=== PATIENT | male | born 1965 | race Caucasian/White ===

== ENCOUNTER 2019-07-22 10:57 | Outpatient (CLI) | payer OTHER, SELFPAY ==
--- NOTE | ~2019-07-22 | CT_ITS ---
EXAMINATION: CT abdomen pelvis wo con EXAM DATE: 07/22/2019 11:26 INDICATION: Abdominal pain. TECHNIQUE: Spiral CT of the abdomen and pelvis was performed without contrast. Axial, coronal and sag ittal images were reviewed. The dose-length product (DLP) for this examination was 721.41 mGy-cm. T he exposure was tailored according to patient size (auto mA exposure control), and iterative reconstr uction (ASIR) was used as additional dose reduction technique. There is no prior study for compariso n. FINDINGS: There is 3 mm right superior calyceal stone. No ureteral stones or other nephrolithiasis. T here is a left renal cyst measuring 3 cm. The prostate is unremarkable. The bladder is undistended at time of imaging. The liver, spleen, adrenal glands and pancreas are unremarkable. Gallbladder is unremarkable. No biliary obstruction. There is no retroperitoneal or pelvic lymphadenopathy. The re is mild scattered arteriosclerotic disease. The appendix is normal. The stomach and small bowel are unremarkable. There is expected amount of c olonic stool. There is mild scattered colonic diverticulosis. There is no adjacent inflammatory quiles ge to suggest diverticulitis. The heart is normal in size. There are no pericardial or pleural effus ions. The lung bases are unremarkable. There are no osteoblastic or osteolytic lesions identified. Chronic bilateral L5 spondylolysis without spondylolisthesis. IMPRESSION: 1. Right nephrolithiasis. 2. Mild scattered colonic diverticulosis. 3. No acute intra-abdominal findings. Reviewed, dictated and finalized at location B. OR HRIS ANALYST
--- NOTE | ~2019-07-22 | XR_ITS ---
EXAMINATION: XR abdomen/kub 1V EXAM DATE: 07/22/2019 11:34 INDICATION: Abdominal pain. Right nephrolithiasis. TECHNIQUE: Frontal projection(s) of the abdomen for interpretation. Comparison is made to prior exami nation from 03/19/2016. FINDINGS: There is expected amount of colonic stool and gas. No small bowel dilation, nonobstructiv e bowel gas pattern. Cannot identify the small right nephrolithiasis. There is no organomegaly jessica pected. The bones are unremarkable. There is no free intraperitoneal air. The lung bases are rosalba ar. IMPRESSION: Cannot identify genitourinary calcification(s) seen on CT. Reviewed, dictated and finalized at location B. OMER FACILITIES SUPERVISOR
== END 2019-07-22 10:58 | disposition home or self-care (01) ==
LOC: ANHIMG 11:07
PROVIDERS: PCP Family Medicine; Visit Provider Nurse Practitioner Family
DX: R10.9 Unspecified abdominal pain (principal); N20.0 Calculus of kidney; K57.30 Diverticulosis of large intestine without perforation or abscess without bleeding
CPT/HCPCS: 74018; 74176

== ENCOUNTER 2019-11-08 21:26 | Emergency (ER) | payer OTHER, SELFPAY ==
--- NOTE | ~2019-11-08 | CT_ITS ---
EXAMINATION: CTA chest DATE: 11/09/2019 00:37 INDICATION: Chest pain. TECHNIQUE: Computed tomographic angiography (CTA) of the chest was performed with 100 mL Omnipaque-35 0 intravenous contrast. Automated exposure control and iterative reconstruction technique were employ ed. The dose-length product was 985.92 mGy-cm. Maximum intensity projection 3D-reconstructions of the aorta and other arteries were constructed by the technologist on a separate workstation. COMPARISON: Chest CT 10/02/2007 FINDINGS: There is a chronic 5 mm nodule in right lung middle lobe, likely benign. There is minimal a telectasis in lingula. No pleural effusion. The heart size is normal. No pericardial effusion. There is a small sliding hiatal hernia. There is a 3.2 cm cyst in left kidney. Thoracic aorta is normal in caliber. No aneurysm or dissection. There is mild thoracic spondylosis. There is mild chronic anterio r wedging of T10-T12 vertebral bodies. IMPRESSION: 1. Normal thoracic aorta. 2. Small sliding hiatal hernia. Reviewed, dictated and finalized at location A.
--- NOTE | ~2019-11-08 | XR_ITS ---
EXAMINATION: XR chest 2V EXAM DATE: 11/08/2019 22:07 INDICATION: Mid to left-sided chest pressure for several days. History hypertension. TECHNIQUE: Frontal and lateral projections of the chest obtained and reviewed. Comparison is made to prior examination from 09/02/2017. FINDINGS: The lungs are clear. There are no pleural effusions. The cardiomediastinal silhouette is within normal limits. There is no pneumothorax suspected. The bones and soft tissues are unremarkab le. There is no significant interval change. IMPRESSION: No acute cardiopulmonary findings. Reviewed, dictated and finalized at location A.
[2019-11-08 21:29] VITALS: BP 129/111; PULSE 65; RESP 14; TEMP 36.9; O2SAT 99
[2019-11-08] MEDS: ASPIRIN 81 MG CHEWABLE TABLET 324 MG PO (21:35)
--- NOTE | 2019-11-08 21:35 | ECG_ITS ---
Measurements Intervals [place] Rate: 60 P: 54 AK: 163 QRS: -21 QRSD: 105 T: 41 QT: 357 QTc: 359 Interpretive Statements SINUS RHYTHM DELAYED PRECORDIAL R/S TRANSITION BASELINE WANDER- I, II, AVR, AVL, AVF, V1-V3 BORDERLINE ECG Electronically Signed On 11-09-2019 6:42:47 CDT by Bernardo Stokes D.O.
[2019-11-08 21:48] LABS: Basophils Absolute Auto 0.1 K/mm3 (0.0-0.1); Basophils Percent Auto 0.9 % (0.2-1.2); Eosinophils Absolute Auto 0.3 K/mm3 (0-0.3); Eosinophils Percent Auto 4.8 % (0-4.4); Hematocrit 47.6 % (42.0-52.0); Hemoglobin 15.9 g/dL (14.0-18.0); Immature Granulocyte Absolute 0.02 K/mm3 (0.00-0.031); Immature Granulocyte Percent A 0.3 % (0-0.5); Lymphocytes Percent Auto 39.1 % (18.3-44.2); Mean Corpuscular HGB Conc 33.4 g/dl (32-36); Mean Corpuscular Hemoglobin 30.1 pg (26-34); Mean Platelet Volume 10.8 fl (7.4-10.4); Monocytes Absolute Auto 0.6 K/mm3 (0.1-0.6); Monocytes Percent Auto 8.8 % (2.6-8.5); Neutrophils Absolute Auto 3.2 K/mm3 (1.3-6.7); Neutrophils Percent Auto 46.1 % (45.5-73.1); Platelet Count Result 216 k/mm3 (150-375); Red Blood Count 5.29 M/mm3 (4.6-6.20); Red Cell Distribution Width 13.2 % (11.5-14.5); White Blood Count 6.9 K/mm3 (4.5-10.0)
[2019-11-08 21:56] LABS: INR 0.9; Prothrombin Time 11.6 Seconds (11.1-14.7)
[2019-11-08 21:57] LABS: Partial Thromboplastin Time 30.9 SECONDS (22.3-36.8)
[2019-11-08 21:58] LABS: Blood Urea Nitrogen 20 mg/dL (9-20); Calcium 10.1 mg/dL (8.4-10.2); Carbon Dioxide 29 mmol/L (22-30); Chloride 102 mmol/L (98-107); Estimated Glomerular Filt Rate > 60; Glucose 84 mg/dL (75-110); Potassium 3.5 mmol/L (3.4-5.0); Sodium 138 mmol/L (137-145)
[2019-11-08 22:10] LABS: Troponin I < 0.012 ng/mL (0.000-0.034)
[2019-11-08 23:00] VITALS: BP 139/81; PULSE 61; RESP 15; O2SAT 97
--- NOTE | 2019-11-08 23:41 | ED.CHESTPAIN ---
HPI - Chest Pain General Chief Complaint: Chest Pain Stated Complaint: chest discomfort Time Seen by Provider: 11/08/19 23:08 Source: patient Mode of arrival: ambulatory Limitations: no limitations History of Present Illness HPI narrative: This patient is a 53 year old male with history of hypertension and Multiple sclerosis who presents for evaluation of chest pain. He states he developed midsternal chest heaviness 1 week ago. He states his pain has been interrmittent until today. He described midsternal chest heaviness that has been constant since this morning. His pain radiates to his left arm and in between his shoulder blades. He has been taking aspirin 81 mg daily since his pain has started. He also describes indigestion but he denies nasuea, vomiting or diaphoresis. He thinks his symptoms are worse with eating and they are not worse with exertion. He states he had normal cardiac catheterization MD complaint: chest heaviness Onset (ago): week(s) Timing of current episode: episodic Pain location: substernal Pain radiation: left arm and back Quality: heaviness Related Data Home Medications Medication Instructions Recorded Confirmed glatiramer 20 mg/mL subcutaneous 20 mg SUB-Q DAILY 07/22/19 syringe tamsulosin 0.4 mg capsule 0.4 mg PO DAILY 07/22/19 Allergies Allergy/AdvReac Type Severity Reaction Status Date / Time Quinolones Allergy Mild MUSCLE AND Verified 11/08/19 21:37 TENDON ACHES, DEPRESSION, MOOD CHANGES Review of Systems Review of Systems: All systems reviewed & are unremarkable except as noted in HPI and below Constitutional: Constitutional: Denies chills and Denies fever(s) Cardiovascular: Cardiovascular: Reports chest pain and Reports radiating jaw, neck or arm pain Respiratory: Respiratory: Denies cough and Denies dyspnea Gastrointestinal: Gastrointestinal: Denies abdominal pain, Denies nausea and Denies vomiting Musculoskeletal: Musculoskeletal: Reports back pain PMFSH Past Medical History Medical History (Updated 11/09/19 @ 03:01 by Marta Rojas MD) Hypertension Multiple sclerosis Social History Social History Smoking status: Smoker, status unknown Alcohol intake: never Exam Narrative: Exam Narrative: GENERAL: Well-appearing, well-nourished, and in no acute distress. HEAD: Normocephalic, atraumatic EYES: PERRLA and EOMI, conjunctiva clear without discharge THROAT:Mucous membranes moist, Oropharynx normal without erythema, exudate, peritonsillar swelling or fluctuance NECK: Supple, without lymphadenopathy or mass RESPIRATORY: No respiratory distress, Airway patent, Respirations non-labored, Clear to auscultation without rales, rhonchi or wheeze HEART: Regular rate and rhythm. No murmur heard. Normal peripheral pulses. ABDOMEN: Soft, nontender, nondistended, normal active bowel sounds. No masses. No rebound or guarding, No organomegaly. EXTREMITIES: No edema, normal strength with full range of motion. SKIN: Warm, dry, normal color without rash NEURO: Alert and oriented x3. CN 2-12 grossly intact. No focal deficits. PSYCH: Normal mood and affect. Course Reevaluation(s) Reevaluation #1: I have discussed with patient labs and CT results. Patient has been found to have esophagitis as likely cause. He states his pain has resolved . Date: 11/09/19 Time: 02:56 Vital Signs Vital signs: Vital Signs Temperature 98.4 F 11/08/19 21:29 Pulse Rate 65 11/08/19 21:29 Respiratory Rate 14 11/08/19 21:29 Blood Pressure 129/111 H 11/08/19 21:29 Pulse Oximetry 99 11/08/19 21:29 Temperature 98.4 F 11/08/19 21:29 Pulse Rate 80 11/09/19 03:00 Respiratory Rate 17 11/09/19 03:00 Blood Pressure 128/67 11/09/19 03:00 Pulse Oximetry 97 11/09/19 03:00 MDM - Chest Pain Differential Diagnosis Differential diagnosis: Likely stable angina, unstable angina p
[2019-11-08] MEDS: NITROGLYCERIN SL 0.4 MG TABLET SUBLINGUAL (23:47)
--- NOTE | 2019-11-08 23:47 | PC.NURSE ---
2347 1 0.4 mg sl nitro administered hr 59 bp 139/81 cp 2 2352 hr 66 bp 136/86 1 0.4 mg nitrp sl administered cp 1 2357 hr 59 bp 128/79 pt does not want any more meds. cp 0
[2019-11-09] VITALS: BP 128/76; PULSE 71; RESP 15; O2SAT 95
--- NOTE | 2019-11-09 01:10 | PC.NURSE ---
RN attempted to place splint on pt's arm. pt yelled no no you can't touch my arm it hurts to bad. No one is allowed to touch my arm.
[2019-11-09 01:20] LABS: Troponin I < 0.012 ng/mL (0.000-0.034)
[2019-11-09] MEDS: BELLADONNA ALK/PHENOB ELIX 10 ML, MAG HYDROX/ALUMINUM HYD/SIMETH 30 ML, LIDOCAINE HCL 2... PO (01:59)
[2019-11-09 02:00] VITALS: BP 133/88; PULSE 77; RESP 19; O2SAT 99
[2019-11-09 03:00] VITALS: BP 128/67; PULSE 80; RESP 17; O2SAT 97
== END 2019-11-09 03:00 | disposition home or self-care (01) ==
PROVIDERS: Emergency Provider General Practice; PCP Family Medicine
DX: R07.9 Chest pain, unspecified (principal); K20.9 Esophagitis, unspecified; I10 Essential (primary) hypertension; G35 Multiple sclerosis; Z79.82 Long term (current) use of aspirin; K44.9 Diaphragmatic hernia without obstruction or gangrene
CPT/HCPCS: 36415; 71046; 71275; 80048; 84484; 85025; 85610; 85730; 93005; 99284; A4565; A9270; Q9967

== ENCOUNTER 2021-12-04 11:20 | Outpatient (CLI) | payer OTHER, SELFPAY ==
--- NOTE | ~2021-12-04 | XR_ITS ---
EXAMINATION: XR abdomen/kub 1V INDICATION: Right flank pain TECHNIQUE: Supine views of the abdomen were obtained on 2 radiographs. COMPARISON: 07/22/2019 FINDINGS: A 2.3 cm stone projects in the expected location right proximal ureter between the right L3 and L4 transverse processes. No definite additional urolithiasis is identified. The bowel gas patter n is normal. IMPRESSION: 1. 2.3 cm proximal right ureteral stone. Reviewed, dictated and finalized at location A.
--- NOTE | ~2021-12-04 | CT_ITS ---
EXAMINATION: CT abdomen pelvis wo con DATE: 12/04/2021 11:50 INDICATION: Right flank pain TECHNIQUE: Computed tomography (CT) of the abdomen and pelvis was performed without intravenous contr ast. The dose-length product (DLP) was 1492.42 mGy-cm. Automated exposure control and iterative recon struction technique were employed. COMPARISON: 07/22/2019 FINDINGS: Minimal dependent atelectasis is present in the lung bases. The heart size is normal. A sta ble 4 mm nodule of the right middle lobe likely reflects old granulomatous disease. The liver, spleen , pancreas, gallbladder, and adrenal glands are normal. There is a 1.7 cm stone of the proximal right ureter which causes moderate hydroureteronephrosis. There is a 2 mm nonobstructing stone of the righ t kidney. There is a 3.4 cm cyst left kidney upper pole. No pathologically enlarged abdominal or pelv ic lymph nodes are identified. There is mild chronic circumferential wall thickening of the urinary b ladder. Colonic diverticulosis is present without evidence of diverticulitis. There is mild lumbar sp ondylosis. There is a small fat-containing umbilical hernia. IMPRESSION: 1. 1.7 cm stone of the proximal right ureter causing moderate hydroureteronephrosis. 2. Nonobstructing right nephrolithiasis. 3. Chronic circumferential wall thickening of the urinary bladder which could reflect cystitis or chr onic outlet obstruction. Reviewed, dictated and finalized at location A. IMPRESSION: 1. 1.7 cm stone of the proximal right ureter causing moderate hydroureteronephr osis. 2. Nonobstructing right nephrolithiasis. 3. Chronic circumferential wall thickening of the urinary bladder which could r eflect cystitis or chronic outlet obstruction.
== END 2021-12-04 11:21 | disposition home or self-care (01) ==
PROVIDERS: PCP Family Medicine; Visit Provider Nurse Practitioner Family
DX: R10.9 Unspecified abdominal pain (principal); N20.1 Calculus of ureter; N20.0 Calculus of kidney; R93.41 Abnormal radiologic findings on diagnostic imaging of renal pelvis, ureter, or bladder
CPT/HCPCS: 74018; 74176

== ENCOUNTER 2021-12-07 02:54 | Day surgery (SDC) | payer OTHER, SELFPAY ==
[2021-12-05 15:59] VITALS: BMI 40.5
--- NOTE | 2021-12-05 16:17 | SUR.PREOP ---
Report to the Outpatient Waiting Room, entrance under the green pavilion located off [facility], at time 1000 on date 12/07/21. OR Time: 1200. - You and your visitor will be asked a series of questions to screen for COVID 19 for your protection. - Only one visitor is allowed at this time. - The patient visitor is requested to leave or wait in car when not with patient. - A mask is required within the hospital. Patients may have clear liquids (water, carbonated beverages, clear teas, apple juice) until 3 hours prior to surgery 0900 with a maximum of 20 ounces. - No food from midnight until time of surgery - Infants may have breast milk until 4 hours before surgery, infant formula 6 hours prior to surgery. - Children will be allowed to drink immediately following surgery. If applicable, please bring a bottle or sippy cup to assist with drinking. Juice, water, soda, and popsicles are readily available. For infants on formula, please bring formula the day of surgery. Pacifiers are allowed. Take the following medications with a SIP of water the morning of surgery: metoprolol succinate Medications to discontinue per physician Aleve, Vitamins/Supplements Date to take last dose Per physician- Aleve 3 days- Vitamins/Supplements Please no make-up, nail nigerien, hairspray, perfume, deodorant, or body powder the day of surgery. No jewelry (including any body piercings) or valuables the day of surgery, leave them at home. Please take a shower or bath the night before, or the morning of, surgery with an antibacterial soap. Wear comfortable, loose fitting clothing. Children are encouraged to wear pajamas. - Jewelry must be removed prior to entering the operating room. Rings and piercings that are not removed may be cut off. - The hospital will not accept responsibility for valuables. - Please leave all valuables, including medications, at home the day of surgery. If you are going home after surgery, a licensed courtesy van driver must drive you home. - NO public transportation without another adult. - We recommend that an adult stay with you for 24 hours following discharge. - We also recommend that you do not drive, make important decision, drink alcoholic beverages, or take any drugs that were not prescribed by your health care provider for at least 24 hours after your discharge time. For Pediatric surgeries, we recommend two adults accompany the child home (only one inside the building at this time). Follow any additional instructions given to you from your surgeon. If you or anyone in your household have experienced Covid symptoms in the past week, please notify your surgeon or the nurse liaison at the phone number below for possible testing. Telephone instructions given to ___patient and asked if any additional questions and then verbalized understanding. Patient advised to call surgeon office or pre surgery nurse liaison [phone] if any additional questions.
--- NOTE | ~2021-12-07 | XR_ITS ---
XR abdomen/kub 1V 12/07/2021 10:18 Indication: Right ureteral stone. Preop ESWL. Procedure: KUB Comparison: CT dated 12/04/2021 Findings: There is a large proximal right ureteral stone at the C4 level measuring 2.2 x 1.4 cm. Adela l pattern nonobstructive. No other abnormal calcifications. No acute osseous abnormality. Impression: 1: Large proximal right ureteral stone measuring up to 2.2 cm at the L4 level. Reviewed, dictated and finalized at location A. Impression: 1: Large proximal right ureteral stone measuring up to 2.2 cm at the L4 level.
--- NOTE | 2021-12-07 10:04 | WPDHPUPDATE1 ---
History and Physical Update Update Date/Time: 12/07/21 10:04 History and Physical has been reviewed, including an updated exam of the patient. There are NO changes in the patient's condition. Risks, benefits, and alternatives have been discussed and questions answered. Patient agrees to proceed with procedure. Proceed with cysto, right retrograde pyelogram, right stent placement, lithotripsy of right ureteral calculus
--- NOTE | 2021-12-07 10:30 | ECG_ITS ---
Measurements Intervals [place] Rate: 58 P: 12 DC: 178 QRS: -21 QRSD: 90 T: 12 QT: 380 QTc: 376 Interpretive Statements SINUS BRADYCARDIA BASELINE ARTIFACT- II, III, AVF BORDERLINE ECG Electronically Signed On 12-07-2021 11:59:53 CDT by Bernardo Stokes D.O.
[2021-12-07 10:31] VITALS: BP 152/93; PULSE 64; RESP 20; TEMP 36.5; O2SAT 97
[2021-12-07 10:37] LABS: Appearance Urine Clear (Clear); Bilirubin Urine Negative (Negative); Blood Urine Trace-lysed (Negative); Color Urine Yellow (Yellow); Glucose Urine UA Negative (Negative); Ketones Urine Negative (Negative); Leukocyte Esterase Ur Negative LEU/UL (Negative); Nitrate Urine Negative (Negative); Protein Urine Negative (Negative); Urobilinogen Urine 0.2 mg/dL (<2.0)
[2021-12-07 10:43] LABS: RBC Urine 0-2 /hpf (0-2); WBC Urine 0-3 /hpf
[2021-12-07 10:46] LABS: Add Urine Microscopic? YES
--- NOTE | 2021-12-07 10:46 | WPDANESEPPF ---
Anes - Initial Pre Proc Eval Procedure: Operation Date: 12/07/21 12:00 Proposed Procedures p Right Ureteral Extracorporeal Shock Wave Lithotripsy, - Lenny Jasso MD s Cystoscopy, Right Retrograde Pyelogram, Possible Right Stone Extraction, Possible Right Stent Placement - Lenny Jasso MD Date/Time: 12/07/21 10:46 Surgeon: Lenny Jasso MD Pre Op Diagnosis: right ureteral stone Patient Data Age: 55 Gender: M Height: 1.78 m Weight: 128.1 kg Allergies Allergy/AdvReac Type Severity Reaction Status Date / Time Quinolones Allergy Mild MUSCLE AND Verified 12/05/21 15:57 TENDON ACHES, DEPRESSION, MOOD CHANGES Home Medications Medication Instructions Recorded Confirmed Type metoprolol succinate 50 mg 50 mg PO DAILY 09/06/21 12/05/21 History tablet,extended release 24 hr naproxen sodium 220 mg capsule 220 mg PO BID 09/06/21 12/05/21 History (Aleve) Laboratory Tests 12/07/21 10:23 Urine Color Yellow (Yellow) Urine Appearance Clear (Clear) Urine pH 7.0 (5.0-9.0) Ur Specific [place] 1.020 (1.001-1.035) Urine Protein Negative mg/dL mg/dL (Negative) Urine Glucose (UA) Negative mg/dL mg/dL (Negative) Urine Ketones Negative mg/dL mg/dL (Negative) Ur Blood (Man) Trace-lysed (Negative) Urine Nitrate Negative (Negative) Urine Bilirubin Negative (Negative) Urine Urobilinogen 0.2 mg/dL mg/dL (<2.0) Leukocyte Esterase Rfl Negative ALL/UL ALL/UL (Negative) Patient hx anesthesia problems: none Family hx anesthesia problems: none Results Review: All pre-operative results and documents have been reviewed as part of the pre-operative evaluation. [facility] Past Medical History Medical History BMI greater than 40 History of torn meniscus of left knee Hypertension Multiple sclerosis Screen for colon cancer Screening for lipid disorders Family History Family History Mother Hypertension Family history of diabetes mellitus in first degree relative Grandparent Family history of heart disease in male family member before age 55 Other Family history of malignant neoplasm of uterus Social History Social History Smoking packs per day: 1 Smoking cigarettes per day: 20.0 Years smoked: 20 Smoking pack-years: 20.00 Smoking status: Former smoker Tobacco type: cigarettes Smokeless tobacco user: chewing tobacco Alcohol intake: current Alcohol use details: 2 per month Last use: 2011 Living arrangements: with family Spiritual care concerns: No Anes - Eval Final PreProcedure Day of Procedure 12/07/21 10:46 Patient weight: morbidly obese Heart: regular rate and rhythm Lungs: clear to auscultation Airway: Mallampati scale class II Neurological: alert and oriented Last oral intake: >/= 8 hours ASA classification: III Emergent: no Anesthetic plan: proceed Anesthesia type and monitoring: general LMA and standard monitoring Results Review: All pre-operative results and documents have been reviewed as part of the pre-operative evaluation. Informed Consent: The patient's anesthetic plan and its attendant risks and benefits were discussed with the patient/family/POA. Questions were solicited and answers provided to the satisfaction of the patient/family/POA.
[2021-12-07] MEDS: LACTATED RINGERS 1,000 ML 30 ML IV CONT (10:50)
[2021-12-07 11:16] LABS: INR 0.9; Prothrombin Time 12.2 Seconds (11.1-14.7)
[2021-12-07 11:17] LABS: Partial Thromboplastin Time 33.1 SECONDS (22.3-36.8)
--- NOTE | 2021-12-07 11:26 | SUR.PREOP ---
1100-CARDIOLOGY NOTIFIED PT READY FOR EKG. 1125-CARDIOLOGY RENOTIFIED TO OBTAIN EKG. 1127-CARDIOLOGY HERE TO OBTAIN EKG.
[2021-12-07] MEDS: ceFAZolin 3 GM/D5W 100 ML 100 ML IVPB (11:40)
--- NOTE | 2021-12-07 12:21 | W.PM.PROC2 ---
Procedure Note - Detailed Date of Procedure 12/07/21 Pre-op Diagnosis right ureteral stone Post-op Diagnosis Same Procedure Performed Cystoscopy, right retrograde pyelogram, right ureteral stent placement 4.8 Italian contour, lithotripsy of right ureteral calculus 2 cm Surgeon Lenny Jasso MD Anesthesia General Description of Procedure Patient is taken to the operative suite correctly identified. Once anesthesia was obtained he was prepped and draped the usual sterile fashion. Sixteen Italian flexible scope was inserted into the urethra. No urethral strictures. Prostate has some minimal lateral lobe hypertrophy. Bladder itself has no evidence of tumors. The right ureteral orifice was cannulated with a guidewire. It was slightly difficult to get the wire past the stone. We thus placed a [place] in and were able to manipulate an angled Glidewire past the stone. The [place] catheter was then advanced up into the renal pelvis. Pyelogram was performed. Bentson wire was then placed. 4.8 Italian contour stent was then placed with the proximal end in the renal pelvis and the distal in the bladder. 2% viscous lidocaine was inserted in the patient's urethra. Patient was then repositioned. The stone was localized in both planes. Three thousand shocks were given to the stone. Patient tolerated procedure well without any complications and was taken recovery stable condition. A follow-up in 7-10 days with a KUB. Drains Yes Packing No Pathology None sent Complications No immediate complications Condition Stable Disposition PACU
[2021-12-07 12:38] VITALS: BP 169/104; PULSE 98; RESP 22; TEMP 36.1; O2SAT 96
[2021-12-07 12:50] VITALS: BP 155/97; PULSE 73; RESP 14; O2SAT 99
[2021-12-07 12:59] VITALS: BP 155/94; PULSE 63; RESP 14; O2SAT 92
[2021-12-07 13:05] VITALS: BP 154/97; PULSE 61; RESP 16
[2021-12-07 13:35] VITALS: BP 143/90; PULSE 60; RESP 16
== END 2021-12-07 14:05 | disposition home or self-care (01) ==
PROVIDERS: PCP Family Medicine; Visit Provider Urology
PROC: (CPT 50590; principal; 2021-12-07 12:00)
PROC: (CPT 52352; 2021-12-07 12:00)
DX: N20.1 Calculus of ureter (principal); I10 Essential (primary) hypertension; G35 Multiple sclerosis; F17.220 Nicotine dependence, chewing tobacco, uncomplicated; E66.01 Morbid (severe) obesity due to excess calories; Z68.41 Body mass index [BMI] 40.0-44.9, adult
CPT/HCPCS: 52332; 50590; 36415; 74018; 81001; 85610; 85730; 93005; A9270; C1758; C1769; C2617; J0690; J1100; J2405; J2704; J7030; J7120

== ENCOUNTER 2021-12-19 08:39 | Outpatient (CLI) | payer OTHER, SELFPAY ==
--- NOTE | ~2021-12-19 | XR_ITS ---
XR abdomen/kub 1V DATE: 12/19/2021 08:57 INDICATION: Right flank pain.. TECHNIQUE: AP projection, 2 views COMPARISON: 12/07/2021 KUB FINDINGS: Right internal urinary stent is present in the proximal pigtail overlying the lower pole ri ght kidney, the distal pigtail overlying the right side of the urinary bladder. Approximately 10 x 22 mm calcified calculus is situated adjacent to the stent overlying the right ure ter at the mid to upper L3 level. No visceromegaly is evident. No other significant abnormal calcification is detected. No evidence of bowel obstruction. The lung bases appear clear. Mild degenerative changes of the thoracic and lumbar spine. IMPRESSION: Right internal urinary stent 10 x 22 mm calcified calculus of proximal right ureter Reviewed, dictated and finalized at Location A. Reviewed, dictated and finalized at location A.
== END 2021-12-19 08:40 | disposition home or self-care (01) ==
LOC: ANHIMG 08:41
PROVIDERS: PCP Family Medicine; Visit Provider Nurse Practitioner Family
DX: M47.815 Spondylosis without myelopathy or radiculopathy, thoracolumbar region (principal); R10.9 Unspecified abdominal pain; N20.1 Calculus of ureter
CPT/HCPCS: 74018

== ENCOUNTER 2021-12-25 00:11 | Day surgery (SDC) | payer OTHER, SELFPAY ==
[2021-12-19 12:31] VITALS: BMI 40.9
--- NOTE | 2021-12-19 12:42 | PC.NURSE ---
Report to the Outpatient Waiting Room, entrance under the green pavilion located off [facility], at time 0600 on date 12/25/21. OR Time: 0730. - You and your visitor will be asked a series of questions to screen for COVID 19 for your protection. - Only one visitor is allowed at this time. - The patient visitor is requested to leave or wait in car when not with patient. - A mask is required within the hospital. Patients may have clear liquids (water, carbonated beverages, clear teas, apple juice) until 3 hours prior to surgery with a maximum of 20 ounces. - No food from midnight until time of surgery Take the following medications with a SIP of water the morning of surgery: METOPROLOL Medications to discontinue per physician: KELVIN Date to take last dose: PER DR. FRANCIS Please no make-up, nail latvian, hairspray, perfume, deodorant, or body powder the day of surgery. No jewelry (including any body piercings) or valuables the day of surgery, leave them at home. Please take a shower or bath the night before, or the morning of, surgery with an antibacterial soap. Wear comfortable, loose fitting clothing. - Jewelry must be removed prior to entering the operating room. Rings and piercings that are not removed may be cut off. - The hospital will not accept responsibility for valuables. - Please leave all valuables, including medications, at home the day of surgery. If you are going home after surgery, a licensed transit mixer driver must drive you home. - NO public transportation without another adult. - We recommend that an adult stay with you for 24 hours following discharge. - We also recommend that you do not drive, make important decision, drink alcoholic beverages, or take any drugs that were not prescribed by your health care provider for at least 24 hours after your discharge time. Follow any additional instructions given to you from your surgeon. If you or anyone in your household have experienced Covid symptoms in the past week, please notify your surgeon or the nurse liaison at the phone number below for possible testing. Telephone instructions given to PT - GABBY PENDLETON and asked if any additional questions and then verbalized understanding. Patient advised to call surgeon office or pre surgery nurse liaison [phone] if any additional questions.
--- NOTE | 2021-12-24 14:36 | WPDANESEPPF ---
Anes - Initial Pre Proc Eval Procedure: Operation Date: 12/25/21 07:30 Proposed Procedures p Cystoscopy, Right Ureteroscopy, Right Retrograde Pyelogram, Right Stone Extraction, Right Stent Exchange, Holmium Laser Lithotripsy - Lenny Jasso MD Date/Time: 12/24/21 14:36 Surgeon: Lenny Jasso MD Pre Op Diagnosis: right kidney stones Patient Data Age: 56 Gender: M Height: 1.78 m Weight: 129.5 kg Allergies Allergy/AdvReac Type Severity Reaction Status Date / Time Quinolones Allergy Mild MUSCLE AND Verified 12/25/21 06:37 TENDON ACHES, DEPRESSION, MOOD CHANGES Home Medications Medication Instructions Recorded Confirmed Type metoprolol succinate 50 mg 50 mg PO DAILY 09/06/21 12/25/21 History tablet,extended release 24 hr naproxen sodium 220 mg capsule 220 mg PO BID 09/06/21 12/19/21 History (Aleve) Patient hx anesthesia problems: none Family hx anesthesia problems: none Results Review: All pre-operative results and documents have been reviewed as part of the pre-operative evaluation. [facility] Past Medical History Medical History BMI greater than 40 History of torn meniscus of left knee Hypertension Multiple sclerosis Screen for colon cancer Screening for lipid disorders Family History Family History Mother Hypertension Family history of diabetes mellitus in first degree relative Grandparent Family history of heart disease in male family member before age 55 Other Family history of malignant neoplasm of uterus Social History Social History Smoking packs per day: 1 Smoking cigarettes per day: 20.0 Years smoked: 20 Smoking pack-years: 20.00 Smoking status: Former smoker Tobacco type: cigarettes Smokeless tobacco user: chewing tobacco Smoking end date: 06/09/11 Alcohol intake: current Alcohol use details: 2/MONTH Substance use: never Substance use type: does not use Last use: 2011 Living arrangements: with family Spiritual care concerns: No Anes - Eval Final PreProcedure Day of Procedure 12/24/21 14:36 Patient weight: morbidly obese Heart: regular rate and rhythm Lungs: clear to auscultation Airway: Mallampati scale class II Neurological: alert and oriented Last oral intake: >/= 8 hours ASA classification: III Emergent: no Anesthetic plan: proceed Anesthesia type and monitoring: general LMA and standard monitoring Results Review: All pre-operative results and documents have been reviewed as part of the pre-operative evaluation. Informed Consent: The patient's anesthetic plan and its attendant risks and benefits were discussed with the patient/family/POA. Questions were solicited and answers provided to the satisfaction of the patient/family/POA.
[2021-12-25] VITALS (7 sets, daily range): BP systolic 122–157; BP diastolic 81–100; PULSE 61–96; RESP 12–14; TEMP 36.4; O2SAT 94–100
--- NOTE | ~2021-12-25 | XR_ITS ---
EXAMINATION: XR retrograde pyelo w/stent RT DATE: 12/25/2021 08:42 INDICATION: Right internal ureteral stent placement TECHNIQUE: Fluoroscopic images from a right internal ureteral stent placement are submitted for ynes manriquez 25 seconds of fluoroscopy time. 9 fluoroscopic images FINDINGS: There is a right double-J internal ureteral stent projecting in expected position, with proximal [place] loop at the level of the renal pelvis and distal loop in the pelvis within the bladder lumen. IMPRESSION: 1. Right internal ureteral stent placement. Please refer to real-time procedural findings for mukul kaminski. Reviewed, dictated and finalized at location A. IMPRESSION: 1. Right internal ureteral stent placement. Please refer to real-time procedu ral findings for details.
[2021-12-25] MEDS: LACTATED RINGERS 1,000 ML 30 ML IV CONT ×2 (06:35→08:43)
--- NOTE | 2021-12-25 07:23 | WPDHPUPDATE1 ---
History and Physical Update Update Date/Time: 12/25/21 07:23 History and Physical has been reviewed, including an updated exam of the patient. There are NO changes in the patient's condition. Risks, benefits, and alternatives have been discussed and questions answered. Patient agrees to proceed with procedure.
[2021-12-25] MEDS: ceFAZolin 3 GM/D5W 100 ML 100 ML IVPB (07:29)
[2021-12-25] MEDS: LIDOCAINE HCL 2% GEL UROJET 10 ML PKG MUCOUS MEM (08:14)
--- NOTE | 2021-12-25 08:38 | P.OP_ITS ---
Procedure Note - Detailed Date of Procedure 12/25/21 Pre-op Diagnosis Right ureteral calculus almost 2 cm Post-op Diagnosis Same Procedure Performed Cystoscopy, right retrograde pyelogram, right ureteroscopy with holmium laser, stone extraction, right ureteral stent exchange 4.8 [place] contour Surgeon Lenny Jasso MD Anesthesia General Description of Procedure Patient is taken to the operative suite and correctly identified. Once anesthesia was obtained was placed in dorsal lithotomy position and prepped and draped usual sterile fashion. Twenty-two [place] scope inserted into the bladder. This stent which was previously placed was grasped and brought out the meatus. Glidewire was passed through the stent up into the renal pelvis. Ureteral access sheath was then placed. Mini flexible ureteral scope was inserted. The stone was too large to grasp. Using a 272 micron fiber I dusted the stone. We did use an escape basket to retrieve some of the larger pieces. Most of it was too small to grasp. Reinspection revealed no significant stone burden. Pyelogram was then performed confirm placement of the stent. 4.8 [place] contour stent was then placed with the proximal end coiled in the renal pelvis and the distal in the bladder. Bladder was drained. 2% viscous lidocaine was inserted into the urethra. Patient is taken recovery stable condition. He will follow up in a week's time for stent removal with cystoscopy in the office Drains Yes Packing No Pathology Yes Complications No immediate complications Condition Stable Disposition PACU
--- NOTE | 2021-12-25 09:19 | SUR.PHASEI ---
0920 DR BRIZUELA AWARE OF BP 139/100 & HR 63- NO ORDERS TO TREAT AT THIS TIME.
[2021-12-25] MEDS: oxyCODONE HCL (*CRX) 5 MG TAB IR PO (09:49)
== END 2021-12-25 10:02 | disposition home or self-care (01) ==
PROVIDERS: PCP Family Medicine; Visit Provider Urology
PROC: (CPT 52352; principal; 2021-12-25 07:30)
DX: N20.1 Calculus of ureter (principal); I10 Essential (primary) hypertension; G35 Multiple sclerosis; F17.220 Nicotine dependence, chewing tobacco, uncomplicated; E66.01 Morbid (severe) obesity due to excess calories; Z68.41 Body mass index [BMI] 40.0-44.9, adult
CPT/HCPCS: 52356; 74420; 82365; 88300; A9270; C1769; C1894; C2617; J0690; J1100; J1885; J2250; J2405; J2704; J3010; J7120

== ENCOUNTER 2022-01-07 16:01 | Outpatient (CLI) | payer OTHER, SELFPAY ==
--- NOTE | ~2022-01-07 | XR_ITS ---
EXAM: XR knee RT 3V DATE: 01/07/2022 16:31 HISTORY: anterior rt knee pain.pt says knee filled w fluid. no injury . COMPARISON: None available. FINDINGS: Normal mineralization. No fracture or dislocation. No lytic or blastic lesion. Mild medial joint space narrowing. Mild tricompartmental osteophytosis. No erosion or periosteal change. Soft ti ssues within normal limits. IMPRESSION: Mild tricompartmental osteoarthritis of the right knee. Reviewed, dictated and finalized at location K.
[2022-01-07 16:17] LABS: Basophils Absolute Auto 0.1 K/mm3 (0.0-0.1); Basophils Percent Auto 0.6 % (0.2-1.2); Eosinophils Absolute Auto 0.3 K/mm3 (0-0.3); Eosinophils Percent Auto 3.7 % (0-4.4); Hematocrit 47.9 % (42.0-52.0); Hemoglobin 15.5 g/dL (14.0-18.0); Immature Granulocyte Absolute 0.01 K/mm3 (0.00-0.031); Immature Granulocyte Percent A 0.1 % (0-0.5); Lymphocytes Absolute Auto 2.64 K/mm3 (0.9-3.2); Lymphocytes Percent Auto 31.4 % (18.3-44.2); Mean Corpuscular HGB Conc 32.4 g/dl (32-36); Mean Corpuscular Volume 89.5 fl (80-100); Mean Platelet Volume 11.2 fl (7.4-10.4); Monocytes Absolute Auto 0.8 K/mm3 (0.1-0.6); Monocytes Percent Auto 8.9 % (2.6-8.5); Neutrophils Absolute Auto 4.7 K/mm3 (1.3-6.7); Neutrophils Percent Auto 55.3 % (45.5-73.1); Platelet Count Result 194 k/mm3 (150-375); Red Blood Count 5.35 M/mm3 (4.6-6.20); Red Cell Distribution Width 13.5 % (11.5-14.5); White Blood Count 8.4 K/mm3 (4.5-10.0)
[2022-01-07 16:29] LABS: Rheumatoid Factor < 8.6 IU/ML (<12)
[2022-01-07 16:35] LABS: Blood Urea Nitrogen 23 mg/dL (9-20); CRP 0.9 mg/dL (<1.0); Calcium 9.5 mg/dL (8.4-10.2); Carbon Dioxide 25 mmol/L (22-30); Chloride 100 mmol/L (98-107); Estimated Glomerular Filt Rate > 60; Glucose 102 mg/dL (65-110); Potassium 4.5 mmol/L (3.4-5.0); Uric Acid 6.1 mg/dL (3.5-8.5)
[2022-01-07 16:47] LABS: Anion Gap 12 mmol/L (8-16); Sodium 137 mmol/L (137-145)
[2022-01-07 17:05] LABS: Erythrocyte Sedimentation Rate 12 mm/hr (0-20)
== END 2022-01-07 16:02 | disposition home or self-care (01) ==
LOC: ANHIMG 16:03
PROVIDERS: PCP Family Medicine; Visit Provider Nurse Practitioner Family
DX: M25.469 Effusion, unspecified knee (principal); M25.569 Pain in unspecified knee; M17.11 Unilateral primary osteoarthritis, right knee
CPT/HCPCS: 36415; 73562; 80048; 84550; 85025; 85652; 86038; 86039; 86140; 86430

== ENCOUNTER 2022-04-10 00:20 | Day surgery (SDC) | payer OTHER, SELFPAY ==
[2022-03-28 10:46] VITALS: BMI 40.8
--- NOTE | 2022-04-09 17:09 | P.HP_ITS ---
History of Present Illness History of Present Illness Consent: Risks, benefits, and alternatives have been discussed and questions answered. Patient agrees to proceed with procedure. Chief complaint: neoplasm screening Narrative: Jose Antonio Kapadia is a 56 year old male who was referred for colon cancer screen Review of Systems Review of Systems: All systems reviewed & are unremarkable except as noted in HPI and below PMFSH Past Medical History Medical History BMI greater than 40 History of torn meniscus of left knee Hypertension Kidney stone Multiple sclerosis Screen for colon cancer Screening for lipid disorders Surgical History Surgical History H/O lithotripsy Family History Family History Mother Hypertension Family history of diabetes mellitus in first degree relative Diabetes mellitus Grandparent Family history of heart disease in male family member before age 55 Father Cancer of neck Sibling Diabetes mellitus Other Family history of malignant neoplasm of uterus Social History Social History Smoking packs per day: 1.5 Smoking cigarettes per day: 30.0 Years smoked: 20 Smoking pack-years: 30.00 Smoking status: Former smoker Tobacco type: cigarettes and cigars Smoking end date: 06/09/11 Alcohol intake: current Drinks per week: 3 Alcohol use details: SOCIAL Substance use: never Substance use type: does not use Last use: 2011 Living arrangements: with family 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 Gender identity (if verbalized by the patient): Male Spiritual care concerns: No Meds Home Medications and Allergies Home Medications Medication Instructions Recorded Confirmed Type baclofen 10 mg tablet 10 mg PO DAILY 01/07/22 04/10/22 History tramadol 50 mg tablet 50 mg PO BID PRN pain #14 tabs 01/07/22 04/10/22 Rx aspirin 81 mg capsule,delayed 81 mg PO DAILY 03/28/22 04/10/22 History release metoprolol succinate 50 mg 50 mg PO DAILY 04/10/22 04/10/22 History tablet,extended release 24 hr Allergies Allergy/AdvReac Type Severity Reaction Status Date / Time Quinolones Allergy Mild MUSCLE AND Verified 04/10/22 08:40 TENDON ACHES, DEPRESSION, MOOD CHANGES Exam Resp: Auscultation: clear to auscultation bilaterally Cardio: Rate: regular rate Rhythm: regular rhythm GI: GI Palp: Yes Soft to palpation and No Tenderness to palpation present (GI) Assessment and Plan Assessment and plan (1) Screen for colon cancer: Code(s): Z12.11 - Encounter for screening for malignant neoplasm of colon Status: Acute Assessment and Plan: Colonoscopy with possible biopsy or polypectomy or cautery or injection of arreola bstances.
[2022-04-10 08:42] VITALS: BP 126/52; PULSE 74; RESP 18; TEMP 36; O2SAT 97
[2022-04-10] MEDS: LACTATED RINGERS 1,000 ML 150 ML IV CONT (08:45)
--- NOTE | 2022-04-10 08:58 | WPDANESEPPF ---
Anes - Initial Pre Proc Eval Procedure: Operation Date: 04/10/22 10:00 Proposed Procedures p Screening Colonoscopy - Gerson Pyle MD Date/Time: 04/10/22 08:58 Surgeon: Gerson Pyle MD Pre Op Diagnosis: neoplasm screening Patient Data Age: 56 Gender: M Height: 1.78 m Weight: 129.8 kg Last Vital Signs Temp 96.8 F L 04/10/22 08:42 Pulse 74 04/10/22 08:42 Resp 18 04/10/22 08:42 BP 126/52 L 04/10/22 08:42 Pulse Ox 97 04/10/22 08:42 O2 Del Method Room Air 04/10/22 08:42 Allergies Allergy/AdvReac Type Severity Reaction Status Date / Time Quinolones Allergy Mild MUSCLE AND Verified 04/10/22 08:40 TENDON ACHES, DEPRESSION, MOOD CHANGES Home Medications Medication Instructions Recorded Confirmed Type baclofen 10 mg tablet 10 mg PO DAILY 01/07/22 04/10/22 History tramadol 50 mg tablet 50 mg PO BID PRN pain #14 tabs 01/07/22 04/10/22 Rx aspirin 81 mg capsule,delayed 81 mg PO DAILY 03/28/22 04/10/22 History release metoprolol succinate 50 mg 50 mg PO DAILY 04/10/22 04/10/22 History tablet,extended release 24 hr Patient hx anesthesia problems: none Family hx anesthesia problems: none Results Review: All pre-operative results and documents have been reviewed as part of the pre-operative evaluation. [facility] Past Medical History Medical History BMI greater than 40 History of torn meniscus of left knee Hypertension Kidney stone Multiple sclerosis Screen for colon cancer Screening for lipid disorders Surgical History Surgical History H/O lithotripsy Family History Family History Mother Hypertension Family history of diabetes mellitus in first degree relative Diabetes mellitus Grandparent Family history of heart disease in male family member before age 55 Father Cancer of neck Sibling Diabetes mellitus Other Family history of malignant neoplasm of uterus Social History Social History Smoking packs per day: 1.5 Smoking cigarettes per day: 30.0 Years smoked: 20 Smoking pack-years: 30.00 Smoking status: Former smoker Tobacco type: cigarettes and cigars Smoking end date: 06/09/11 Alcohol intake: current Drinks per week: 3 Alcohol use details: SOCIAL Substance use: never Substance use type: does not use Last use: 2011 Living arrangements: with family 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 Informed Consent: The patient's anesthetic plan and its attendant risks and benefits were discussed with the patient/family/POA. Questions were solicited and answers provided to the satisfaction of the patient/family/POA.
[2022-04-10 10:20] VITALS: BP 122/100; PULSE 76; RESP 18; O2SAT 98
[2022-04-10 10:30] VITALS: BP 133/80; PULSE 73; RESP 20; O2SAT 98
[2022-04-10 10:40] VITALS: BP 128/83; PULSE 73; RESP 24; O2SAT 97
== END 2022-04-10 10:48 | disposition home or self-care (01) ==
PROVIDERS: PCP Family Medicine; Visit Provider Internal Medicine Gastroenterology
PROC: 0DJD8ZZ Inspection of Lower Intestinal Tract, Via Natural or Artificial Opening Endoscopic (ICD-10-PCS; CPT 45378; principal; 2022-04-10 10:00)
DX: Z12.11 Encounter for screening for malignant neoplasm of colon (principal); K57.30 Diverticulosis of large intestine without perforation or abscess without bleeding; I10 Essential (primary) hypertension; G35 Multiple sclerosis; E66.01 Morbid (severe) obesity due to excess calories; Z68.41 Body mass index [BMI] 40.0-44.9, adult; Z79.82 Long term (current) use of aspirin; Z87.891 Personal history of nicotine dependence
CPT/HCPCS: 45378; J2704; J7120

== ENCOUNTER → 2023-03-12 15:33 | Outpatient (CLI) | payer BC, SELFPAY ==
--- NOTE | ~2023-03-12 | XR_ITS ---
XR hip LT 2V w AP pelvis DATE: 03/12/2023 15:54 INDICATION: Left hip pain TECHNIQUE: AP pelvis. AP and lateral views of left hip. COMPARISON: None FINDINGS: No pelvic fracture or bone destruction is detected. Normal alignment at the pubic symphysis and sacral iliac joints. Hip joint spaces are symmetric and relatively preserved. No fracture, dislocation, avascular necrosis or bone destruction of the left hip. IMPRESSION: No significant abnormality Reviewed, dictated and finalized at location B. IMPRESSION: No significant abnormality
== END ==
PROVIDERS: PCP Chiropractor; Visit Provider Physician Assistant Medical
DX: M25.552 Pain in left hip (principal)
CPT/HCPCS: 73502

== ENCOUNTER 2024-05-03 13:34 | Outpatient (CLI) | payer BC, SELFPAY ==
--- NOTE | ~2024-05-03 | XR_ITS ---
XR abdomen/kub 1V Ordering provider: Charlee Mary, WORM PICKER History: . HX OF KIDNEY STONES . Comparison: None. FINDINGS: BOWEL: Nonobstructive bowel gas pattern. ORGANOMEGALY: None. SIGNIFICANT PATHOLOGIC CALCIFICATIONS: Stone in the left kidney midpole. Tiny stones in the left kidn ey lower pole. OTHER: No free air is seen under the diaphragm. IMPRESSION: NO ACUTE ABDOMINAL FINDINGS. Left kidney stones. Reviewed, dictated and finalized at location A. ANENT WAVER
--- NOTE | ~2024-05-03 | CT_ITS ---
EXAMINATION: CT abdomen pelvis wo con DATE: 05/03/2024 13:59 INDICATION: Kidney stones. TECHNIQUE: Computed tomography (CT) of the abdomen and pelvis was performed without intravenous contr ast. Automated exposure control and iterative reconstruction technique were employed. The dose-length product was 1088.57 mGy-cm. COMPARISON: CT abdomen and pelvis 12/04/2021 FINDINGS: The visualized portions of the lung bases demonstrate a stable 5 mm nodule in right middle lobe, likely benign. No pleural effusion. The heart size is normal. No pericardial effusion. The live r, gallbladder, spleen, pancreas, adrenal glands, and right kidney are normal. There is a 4.0 cm cyst in left kidney. There are 4 stones in left kidney measuring up to 12 mm. The prostate is moderately enlarged. There is diverticulosis of the colon without evidence of diverticulitis. The appendix is no rmal. There are no dilated loops of bowel. There are no pathologically enlarged lymph nodes. There is no free intraperitoneal fluid. There are chronic bilateral L5 pars defects. There is mild thoracic a nd lumbar spondylosis. There is mild chronic anterior wedging of multiple vertebral bodies. IMPRESSION: 1. Nonobstructing left kidney stones. Reviewed, dictated and finalized at location A. ANIC WELDER
== END 2024-05-03 13:35 | disposition home or self-care (01) ==
PROVIDERS: PCP Family Medicine; Visit Provider Nurse Practitioner Family
DX: N20.0 Calculus of kidney (principal); Z87.442 Personal history of urinary calculi
CPT/HCPCS: 74018; 74176

== ENCOUNTER 2024-05-27 11:30 | Outpatient (CLI) | payer BC, SELFPAY ==
--- NOTE | 2024-05-27 11:30 | ECG_ITS ---
Test Date: 2024-05-27 11:59:22 Measurements Intervals [place] Rate: 73 P: -3 FL: 145 QRS: -34 QRSD: 96 T: 8 QT: 372 QTc: 411 Interpretive Statements SINUS RHYTHM MARKED LEFT AXIS DEVIATION [QRS AXIS < -30] No previous ECG available for comparison Electronically Signed On 05-28-2024 11:55:49 ENAMEL DRIER by Edith Workman M.D.
[2024-05-27 13:10] LABS: INR 0.9; Prothrombin Time 12.1 Seconds (11.1-14.7)
[2024-05-27 13:11] LABS: Partial Thromboplastin Time 31.2 Seconds (22.3-36.8)
== END 2024-05-27 11:31 | disposition home or self-care (01) ==
LOC: ANHSURGERY 11:34
PROVIDERS: PCP Family Medicine; Visit Provider Urology
DX: N20.0 Calculus of kidney (principal); I10 Essential (primary) hypertension; R94.31 Abnormal electrocardiogram [ECG] [EKG]
CPT/HCPCS: 36415; 85610; 85730; 87086; 93005

== ENCOUNTER 2024-06-01 11:34 | Outpatient (CLI) | payer BC, SELFPAY ==
--- NOTE | ~2024-06-01 | MR_ITS ---
EXAMINATION: MR knee RT wo con DATE: 06/01/2024 12:12 INDICATION: Anterior medial right knee pain. TECHNIQUE: Magnetic resonance imaging (MRI) of the right knee was performed without intravenous contr ast. Sequences included axial PD-weighted FS FSE, coronal PD-weighted FSE and PD-weighted FS FSE, sag ittal PD-weighted FSE, and sagittal T2-weighted FS FSE. COMPARISON: Right knee MRI 02/12/2017, radiographs 01/07/2022 FINDINGS: Medial compartment: There is a complex tear involving body and posterior horn of medial meniscus. There is partial-thickn ess cartilage loss of femoral condyle, deep at the posterior and central articular surface. There is shallow partial-thickness cartilage loss of tibial condyle. Osteophytes are noted. Lateral compartment: Lateral meniscus is normal. There is cartilage surface irregularity of tibial condyle. There is deep partial-thickness cartilage loss of femoral condyle involving the central articular surface. Osteoart hritis are noted. Patellofemoral compartment: There is shallow partial-thickness cartilage loss of patella and trochlea. Osteophytes are noted. Ligaments and tendons: The anterior and posterior cruciate ligaments are normal. There are changes of prior sprains of media l collateral ligament and fibular collateral ligament characterized by thickening and increased signa l intensity proximally. There is mild patellar tendinopathy. Fluid: There is a small knee joint effusion. There is mild prepatellar and superficial infrapatellar bursiti s. IMPRESSION: 1. Moderate chondrosis of medial and lateral compartments and mild chondrosis of patellofemoral isael rtment. 2. Tear of medial meniscus. Reviewed, dictated and finalized at location A. ASSORTER IMPRESSION: 1. Moderate chondrosis of medial and lateral compartments and mild chondrosis o f patellofemoral compartment. 2. Tear of medial meniscus.
== END 2024-06-01 11:35 | disposition home or self-care (01) ==
LOC: MICIMG 11:34
PROVIDERS: PCP Family Medicine
DX: S83.241A Other tear of medial meniscus, current injury, right knee, initial encounter (principal); X58.XXXA Exposure to other specified factors, initial encounter
CPT/HCPCS: 73721

== ENCOUNTER 2024-06-04 00:31 | Day surgery (SDC) | payer BC, SELFPAY ==
[2024-05-26 10:24] VITALS: BMI 40.2
--- NOTE | 2024-05-26 10:30 | PC.NURSE ---
Report to the Outpatient Waiting Room, entrance under the green pavilion located off [facility], at time _0830_ on date _[id number]_. Planned Procedure Time: _1030_.? Time changes happen often and if your time is changed the preop area will call you the afternoon before. - You and your visitor will be asked to self-screen and do not enter if you have any COVID symptoms. Please call surgeon if you need to reschedule. - A mask is optional within the hospital at this time. Patients may have clear liquids (water, carbonated beverages, clear teas, apple juice) until 3 hours prior to surgery with a maximum of 20 ounces. - No food from midnight until time of surgery and no smoking. This includes no chewing gum, candy or mints. Take only the following medications with a SIP of water on the morning of surgery: ___Metoprolol and if needed Tramadol DO NOT STOP ANY OF YOUR OTHER PRESCRIPTION MEDICATIONS PRIOR TO SURGERY EXCEPT THE FOLLOWING Medications to discontinue per physician Amando says he's stopping Meloxicam and aspirin [id number] Please no make-up, nail qatari, hairspray, perfume, deodorant, or body powder the day of surgery.? No jewelry (including any body piercings) or valuables the day of surgery, leave them at home.? Please take a shower or bath the night before, or the morning of, surgery with an antibacterial soap.? Wear comfortable, loose fitting clothing.? - Jewelry must be removed prior to entering the operating room.? Rings and piercings that are not removed may be cut off. - The hospital will not accept responsibility for valuables.? - Please leave all valuables, including medications, at home the day of surgery. If you are going home after surgery, a licensed regional refrigerated cdl truck driver must drive you home.? - NO public transportation without another adult if you receive anesthesia. - We recommend that an adult stay with you for 24 hours following discharge. - We also recommend that you do not drive, make important decision, drink alcoholic beverages, or take any drugs that were not prescribed by your health care provider for at least 24 hours after your discharge time. Follow any additional instructions given to you from your surgeon. Telephone instructions given to _Amando_and asked if any additional questions and then verbalized understanding. Patient advised to call surgeon office or pre surgery nurse liaison [phone] if any additional questions.
--- NOTE | 2024-05-27 17:01 | P.HP_ITS ---
History of Present Illness History of Present Illness Consent: Risks, benefits, and alternatives have been discussed and questions answered. Patient agrees to proceed with procedure. Chief complaint: left renal kidney stone Narrative: Jose Antonio Kapadia is a 58 year old male Who has been treated for urolithiasis by Dr. Jasso in the past. He recently had transient flank pain and hematuria. Imaging demonstrates a 12 mm calcified stone in his left kidney and some smaller punctate stones in his left kidney. After discussion of options he elects for left ESWL. Patient is aware of the risks including, but not limited to, adverse cardiopulmonary events, need for additional procedures, hematuria perinephric hematoma. Review of Systems Cardiovascular: Cardiovascular: Denies chest pain, Denies lightheadedness, Denies palpitations and Denies dyspnea Respiratory: Respiratory: Denies dyspnea Gastrointestinal: Gastrointestinal: Denies diarrhea, Denies nausea and Denies vomiting Genitourinary: Genitourinary: Denies hematuria and Denies dysuria Endocrine: Endocrine: Denies palpitations PMFSH Past Medical History Medical History BMI 36.0-36.9,adult BMI 37.0-37.9, adult BMI greater than 40 History of torn meniscus of left knee Hypertension Kidney stone Multiple sclerosis Screen for colon cancer Screening for lipid disorders Surgical History Surgical History H/O lithotripsy Family History Family History Mother Hypertension Family history of diabetes mellitus in first degree relative Diabetes mellitus Grandparent Family history of heart disease in male family member before age 55 Father Cancer of neck Sibling Diabetes mellitus Other Family history of malignant neoplasm of uterus Social History Social History Smoking packs per day: 1 Smoking cigarettes per day: 20.0 Years smoked: 15 Smoking pack-years: 15.00 Smoking status: Former smoker Tobacco type: cigarettes Smokeless tobacco user: chewing tobacco Smoking end date: 05/26/04 Additional smoking assessment comments: quit chewing a year ago. Alcohol intake: current Drinks per week: 3 Alcohol use details: SOCIAL Substance use: never Substance use type: marijuana Other substance usage details: gummy to sleep every once in awhile. 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 Gender identity (if verbalized by the patient): Male Spiritual care concerns: No Meds Home Medications and Allergies Home Medications ?Medication ?Instructions ?Recorded ?Confirmed ?Type baclofen 10 mg tablet 10 mg PO DAILY 01/07/22 05/26/24 History tramadol 50 mg tablet 50 mg PO BID PRN pain #14 tabs 01/07/22 05/26/24 Rx aspirin 81 mg capsule,delayed 81 mg PO DAILY 03/28/22 05/26/24 History release metoprolol succinate 50 mg See Rx Instructions .Route 05/28/23 05/26/24 Rx tablet,extended release 24 hr .COMPLEX #90 tabs meloxicam 7.5 mg tablet 7.5 mg PO DAILY 05/26/24 05/26/24 History Allergies Allergy/AdvReac Type Severity Reaction Status Date / Time Quinolones Allergy Mild MUSCLE AND Verified 05/26/24 10:23 TENDON ACHES, DEPRESSION, MOOD CHANGES Exam Const: General: no acute distress Resp: Effort & Inspection: normal respiratory effort GI: Inspection: non-distended GI Palp: No abdominal tenderness and No Guarding due to palpation present (GI) Auscultation: normal bowel sounds Assessment and Plan Assessment and plan (1) Left renal stone: Code(s): N20.0 - Calculus of kidney Status: Acute Assessment and Plan: * Left ESWL
[2024-06-04] VITALS (7 sets, daily range): BP systolic 150–171; BP diastolic 75–109; PULSE 58–78; RESP 12–20; TEMP 36.2–36.4; O2SAT 97–100; BMI 42.0
--- NOTE | ~2024-06-04 | XR_ITS ---
EXAMINATION: XR abdomen/kub 1V DATE: 06/04/2024 08:43 INDICATION: Left kidney stone. TECHNIQUE: A supine view of the abdomen on 2 radiographs was obtained. COMPARISON: Abdomen radiographs 05/03/2024, CT abdomen and pelvis 05/03/2024 FINDINGS: There are no dilated loops of bowel. There are approximately 5 stones in left kidney measur ing up to 15 mm. There are vascular calcifications in left pelvis. IMPRESSION: 1. Left kidney stones. Reviewed, dictated and finalized at location A. 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 Left kidney stones.
--- NOTE | 2024-06-04 06:23 | WPDHPUPDATE1 ---
History and Physical Update Update Date/Time: 06/04/24 06:23 History and Physical has been reviewed, including an updated exam of the patient. There are NO changes in the patient's condition. Risks, benefits, and alternatives have been discussed and questions answered. Patient agrees to proceed with procedure.
[2024-06-04] MEDS: LACTATED RINGERS 1,000 ML 30 ML IV CONT (09:15)
--- NOTE | 2024-06-04 09:24 | WPDANESEPPF ---
Anes - Initial Pre Proc Eval Procedure: Operation Date: 06/04/24 10:30 Proposed Procedures p Left Extracorporeal Shock Wave Lithotripsy - Jose Antonio Nuñez MD Date/Time: 06/04/24 09:24 Surgeon: Jose Antonio Nuñez MD Pre Op Diagnosis: left renal kidney stone Patient Data Age: 58 Gender: M Height: 1.78 m Weight: 132.8 kg Allergies Allergy/AdvReac Type Severity Reaction Status Date / Time Quinolones Allergy Mild MUSCLE AND Verified 05/26/24 10:23 TENDON ACHES, DEPRESSION, MOOD CHANGES Home Medications ?Medication ?Instructions ?Recorded ?Confirmed ?Type baclofen 10 mg tablet 10 mg PO DAILY 01/07/22 05/26/24 History tramadol 50 mg tablet 50 mg PO BID PRN pain #14 tabs 01/07/22 05/26/24 Rx aspirin 81 mg capsule,delayed 81 mg PO DAILY 03/28/22 05/26/24 History release metoprolol succinate 50 mg See Rx Instructions .Route 05/28/23 05/26/24 Rx tablet,extended release 24 hr .COMPLEX #90 tabs meloxicam 7.5 mg tablet 7.5 mg PO DAILY 05/26/24 05/26/24 History Patient hx anesthesia problems: none Family hx anesthesia problems: none Results Review: All pre-operative results and documents have been reviewed as part of the pre-operative evaluation. [facility] Past Medical History Medical History BMI 37.0-37.9, adult BMI 36.0-36.9,adult Kidney stone Screening for lipid disorders Screen for colon cancer History of torn meniscus of left knee BMI greater than 40 Multiple sclerosis Hypertension Surgical History Surgical History H/O lithotripsy Family History Family History Mother Hypertension Family history of diabetes mellitus in first degree relative Diabetes mellitus Grandparent Family history of heart disease in male family member before age 55 Father Cancer of neck Sibling Diabetes mellitus Other Family history of malignant neoplasm of uterus Social History Social History Smoking packs per day: 1 Smoking cigarettes per day: 20.0 Years smoked: 15 Smoking pack-years: 15.00 Smoking status: Former smoker Tobacco type: cigarettes Smokeless tobacco user: chewing tobacco Smoking end date: 05/26/04 Additional smoking assessment comments: quit chewing a year ago. Alcohol intake: current Drinks per week: 3 Alcohol use details: SOCIAL Substance use: never Substance use type: marijuana Other substance usage details: gummy to sleep every once in awhile. 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 HTN, SIVAN on CPAP (severe per pt), MS is stable and without any assistive devices. Informed Consent: The patient's anesthetic plan and its attendant risks and benefits were discussed with the patient/family/POA. Questions were solicited and answers provided to the satisfaction of the patient/family/POA.
[2024-06-04] MEDS: ceFAZolin 3 GM/D5W 100 ML 100 ML IVPB (10:22)
--- NOTE | 2024-06-04 10:43 | W.PM.PROC2 ---
Procedure Note - Detailed Date of Procedure 06/04/24 Pre-op Diagnosis Left renal stone Post-op Diagnosis Same Procedure Performed Left ESWL Surgeon Jose Antonio Nuñez MD Anesthesia General Description of Procedure The patient was brought to the operative suite where he was placed in the supine position on the Dornier lithotripsy table. The focal point of the lithotripter was placed at a 12-13mm left renal calculus. A total of 2500 shocks were delivered at a power setting of 4. There appeared to be good fragmentation of the stone. The patient tolerated the procedure well and was taken to the recovery room in good condition. Drains No Packing No Pathology None sent Condition Stable Disposition PACU
--- OUTSIDE RECORDS SUMMARY | 2024-06-11 01:35 | XMS_ITS | Encounter Summary ---
Author Organization [facility] Address [facility] [facility] [place] [address] [place] [address] Care Team Providers Care Bench Lathe Operator Name Role Phone Unavailable Primary Care Provider Unavailabl e Encounter Details Date Type Department Care Team (Late st Contact Info) Description 11/15/2016 Abstract [facility] General Surgery - [place] [address], [address] [place] [address] Dagoberto Berg MD [address] [place] [address] Social History Tobacco Use Types Packs/Day Years Used Date Smoking Tobacco: Never Assessed Sex and Gender Information Value Date Recorded Sex Assigned at Not on file Legal Sex Male 5:11 PM CDT Gender Identity Not on file Sexual Orientation Not on file documented as of this encounter Last Filed Vital Signs Vital Sign Reading Time Taken Comments Blood Pressure 130/80 11/15/2016 4:52 PM CDT Pulse 80 11/15/2016 4:52 PM CDT Temperature - - Respiratory Rate - - Oxygen Saturation - - Inhaled Oxygen Concentration - - Weight 123.8 kg (273 lb) 11/15/2016 4:52 PM CDT Height 157.5 cm (5' 2 ) 11/15/2016 4:52 PM CDT Body Mass Index 49.93 11/15/2016 4:52 PM CDT documented in this encounter Progress Notes * Dagoberto Berg MD - 11/15/2016 4:15 PM CDT Referred By / Reason Name: Reason: Follow up for perirectal abscess. 10/22/16 I & D perirectal abscess by Dr. Francisco. Reason For Visit Consultation Follow-Up History of Present Illness HPI Free Text: Mr. Kapadia is a 50-year-old male who has undergone two separate incision and debridements of a perirectal abscess; one done last month by Dr. Francisco and a second done several months earlier. He hadbeen well-healed but just early today, he noticed a small lump right at the site of the previous incision and drainage procedure. He denies any fevers, he denies any obvious tenderness. Review of Systems Constitutional: negative. Head and Face: negative. Eyes: negative. ENT: negative. Cardiovascular: negative. Respiratory: negative. Gastrointestinal: negative. Genitourinary: negative. Musculoskeletal: negative. Neurological: negative. Psychiatric: negative. Endocrine: negative. Hematologic and Lymphatic: negative. Active Problems 1. Perirectal abscess (566) (K61.1) Past Medical History 1. History of hypertension (V12.59) (Z86.79) 2. History of multiple sclerosis (V12.49) (Z86.69) Family History Mother 1. Family history of diabetes mellitus (V18.0) (Z83.3) Father 2. Family history of COPD (chronic obstructive pulmonary disease) with emphysema Paternal Grandfather 3. Family history of lung cancer (V16.1) (Z80.1) Family History 4. Family history of cardiac disorder (V17.49) (Z82.49) Social History ?? Former smoker (V15.82) (Z87.891) Current Meds 1. Copaxone 40 MG/ML Subcutaneous Solution Prefilled Syringe; Therapy: (Recorded:[id number]) to Recorded Dispense: 0 Days ; #: Sufficient SOSY; Refill: 0; CHIP = N; Record; Last Updated By: Azeb Simms; 10/22/2016 3:08:03 PM 2. Metoprolol Succinate ER 50 MG Oral Tablet Extended Release 24 Hour; TAKE 1 TABLET DAILY; Therapy: 14Aug2016 to Recorded Dispense: 0 Days ; #: Sufficient Tablet Extended Release 24 Hour; Refill: 0; CHIP = N; Record; Last Updated By: Larissa Johnson; 11/15/2016 4:55:24 PM Allergies 1. No Known Allergies Recorded By: Azeb Simms; 10/22/2016 3:08:03 PM Vitals Recorded: 15Nov2016 04:52PM Temperature 98.1 F Heart Rate 80 Systolic 130 Diastolic 80 Height 5 ft 2 in Weight 273 lb BMI Calculated 49.93 BSA Calculated 2.18 Physical Exam Constitutional - General appearance: No acute distress, well appearing and well nourished. Cardiovascular - Heart: Regular rate and rhythm. Pulmonary - Respiratory effort: Normal. Lungs are clear to auscultation bilaterally. Abdomen - Soft, nontender, nondistended with good bowel sounds. There is no rebound or guarding. Liver and spleen: No hepatomegaly or splenomegaly. Skin - Skin and subcutaneous tissue: Normal without rashes or lesions. Psychiatric - Orientation to person, place, and time: Normal. Mood and affect: Normal. Additional Findings - Rectal exam: There does appear to be a very slight area of firmness to the left and anterior to the anus that is slightly tender. There is no obvious wound. There is no cellulitis or erythema. Plan Perirectal abscess 1. Pathology - Tissue for Exam; Status:Active; Requested for:15Nov2016; Perform:[facility]; Order Comments:perirectal abscess; Due:[id number]; Last Updated By:Larissa Johnson; 11/15/2016 4:58:23 PM;Ordered; For:Perirectal abscess; Ordered By:Dagoberto Berg; Discussion/Summary I had a long discussion with the patient about what to do with this. I think our options would be to either leave this alone and see if it progresses or to open it up slightly to see what we get out of this. He tells me that he is going to be going out of town next week and would like to have something done. I think this is not completely unreasonable. I went over the risk and benefits of the procedure with him which include but are not limited to bleeding, infection, poor wound healing, and need for further procedures. He understands and wishes to proceed. Signatures Electronically signed by : Dagoberto Berg M.D.; Nov 18 2016 10:07AM TURF KEEPER (Author) * Jessica German Md, MD - 11/15/2016 11:10 AM CDT Message Date: 15 Nov 2016 11:06 AM TURF KEEPER, Recorded By: Azeb Simms pt called stating he was seen by Dr. Francisco for a perianal abscess a month ago and he feels another abscess around the same spot. pt requesting abx to be sent to nip it in the bud as he is very busy with work next week. Per Dr. Francisco returned pt's call and informed pt unable to send out abx until pt is seen. Dr. Francisco is out of town today, pt scheduled with Dr. Berg. Signatures Electronically signed by : Azeb Simms, ; Nov 15 2016 11:10AM TURF KEEPER (Author) documented in this encounter Consult Notes * Dagoberto Berg MD - 11/15/2016 4:15 PM CDT Referred By / Reason Name: Reason: Follow up for perirectal abscess. 10/22/16 I & D perirectal abscess by Dr. Francisco. Thank you for the consult on Jose Antonio Kapadia. Attached is a copy of my evaluation. If you have any questions regarding my treatment evaluation, please feel free to contact me. Reason For Visit Consultation Follow-Up History of Present Illness HPI Free Text: Mr. Kapadia is a 50-year-old male who has undergone two separate incision and debridements of a perirectal abscess; one done last month by Dr. Francisco and a second done several months earlier. He hadbeen well-healed but just early today, he noticed a small lump right at the site of the previous incision and drainage procedure. He denies any fevers, he denies any obvious tenderness. Review of Systems Constitutional: negative. Head and Face: negative. Eyes: negative. ENT: negative. Cardiovascular: negative. Respiratory: negative. Gastrointestinal: negative. Genitourinary: negative. Musculoskeletal: negative. Neurological: negative. Psychiatric: negative. Endocrine: negative. Hematologic and Lymphatic: negative. Active Problems 1. Perirectal abscess (566) (K61.1) Past Medical History 1. History of hypertension (V12.59) (Z86.79) 2. History of multiple sclerosis (V12.49) (Z86.69) Family History Mother 1. Family history of diabetes mellitus (V18.0) (Z83.3) Father 2. Family history of COPD (chronic obstructive pulmonary disease) with emphysema Paternal Grandfather 3. Family history of lung cancer (V16.1) (Z80.1) Family History 4. Family history of cardiac disorder (V17.49) (Z82.49) Social History ?? Former smoker (V15.82) (Z87.891) Current Meds 1. Copaxone 40 MG/ML Subcutaneous Solution Prefilled Syringe; Therapy: (Recorded:[id number]) to Recorded 2. Metoprolol Succinate ER 50 MG Oral Tablet Extended Release 24 Hour; TAKE 1 TABLET DAILY; Therapy: 14Aug2016 to Recorded Allergies 1. No Known Allergies Vitals Recorded: 15Nov2016 04:52PM Temperature 98.1 F Heart Rate 80 Systolic 130 Diastolic 80 Height 5 ft 2 in Weight 273 lb BMI Calculated 49.93 BSA Calculated 2.18 Physical Exam Constitutional - General appearance: No acute distress, well appearing and well nourished. Cardiovascular - Heart: Regular rate and rhythm. Pulmonary - Respiratory effort: Normal. Lungs are clear to auscultation bilaterally. Abdomen - Soft, nontender, nondistended with good bowel sounds. There is no rebound or guarding. Liver and spleen: No hepatomegaly or splenomegaly. Skin - Skin and subcutaneous tissue: Normal without rashes or lesions. Psychiatric - Orientation to person, place, and time: Normal. Mood and affect: Normal. Additional Findings - Rectal exam: There does appear to be a very slight area of firmness to the left and anterior to the anus that is slightly tender. There is no obvious wound. There is no cellulitis or erythema. Plan Perirectal abscess 1. Pathology - Tissue for Exam; Status:Active; Requested for:15Nov2016; Perform:[facility]; Order Comments:perirectal abscess; Due:[id number]; Last Updated By:Larissa Johnson; 11/15/2016 4:58:23 PM;Ordered; For:Perirectal abscess; Ordered By:Dagoberto Berg; Discussion/Summary I had a long discussion with the patient about what to do with this. I think our options would be to either leave this alone and see if it progresses or to open it up slightly to see what we get out of this. He tells me that he is going to be going out of town next week and would like to have something done. I think this is not completely unreasonable. I went over the risk and benefits of the procedure with him which include but are not limited to bleeding, infection, poor wound healing, and need for further procedures. He understands and wishes to proceed. Sincerely,. Signatures Electronically signed by : Dagoberto Berg M.D.; Nov 18 2016 10:07AM TURF KEEPER (Author) documented in this encounter Plan of Treatment Not on file documented as of this encounter Visit Diagnoses Not on filedocumented in this encounter
--- OUTSIDE RECORDS SUMMARY | 2024-06-11 01:35 | XMS_ITS | Encounter Summary ---
Author Organization [facility] Address [address] [place] [address]. [place], [place] [id number] [place] [address] Care Team Providers Care Poultry Boner Name Role Phone Unavailable Primary Care Provider Unavailabl e Encounter Details Date Type Department Care Team (Late st Contact Info) Description 05/18/2002 Abstract [facility] [address] [place] [address] , Generic Conversion, Social History Tobacco Use Types Packs/Day Years Used Date Smoking Tobacco: Never Assessed Sex and Gender Information Value Date Recorded Sex Assigned at Not on file Legal Sex Male 5:11 PM CDT Gender Identity Not on file Sexual Orientation Not on file documented as of this encounter Plan of Treatment Not on file documented as of this encounter Visit Diagnoses Not on filedocumented in this encounter
--- OUTSIDE RECORDS SUMMARY | 2024-06-11 01:35 | XMS_ITS | Clinical Summary ---
Author Organization [facility] Address [address] [place] [address]. [place], [place] [address] [place] [address] Care Team Providers Care Mushroom Laborer Name Role Phone Saad Lopez MD Primary Care Provider [phone] Allergies No known active allergies Social History Tobacco Use Types Packs/Day Years Used Date Smoking Tobacco: Never Assessed Sex and Gender Information Value Date Recorded Sex Assigned at Not on file Legal Sex Male 5:11 PM CDT Gender Identity Not on file Sexual Orientation Not on file Last Filed Vital Signs Vital Sign Reading Time Taken Comments Blood Pressure 132/89 04/06/2022 2:52 AM CDT Pulse 58 04/06/2022 2:52 AM CDT Temperature 36.4 ??C (97.5 ??F) 04/05/2022 10:59 PM C DT Respiratory Rate 16 04/06/2022 2:52 AM CDT Oxygen Saturation 97% 04/06/2022 2:52 AM CDT Inhaled Oxygen Concentration - - Weight 129.3 kg (285 lb) 04/05/2022 10:59 PM CDT Height 177.8 cm (5' 10 ) 04/05/2022 10:59 PM CDT Body Mass Index 40.89 04/05/2022 10:59 PM CDT Plan of Treatment Health Maintenance Due Date Last Done Comments Colorectal Cancer Screening Colonoscopy (10 Years) 1967 Annual Physical 12/09/1970 Hepatitis C 12/09/1985 DTaP, Tdap and Td Vaccines ( 1 - Tdap) 12/09/1986 Hepatitis B Vaccines (1 of 3 - 19+ 3-dose series) 12/09/1986 Zoster Vaccines (1 of 2) 12/09/2017 COVID-19 Vaccine (2023-2 5 season) 2024 Influenza Adult (#1) 2024 Meningococcal Vaccine Aged Out No rob kylie eligible based on patient's age to complete this topic Pneumococcal Vaccine: Pediat rics (0 to 5 Years) and At-Risk Patients (6 to 64 Years) Aged Out No longer eligible b ased on patient's age to complete this topic RSV Immunizations Under 20 Months Aged Out No longer eligible based on patient's age to complete this topic Insurance [employer] Care Teams Mushroom Laborer Relationship Specialty Start Date End Date Saad Lopez MD [address] [place] [address] PCP - General FAMILY PRACTICE 04/05/22
--- OUTSIDE RECORDS SUMMARY | 2024-06-11 01:35 | XMS_ITS | CONTINUITY OF CARE DOCUMENT ---
Author Name ashley naderabby Address Unknown Organization [facility] Address [address] [place] [address] Phone [phone] Care Team Providers Care White Washer Name Role Phone Ashli Heller MD Unavailable [phone] YAMILE DO, VEGA F Unavailable YAMILE DO, VEGA F Unavailable [phone] PROBLEMS Condition Status Date Provider Notes TOBACCO ABUSE, HX OF active ? Ashli Heller MD SHORTNESS OF BREATH-10/13 NUC NEG EF 45 active ? Ashli Heller MD PALPITATIONS active ? Ashli Heller MD CHEST PAIN-10/13 ECHO NL EF 60 active ? Ashli Heller MD ENCOUNTERS Date Type Provider Location Encounter Diagnosis - In-person encounter Office Visit Ashli Heller MD [facility] CHEST PAIN-10/13 ECHO NL EF 60SHORTNESS OF BREATH-10/13 NUC NEG EF 45TOBACCO ABUSE, HX OF - In-person encounter Office Visit Ashli Heller MD [facility] CHEST PAIN-10/13 ECHO NL EF 60PALPITATIONSSHOR TNESS OF BREATH-10/13 NUC NEG EF 45 VITAL SIGNS Date Observation Value Provider blood pressure, diastolic 88 mm[Hg] Derrick Sierra blood pressure, systolic 146 mm[Hg] Mark Sierra pulse rate 58 /min Leola Sierra oxygen saturation, oximetry 94 % Leola Sierra respiratory rate E&M 18 /min Yordan Sierra weight E&M 274 [lb_av] Leola Sierra blood pressure, diastolic, left arm 81 mm [Hg] [facility] blood pressure, systolic, left arm 121 mm [facility]Hg[facility], [facility][Hg] [facility], systolic 121 mm[Hg] Moshe eph [facility] pulse rate 71 /min [facility] oxygen saturation, oximetry 97 % [facility] respiratory rate E&M 16 /min [facility] weight E&M 265 [lb_av] [facility] ALLERGIES Allergy Name Onset Date Reaction Criticality Status LEVAQUIN High Criticality active CIPRO High Criticality active RESULTS Date Observation Value Provider Reference Range Interpretation Location thyroid stimulating hormone, serum 1.37 u[IU]/mL [facility] 0.40-4.50 Normal basophils as percent of blood leukocytes 0.6 % [facility] Normal eosinophils as percent of blood leukocytes 4.3 % [facility] Normal monocyte count, blood 7.6 % [facility] Normal lymphocyte count, blood 29.9 % [facility] Normal neutrophils as percent of blood leukocytes 57.6 % [facility] Normal basophils, absolute, manual 43 cells/mcL [facility] 0-200 Normal eosinophils, absolute, manual 310 cells/mcL [facility] 15-500 Normal monocytes, absolute, manual 547 cells/mcL [facility] 200-950 Normal lymphocytes, absolute 2153 CELLS/UL [facility] 850-3900 Normal Absolute Neutrophil count 4147 cells/mcL [facility] 1338-6766 Normal platelet count 182 THOUSAND/UL [facility] 140-400 Normal red blood cell distribution width 13.7 % [facility] 11.0-15.0 Normal mean corpuscular hemoglobin concentration, RBC 33.7 G/DL [facility] 32.0-36.0 Normal mean corpuscular hemoglobin, RBC 30.6 pg [facility] 27.0-33.0 Normal mean corpuscular volume, RBC 90.8 fL [facility] 80.0-100.0 Normal hematocrit, blood 51.8 % [facility] 38.5-50.0 High hemoglobin electrophoresis, blood 17.5 [facility] 13.2-17.1 High erythrocyte (RBC) count 5.70 MILLION/UL [facility] 4.20-5.80 Normal leukocyte (white blood cells) count, blood 7.2 THOUSAND/UL [facility] 3.8-10.8 Normal alanine aminotransferase (SGPT), serum 28 1/L [facility] 9-60 Normal aspartate aminotransferase (SGOT), serum 16 1/L [facility] 10-40 Normal alkaline phosphatase, serum 67 1/L [facility] 40-115 Normal bilirubin, serum, total 0.7 mg/dL [facility] 0.2-1.2 Normal albumin/globulin ratio, serum 1.9 (calc) [facility] 1.0-2.1 Normal globulins, serum, total 2.6 G/DL (CALC) [facility] 2.1-3.7 Normal albumin, serum 4.9 g/dL [facility] 3.6-5.1 Normal protein, total, serum 7.5 g/dL [facility] 6.2-8.3 Normal calcium, serum 9.5 mg/dL [facility] 8.6-10.2 Normal carbon dioxide, venous blood 24 mmol/L [facility] 21-33 Normal chloride, serum 103 mmol/L [facility] 98-110 Normal potassium, serum 4.3 mmol/L [facility] 3.5-5.3 Normal sodium, serum 139 mmol/L [facility] 135-146 Normal urea nitrogen/creatinine ratio, serum NOT APPLICABLE (calc) [facility] 6-22 Estimated Glomerular Filtration Rate (calc) >60 mL/min/1.73m2 [facility] > OR = 60 Normal creatinine, serum 1.11 mg/dL [facility] 0.78-1.34 Normal urea nitrogen, blood 18 mg/dL [facility] 7-25 Normal blood glucose, random 82 mg/dL [facility] 65-99 Normal cholesterol/HDL ratio, serum, percent 5.1 (calc) [facility] < OR = 5.0 High LDL cholesterol, serum 165 MG/DL (CALC) [facility] <130 High triglyceride, serum, fasting 110 mg/dL [facility] <150 Normal HDL cholesterol, serum 46 mg/dL [facility] > OR = 40 Normal cholesterol, serum 233 mg/dL [facility] 125-200 High HISTORY OF MEDICATION USE Medication Status Instructions Dates Provider Indications Com ments CRESTOR 10 MG ORAL TABLET active ONE TAB. 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 DAILY 3 Ashli Heller MD ACIPHEX 20 MG ORAL TABLET DELAYED RELEASE active 1 tablet by mouth daily Tao Tee METOPROLOL 100MG completed 1 tablet by mouth daily - 0 Ashli Heller MD SOCIAL HISTORY Date Observation Value Provider smoking/tobacco cess ation, patient education and counseling yes Toñito Gallagher RN social history E&M Marital Statu s: L franklin with family/friends E thnicity: Toñito Gallagher RN social history reviewed E&M reviewed Toñito Gallagher RN smoking/tobacco cess ation, patient education and counseling yes Ashli Heller MD drug use none Ashli Heller MD social history reviewed E&M reviewed Ashli Heller MD physical exercise, f requency, days per week no [facility] caffeine use, averag e drinks per day yes [facility] alcohol use, average drinks per day social basis only [facility] number of years as a smoker 10 years or m ore [facility] smoking status Smoker [facility] MENTAL STATUS Date Observation Value Provider assessment of judgme nt and insight E&M Alert and oriented to time, place and person. Mood and affect are normal. Toñito Gallagher RN assessment of judgme nt and insight E&M Alert and oriented to time, place and person. Mood and affect are normal. Ashli Heller MD INSURANCE PROVIDERS Payer name Policy type / Coverage type [place] red green party ID [employer] [facility] Other [id number] TREATMENT PLAN Date Name TSH, 3RD GENERATION COMPREHENSIVE METABO LIC PANEL W/EGFR CBC (INCLUDES DIFF/P LT) LIPID PANEL HISTORY OF PROCEDURES Procedure Date Procedure Name Provider Procedure Notes S tatus EKG Ashli Heller MD completed
--- OUTSIDE RECORDS SUMMARY | 2024-06-11 01:35 | XMS_ITS | Encounter Summary ---
Author Organization [facility] Address [facility]. [place], [place] [id number] [place] [id number] Care Team Providers Care Chair Pad Maker Name Role Phone Unavailable Primary Care Provider Unavailabl e Encounter Details Date Type Department Care Team (Late st Contact Info) Description 11/15/2016 Abstract [facility] [address] [place] [address] Dagoberto Berg MD [address] [place] [id number] Social History Tobacco Use Types Packs/Day Years Used Date Smoking Tobacco: Never Assessed Sex and Gender Information Value Date Recorded Sex Assigned at Not on file Legal Sex Male 5:11 PM CDT Gender Identity Not on file Sexual Orientation Not on file documented as of this encounter Plan of Treatment Not on file documented as of this encounter Visit Diagnoses Diagnosis Rectal abscess Abscess of anal and rectal regions documented in this encounter
--- OUTSIDE RECORDS SUMMARY | 2024-06-11 01:35 | XMS_ITS | Encounter Summary ---
Author Organization [facility] Address [address] [place] [address] Phone Care Team Providers Care Belt And Link Assembly Supervisor Name Role Phone Saad Lopez MD Primary Care Provider [phone] Encounter Details Date Type Department Care Team (Late st Contact Info) Description 01/14/2022 11:30 AM CDT Office Visit [facility] Nephrology and Hypertension [address] [place] [address], [address] [place] [address] Yg Crutis MD [address] [facility], [address] [place] [address] Nephrolithiasis Social History Tobacco Use Types Packs/Day Years Used Date Smoking Tobacco: Former Cigarettes 1 2011 Smokeless Tobacco: Never Alcohol Use Standard Drinks/Week Comments Yes 0 (1 standard drink = 0.6 oz pur e alcohol) twice a month Sex and Gender Information Value Date Recorded Sex Assigned at Not on file Gender Identity Not on file Sexual Orientation Not on file documented as of this encounter Last Filed Vital Signs Vital Sign Reading Time Taken Comments Blood Pressure 130/82 01/14/2022 12:00 PM CDT Pulse - - Temperature 36.7 ??C (98 ??F) 01/14/2022 12:00 PM CDT Respiratory Rate 18 01/14/2022 12:00 PM CDT Oxygen Saturation - - Inhaled Oxygen Concentration - - Weight 130 kg (286 lb) 01/14/2022 12:00 PM CDT Height 177.8 cm (5' 10 ) 01/14/2022 12:00 PM CDT Body Mass Index 41.04 01/14/2022 12:00 PM CDT documented in this encounter Progress Notes * Yg Curtis MD - 01/14/2022 11:30 AM CDT NEW PATIENT CONSULTATION Patient: Amando Kapadia Birthdate: 1965 Referring Provider: Lenny Jasso MD PCP: Saad Lopez MD Visit Date: 01/14/2022 CHIEF COMPLAINT Nephrolithiaisis HISTORY OF PRESENT ILLNESS Amando Kapadia is a 56 y.o. male with a past medical history as outlined below who presents for further evaluation of kidney stones. The patient reports that he has had kidney stones over last 15 years. His 1st occurrence of nephrolithiasis occurred in 2008. He reports at least five episodes of lithotripsy over the last 15 years as well. On his most recent episode of for the thighs is, his urologist recommended nephrology referra l/consultation for metabolic assessment with regard to his recurrent kidney stones. In spite of his history of her current kidney stones, his overall renal function is well preserved.Furthermore, he has already instituted numerous conservative interventions in the hopes of reducinghis kidney stones with regard to increased fluid intake, watching salt intake, watching protein intake...etc. He does have a family history of kidney stones as his grandfather apparently suffered from them as well but no other immediate family members. Given his recurrent history of kidney stones, he is somewhat gotten used to it but still does notchange fact that is somewhat problematic when these episodes occur. He enies any other systemic issues/symptoms with regard to fevers, chills, blurry vision, headaches, abdominal pain, nausea, vomiting, diarrhea, chest pain, shortness of breath, palpitations, dizziness, or lightheadedness. Currently, on this clinic visit, he is without complaint. PAST MEDICAL HISTORY ??? Hypertension ??? Multiple sclerosis (CMS-HCC) ??? Nephrolithiasis ??? Osteoarthritis ??? Personal history of kidney stones ALLERGIES Allergen Reactions ??? Quinolones Myopathy and depression MEDICATIONS Current Outpatient Medications: ??? baclofen (LIORESAL) 10 MG tablet, , Disp: , Rfl: ??? HYDROcodone-acetaminophen (NORCO) 5-325 MG per tablet, Take 1 tablet by mouth every 6 (six) hours if needed, Disp: , Rfl: ??? metoprolol succinate XL (TOPROL-XL) 50 MG 24 hr tablet, Take 50 mg by mouth 1 (one) time each day, Disp: , Rfl: ??? naproxen sodium (ALEVE) 220 MG tablet, Take by mouth 2 times daily, Disp: , Rfl: ??? traMADol (ULTRAM) 50 MG tablet, Take 50 mg by mouth every 6 (six) hours if needed, Disp: , Rfl: SOCIAL HISTORY Tobacco Use ??? Smoking status: Former Smoker Packs/day: 1.00 Years: 20.00 Pack years: 20.00 Types: Cigarettes Quit date: 2011 Years since quittin.6 ??? Smokeless tobacco: Never Used Substance Use Topics ??? Alcohol use: Yes - twice a month ??? Drug use: Never FAMILY HISTORY Problem Relation ??? Hypertension Mother ??? Diabetes mellitus Mother ??? Cancer Father REVIEW OF SYSTEMS Constitutional: No fever, weight loss or gain, no fatigue. No loss of appetite. Eyes: No sudden change in vision, eye pain, or light sensitivity ENMT: No ringing in ear, no nasal drainage. Cardiovascular: No chest pain. No Orthopnea, PND. Respiratory: No cough, no sputum production, no SOB or HOUSE. GI: No abdominal pain. No tenderness or masses. : No dysuria or gross hematuria. No frequency or urgency. No nocturia. Musculoskeletal: No weakness, cramps, or muscle aches. No joint pain. Skin: No rash or itching. Neurologic: No weakness, tingling, or numbness in extremities. No seizures. Psychiatric: Not depressed, no suicidal ideation, generally satisfied with life. Endocrine: No excessive thirst or hunger. Not excessively hot or cold. Hematologic: No abnormal bruising or bleeding. Immunologic: No seasonal allergy/hay fever, no abnormal rashes, no excessive itching. VITALS BP 130/82 (BP Location: Right arm, Patient Position: Sitting) Temp 98 ??F (36.7 ??C) Resp 18 Ht 5' 10 (1.778 m) Wt 286 lb (130 kg) BMI 41.04 kg/m?? BSA 2.53 m?? PHYSICAL EXAM Head: Atraumatic, normocephalic Eyes: PERRLA, anicteric sclerae, moist conjuntivae ENMT: Moist mucous membranes, no oral lesions or exudates Neck: Supple, no tenderness or masses Cardiovascular: Normal S1, S2; no rub Respiratory: Clear bilaterally Abdominal: Soft, non-tender, non-distended; positive bowel sounds Skin: No rash, bruising, or excoriations Extremities: No cyanosis, clubbing, or edema Functional: Comfortable and in no acute distress Cognitive: Cranial nerves 2-12 intact, no focal musculoskeletal or sensory deficits noted Psychological: Appropriate affect, alert and oriented to person, place and time RECENT LABS/IMAGES Lab Results Component Value Date BUN 23 01/07/2022 CREATININE 0.90 01/07/2022 EGFR >60 01/07/2022 NA 137 01/07/2022 K 4.5 01/07/2022 CL 100 01/07/2022 CO2 25 01/07/2022 CA 9.5 01/07/2022 GLUCOSE 102 01/07/2022 ASSESSMENT 1. Nephrolithiasis DISCUSSION/PLAN Amando has recurrent kidney stones as evidenced by his above history. Presumably, his kidney stones are calcium oxalate based but I am not completely sure although the patient states that they were calcium based. I reconfirmed some of the conservative strategies that he has already instituted in terms of increased fluid intake, monitoring his salt and protein intake, and informed him about the use of lemon juice given its high citric acid content which can inhibit kidney stone formation. For further evaluation of his risk factors for kidney stone formation, I will check a 24 hr urine collection for protein, sodium, calcium, citrate, and oxalate as well as check a serum uric acid level and repeat renal function panel. I will review the above results with the patient on his next clinic visit and determine our next course of action at that time. Blood Pressure for this visit is 130/82. The follow up plan to address blood pressure is follow thetrend.. Body mass index is 41.04 kg/m??. Follow up plan to address BMI is diet/exercise as tolerated. Thank you for allowing me to participate in the care of your patient. Frank Curtis MD documented in this encounter Plan of Treatment Not on file documented as of this encounter Procedures Procedure Name Priority Date/Time Associated Diagnosis Comments RENAL FUNCTION PANEL (RFP) Routine 01/07/2022 documented in this encounter Results * Renal Function Panel (RFP) (01/07/2022) Calcium, Serum/Plasma 9.5 mg/dL EXTERNAL LAB (NON-INTERFACE D) Carbon dioxide CO2), total, Serum/Plasma 25 mmol/L EXTERNAL LAB (NON-INTERFACE D) Chloride, Serum/Plasma 100 mmol/L EXTERNAL LAB (NON-INTERFACE D) Creatinine, Serum/Plasma 0.90 mg/dL EXTERNAL LAB (NON-INTERFACE D) Glucose, Serum/Plasma 102 mg/dL EXTERNAL LAB (NON-INTERFACE D) Potassium, Serum/Plasma 4.5 mmol/L EXTERNAL LAB (NON-INTERFACE D) Sodium, Serum/Plasma 137 mmol/L EXTERNAL LAB (NON-INTERFACE D) Urea nitrogen, Serum/Plasma (BUN) 23 mg/dL EXTERNAL LAB (NON-INTERFACE D) eGFR, non >60 mL/min EXTERNAL LAB (NON-INTERFACE D) Blood (Blood, Venous) Historical Provider LAB BLOOD ORDERAB LES EXTERNAL LAB (NON-INTERFACED) documented in this encounter Visit Diagnoses Diagnosis Nephrolithiasis documented in this encounter Care Teams Belt And Link Assembly Supervisor Relationship Specialty Start Date End Date Saad Lopez MD [address] [place] [address] PCP - General Family Medicine 01/03/22 documented as of this encounter
--- OUTSIDE RECORDS SUMMARY | 2024-06-11 01:35 | XMS_ITS | Encounter Summary ---
Author Organization [facility] Address [address] [place] [address]. [place] [address] [place] [address] Care Team Providers Care Boring And Filling Machine Operator Name Role Phone Unavailable Primary Care Provider Unavailabl e Encounter Details Date Type Department Care Team (Late st Contact Info) Description 07/28/2017 [facility] General [facility] - [place] [address] [facility], [address] [place] [address] Dagoberto Berg MD [address] [place] [address] Social History Tobacco Use Types Packs/Day Years Used Date Smoking Tobacco: Never Assessed Sex and Gender Information Value Date Recorded Sex Assigned at Not on file Legal Sex Male 5:11 PM CDT Gender Identity Not on file Sexual Orientation Not on file documented as of this encounter Last Filed Vital Signs Vital Sign Reading Time Taken Comments Blood Pressure 128/80 07/28/2017 1:00 PM MACHINE OPERATIONS SUPERVISOR Pulse 72 07/28/2017 1:00 PM MACHINE OPERATIONS SUPERVISOR Temperature - - Respiratory Rate - - Oxygen Saturation - - Inhaled Oxygen Concentration - - Weight 121.6 kg (268 lb) 07/28/2017 1:00 PM MACHINE OPERATIONS SUPERVISOR Height 157.5 cm (5' 2 ) 07/28/2017 1:00 PM MACHINE OPERATIONS SUPERVISOR Body Mass Index 49.02 07/28/2017 1:00 PM MACHINE OPERATIONS SUPERVISOR documented in this encounter Progress Notes * Dagoberto Berg MD - 07/28/2017 1:00 PM CST Referred By / Reason Patient was self-referred. Name: Reason: Perirectal abscess. Reason For Visit Consultation Visit History of Present Illness HPI Free Text: Mr. Kapadia is a 51-year-old male who presents today complaining of some rectal discomfort. He denies it is an actual pain, but just simply the feeling that it does feel quite right. He is having regular bowel movements. He denies any blood in the stool, fevers or drainage. He has had it sounds likeat least 2 incisions and debridements of perirectal abscesses over the years including 1 less than a year ago by Dr. Francisco. I did see him less than a month afterwards and excised a slight amount of scar tissue. He states that he did well from that standpoint up until just a few days ago. He denies any fevers, nausea, vomiting or diarrhea. Review of Systems Constitutional: negative. Head and Face: negative. Eyes: negative. ENT: negative. Cardiovascular: negative. Respiratory: negative. Gastrointestinal: Positive for rectal discomfort.. Genitourinary: negative. Musculoskeletal: negative. Neurological: negative. Psychiatric: [...] Copaxone 40 MG/ML Subcutaneous Solution Prefilled Syringe; INJECT 40 MG Daily; Therapy: (Recorded:[id number]) to Recorded Dispense: 0 Days ; #: Sufficient X 6 x 1 ML Syringe; Refill: 0; CHIP = N; Record; Last Updated By: Larissa Johnson; 07/28/2017 1:11:00 PM 2. Metoprolol Succinate ER 50 MG Oral Tablet Extended Release 24 Hour; TAKE 1 TABLET DAILY; Therapy: 14Aug2016 to Recorded Dispense: 0 Days ; #: Sufficient Tablet Extended Release 24 Hour; Refill: 0; CHIP = N; Record; Last Updated By: Larissa Johnson; 11/15/2016 4:55:24 PM Vitals Recorded: [id number] 01:00PM Temperature 98.9 F Heart Rate 72 Systolic 128 Diastolic 80 Height 5 ft 2 in Weight 268 lb BMI Calculated 49.02 BSA Calculated 2.16 Physical Exam Constitutional - General appearance: No acute distress, well appearing and well nourished.. Cardiovascular - Heart: Regular rate and rhythm... Pulmonary - Respiratory effort: Normal. Lungs are clear to auscultation bilaterally... Abdomen - Soft, nontender, nondistended with good bowel sounds. There is no rebound or guarding.. Liver and spleen: No hepatomegaly or splenomegaly.. Skin - Skin and subcutaneous tissue: Normal without rashes or lesions.. Psychiatric - Orientation to person, place, and time: Normal. Mood and affect: Normal.. Additional Findings - Rectal exam: It shows a small external hemorrhoid with minimal tenderness. There is no sign of any inflammation, abscess or fissure... Assessment 1. External hemorrhoids (455.3) (K64.4) Plan External hemorrhoids 1. Proctosol HC 2.5 % Rectal Cream; INSERT 1 APPLICATORFUL RECTALLY TWICE DAILY FOR 7 DAYS, THEN NEEDED Rx By: Dagoberto Berg; Dispense: 0 Days ; #:1 X 28.35 GM Tube; Refill: 2; For: External hemorrhoids;CHIP = N; [id number]; Last Updated By: Lana Bay;07/28/2017 1:08:26 PM Discussion/Summary I am concerned that the hemorrhoid may be a possibility of the rectal discomfort. It does not appear to be thrombosed or infected. I recommended that we start of with Proctosol cream being applied BID and I will see him back again in about 2 weeks or sooner if he has any further problems. While it is possible that he may have a perirectal fistula especially with the history of multiple perirectalabscess drainages, I do not see any evidence for this nor any inflammation. If his symptoms do not resolve with more conservative measures, we may want to consider exam under anesthesia with possibleSeton placement and/or a colonoscopy. We will see how he is doing in about 2 weeks. Signatures Electronically signed by : Dagoberto Berg M.D.; Jul 29 2017 9:35AM MACHINE OPERATIONS SUPERVISOR (Author) documented in this encounter Consult Notes * Dagoberto Berg MD - 07/28/2017 1:00 PM CST Referred By / Reason Patient was self-referred. Name: Reason: Perirectal abscess. Thank you for the consult on Jose Antonio Kapadia. Attached is a copy of my evaluation. If you have any questions regarding my treatment evaluation, please feel free to contact me. Reason For Visit Consultation Visit History of Present Illness HPI Free Text: Mr. Kapadia is a 51-year-old male who presents today complaining of some rectal discomfort. He denies it is an actual pain, but just simply the feeling that it does feel quite right. He is having regular bowel movements. He denies any blood in the stool, fevers or drainage. He has had it sounds likeat least 2 incisions and debridements of perirectal abscesses over the years including 1 less than a year ago by Dr. Francisco. I did see him less than a month afterwards and excised a slight amount of scar tissue. He states that he did well from that standpoint up until just a few days ago. He denies any fevers, nausea, vomiting or diarrhea. Review of Systems Constitutional: negative. Head and Face: negative. Eyes: negative. ENT: negative. Cardiovascular: negative. Respiratory: negative. Gastrointestinal: Positive for rectal discomfort.. Genitourinary: negative. Musculoskeletal: negative. Neurological: negative. Psychiatric: [...] Copaxone 40 MG/ML Subcutaneous Solution Prefilled Syringe; INJECT 40 MG Daily; Therapy: (Recorded:28Jul2017) to Recorded 2. Metoprolol Succinate ER 50 MG Oral Tablet Extended Release 24 Hour; TAKE 1 TABLET DAILY; Therapy: 14Aug2016 to Recorded Vitals Recorded: 28Jul2017 01:00PM Temperature 98.9 F Heart Rate 72 Systolic 128 Diastolic 80 Height 5 ft 2 in Weight 268 lb BMI Calculated 49.02 BSA Calculated 2.16 Physical Exam Constitutional - General appearance: No acute distress, well appearing and well nourished.. Cardiovascular - Heart: Regular rate and rhythm... Pulmonary - Respiratory effort: Normal. Lungs are clear to auscultation bilaterally... Abdomen - Soft, nontender, nondistended with good bowel sounds. There is no rebound or guarding.. Liver and spleen: No hepatomegaly or splenomegaly.. Skin - Skin and subcutaneous tissue: Normal without rashes or lesions.. Psychiatric - Orientation to person, place, and time: Normal. Mood and affect: Normal.. Additional Findings - Rectal exam: It shows a small external hemorrhoid with minimal tenderness. There is no sign of any inflammation, abscess or fissure... Assessment 1. External hemorrhoids (455.3) (K64.4) Plan External hemorrhoids 1. Proctosol HC 2.5 % Rectal Cream; INSERT 1 APPLICATORFUL RECTALLY TWICE DAILY FOR 7 DAYS, THEN NEEDED Rx By: Dagoberto Berg; Dispense: 0 Days ; #:1 X 28.35 GM Tube; Refill: 2; For: External hemorrhoids;CHIP = N; Verified Transmission to [facility] [id number]; Last Updated By: Lana Bay;07/28/2017 1:08:26 PM Discussion/Summary I am concerned that the hemorrhoid may be a possibility of the rectal discomfort. It does not appear to be thrombosed or infected. I recommended that we start of with Proctosol cream being applied BID and I will see him back again in about 2 weeks or sooner if he has any further problems. While it is possible that he may have a perirectal fistula especially with the history of multiple perirectalabscess drainages, I do not see any evidence for this nor any inflammation. If his symptoms do not resolve with more conservative measures, we may want to consider exam under anesthesia with possibleSeton placement and/or a colonoscopy. We will see how he is doing in about 2 weeks. Sincerely,. Signatures Electronically signed by : Dagoberto Berg M.D.; Jul 29 2017 9:35AM MACHINE OPERATIONS SUPERVISOR (Author) documented in this encounter Plan of Treatment Not on file documented as of this encounter Visit Diagnoses Not on filedocumented in this encounter
--- OUTSIDE RECORDS SUMMARY | 2024-06-11 01:35 | XMS_ITS | Encounter Summary ---
Author Organization [facility] Address [address] [place] [address]. [place], [place] [id number] [place] [address] Care Team Providers Care Program Developer Name Role Phone Saad Lopez MD Primary Care Provider [phone] Reason for Visit * Reason Comments Chest Pain Pain for the last we ek worsening tonight Encounter Details Date Type Department Care Team (Late st Contact Info) Description 04/05/2022 10:47 PM CDT - 04/06/2022 2:53 AM CDT Emergency [facility] Emergency Room [id number] [place] [address] Dagoberto Conti MD Chest Pain (Pain for the last week worsening tonight) Discharge Disposition: Home or Self Care (Routine Discharge) Social History Tobacco Use Types Packs/Day Years Used Date Smoking Tobacco: Never Assessed Sex and Gender Information Value Date Recorded Sex Assigned at Not on file Legal Sex Male 5:11 PM CDT Gender Identity Not on file Sexual Orientation Not on file COVID-19 Exposure Response Date Recorded In the last 10 days, have yo u been in contact with someone who was confirmed or suspected to have Coronavirus/COVID-19? No / Unsure 04/05/2022 10:44 PM CDT documented as of this encounter Last Filed [...] Mass Index 40.89 04/05/2022 10:59 PM CDT documented in this encounter Discharge Instructions * Attachments The following attachments cannot be sent through Care Everywhere. * Chest Pain Discharge Instructions (Finnish) documented in this encounter ED Notes * Dagoberto Conti MD - 04/06/2022 12:06 AM CDTAssociated Order(s): EKG Reading Chief Complaint Chief Complaint Patient presents with ??? Chest Pain Pain for the last week worsening tonight History of Present Illness 56-year-old male with past medical history of hypertension presenting with chest pain. Patient states he has noted midline chest discomfort over the last 1 week. She denies worsening with exertion. Denies associated shortness of breath, nausea, diaphoresis. States he has noted some epigastric discomfort after eating. 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 He denies having chest pain during this time. Tonight states he felt like painradiated to his left chest and back, prompting evaluation. He denies other, Medical History ALLERGIES: No Known Allergies MEDICATIONS: Prior to Admission medications Not on File PAST MEDICAL HISTORY: No past medical history on file. PAST SURGICAL HISTORY: No past surgical history on file. FAMILY HISTORY: No family history on file. SOCIAL HISTORY: Review of Systems Review of Systems Constitutional: Negative. HENT: Negative. Eyes: Negative. Respiratory: Negative. Cardiovascular: Noted in HPI Gastrointestinal: Negative. Endocrine: Negative. Genitourinary: Negative. Musculoskeletal: Negative. Allergic/Immunologic: Negative. Neurological: Negative. Hematological: Negative. Psychiatric/Behavioral: Negative. All other systems reviewed and are negative. Physical Exam Filed Vitals: 04/05/22 2259 04/06/22 0013 04/06/22 0252 BP: (!) 142/86 (!) 137/92 132/89 Pulse: 65 71 58 Resp: 16 16 16 Temp: 97.5 ??F (36.4 ??C) SpO2: 96% 95% 97% Weight: 129.3 kg (285 lb) Height: 5' 10 (1.778 m) Physical Exam Vitals and nursing note reviewed. Constitutional: Appearance: Normal appearance. He is normal weight. HENT: Head: Normocephalic and atraumatic. Nose: Nose normal. Mouth/Throat: Mouth: Mucous membranes are moist. Pharynx: Oropharynx is clear. Eyes: Extraocular Movements: Extraocular movements intact. Conjunctiva/sclera: Conjunctivae normal. Pupils: Pupils are equal, round, and reactive to light. Cardiovascular: Rate and Rhythm: Normal rate and regular rhythm. Pulses: Normal pulses. Heart sounds: Normal heart sounds. Pulmonary: Effort: Pulmonary effort is normal. Breath sounds: Normal breath sounds. Abdominal: General: Abdomen is flat. Bowel sounds are normal. Palpations: Abdomen is soft. Tenderness: There is no abdominal tenderness. There is no guarding or rebound. Musculoskeletal: General: Normal range of motion. Cervical back: Normal range of motion and neck supple. Skin: General: Skin is warm and dry. Capillary Refill: Capillary refill takes less than 2 seconds. Neurological: General: No focal deficit present. Mental Status: He is alert and oriented to person, place, and time. Mental status is at baseline. Cranial Nerves: No cranial nerve deficit. Sensory: No sensory deficit. Motor: No weakness. Coordination: Coordination normal. Gait: Gait normal. Psychiatric: Mood and Affect: Mood normal. Behavior: Behavior normal. Diagnostic Studies / Procedures ELECTROCARDIOGRAMS: Results for orders placed or performed during the hospital encounter of 04/05/22 ECG 12 lead Narrative [facility] Test Date: 2022-04-05 Pat Name: GABBY PENDLETON Department: 85 Room: [facility] Gender: Male Body Team Member: : 1965 Requested By: DAGOBERTO CONTI Order Number: [id number] Jackie MD: Measurements Intervals Jet Rate: 57 P: 30 OH: 165 QRS: -28 QRSD: 105 T: 29 QT: 397 QTc: 389 Interpretive Statements SINUS BRADYCARDIA SEPTAL MYOCARDIAL INFARCTION , PROBABLY OLD [40+ ms Q WAVE IN V1/V2] No previous ECG available for comparison ECG [address] [facility] Test Date: 2022-04-06 Pat Name: GABBY PENDLETON Department: 85 Room: [facility] Gender: Male Body Team Member: : 1965 Requested By: DAGOBERTO CONTI Order Number: [id number] Reading MD: Measurements Intervals Jet Rate: 59 P: 18 OH: 171 QRS: -21 QRSD: 101 T: 18 QT: 403 QTc: 401 Interpretive Statements SINUS BRADYCARDIA BORDERLINE LEFT AXIS DEVIATION [QRS AXIS < -20] Compared to ECG 04/05/2022 23:03:03 Myocardial infarct finding no longer present LABORATORY STUDIES: Results for orders placed or performed during the hospital encounter of 04/05/22 CBC W/DIFF AUTOMATED Result Value Ref Range WBC 7.2 4.4 - 11.0 x10'3/uL RBC 5.44 4.50 - 5.90 x10'6/uL HGB 16.2 14.0 - 17.5 G/DL HCT 49.0 41.5 - 50.4 % MCV 90.1 80.0 - 96.0 FL MCH 29.8 26.5 - 31.4 PG MCHC 33.1 31.9 - 34.8 G/DL RDW 13.2 12.3 - 14.3 % PLT 214 151 - 353 x10'3/uL MPV 11.1 9.7 - 11.9 FL RBC MORPHOLOGY NORMAL PLT MORPH. NORMAL WBC MORPHOLOGY NORMAL LYMPHOCYTES 40.8 15.8 - 45.0 % NEUTROPHILS 44.7 42.1 - 71.9 % MONOCYTES 9.2 5.7 - 12.5 % EOSINOPHILS 3.9 0.0 - 5.6 % BASOPHILS 0.8 0.0 - 1.3 % ABS. NEUTROPHILS 3.20 1.40 - 6.00 x10'3/uL IMMATURE GRANS 0.6 (H) 0.0 - 0.5 % ABS. LYMPHOCYTES 2.92 0.80 - 4.70 x10'3/uL COMPREHENSIVE METABOLIC PANEL Result Value Ref Range GLUCOSE 115 (H) 70 - 99 MG/DL BUN 20 (H) 7 - 18 MG/DL CREATININE S/P/B 1.53 (H) 0.7 - 1.3 MG/DL SODIUM 133 (L) 136 - 145 MMOL/L POTASSIUM 3.6 3.5 - 5.1 MMOL/L CHLORIDE S/P/B 97 (L) 100 - 108 MMOL/L CO2 30.4 21 - 32 MMOL/L CALCIUM 9.1 8.5 - 10.1 MG/DL BILIRUBIN TOTAL S/P/B 0.3 0.2 - 1.2 MG/DL TOTAL PROTEIN S/P/B 7.6 6.4 - 8.2 G/DL ALBUMIN S/P/B 3.9 3.4 - 5.0 G/DL AST 16 15 - 37 U/L ALT 28 16 - 60 U/L ALKALINE PHOSPHATASE S/P/B 60 50 - 136 U/L ANION GAP 5.6 5 - 15 MMOL/L BUN CREATININE RATIO 13.1 6 - 26 A/G RATIO 1.1 1.0 - 2.0 RATIO GFR ESTIMATE 54 (L) >90 ML/MIN/1.73 M2 TROPONIN, QUANT Result Value Ref Range TROPONIN I HIGH SENSITIVITY 6 <76 ng/L MAGNESIUM Result Value Ref Range MAGNESIUM 1.9 1.8 - 2.4 MG/DL LIPASE Result Value Ref Range LIPASE 198 73 - 393 UNITS/L TROPONIN, QUANT Result Value Ref Range TROPONIN I HIGH SENSITIVITY 5 <76 ng/L IMAGING STUDIES XR CHEST PORTABLE Final Result by User, [id number] (04/06 30) Examination: Chest Radiograph, 1 view Exam Date/Time: 04/06/2022 12:10 AM Reason For Exam: Chest pain Mid chest pain for a couple weeks. Intermittent episodes of shortness of breath. Comparison: None Technique: Single AP view of the chest. Findings: Heart size within normal limits for AP technique. No large effusion. No pneumothorax. Mild pulmonary vascular congestion with minimal central infiltrates. Peripheral lungs clear. Degenerative changes in the right shoulder. ======== IMPRESSION: ======== 1. Mild pulmonary vascular congestion with minimal central infiltrates Referred By: Interpreted By: Primo Torres MD, 04/06/2022 12:24 AM EKG Reading Date/Time: 04/06/2022 3:41 AM Performed by: Dagoberto Conti MD Authorized by: Dagoberto Conti MD Interpreted by ED physician Rhythm: sinus rhythm Rate: normal BPM: 59 QRS axis: normal Conduction: conduction normal ST Segments: ST segments normal T Waves: T waves normal Other: no other findings Clinical impression: normal ECG ED Course / Medical Decision Making MDM 56-year-old male with past medical history as noted above presenting with 1 week of chest pain. Sheis clinically well-appearing and nontoxic on exam, vitals are reassuring. EKG done on arrival negative for STEMI or other acute ischemic changes. We will plan for troponin x2, general labs, chest x-ray to further evaluate. Reassessment: 2:30 AM Troponin negative x2, labs overall reassuring. Chest x-ray clear. Heart score 3, patient overall low risk. Advised patient to follow-up with cardiology clinic. ED return precautions given, patient agreeable plan of care, safe for discharge Clinical Impression Chest pain (Primary) Disposition: Discharge Dagoberto Conti MD 04/06/22 0343 * Fumnilayo Paredes RN - 04/05/2022 10:57 PM CDT PT arrives to the ED c/o pressure and indigestion in his mid chest for about a week. Tonight he started having aching pain in the left side of his chest as well as pain between his shoulder blades. PT does not have a history of heart problems. PT reports he is a former smoke has takes meds for hyper tension and has a family history of heart attacks., Pt reports history of MS diagnosed about 12 years ago but denies any other health problems. documented in this encounter Plan of Treatment Not on file documented as of this encounter Procedures Procedure Name Priority Date/Time Associated Diagnosis Comments ELECTROCARDIOGRAM REPORT Routine 022 3:41 AM CDT ECG 12-LEAD STAT 04/06/2022 2:04 AM CDT TROPONIN, QUANT STAT 04/06/2022 1:56 AM CDT XR CHEST PORTABLE STAT 04/06/2022 12: 20 AM CDT COMPREHENSIVE METABOLIC PANEL STAT 04/06/2022 12:07 AM CDT CBC W/DIFF AUTOMATED STAT 04/06/2022 12:07 AM CDT TROPONIN, QUANT STAT 04/06/2022 12:07 AM CDT MAGNESIUM STAT 04/06/2022 12:07 AM CDT LIPASE STAT 04/06/2022 12:07 AM CDT ECG 12-LEAD Routine 04/05/2022 11:03 PM CDT documented in this encounter Results * EKG Reading (04/06/2022 3:41 AM CDT) Narrative Dagoberto Conti MD - 04/06/2022 3:41 AM CDT Dagoberto Conti MD ? 04/06/2022 ??3:43 AM EKG Reading Date/Time: 04/06/2022 3:41 AM Performed by: Dagoberto Conti MD Authorized by: Dagoberto Conti MD Interpreted by ED physician Rhythm: sinus rhythm Rate: normal BPM: 59 QRS axis: normal Conduction: conduction normal ST Segments: ST segments normal T Waves: T waves normal Other: no other findings Clinical impression: normal ECG us Dagoberto Conti MD [place] [facility] Final Result * ECG 12 lead (04/06/2022 2:04 AM CDT) 04/06/2022 2:04 AM CDT Narrative [facility] RAD - 04/07/2022 12:10 PM CDT ?[facility] ? Test Date: ?2022-04-06 Pat Name: ? GABBY PENDLETON ? Department: ?? 85 ? Room: ? TG1TG1 Gender: ? Male ? Body Team Member: ?? : ?1965 ? Requested By: DAGOBERTO CONTI Order Number: [id number] ? Reading MD: ?? Khris Cortez ? Measurements Intervals ?Jet ? Rate: ? 59 ? P: ?18 OH: ? 171 ?QRS: ?-21 QRSD: ? 101 ?T: ?18 QT: ? 403 ? QTc: ?401 ? Interpretive Statements SINUS BRADYCARDIA BORDERLINE LEFT AXIS DEVIATION Compared to ECG 04/05/2022 23:03:03 Myocardial infarct finding no longer present Procedure Note Khris Cortez MD - 04/07/2022 [facility] Test Date: 2022-04-06 Pat Name: GABBY PENDLETON Department: 85 Room: [facility] Gender: Male Body Team Member: : 1965 Requested By: DAGOBERTO CONTI Order Number: [id number] Reading MD: Khris Cortez Measurements Intervals Jet Rate: 59 P: 18 OH: 171 QRS: -21 QRSD: 101 T: 18 QT: 403 QTc: 401 Interpretive Statements SINUS BRADYCARDIA BORDERLINE LEFT AXIS DEVIATION Compared to ECG 04/05/2022 23:03:03 Myocardial infarct finding no longer present us Dagoberto Conti MD ECG ORDERABLES Final Result [facility] * TROPONIN, QUANT (04/06/2022 1:56 AM CDT) TROPONIN I HIGH SENSITIVITY 5 <76 ng/L 04/06/2022 2:21 AM CDT [facility] Comment: HIGH DOSES OF BIOTIN, TROPONIN-SPECIFIC AUTOANTIBODIES, AND ANTIBODY THERAPY CONTAINING HAMA MAY INTERFERE WITH THIS TEST RESULT. CORRELATION TO CLINICAL HISTORY AND PRESENTATION RECOMMENDED. 04/06/2022 1:56 AM CDT Dagoberto Conti MD LABORATORY Final Result [facility] [address] [place] [address], * XR CHEST PORTABLE (04/06/2022 12:20 AM CDT) Anatomical Region Laterality Modality Chest Radiographic Ritika ging 04/06/2022 12:2 4 AM CDT Impressions 04/06/2022 12:25 AM CDT IMPRESSION: ======== ?? 1. ??Mild pulmonary vascular congestion with minimal central infiltrates Referred By: ?? Interpreted By: Primo Torres MD, 04/06/2022 12:24 AM Narrative 04/06/2022 12:25 AM CDT Examination: Chest Radiograph, 1 view Exam Date/Time: 04/06/2022 12:10 AM Reason For Exam: ??Chest pain ?? Mid chest pain for a couple weeks. ??Intermittent episodes of shortness of breath. Comparison: None Technique: Single AP view of the chest. Findings: ??Heart size within normal limits for AP technique. ??No large effusion. ??No pneumothorax. ??Mild pulmonary vascular congestion with minimal central infiltrates. ??Peripheral lungs clear. ??Degenerative changes in the right shoulder. ======== Procedure Note Primo Torres MD - 04/06/2022 Examination: Chest Radiograph, 1 view Exam Date/Time: 04/06/2022 12:10 AM Reason For Exam: Chest pain Mid chest pain for a couple weeks. Intermittent episodes of shortness ofbreath. Comparison: None Technique: Single AP view of the chest. Findings: Heart size within normal limits for AP technique. No largeeffusion. No pneumothorax. Mild pulmonary vascular congestion withminimal central infiltrates. Peripheral lungs clear. Degenerativechanges in the right shoulder. ======== IMPRESSION: ======== 1. Mild pulmonary vascular congestion with minimal central infiltrates Referred By: Interpreted By: Primo Torres MD, 04/06/2022 12:24 AM us Dagoberto Conti MD GENERAL IMAGING Final Result * LIPASE (04/06/2022 12:07 AM CDT) Pathologist [facility] LIPASE 198 73 - 393 UNITS/L 04/06/2022 12:28 AM CDT [facility] 04/06/2022 12:0 7 AM CDT us Dagoberto Conti MD LABORATORY Final Result Performing Organization Address City/[facility]/ZIP Co de Phone Number [facility] [address] [place] [address], * MAGNESIUM (04/06/2022 12:07 AM CDT) [facility] MAGNESIUM 1.9 1.8 - 2.4 MG/DL 04/06/2022 12:28 AM CDT [facility] 04/06/2022 12:0 7 AM CDT us Dagoberto Conti MD LABORATORY Final Result Performing Organization Address [facility]/ZIP Co de Phone Number [facility] [address] [place] [address], * TROPONIN, QUANT (04/06/2022 12:07 AM CDT) Pathologist [facility] TROPONIN I HIGH SENSITIVITY 6 <76 ng/L 04/06/2022 12:28 AM CDT [facility] Comment: HIGH DOSES OF BIOTIN, TROPONIN-SPECIFIC AUTOANTIBODIES, AND ANTIBODY THERAPY CONTAINING HAMA MAY INTERFERE WITH THIS TEST RESULT. CORRELATION TO CLINICAL HISTORY AND PRESENTATION RECOMMENDED. 04/06/2022 12:0 7 AM CDT Dagoberto Conti MD LABORATORY Final Result [facility] [address] [place] [address], * (ABNORMAL) COMPREHENSIVE METABOLIC PANEL (04/06/2022 12:07 AM CDT) GLUCOSE 115(H) 70 - 99 MG/DL 04/06/2022 12:28 AM CDT [facility] BUN 20(H) 7 - 18 MG/DL 04/06/2022 12:28 AM T [facility] CREATININE S/P/B 1.53(H) 0.7 - 1.3 MG/DL 04/06/2022 12:28 AM CDT [facility] SODIUM S/P/B 133(L) 136 - 145 MMOL/L 04/06/2022 12:28 AM T [facility] POTASSIUM S/P/B 3.6 3.5 - 5.1 MMOL/L 04/06/2022 12:28 AM T [facility] CHLORIDE S/P/B 97(L) 100 - 108 MMOL/L 04/06/2022 12:28 AM CDT [facility] CO2 30.4 21 - 32 MMOL/L 04/06/2022 12:28 AM T [facility] CALCIUM S/P/B 9.1 8.5 - 10.1 MG/DL 04/06/2022 12:28 AM CDT [facility] BILIRUBIN TOTAL S/P/B 0.3 0.2 - 1.2 MG/DL 04/06/2022 12:28 AM T [facility] TOTAL PROTEIN S/P/B 7.6 6.4 - 8.2 G/DL 04/06/2022 12:28 AM [facility] ALBUMIN S/P/B 3.9 3.4 - 5.0 G/DL 04/06/2022 12:28 AM [facility] AST 16 15 - 37 U/L 04/06/2022 12:28 AM T [facility] ALT 28 16 - 60 U/L 04/06/2022 12:28 AM [facility] ALKALINE PHOSPHATASE S/P/B 60 50 - 136 U/L 04/06/2022 12:28 AM [facility] ANION GAP 5.6 5 - 15 MMOL/L 04/06/2022 12:28 AM [facility] BUN CREATININE RATIO 13.1 6 - 26 04/06/2022 12:28 AM [facility] A/G RATIO 1.1 1.0 - 2.0 RATIO 04/06/2022 12:28 AM [facility] GFR ESTIMATE 54(L) >90 ML/MIN/1.7 3 M2 04/06/2022 12:28 AM [facility] Comment: NOTE: eGFR is not calculated for patients <18 years of age. This is an estimated GFR calculation using the new CKD EPI creatinine equation without race and so does not require a correction factor for race. This estimated GFR should not be used for calculating drug doses. 04/06/2022 12:0 7 AM CDT Dagoberto Conti MD LABORATORY Final Result [facility] [address] [place] [address], [place] [phone] * (ABNORMAL) CBC W/DIFF AUTOMATED (04/06/2022 12:07 AM CDT) [facility] WBC 7.2 4.4 - 11.0 x10'3/uL 04/06/2022 12:26 AM CDT [facility] RBC 5.44 4.50 - 5.90 x10'6/uL 04/06/2022 12:26 AM CDT [facility] HGB 16.2 14.0 - 17.5 G/DL 04/06/2022 12:26 AM CDT [facility] HCT 49.0 41.5 - 50.4 % 04/06/2022 12:26 AM CDT [facility] MCV 90.1 80.0 - 96.0 FL 04/06/2022 12:26 AM CDT [facility] MCH 29.8 26.5 - 31.4 PG 04/06/2022 12:26 AM CDT [facility] MCHC 33.1 31.9 - 34.8 G/DL 04/06/2022 12:26 AM CDT [facility] RDW 13.2 12.3 - 14.3 % 04/06/2022 12:26 AM CDT [facility] PLT 214 151 - 353 x10'3/uL 04/06/2022 12:26 AM CDT [facility] MPV 11.1 9.7 - 11.9 FL 04/06/2022 12:26 AM CDT [facility] RBC MORPHOLOGY NORMAL 04/06/2022 12:26 AM CDT [facility] PLT MORPH. NORMAL 04/06/2022 12:26 AM CDT [facility] WBC MORPHOLOGY NORMAL 04/06/2022 12:26 AM CDT [facility] LYMPHOCYTES % 40.8 15.8 - 45.0 % 04/06/2022 12:26 AM CDT [facility] NEUTROPHILS % 44.7 42.1 - 71.9 % 04/06/2022 12:26 AM CDT [facility] MONOCYTES % 9.2 5.7 - 12.5 % 04/06/2022 12:26 AM CDT [facility] EOSINOPHILS 3.9 0.0 - 5.6 % 04/06/2022 12:26 AM CDT [facility] BASOPHILS 0.8 0.0 - 1.3 % 04/06/2022 12:26 AM CDT [facility] ABS. NEUTROPHILS 3.20 1.40 - 6.00 x10'3/uL 04/06/2022 12:26 AM CDT [facility] IMMATURE GRANS % 0.6(H) 0.0 - 0.5 % 04/06/2022 12:26 AM CDT [facility] ABS. LYMPHOCYTES 2.92 0.80 - 4.70 x10'3/uL 04/06/2022 12:26 AM CDT [facility] 04/06/2022 12:0 7 AM CDT Dagoberto Conti MD LABORATORY Final Result [facility] [address] [place] [address], * ECG 12 lead (04/05/2022 11:03 PM CDT) 04/05/2022 11:0 3 PM CDT Narrative [facility] - 04/07/2022 12:09 PM CDT ?[facility] ? Test Date: ?2022-04-05 Pat Name: ? GABBY PENDLETON ? Department: ?? 85 ? Room: ? TG1TG1 Gender: ? Male ? Body Team Member: ?? : ?1965 ? Requested By: DAGOBERTO CONTI Order Number: [id number] ? Reading MD: ?? Khris Cortez ? Measurements Intervals ?Jet ? Rate: ? 57 ? P: ?30 OH: ? 165 ?QRS: ?-28 QRSD: ? 105 ?T: ?29 QT: ? 397 ? QTc: ?389 ? Interpretive Statements SINUS BRADYCARDIA SEPTAL MYOCARDIAL INFARCTION , PROBABLY OLD No previous ECG available for comparison Procedure Note Khris Cortez MD - 04/07/2022 [facility] Test Date: 2022-04-05 Pat Name: GABBY PENDLETON Department: 85 Room: [facility] Gender: Male Body Team Member: : 1965 Requested By: DAGOBERTO CONTI Order Number: [id number] Jackie MD: Khris Cortez Measurements Intervals Jet Rate: 57 P: 30 OH: 165 QRS: -28 QRSD: 105 T: 29 QT: 397 QTc: 389 Interpretive Statements SINUS BRADYCARDIA SEPTAL MYOCARDIAL INFARCTION , PROBABLY OLD No previous ECG available for comparison us Dagoberto Conti MD ECG ORDERABLES Final Result [facility] documented in this encounter Visit Diagnoses Diagnosis Chest pain- Primary Chest pain, unspecified documented in this encounter Administered Medications Inactive Administered Medications - up to 3 most recent administrations Medication Order MAR Action Action Date Dose Rate Site nitroglycerin (NITROSTAT) SL tablet 0.4 mg 0.4 mg, Sublingual, Once, 1 dose, On 04/06/22 at 0015 Given 04/06/2022 12:12 AM CDT 0.4 mg documented in this encounter Active and Recently Administered Medications Times are shown in CDT. Scheduled Medication Order 04/04/2022 04/05/2022 04/06/2022 nitroglycerin (NITROSTAT) SL tablet 0.4 mg (COMPLETED) 0.4 mg, Sublingual, Once, 1 dose, On 04/06/22 at 0015 0012 (Given - Provid er: Funmilayo Paredes RN) documented in this encounter Care Teams Program Developer Relationship Specialty Start Date End Date Saad Lopez MD [address] [address] PCP - General FAMILY PRACTICE 04/05/22 documented as of this encounter
--- OUTSIDE RECORDS SUMMARY | 2024-06-11 01:35 | XMS_ITS | Clinical Summary ---
Author Organization [facility] Address [address] [place] [id number] Phone Care Team Providers Care Parts Technician Name Role Phone Saad Lopez MD Primary Care Provider [phone] Allergies Active Allergy Reactions Criticality Noted Date Comments Quinolones Myopathy,depression 02/12/2022 Medications Medication Sig Dispensed Refills Start Date End Date Status baclofen (LIORESAL) 10 MG tablet 01/07/2022 Active HYDROcodone-acetaminop hen (NORCO) 5-325 MG per tablet Take 1 tablet by mouth every 6 (six) hours if needed 12/07/2021 Active metoprolol succinate XL (TOPROL-XL) 50 MG 24 hr tablet Take 50 mg by mouth 1 (one) time each day 01/07/2022 Active naproxen sodium (ALEVE) 220 MG tablet Take by mouth 2 times daily Active traMADol (ULTRAM) 50 MG tablet Take 50 mg by mouth every 6 (six) hours if needed 12/25/2021 Active Active Problems Problem Noted Date Diagnosed Date Personal history of kidney stones 02/12/2022 Osteoarthritis 02/12/2022 Nephrolithiasis 02/12/2022 Hypertension 02/12/2022 Muscle spasticity present 05/18/2015 Overview (02/12/2022): Spasticity Multiple sclerosis 01/26/2009 Family History Medical History Relation Comments Cancer Father Diabetes mellitus Mother Hypertension Mother Relation Status Comments Father Mother Social History Tobacco Use Types Packs/Day Years Used Date Smoking Tobacco: Former Cigarettes 2011 Smokeless Tobacco: Never Alcohol Use Standard [...] Mass Index 41.04 01/14/2022 12:00 PM CDT Plan of Treatment Health Maintenance Due Date Last Done Comments Influenza Vaccine (#1) 2024 Care Teams Parts Technician Relationship Specialty Start Date End Date Saad Lopez MD [address] [place] [address] PCP - General Family Medicine 01/03/22
--- OUTSIDE RECORDS SUMMARY | 2024-06-11 01:35 | XMS_ITS | Encounter Summary ---
Author Organization [facility] Address [address] [place] [address]. [place], [place] [address] [place] [address] Care Team Providers Care Primary School Teacher Librarian Name Role Phone Unavailable Primary Care Provider Unavailabl e Encounter Details Date Type Department Care Team (Late st Contact Info) Description 10/20/2016 Abstract [facility] Emergency Room [address] [place], [place] [id number] Luisa Emerson, [facility] [address] [facility] [address] [address] Social History Tobacco Use Types Packs/Day Years [...]
--- OUTSIDE RECORDS SUMMARY | 2024-06-11 01:35 | XMS_ITS | Encounter Summary ---
Author Organization [facility] Address [address] [place] [address]. [place], [place] [address] [place] [address] Care Team Providers Care Animal Anatomist Name Role Phone Saad Lopez MD Primary Care Provider [phone] Encounter Details Date Type Department Care Team (Latest Contact Info) Description 04/05/2022 Travel Social History Tobacco Use Types Packs/Day Years [...] PM CDT documented as of this encounter Plan of Treatment Not on file documented as of this encounter Visit Diagnoses Not on filedocumented in this encounter Care Teams Animal Anatomist Relationship Specialty Start Date End Date Saad Lopez MD [address] [address] PCP - General FAMILY PRACTICE 04/05/22 documented as of this encounter
--- OUTSIDE RECORDS SUMMARY | 2024-06-11 01:35 | XMS_ITS | Encounter Summary ---
Author Organization [facility] Address [address] [place] [address]. [place], [place] [address] [place] [address] Care Team Providers Care Semiconductor Packages Tester Name Role Phone Unavailable Primary Care Provider Unavailabl e Encounter Details Date Type Department Care Team (Latest Contact Info) Description 11/15/2016 Abstract [facility] Dagoberto Berg MD [address] [place] [address] Social History Tobacco Use Types [...] Procedure Name Priority Date/Time Associated Diagnosis Comments TISSUE EXAM BY PATHOLOGIST Routine 11/15/2016 12:08 PM CDT documented in this encounter Results * TISSUE EXAM BY PATHOLOGIST (11/15/2016 12:08 PM CDT) COPATH REPORT SURG ? - Surgical Pathology Report Patient Name: GABBY PENDLETON Med. Rec. #:[id number] : 1965 (Age: 50) Gender: M Physician(s): Dagoberto Lopez Location: [facility]) Room Number: Billing #: [id number] 120\5\1\ Copy To: Collected: 11/15/2016 Received: 11/15/2016 Reported: 11/20/2016 Specimen(s) Abscess, perirectal Final Pathologic Diagnosis PERIRECTAL SOFT TISSUE, EXCISION: ? INFLAMED FIBROFATTY TISSUE CONSISTENT WITH CHRONIC ABSCESS. ? NO GRANULOMATOUS INFLAMMATION IDENTIFIED. [facility]/11/20/2016 Electronically Signed Out ByAileen Mcclellan MD Microscopic Description One slide examined. Clinical History ICD 10: K61.1 Perirectal abscess. Gross Description Received in a single container labeled with patient's name and date as well as perirectal abscess 11/15/16 5PM is a single, saenz-pink, 0.7 x 0.4 x 0.3 cm soft tissue piece. There is a possible small area of skin present along one surface measuring up to 0.3 cm. The specimen is bisected along its length and submitted in toto in a single cassette./[facility]//11/18/2016 Billing Fee Code(s): 99177 [facility] TO EPIC CONVERSION 11/15/2016 12:0 8 PM CDT 11/15/2016 12:08 PM CDT Narrative [facility] TO EPIC CONVERSION - 11/15/2016 12:08 PM CDT Result Communication: No patient communication needed at this time us Dagoberto Berg MD PATHOLOGY/CYTOLOGY ORDERABLES Final Result [facility] TO EPIC CONVERSION documented in this encounter Visit Diagnoses Not on filedocumented in this encounter
--- OUTSIDE RECORDS SUMMARY | 2024-06-11 01:35 | XMS_ITS | Encounter Summary ---
Author Organization [facility] Address [address] [place] [address]. [place] [address] [place] [address] Care Team Providers Care Loan Servicing Specialist Name Role Phone Unavailable Primary Care Provider Unavailabl e Encounter Details Date Type Department Care Team (Late st Contact Info) Description 10/22/2016 Abstract [facility] General [facility] - [address], [address] [place] [address] Mahamed Francisco MD [address] [place] [address] [place] [address] Social History Tobacco Use Types Packs/Day Years Used Date Smoking Tobacco: Never Assessed Sex and Gender Information Value Date Recorded Sex Assigned at Not on file Legal Sex Male 5:11 PM CDT Gender Identity Not on file Sexual Orientation Not on file documented as of this encounter Last Filed Vital Signs Vital Sign Reading Time Taken Comments Blood Pressure 124/76 10/22/2016 3:08 PM CDT Pulse 73 10/22/2016 3:08 PM CDT Temperature - - Respiratory Rate - - Oxygen Saturation - - Inhaled Oxygen Concentration - - Weight 121.7 kg (268 lb 4 oz) 10/22/2016 3:08 PM CDT Height 157.5 cm (5' 2 ) 10/22/2016 3:08 PM CDT Body Mass Index 49.06 10/22/2016 3:08 PM CDT documented in this encounter Progress Notes * Mahamed Francisco MD - 10/22/2016 1:45 PM CDT Reason For Visit New Patient Visit Referred By / Reason Patient was referred by ED Name: [facility] Reason: kong rectal abscess Chief Complaint pt at office today c/o kong rectal abscess, pt seen at [facility] ED, 10/20/16 History of Present Illness HPI: Patient presents to clinic after being seen in the emergency department 2 days previously withCT scan showing signs of perianal abscess patient has had perianal abscess in the past at the [facility] site a year ago he notes no chronic drainage at this site he notes no bloody stools he has never had a colonoscopy. He notes increasing discomfort over the last 2 days despite taking antibiotics. Review of Systems Constitutional: negative. Head and Face: negative. Eyes: negative. ENT: negative. Cardiovascular: negative. Respiratory: negative. Gastrointestinal: negative. Genitourinary: negative. Musculoskeletal: negative. Neurological: negative. Psychiatric: negative. Endocrine: negative. Hematologic and Lymphatic: negative. Past Medical History 1. History of hypertension (V12.59) (Z86.79) 2. History of multiple sclerosis (V12.49) (Z86.69) Family History Mother 1. Family history of diabetes mellitus (V18.0) (Z83.3) Father 2. Family history of COPD (chronic obstructive pulmonary disease) with emphysema Paternal Grandfather 3. Family history of lung cancer (V16.1) (Z80.1) Family History 4. Family history of cardiac disorder (V17.49) (Z82.49) Current Meds 1. Bactrim DS 800-160 MG Oral Tablet; Therapy: (Recorded:22Oct2016) to Recorded Dispense: 0 Days ; #: Sufficient TABS; Refill: 0; CHIP = N; Record; Last Updated By: Azeb Simms; 10/22/2016 3:08:03 PM 2. Cephalexin 500 MG Oral Capsule; Therapy: [id number] to Recorded Dispense: 7 Days ; #:21 CAPS; Refill: 0; CHIP = N; Record; Last Updated By: Azeb Simms; 10/22/2016 3:08:03 PM 3. Copaxone 40 MG/ML Subcutaneous Solution Prefilled Syringe; Therapy: (Recorded:[id number]) to Recorded Dispense: 0 Days ; #: Sufficient SOSY; Refill: 0; CHIP = N; Record; Last Updated By: Azeb Simms; 10/22/2016 3:08:03 PM 4. Metoprolol Succinate ER 50 MG Oral Tablet Extended Release 24 Hour; Therapy: [id number] to Recorded Dispense: 90 Days ; #:90 TB24; Refill: 0; CHIP = N; Record; Last Updated By: Azeb Simms; 10/22/2016 3:08:03 PM Allergies 1. No Known Allergies Recorded By: Azeb Simms; 10/22/2016 3:08:03 PM Vitals Recorded: [id number] 03:08PM Heart Rate 73 Systolic 124 Diastolic 76 O2 Saturation 96 Height 5 ft 2 in Weight 268 lb 4 oz BMI Calculated 49.06 BSA Calculated 2.17 Physical Exam Constitutional - General appearance: No acute distress, well appearing and well nourished. Ears, Nose, Mouth, and Throat - External inspection of ears and nose: Normal. Oropharynx: Normal with no erythema, edema, exudate or lesions. Neck - Exam: Supple, symmetric, trachea midline, no masses. Pulmonary - Respiratory effort: No increased work of breathing or signs of respiratory distress. Auscultation of lungs: Clear to auscultation. Cardiovascular - Auscultation of heart: Normal rate and rhythm, normal S1 and S2, no murmurs. Examination of extremities for edema and/or varicosities: Normal. Chest - Breasts: Normal, no dimpling or skin changes appreciated. Palpation of breasts and axillae:Normal, no masses palpated. Abdomen - Abdomen: Non-tender, no masses. Liver and spleen: No hepatomegaly or splenomegaly. Lymphatic - Palpation of lymph nodes: No lymphadenopathy. Musculoskeletal - Digits and nails: Normal without clubbing or cyanosis. Joints, bones, and muscles: Normal. Range of motion: Normal. Muscle strength/tone: Normal. Skin - Skin and subcutaneous tissue: Normal without rashes or lesions. Assessment of incision: Clean, dry, and intact. Palpation of skin and subcutaneous tissue: Normal turgor. Neurologic - Sensation: Normal. the deep tendon reflexes were normal. Psychiatric - Orientation to person, place, and time: Normal. Mood and affect: Normal. Rectal: Digital rectal exam demonstrated normal sphincter tone, stool was negative for occult blood and no rectal mass. Additional Findings - rodo without concerns, Noted area of tenderness and induration and fluctuance on the left lateral aspect of the perianal region consistent with abscess. Procedure PROCEDURE: Incision and Drainage Incision and Drainage of an abscess. Risks, benefits, alternatives, infection risk, bleeding risk and risk of excessive pain were discussed with the patient. Written consent was obtained prior to the procedure and can be found in the patients record. The site was prepped with Betadine. The area was anesthetized with of lidocaine 1% with epinephrine. The area was incised with a #11 blade and aspirated with an 18 gauge needle. A moderate amount of fluid was drained. Dressing: the cavity was loosely packed with a inch wick. The patient tolerated the procedure well. There were no complications. Wound care instructions were given to the patient. Assessment 50-year-old male with perianal abscess status post incision and drainage Plan Developed clinic in 1 week wound care instructions given continue antibiotics discussed EUA once this is healed with evaluation for fistula in anal, discussed performing colonoscopy secondary to concerns of recurrent perianal infection plan this is early screening colonoscopy Signatures Electronically signed by : Mahamed Francisco M.D.; Oct 22 2016 9:49PM TREE TRIMMING SUPERVISOR (Author) documented in this encounter Plan of Treatment Not on file documented as of this encounter Visit Diagnoses Not on filedocumented in this encounter
--- OUTSIDE RECORDS SUMMARY | 2024-06-11 01:35 | XMS_ITS | Encounter Summary ---
Author Organization [facility] Address [address] [place] [address]. [place], [place] [address] [place] [address] Care Team Providers Care Drawing Kiln Supervisor Name Role Phone Unavailable Primary Care Provider Unavailabl e Encounter Details Date Type Department Care Team (Latest Contact Info) Description 11/21/2016 Abstract [facility] Medical [facility] Social History Tobacco Use Types Packs/Day Years [...]
--- OUTSIDE RECORDS SUMMARY | 2024-06-11 01:37 | XMS_ITS | Referral Summary ---
Author Organization [facility] [address] Address [address] [place] [address] Care Team Providers Care Information Systems Manager Name Role Phone aSad Lopez MD Primary Care Provider Jose Antonio Viveros MD Unavailable [phone] Encounters Date Type Department Care Team Description 06/07/2024 Telephone [facility] [address] [facility] [address] [place] [address] Saima Trent MD 05/31/2024 Telephone [facility] [address] [facility] 1st [address] [place] [address] Jose Antonio Viveros MD 05/27/2024 Telephone [facility] Pediatric Orthopedics [address] [place] [address] [place] [address] Jose Antonio Viveros MD 05/25/2024 Telephone [facility] [address] [facility] 1st [address] [place] [address] Jose Antonio Viveros MD 05/18/2024 11:15 AM BRUSH CLEANER Office Visit [facility] Orthopaedic Surgery [address] [facility] [address] [place] [address] Jose Antonio Viveros MD Left hip pain (Primary Dx) 05/14/2024 Orders Only [facility] [address] 1[address] [place] [address] Jose Antonio Viveros MD Chronic pain of right knee (Primary Dx) 03/31/2024 Orders Only [facility] 1st [place] [address] [place] [address] Jose Antonio Viveros MD Status post hip surgery (Primary Dx) 03/30/2024 11:15 AM CDT Office Visit [facility] Orthopaedic Surgery [address] [facility] [address] [place] [address] Jose Antonio Viveros MD Status post hip surgery (Primary Dx) from Last 3 Months Allergies Active Allergy Reactions Criticality Noted Date Comments Levofloxacin Muscle pain Medium Quinolones Mental status changes,Muscle pain Medium Medications metoprolol XL (TOPROL-XL) 50 mg 24 hr tablet take 1 tablet by oral route every day 0 0 5 Active aspirin 81 mg enteric coated tabletIndicatio ns:prevention of thrombosis,HEAR T Take 1 tablet (81 mg total) by mouth gathering machine setter before breakfast 0 Active meloxicam (MOBIC) 7.5 mg tablet Take 1 tablet (7.5 mg total) by mouth daily 30 tablet 4 06/24/19 25 Active naproxen (ALEVE) 220 mg tablet Take 1 tablet (220 mg total) by mouth 2 (two) times a day with meals 05/25/20 24 Discontinu ed(Timurlica te order) Active Problems Problem Noted Date Diagnosed Date History of substance abuse (CMS/FORM[facility]) 01/20/2024 Palpitations 01/20/2024 Shortness of breath 01/20/2024 Encounter for preoperative assessment 01/04/2024 Chest pain, unspecified 12/02/2023 Hypertension 02/12/2022 Nephrolithiasis 02/12/2022 Osteoarthritis 02/12/2022 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 2-4 times a month 01/02/2024 Q2: How many drinks containi ng alcohol do you have on a typical day when you are drinking? 1 or 2 01/02/2024 Q3: How often do you have si x or more drinks on one occasion? Never 01/02/2024 Personal Safety Answer Date Recorded Have you ever been in or are you currently in a harmful physical or emotional relationship or is someone making you feel afraid or unsafe? Denies 01/02/2024 Sex and Gender Information Value Date Recorded Sex Assigned at Not on file Legal Sex Male 12:14 AM BRUSH CLEANER Gender Identity Not on file Sexual Orientation Not on file Last Filed Vital Signs Vital Sign Reading Time Taken Comments Blood Pressure 127/84 01/02/2024 2:35 PM CDT Pulse 53 01/02/2024 2:40 PM CDT Temperature 36.2 ??C (97.2 ??F) 01/02/2024 2:35 PM CD T Respiratory Rate 30 01/02/2024 2:40 PM CDT Oxygen Saturation 96% 01/02/2024 2:40 PM CDT Inhaled Oxygen Concentration - - Weight 127.2 kg (280 lb 6.4 oz) 01/02/2024 8:52 AM CDT Height 177.8 cm (5' 10 ) 01/02/2024 8:52 AM CDT Body Mass Index 40.23 01/02/2024 8:52 AM CDT Plan of Treatment Not on file Medical Devices Implanted Type Area Trouble Dispatcher Device Identifier Shelf Expiration Date Model / Serial / Lot [employer] Cinchlock Ss Knotless Senior Asic Engineer Lock [place] Suture Labrum [id number] - [id number] Implanted:Qty: 1 on 01/02/2024 at [facility] Left: Hip [employer] 01/26/2025 [id number] 2 / / [id number] [employer] Cinchlock Ss Knot[employer] Senior Asic Engineer Lock [place] Suture Labrum [id number] - [id number] Implanted:Qty: 1 on 01/02/2024 at [facility] Left: Hip [employer] 01/26/2025 [id number] 2 / / [id number] [employer] Cinchlock Ss Knotless Senior Asic Engineer Lock [place] Suture Labrum [id number] - [id number] Implanted:Qty: 1 on 01/02/2024 at [facility] Left: Hip [employer] 01/26/2025 [id number] 2 / / [id number] [employer] Cinchlock Ss Knotless Senior Asic Engineer Lock [place] Suture Labrum [id number] - [id number] Implanted:Qty: 1 on 01/02/2024 at [facility] Left: Hip [employer] 01/26/2025 [id number] 2 / / [id number] Insurance [employer] SIG [id number] [place] Care Teams Information Systems Manager Relationship Specialty Start Date End Date Saad Lopez MD PCP - General 09/06/16 Jose Antonio Viveros MD [address] [address] Surgeon Pediatric Orthopedic Surgery 01/02/24
--- OUTSIDE RECORDS SUMMARY | 2024-06-11 01:37 | XMS_ITS | Encounter Summary ---
Author Organization [facility] Address [address] [place] [address] Care Team Providers Care Water/Wastewater Project Manager Name Role Phone Unavailable Primary Care Provider Unavailabl e Encounter Details Date Type Department Care Team (Late st Contact Info) Description 11/25/2023 External Device Data ST[facility] ABSTRACTION Provider, Abstract NO ADDRESS ON FILE Social History Tobacco Use Types Packs/Day Years [...]
--- OUTSIDE RECORDS SUMMARY | 2024-06-11 01:37 | XMS_ITS | Encounter Summary ---
Author Organization [facility] Address [address] [place] [address] Phone Care Team Providers Care Acidizer Helper Name Role Phone Saad Lopez MD Primary Care Provider [phone] Jose Antonio Viveros MD Unavailable [phone] Reason for Referral * MRI/CAT/PET Scan (Routine) - Authorized Specialty Diagnoses / Procedures Referred By Contac t Referred To Contact Radiology Diagnoses Chronic pain of right knee Procedures MRI Knee Right WO Contrast Jose Antonio Viveros MD [address] [facility] [address] [place] [address] Phone: tel: fax: [address] [address] Referral ID Status Reason Start Date Expiration Date V isits Requested Visits Authorized [id number] Authorized 05/14/2024 06/13/2025 1 1 LE NEEDLE TUFTING MACHINE OPERATOR Encounter Details Date Type Department Care Team (Late st Contact Info) Description 05/14/2024 Orders Only [facility] Pediatric Orthopedics [address] [facility] 1st Floor [address] [place] [address] Jose Antonio Viveros MD [address] [facility] [address] [place] [address] Chronic pain of right knee (Primary Dx) Social History Tobacco Use Types Packs/Day Years [...] on file Legal Sex Male 12:14 AM SINGLE NEEDLE TUFTING MACHINE OPERATOR Gender Identity Not on file Sexual Orientation Not on file documented as of this encounter Plan of Treatment Scheduled Orders Name Type Priority Associated Diagnoses Orde r Schedule MRI Knee Right WO Contrast Imaging Schedule Routine, Read Routine (OP Routine) Chronic pain of right knee Expected: 05/14/2024, Expires: 05/14/2025 documented as of this encounter Visit Diagnoses Diagnosis Chronic pain of right knee- Primary documented in this encounter Care Teams Acidizer Helper Relationship Specialty Start Date End Date Saad Lopez MD PCP - General 09/06/16 Jose Antonio Viveros MD [address] [address] Surgeon Pediatric Orthopedic Surgery 01/02/24 documented as of this encounter
--- OUTSIDE RECORDS SUMMARY | 2024-06-11 01:37 | XMS_ITS | Encounter Summary ---
Author Organization [facility] Address [address] [place] [address] Care Team Providers Care Casino Enforcement Agent Name Role Phone Unavailable Primary Care Provider Unavailabl e Encounter Details Date Type Department Care Team (Late st Contact Info) Description 07/31/2023 External Device Data STL ABSTRACTION Provider, Abstract [...]
--- OUTSIDE RECORDS SUMMARY | 2024-06-11 01:37 | XMS_ITS | Encounter Summary ---
Author Organization [facility] Address [address] [place] [address] Phone Care Team Providers Care Candy Dipper Hand Name Role Phone Saad Lopez MD Primary Care Provider [phone] Jose Antonio Viveros MD Unavailable [phone] Encounter Details Date Type Department Care Team (Late st Contact Info) Description 05/18/2024 11:15 AM LOSS PREVENTION OPERATIONS MANAGER Office Visit [facility] Orthopaedic Surgery [address] [facility] [address] Office [address] [place] [address] Jose Antonio Viveros MD [address] [place], [place] [id number] Left hip pain (Primary Dx) Social History Tobacco Use Types Packs/Day Years Used Date Smoking Tobacco: Former Cigarettes Q uit: 2014 Smokeless Tobacco: Former Chew Quit: 05/2023 Alcohol [...] on file Legal Sex Male 12:14 AM LOSS PREVENTION OPERATIONS MANAGER Gender Identity Not on file Sexual Orientation Not on file documented as of this encounter Progress Notes * Jose Antonio Viveros MD - 05/18/2024 11:15 AM CST Images from the original note were not included. ESTABLISHED PATIENT VISIT This is Froy Roman scribing in the presence of Dr. Jose Antonio Viveros INTERIM HISTORY: Ronen is 4.5 months (01/02/2024) status post Arthroscopy Left Hip - Labral Repair, Proximal Femoral Osteoplasty, Capsular Closure - Left Overall he is doing well. He has been progressing in physical therapy and still is making progress each week. Compared to 6 weeks ago he feels he is doing a lot better and that has swelling is much more controlled. He feels his right knee and foot have been bothering him more lately as he compensates for his left hip. He has an MRI scheduled for his right knee that has been impeding his progress w ith PT. PHYSICAL EXAM: Left hip: No swelling. Well healed incisions. Nonpainful hip ROM. No guarding. 5/5 abduction. REVIEW OF X-RAYS/STUDIES: No imaging completed or review during today's visit. ASSESSMENT/PLAN: Overall Jose Antonio is doing well. He will continue with his gradual progression in physical therapy and we will update his script to optimize functional improvement of the left hip. We will follow-up his MRI results as well. He can continue with mobic PRN if he has a flare. Dr. Viveros will follow up in 7-8 weeks. X-rays needed at next appointment: None Jose Antonio Viveros M.D., M.S. Barrel Planer [facility] PREVENTION OPERATIONS MANAGER documented in this encounter Plan of Treatment Not on file documented as of this encounter Visit Diagnoses Diagnosis Left hip pain- Primary Pain in joint, pelvic region and thigh documented in this encounter Care Teams Candy Dipper Hand Relationship Specialty Start Date End Date Saad Lopez MD PCP - General 09/06/16 Jose Antonio Viveros MD [address] [address] Surgeon Pediatric Orthopedic Surgery 01/02/24 documented as of this encounter
--- OUTSIDE RECORDS SUMMARY | 2024-06-11 01:37 | XMS_ITS | Encounter Summary ---
Author Organization [facility] Address [address] [place] [address] Phone Care Team Providers Care Medical Insurance Claims Specialist Name Role Phone Saad Lopez MD Primary Care Provider [phone] Jose Antonio Viveros MD Unavailable [phone] Reason for Visit * Reason Comments Post-op Encounter Details Date Type Department Care Team (Late st Contact Info) Description 03/30/2024 11:15 AM CDT Office Visit [facility] Orthopaedic Surgery [address] [place] [address] Jose Antonio Viveros MD [address] [place] [address] Status post hip surgery (Primary Dx) Social History Tobacco Use Types [...] on file 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 ESTABLISHED PATIENT VISIT This is Froy Roman scribing in the presence of Dr. Jose Antonio Viveros INTERIM HISTORY: Ronen is 3 months (01/02/2024) status post Arthroscopy Left Hip - Labral Repair, Proximal Femoral Osteoplasty, Capsular Closure - Left Overall he is doing well. He has been progressing in physical therapy and riding his stationary bike at home. Compared to 6 weeks ago he feels he is doing a lot better and that has swelling is much more controlled. He feels his right knee and foot have been bothering him more lately as he compensates for his left hip. He currently has the most pain when sitting for long periods of time. PHYSICAL EXAM: Left hip: Minimal swelling. Well healed incisions. Nonpainful hip ROM. No guarding. REVIEW OF X-RAYS/STUDIES: No imaging completed or review during today's visit. ASSESSMENT/PLAN: Overall Jose Antonio is doing well. He will continue with his gradual progression in physical therapy and we will update his script to include his right knee and foot. Dr. Viveros will follow up in 5 weeks. X-rays needed at next appointment: None Jose Antonio Viveros M.D., M.S. Tours Hostess [facility] documented in this encounter Plan of Treatment Not on file documented as of this encounter Visit Diagnoses Diagnosis Status post hip surgery- Primary documented in this encounter Discontinued Medications Medication Sig Discontinue Reason Start Date End Da te baclofen (LIORESAL) 10 mg tablet Take 1 tablet (10 mg total) by mouth 3 (three) times a day as needed for muscle spasms 11/12/2023 03/30/2024 multivitamin with iron tabletIndications:Vitamin Deficiency Prevention Take 1 tablet by mouth every morning 03/30/2024 ondansetron ODT (ZOFRAN-ODT) 4 mg disintegrating tabletIndications:Prevent ion of Post-Operative Nausea and Vomiting Take 1 tablet (4 mg total) by mouth every 6 (six) hours as needed for nausea or vomiting 12/31/2023 03/30/2024 oxyCODONE (ROXICODONE) 5 mg immediate release tabletIndications:Pain Take 1 tablet (5 mg total) by mouth every 4 (four) hours as needed for pain for up to 20 doses Can add over the counter Tylenol every 6 hours as needed in addition to the Oxycodone. 12/31/2023 03/30/2024 HYDROcodone-acetaminophen (NORCO) 5-325 mg per tabletIndications:Pain Take 1 tablet by mouth every 4 (four) hours as needed for pain for up to 10 doses 01/09/2024 03/30/2024 senna (SENOKOT) 8.6 mg tablet Take 1 tablet by mouth 2 (two) times a day Take 1 tablet by mouth 2(two) times a day. If DIARRHEA occurs STOP taking 12/31/2023 03/30/2024 naproxen (NAPROSYN) 500 mg tablet Take 1 tablet (500 mg total) by mouth 2 (two) times a day with meals for 14 doses Take 2 tablets PO qAM the day before surgery then stop. After surgery resume taking 1 tablet in the AM and 1 in the PM until gone. 12/31/2023 03/30/2024 documented as of this encounter Historical Medications * This list may reflect changes made after this encounter. naproxen (ALEVE) 220 mg tablet Take 1 tablet (220 mg total) by mouth 2 (two) times a day with meals 05/25/2024 added in this encounter Care Teams Medical Insurance Claims Specialist Relationship Specialty Start Date End Date Saad Lopez MD PCP - General 09/06/16 Jose Antonio Viveros MD [address] [address] Surgeon Pediatric Orthopedic Surgery 01/02/24 documented as of this encounter
--- OUTSIDE RECORDS SUMMARY | 2024-06-11 01:37 | XMS_ITS | Continuity of Care Document ---
Author Organization [facility] Address [address] [place] [address] Phone Care Team Providers Care Water Softener Servicer Name Role Phone Buddy Navarro PT Unavailable Unavailable Procedures Procedure Date Free Assessment Advance Directives Directive Yes / No Effective Date File Name No Information Encounters Encounter Description Practice Location Reason(s) For Visit Diagnoses Date Provider Providers Copied on Encounter [facility], [address], [place], [place], [id number], [place] tel:[phone] [facility] No Information Melanie Goodwin. . Referring Provider: Access Direct. Family History Family Member Type Diagnosis Age At Onset No Information Payers Payer name Insurance type Covered alliance party ID Authoriza tikristi(s) [facility] [id number] Social History Type Description Quantity Date Captured Comments Sex Male Smoking Status No Information Chief Complaint And Reason For Visit No Information Reason For Referral Reason For Referral No Information History Of Present Illness Encounter Date Complaint History Of Prese nt Illness No Information Functional Status Date Functional Assessmen t No Information Instructions Date Instruction Additional Infor mation No Information Assessments Type Assessment Date No Information Patient Care Teams Name Effective Dates (start - stop) Status Members No Information
--- OUTSIDE RECORDS SUMMARY | 2024-06-11 01:37 | XMS_ITS | Encounter Summary ---
Author Organization [facility] Address [address] [place] [address] Phone Care Team Providers Care Grommet Machine Operator Name Role Phone Saad Lopez MD Primary Care Provider [phone] Jose Antonio Viveros MD Unavailable [phone] Encounter Details Date Type Department Care Team (Late st Contact Info) Description 05/31/2024 Telephone [facility] Pediatric Orthopedics [address] [facility] 1st Floor [address] [place] [address] Jose Antonio Viveros MD [address] [facility] [address] [place], [place] [id number] Social History Tobacco Use Types Packs/Day Years [...] on file 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 Viveros's team know that the patient's MRI has been denied. Patient is supposed to get this MRI tomorrow. Imaging Center can be reached at [phone]. ECTION WORKER documented in this encounter Plan of Treatment Not on file documented as of this encounter Visit Diagnoses Not on filedocumented in this encounter Care Teams Grommet Machine Operator Relationship Specialty Start Date End Date Saad Lopez MD PCP - General 09/06/16 Jose Antonio Viveros MD [address] [address] Surgeon Pediatric Orthopedic Surgery 01/02/24 documented as of this encounter
--- OUTSIDE RECORDS SUMMARY | 2024-06-11 01:37 | XMS_ITS | Encounter Summary ---
Author Organization [facility] Address [address] [place] [address] Care Team Providers Care Public Works Manager Name Role Phone Unavailable Primary Care Provider Unavailabl e Encounter Details Date Type Department Care Team (Late st Contact Info) Description 09/24/2023 External Device Data [facility] ABSTRACTION Provider, Abstract [...]
--- OUTSIDE RECORDS SUMMARY | 2024-06-11 01:37 | XMS_ITS | Encounter Summary ---
Author Organization [facility] Address [address] [place] [address] Care Team Providers Care Rug Repairer Name Role Phone Unavailable Primary Care Provider Unavailabl e Encounter Details Date Type Department Care Team (Late st Contact Info) Description 07/28/2023 External Device Data [facility] ABSTRACTION Provider, Abstract [...]
--- OUTSIDE RECORDS SUMMARY | 2024-06-11 01:37 | XMS_ITS | Encounter Summary ---
Author Organization [facility] Address [address] [place] [address] Phone Care Team Providers Care Tactical Debriefer Name Role Phone Saad Lopez MD Primary Care Provider [phone] Jose Antonio Viveros MD Unavailable [phone] Reason for Referral * Consultation (Routine) - Pending Review Specialty Diagnoses / Procedures Referred By Contac t Referred To Contact Physical Therapy Diagnoses Status post hip surgery Jose Antonio Viveros MD [address] [facility] [address] [place] [address] Phone: tel: fax: [facility] [address] [place] [address] [place] [address] Phone: tel: fax: Referral ID Status Reason Start Date Expiration Date Visits Requested Visits Authorized [id number] Pending Review Evaluate and Treat 04/30/2025 24 24 Question Answer PTRFR PT Evaluate and Treat Therapy options discussed with patient? Yes Location provided for therapy services is: Patient requested/Patient preferred Please select the performing region: External Order [171] To loc/pos [facility] [[id number]] # of visits: 24 Comments Hip Arthroscopy with Osteoplasty and Labral Repair Rehabilitation Protocol Therapy 1-3 times a week for 8 weeks Date of surgery: 01/02/2024 Procedure: Left Hip Arthroscopy, Labral Repair, Proximal Femoral Osteoplasty, Capsular Closure Please also include exercises/stretches for right knee and foot as well as his back. Jose Antonio Viveros MD [facility] Sports Medicine/Pediatric Orthopaedics [facility] [phone] phone [phone] fax Hip Arthroscopy Rehabilitation Protocol General Instructions Criteria to progress to Phase III: Pain free gait and ROM Hip flexion strength > 60% of uninvolved side, All other hip motions (abd, add, ext, IR, ER) strengths > 75% Phase III (approximately 8-12 weeks post op) Goals: Further restore muscular endurance and strength, improve low impact CV fitness, and optimize global neuromuscular control and proprioception. Monitor deep hip flexion motions of impingement, release myofascial restrictions of hip musculature (extra articular). Focus on core control. Precautions: Avoid forceful or ballistic stretching, no treadmill jogging/running, prevent loaded and prolonged excessive hip flexion or FADIR position, no high impact sport specific activity EXERCISES: Hip Rotation- resisted LR with hip extended (standing- theraband around foot) and hip flexed -(sitting theraband around ankle) Proprioceptive training progression - single leg focus Advance core and bridging program Cable Column hip strengthening CKC multidirectional activities for strengthening including SL stance (progress using TRX or Shuttle to FWB activities) Basic stretching and myofascial release techniques with focus on hip flexors and adductors Progress low impact CV fitness including cycling, elliptical and aquatic therapy Criteria to progress to Phase IV: Hip flexion strength > 75% of uninvolved side All other hip motions (abd, add, ext, IR, ER) strengths > 80% Adequate CV fitness Phase IV and Return to Sports/Running Phase (> 12 weeks post op) Goals: Progress towards returning to sport/activity specific competition Precautions: Do not progress too quickly. Clearance is criteria based not timeline based. Introduce dynamic and high impact activities progressively to allow neuromuscular control, avoid irritation of hip flexors musculature, and EXERCISES: Lunge Matrix/Tri-planar movements, NOT too deep Progressive return to running/jogging program starting at week 12 Functional agility drills including gradual progression of dynamic warm up Sport specific drills starting with low level plyometrics and progressing as tolerated Dynamic balance drills Maintain stretching/soft tissue mobilization including modalities as needed Criteria for return to sports/activity: Full pain-free ROM Completion of a sports specific loading and functional training program at full speed without complications or pain Cardio respiratory fitness at pre-injury level. Strength testing ?? 90% of the uninvolved side. Dynamic Balance ?? 90% of the uninvolved side. Single leg hop tests ?? 90% of the uninvolved side. Encounter Details Date Type Department Care Team (Late st Contact Info) Description 03/31/2024 Orders Only [facility]) - [facility] Pediatric Orthopedics [address] 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 Gender Identity Not on file Sexual Orientation Not on file documented as of this encounter Plan of Treatment Scheduled Referrals Name Type Priority Associated Diagnoses Order Schedule Ambulatory referral order to Physical Therapy - Outpatient Referral Routine Status post hip surgery Expected: 04/14/2024 (Approximate), Expires: 03/31/2025 documented as of this encounter Visit Diagnoses Diagnosis Status post hip surgery- Primary documented in this encounter Care Teams Tactical Debriefer Relationship Specialty Start Date End Date Saad Lopez MD PCP - General 09/06/16 Jose Antonio Viveros MD [address] [address] Surgeon Pediatric Orthopedic Surgery 01/02/24 documented as of this encounter
--- OUTSIDE RECORDS SUMMARY | 2024-06-11 01:37 | XMS_ITS | Encounter Summary ---
Author Organization [facility] Address [address] [place] [address] Phone Care Team Providers Care Classroom Instructor Name Role Phone Saad Lopez MD Primary Care Provider [phone] Jose Antonio Viveros MD Unavailable [phone] Encounter Details Date Type Department Care Team (Late st Contact Info) Description 05/27/2024 Telephone [facility]) - [facility] Pediatric Orthopedics [address] [facility] 1st [place] [address] [place] [address] Jose Antonio Viveros MD [address] [place] [address] [address] [place] [address] Social History Tobacco Use Types Packs/Day Years [...] on file 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 [facility] [address] [place] [address] Tax ID: [id number] ext [phone] RAM EVALUATOR documented in this encounter Plan of Treatment Not on file documented as of this encounter Visit Diagnoses Not on filedocumented in this encounter Care Teams Classroom Instructor Relationship Specialty Start Date End Date Saad Lopez MD PCP - General 09/06/16 Jose Antonio Viveros MD [address] [address] Surgeon Pediatric Orthopedic Surgery 01/02/24 documented as of this encounter
--- OUTSIDE RECORDS SUMMARY | 2024-06-11 01:37 | XMS_ITS | Clinical Summary ---
Author Organization [facility] Address [address] [place] [address] Care Team Providers Care Stud Setter Name Role Phone Unavailable Primary Care Provider Unavailabl e Social History Tobacco Use Types Packs/Day Years Used Date Smoking Tobacco: Never Assessed Sex and Gender Information Value Date Recorded Sex Assigned at Not on file Gender Identity Not on file Sexual Orientation Not on file Plan of Treatment Health Maintenance Due Date Last Done Comments DTAP/TDAP/TD VACCINES (1 - Tdap) 12/09/1986 HEPATITIS B VACCINES (1 of 3 - 19+ 3-dose series) 12/09/1986 COLORECTAL SCREENING 12/09/2012 Colorectal Cancer Screening 12/09/2012 FIT-DNA Q 3 years 12/09/2012 FIT/FOBT Q 1 year 12/09/2012 Flex Sig/CT Colonography Q 5 years 12/09/2012 ZOSTER VACCINE (1 of 2) 12/09/2017 INFLUENZA VACCINE (#1) 2024 PNEUMOCOCCAL VACCINE 0-64 YEARS Aged Out No longer eligible based on patient's age to complete this topic
--- OUTSIDE RECORDS SUMMARY | 2024-06-11 01:37 | XMS_ITS | Encounter Summary ---
Author Organization [facility] Address [address] [place] [address] Care Team Providers Care Pest Control Technician Name Role Phone Unavailable Primary Care Provider Unavailabl e Encounter Details Date Type Department Care Team (Late st Contact Info) Description 07/25/2023 External Device Data ST[facility] ABSTRACTION Provider, Abstract [...]
--- OUTSIDE RECORDS SUMMARY | 2024-06-11 01:37 | XMS_ITS | Encounter Summary ---
Author Organization [facility] Address [address] [place] [address] Care Team Providers Care Oracle Database Analyst Name Role Phone Unavailable Primary Care Provider Unavailabl e Encounter Details Date Type Department Care Team (Late st Contact Info) Description 10/28/2023 External Device Data ST[facility] ABSTRACTION Provider, Abstract [...]
--- OUTSIDE RECORDS SUMMARY | 2024-06-11 01:37 | XMS_ITS | Encounter Summary ---
Author Organization [facility] Address [address] [place] [address] Care Team Providers Care Guest Service Aide Name Role Phone Unavailable Primary Care Provider Unavailabl e Encounter Details Date Type Department Care Team (Late st Contact Info) Description 11/13/2023 External Device Data [facility] ABSTRACTION Provider, Abstract [...]
--- OUTSIDE RECORDS SUMMARY | 2024-06-11 01:37 | XMS_ITS | Clinical Summary ---
Author Organization [facility] [place] [address] Address [address] [place] [address] Care Team Providers Care Display Trimmer Name Role Phone Saad Lopez MD Primary Care Provider [phone] Jose Antonio Viveros MD Unavailable [phone] Allergies Active Allergy Reactions Criticality Noted Date Comments Levofloxacin Muscle pain Medium Quinolones Mental status changes,Muscle pain Medium Medications metoprolol XL (TOPROL-XL) 50 mg 24 hr tablet take 1 tablet by oral route every day 0 0 5 Active aspirin 81 mg enteric coated tabletIndicatio ns:prevention of thrombosis,HEAR T Take 1 tablet (81 mg total) by mouth hearing therapy teacher before breakfast 0 Active meloxicam (MOBIC) 7.5 mg tablet Take 1 tablet (7.5 mg total) by mouth daily 30 tablet 4 06/24/19 25 Active naproxen (ALEVE) 220 mg tablet Take 1 tablet (220 mg total) by mouth 2 (two) times a day with meals 05/25/20 24 Discontinu ed(Duplica te order) Active Problems Problem Noted Date Diagnosed Date History of substance abuse (CMS/HCC) 01/20/2024 Palpitations 01/20/2024 Shortness of breath 01/20/2024 Encounter for preoperative assessment 01/04/2024 Chest pain, unspecified 12/02/2023 Hypertension 02/12/2022 Nephrolithiasis 02/12/2022 Osteoarthritis 02/12/2022 Muscle spasticity 05/18/2015 Overview (09/13/2016): Spasticity Multiple sclerosis 01/26/2009 Encounters Date Type Department Care Team Description 06/07/2024 [facility]phone [facility] [address] [facility] [address] [place] [id number] Saima Trent MD 05/31/2024 Telephone [facility] [address] [facility] 1st [address] [place] [address] Jose Antonio Viveros MD 05/27/2024 Telephone [facility] [address] [place] [address] [place] [address] Jose Antonio Viveros MD 05/25/2024 Telephone [facility] [address] [facility] 1st [address] [place] [address] Jose Antonio Viveros MD 05/18/2024 11:15 AM PEDIATRIC NEUROLOGIST Office Visit [facility] [address] [place] [address] Office [address] [place] [address] Jose Antonio Viveros MD Left hip pain (Primary Dx) 05/14/2024 Orders Only [facility] [address] [facility] 1st [address] [place] [address] Jose Antonio Viveros MD Chronic pain of right knee (Primary Dx) 03/31/2024 Orders Only [facility] [address] [place] [address] [place] [address] Jose Antonio Viveros MD Status post hip surgery (Primary Dx) 03/30/2024 11:15 AM CDT Office Visit [facility] [address] [place] [address] Medical Office Building [address] [place] [address] Jose Antonio Viveros MD Status post hip surgery (Primary Dx) from Last 3 Months Surgical History Surgery Date Site/Laterality Comments FL FLUORO GUIDED INJECTION HIP LEFT 08/19/2023 Left KIDNEY STONE SURGERY 06/09/2020 - 06/08/2021 MULTIPLE-- Last ~2020 COLONOSCOPY 06/09/2021 - 06/08/2022 SKIN LESION EXCISION 06/09/1988 - 06/08/1989 Birthmark on top of head-- Benign Medical History Medical History Date Comments History of meningitis VIRAL MENI NGITIS History of mononucleosis MONONUC LEOSIS Calculus of kidney KIDNEY STONES Lumbar stenosis LUMBAR SPINAL ST ENOSIS Gastroesophageal reflux disease GERD MS (multiple sclerosis) ([facility]) Dx d ~2006--Daily injections of copaxone stopped ~07/2019; Last flare~ 2017; Followed by neurologist, Dr Trent Obesity Hypertension Dxd 2003 Sleep apnea CPAP compliant Family History Medical History Relation Name Comments Multiple sclerosis Father's Sister Multip le sclerosis; Anesthesia problems Neg Hx Relation Name Status Comments Father's Sister Social History Tobacco Use Types Packs/Day Years [...] on file Legal Sex Male 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 Gender Identity Not on file Sexual Orientation Not on file Obstetrics History Last Filed Vital Signs Vital Sign Reading [...] 01/02/2024 8:52 AM CDT Plan of Treatment Health Maintenance Due Date Last Done Comments Colon Cancer Screening-Colonoscopy 1967 Depression Screening 1967 Hepatitis C Screening 1967 Prostate Cancer Screening-PSA 1967 DTaP/Tdap/Td Vaccine (1 - Tdap) 12/09/1978 Hepatitis B Screening 12/09/1985 Regular Well Visit/Exam 18-64 12/09/1985 Zoster Vaccine (1 of 2) 12/09/2017 Influenza Vaccine (#1) 2024 Pneumococcal vaccine <65 Aged Out No longer eligible based on patient's age to complete this topic Medical Devices Implanted Type Area Quality Management Nurse Device Identifier Shelf Expiration Date Model / Serial / Lot [employer] Cinchlock Ss Knotless Telephoto Installer Lock [place] S[employer] Labrum [id number] - [id number] Implanted:Qty: 1 on 01/02/2024 at [facility] Left: Hip [employer] 01/26/2025 [id number] / / [id number] [employer] Cinchlock Ss Knotless Telephoto Installer Lock [place] Suture Labrum [id number] - [id number] Implanted:Qty: 1 on 01/02/2024 at [facility] Left: Hip [employer] 01/26/2025 [id number] / / [id number] [employer] Cinchlock Ss Knotless Telephoto Installer Lock [place] Suture Labrum [id number] - [id number] Implanted:Qty: 1 on 01/02/2024 at [facility] Left: Hip [employer] 01/26/2025 [id number] / / [id number] [employer] Cinchlock Ss Knotless Telephoto Installer Lock [place] Suture Labrum [id number] - [id number] Implanted:Qty: 1 on 01/02/2024 at [facility] Left: Hip [employer] 01/26/2025 [id number] / / [id number] Insurance [employer] SIG [id number] [place] Care Teams Display Trimmer Relationship Specialty Start Date End Date Saad Lopez MD PCP - General 09/06/16 Jose Antonio Viveros MD [address] [address] Surgeon Pediatric Orthopedic Surgery 01/02/24
--- OUTSIDE RECORDS SUMMARY | 2024-06-11 01:37 | XMS_ITS | Encounter Summary ---
Author Organization [facility] Address [address] [place] [address] Phone Care Team Providers Care Rebrander Name Role Phone Saad Lopez MD Primary Care Provider [phone] Jose Antonio Viveros MD Unavailable [phone] Encounter Details Date Type Department Care Team (Late st Contact Info) Description 05/25/2024 Telephone [facility] Pediatric Orthopedics [address] [facility] 1st [address] [place] [address] Jose Antonio Viveros MD [address] [facility] [address] [place], [place] [id number] Social History Tobacco Use Types Packs/Day Years [...] on file 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 Gender Identity Not on file Sexual Orientation Not on file documented as of this encounter Ordered Prescriptions Prescription Sig Dispense Quantity Refills Last Filled Start Date End Date meloxicam (MOBIC) 7.5 mg tablet Take 1 tablet (7.5 mg total) by mouth daily 30 tablet 05/25/2024 06/24/2024 documented in this encounter Miscellaneous Notes * Telephone Encounter - Michelle Delaney ATC - 05/25/2024 1:29 PM CST Mobic refill FORGER HELPER documented in this encounter Plan of Treatment Not on file documented as of this encounter Visit Diagnoses Not on filedocumented in this encounter Discontinued Medications Medication Sig Discontinue Reason Start Date End Da te naproxen (ALEVE) 220 mg tablet Take 1 tablet (220 mg total) by mouth 2 (two) times a day with meals Duplicate order 05/25/2024 documented as of this encounter Care Teams Rebrander Relationship Specialty Start Date End Date Saad Lopez MD PCP - General 09/06/16 Jose Antonio Viveros MD [address] [address] Surgeon Pediatric Orthopedic Surgery 01/02/24 documented as of this encounter
--- OUTSIDE RECORDS SUMMARY | 2024-06-11 01:37 | XMS_ITS | Encounter Summary ---
Author Organization [facility] Address [address] [place] [address] Care Team Providers Care Cured Meat Packing Supervisor Name Role Phone Unavailable Primary Care Provider Unavailabl e Encounter Details Date Type Department Care Team (Late st Contact Info) Description 05/24/2023 External Device Data STL ABSTRACTION Provider, Abstract [...]
--- OUTSIDE RECORDS SUMMARY | 2024-06-11 01:37 | XMS_ITS | Encounter Summary ---
Author Organization [facility] Address [address] [place] [address] Care Team Providers Care Investigative Writer Name Role Phone Unavailable Primary Care Provider Unavailabl e Reason for Visit * MRI (Routine) - Closed Specialty Diagnoses / Procedures Referred By Freddie jones Referred To Contact Diagnoses Left hip pain Procedures MRI HIP WO CONTRAST LEFT Saad Lopez MD [address] [place] [address] Referral ID Status Reason Start Date Expiration Date Visits Re quested Visits Authorized [id number] Closed 04/11/2023 05/10/2023 1 1 Encounter Details Date Type Department Care Team (Late st Contact Info) Description 04/15/2023 1:45 PM BEHAVIORAL SCIENTIST Ancillary Procedure [facility] [address] [address] Saad Lopez MD [place] [address] Left hip pain Social History Tobacco Use Types Packs/Day Years Used Date Smoking Tobacco: Never Assessed Sex and Gender Information Value Date Recorded Sex Assigned at Not on file Gender Identity Not on file Sexual Orientation Not on file documented as of this encounter Plan of Treatment Not on file documented as of this encounter Procedures Procedure Name Priority Date/Time Associated Diagnosis Comments MRI HIP WO CONTRAST LEFT Routine 04/15/2023 2:02 PM BEHAVIORAL SCIENTIST Left hip pain documented in this encounter Results * MRI HIP WO CONTRAST LEFT (04/15/2023 2:02 PM BEHAVIORAL SCIENTIST) Anatomical Region Laterality Modality Lower Extremity Magnetic Resonan ce 04/15/2023 2:02 PM BEHAVIORAL SCIENTIST Impressions 04/15/2023 2:45 PM BEHAVIORAL SCIENTIST IMPRESSION: ?? 1. ??Partial-thickness left gluteus minimus tendon tear extending to the insertion on the greater trochanter superimposed on mild tendinopathy, as described above. 2. ??Small tear of the proximal left iliotibial band at the level of the left iliac bone, as described above. 3. ??Mild left hip osteoarthritis without effusion. 4. ??Nondisplaced tear of the anterior, anterosuperior and superior left acetabular labrum. 5. ??Rsvw-va-sdliglok left greater trochanteric bursitis. Narrative 04/15/2023 2:45 PM BEHAVIORAL SCIENTIST EXAM: ?? MRI HIP WO CONTRAST LEFT DATE: ??04/15/2023 ?? CLINICAL HISTORY: ? Left hip pain TECHNIQUE: Multiplanar, multisequence magnetic resonance images of the left hip were obtained without the administration of contrast. No prior study is available for comparison. FINDINGS: Bony alignment is normal. The bone marrow signal is normal. ?? There is no fracture, stress fracture or osteonecrosis. There is mild hip osteoarthritis without effusion. ??The evaluation of the acetabular labrum is limited on a non-arthrographic exam, there is a nondisplaced tear of the anterior, anterior superior and superior acetabular labrum (best seen on coronal images 14-23, sagittal images 7-17 and axial oblique images 9-18). ??There [id number]-[id number] greater trochanteric bursitis. There is a partial-thickness tear of the gluteus minimus tendon extending to the insertion on the greater trochanter superimposed on mild tendinopathy. ??Mild adjacent edema is present. ??There is a small tear of the iliotibial band at the level of the iliac bone (best seen on axial images 1-9 and coronal images 17-24) with mild edema both superficial and deep to the iliotibial band. ??There is mild edema in the lateral aspect of the gluteus medias muscle belly along the iliotibial band at the site of IT band tear. ??Additionally, there is mild edema in the distal gluteus minimus muscle belly adjacent to the myotendinous junction. ??Muscle bulk and signal are otherwise normal. ?? The iliopsoas tendon, rectus femoris tendon, adductor tendons, gluteus use tendon and hamstring origin are normal. ??The proximal sciatic nerve is normal. The visible portions of the soft tissue pelvis are normal. ??The subcutaneous tissues are normal. Procedure Note Loretta Villarreal MD - 04/15/2023 EXAM: MRI HIP WO CONTRAST LEFT DATE: 04/15/2023 CLINICAL HISTORY: Left hip pain TECHNIQUE: Multiplanar, multisequence magnetic resonance images of the left hip were obtained without the administration of contrast. No prior study is available for comparison. FINDINGS: Bony alignment is normal. The bone marrow signal is normal. There is no fracture, stress fracture or osteonecrosis. There is mild hip osteoarthritis without effusion. The evaluation of the acetabular labrum is limited on a non-arthrographic exam, there is a nondisplaced tear of the anterior, anterior superior and superior acetabular labrum (best seen on coronal images 14-23, sagittal images 7-17 and axial oblique images 9-18). There tbhm-tq-odmttvmo greater trochanteric bursitis. There is a partial-thickness tear of the gluteus minimus tendon extending to the insertion on the greater trochanter superimposed on mild tendinopathy. Mild adjacent edema is present. There is a small tear of the iliotibial band at the level of the iliac bone (best seen on axial images 1-9 and coronal images 17-24) with mild edema both superficial and deep to the iliotibial band. There is mild edema in the lateral aspect of the gluteus medias muscle belly along the iliotibial band at the site of IT band tear. Additionally, there is mild edema in the distal gluteus minimus muscle belly adjacent to the myotendinous junction. Muscle bulk and signal are otherwise normal. The iliopsoas tendon, rectus femoris tendon, adductor tendons, gluteus use tendon and hamstring origin are normal. The proximal sciatic nerve is normal. The visible portions of the soft tissue pelvis are normal. The subcutaneous tissues are normal. IMPRESSION: 1. Partial-thickness left gluteus minimus tendon tear extending to the insertion on the greater trochanter superimposed on mild tendinopathy, as described above. 2. Small tear of the proximal left iliotibial band at the level of the left iliac bone, as described above. 3. 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 4. Nondisplaced tear of the anterior, anterosuperior and superior left acetabular labrum. 5. Ygcq-vx-krafgmde left greater trochanteric bursitis. Saad Lopez MD MR ORDERABLES documented in this encounter Visit Diagnoses Diagnosis Left hip pain Pain in joint, pelvic region and thigh documented in this encounter
--- OUTSIDE RECORDS SUMMARY | 2024-06-11 01:38 | XMS_ITS | Encounter Summary ---
Author Organization [facility] Address [address] [place] [address] Care Team Providers Care Electrical Power Engineer Name Role Phone Saad Lopez MD Primary Care Provider Encounter Details Date Type Department Care Team (Late st Contact Info) Description 08/30/2020 Telephone [facility] [address] 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 Pleasecall pt to schedule a follow up. [facility] does recommend patients with M.S to rcv vaccine * Telephone Encounter - VersaillesPao olsonine - 08/30/2020 10:04 AM CDT Pt calling to discuss CAF recommendations regarding covid vaccine. Please call him @ [phone] documented in this encounter Plan of Treatment Not on file documented as of this encounter Visit Diagnoses Not on filedocumented in this encounter Care Teams Electrical Power Engineer Relationship Specialty Start Date End Date Saad Lopez MD PCP - General 09/06/16 documented as of this encounter
--- OUTSIDE RECORDS SUMMARY | 2024-06-11 01:38 | XMS_ITS | Encounter Summary ---
Author Organization [facility] Address [address] [place] [address] Phone Care Team Providers Care Community Support Professional Name Role Phone Saad Lopez MD Primary Care Provider Encounter Details Date Type Department Care Team (Late st Contact Info) Description 12/19/2023 Telephone [facility] Pediatric Orthopedics [address] [facility] 1st [address] [place] [address] Jose Antonio Viveros MD [address] [facility] [address] [place] [address] Social History Tobacco Use Types Packs/Day Years Used Date Smoking Tobacco: Former Cigarettes Smokeless Tobacco: Former Chew Quit: 2023 Alcohol Use Standard Drinks/Week Comments Yes 0 (1 standard drink = 0.6 oz pur e alcohol) AUDIT-C Answer Date Recorded Q1: How often do you have a drink containing alc ohol? 2-4 times a month 12/19/2023 Q2: How many drinks containi ng alcohol do you have on a typical day when you are drinking? 1 or 2 12/19/2023 Q3: How often do you have si x or more drinks on one occasion? 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 Faxed a request to [phone] documented in this encounter Plan of Treatment Not on file documented as of this encounter Visit Diagnoses Not on filedocumented in this encounter Care Teams Community Support Professional Relationship Specialty Start Date End Date Saad Lopez MD PCP - General 09/06/16 documented as of this encounter
--- OUTSIDE RECORDS SUMMARY | 2024-06-11 01:38 | XMS_ITS | Encounter Summary ---
Author Organization [facility] Address [address] [place] [address] Phone Care Team Providers Care Event Operations Manager Name Role Phone Saad Lopez MD Primary Care Provider [phone] Reason for Referral * Consultation (Routine) - Pending Review Specialty Diagnoses / Procedures Referred By Freddie jones Referred To Contact Physical Therapy Diagnoses Left hip pain Jose Antonio Viveros MD [address] [place] [id number] Phone: tel: fax: External Order Referral ID Status Reason Start Date Expiration Date Visits Requested Visits Authorized [id number] Pending Review Specialty Services Required 12/31/2023 01/29/2025 12 12 Question Answer PTRFR PT Evaluate and Treat Please select the performing region: External Order [171] # of visits: 12 Therapy options discussed with patient? Yes Location provided for therapy services is: Patient requested/Patient preferred Comments Sent to [email or web address] in [place], [place]. Fax: [phone] Dr. Viveros Hip Arthroscopy with Osteoplasty and Labral Repair Rehabilitation Protocol Therapy 2-3 times a week for 6 weeks Date of surgery: 01/02/2024 Begin PT 2-3 days after surgery Procedure: Left Hip Arthroscopy, Labral Repair, Proximal Femoral Osteoplasty, Capsular Closure Jose Antonio Viveros MD [facility] Sports Medicine/Pediatric Orthopaedics [facility] [phone] phone [phone] fax Hip Arthroscopy Rehabilitation Protocol General Instructions Phase I (approximately 0-4 weeks post op) Goals: Protect repaired tissue, restore ROM, control pain and inflammation, and restore neuromuscular control. Avoid intra articular adhesions and irritation of hip flexor (iliopsoas) Precautions: Passive hip flexion limited to 90?? within patient comfort level to avoid hip flexor pain/irritation; Ok to complete Active hip flexion under 60 degrees for ADLs but do not force active flexion with exercises such as SLR No resisted IR/ER x 4 weeks; avoid abduction and IR/ER past 20 degrees (40 degree arc of motion) until 2-3 weeks post op, no aggressive stretching as patient comfort dictates Mandatory in Phase I: Passive hip circumduction 2-3 times per day, completed at PT and instructed for inclusion in HEP. Two positions: complete with leg/knee straight with hip flexed to approximately 30 degrees, and complete with knee bent with hip flexed to 50-60 degrees CPM to 60?? of hip flexion for at least 4-6 hrs/day for 3-4 weeks Ice- 2-4 times per day x 20-30 minutes Weight-bearing: Foot flat weight bearing up to 30% of bodyweight first 3-4 post op weeks. May progress to full weight bearing by 4 weeks post op or when able to ambulate without compensation. Can use 1 crutch on contralateral side for transition period. Cue to lift heel quickly after mid stance. Avoid twisting or rotation of acetabulum on the femur under loaded conditions. EXERCISES: Isometrics for hips and legs (Quad sets/glut sets/abd/add) Ankle pumps Heel slides to 90?? (Active and passive ROM within comfort-may use assistance of towel or belt around thigh) Active/active assisted ROM in all planes within patient comfort level and within exercise precautions Side bridge with adductor facilitation- knees bent Standing hip abduction DL Bridges Can begin light DL press or shuttle between 0-60 degrees of hip flexion Weight shifts to DL and SL proprioception progression as patient is ready to transition to WBAT Upright (not recumbent) stationary bike-minimal resistance, may start day after surgery Stretch hamstrings and gluteals, if needed. (stretch with hip in flexion-90/90 position) ADL's: Sit to Stand- scoot forward, keep knees over feet, may straddle feet (foot back on uninvolved side) In/Out Car: Patient's backside faces seat, sit and move hips and trunk together. May assist with hands to lift involved hip. Sleeping: Supine-pillows under knee Side lying: pillow between knees Prone: pillows under hips Joint Mobilization: None until 4 weeks post op to protect capsular repair/closure Criteria to progress to phase II: WBAT, Minimal pain with activity during rehab and ADLs Proper muscle firing patterns at hip Phase II (approximately 4-8 weeks post op) Goals: Protect repaired tissue, restore ROM, restore normal gait pattern, and progressively increase strength with global neuromuscular control. Monitor deep hip flexion motions of impingement, release myofascial restrictions of hip musculature (extra articular). Focus on core control. Precautions: Hip ROM within patient comfort level, Do NOT push hip ROM Avoid forceful or ballistic stretching, no treadmill, prevent loaded and prolonged excessive hip flexion or FADIR position Weight-bearing: Progression to full weight-bearing per M.D. EXERCISES: Aquatic Exercise - Cleared suture sites prior to aquatic training and at least 50% WB. Ok to begin flutter kick with kick board Weight shift and proprioception progressing to side stepping in standing to right and left with progression to use of theraband for resistance above knee. Aerobic Activity - Progress resistance of upright bike, elliptical, aquatic therapy Quadruped: rocking backward within patient comfort level OKC straight leg raises - only hip abduction and extension; No flexion or adduction Closed chain strengthening in accordance with weight bearing status including step ups/ wall squats Bent Knee Fall Out, trunk rotations Planks/Core strengthening LE flexibility program within patient comfort level Including soft tissue mobilization/massage/modalities for iliopsoas mobility Joint Mobilization: May begin low grade hip joint mobs Criteria to progress to Phase III: Pain [...] Care Team (Late st Contact Info) Description 12/31/2023 Orders Only [facility] Pediatric Orthopedics [address] [facility] 1st [address] [place] [address] Jose Antonio Viveros MD [address] [place] [address] Left hip pain (Primary Dx) Social History [...] on file 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 20 tablet 12/31/2023 4 HYDROcodone-acetamin ophen (NORCO) 5-325 mg per tabletIndications:Pa in Take 1 tablet by mouth every 4 (four) hours as needed for pain (ONLY if neededfor pain, when FINISHED with oxycodone.) 20 tablet 12/31/2023 4 naproxen (NAPROSYN) 500 mg tablet Take 1 tablet (500 mg total) by mouth 2 (two) times a day with meals for 14 doses Take 2 tablets PO qAM the day before surgery then stop. After surgery resume taking 1 tablet in the AM and 1 in the PM until gone. 28 tablet 12/31/2023 4 ondansetron ODT (ZOFRAN-ODT) 4 mg disintegrating tabletIndications:Pr evention of Post-Operative Nausea and Vomiting Take 1 tablet (4 mg total) by mouth every 6 (six) hours as needed for nausea or vomiting 30 tablet 12/31/2023 4 senna (SENOKOT) 8.6 mg tablet Take 1 tablet by mouth 2 (two) times a day Take 1 tablet by mouth 2(two) times a day. If DIARRHEA occurs STOP taking 60 tablet 12/31/2023 documented in this encounter Plan of Treatment Scheduled Referrals Name Type Priority Associated Diagnoses Order Schedule Ambulatory referral order to Physical Therapy - Outpatient Referral Routine Left hip pain Expected: 12/31/2023 (Approximate), Expires: 07/02/2024 documented as of this encounter Visit Diagnoses Diagnosis Left hip pain- Primary Pain in joint, pelvic region and thigh documented in this encounter Discontinued Medications Medication Sig Discontinue Reason Start Date End Da te meloxicam (MOBIC) 7.5 mg tablet Take 1 tablet (7.5 mg total) by mouth daily 2023 12/31/2023 documented as of this encounter Care Teams Event Operations Manager Relationship Specialty Start Date End Date Saad Lopez MD PCP - General 09/06/16 documented as of this encounter
--- OUTSIDE RECORDS SUMMARY | 2024-06-11 01:38 | XMS_ITS | Encounter Summary ---
Author Organization [facility] Address [address] [place] [address] Phone Care Team Providers Care Assembly Machine Feeder Name Role Phone Saad Lopez MD Primary Care Provider [phone] Jose Antonio Viveros MD Unavailable [phone] Reason for Referral * Diagnostic Imaging (Routine) - Closed Specialty Diagnoses / Procedures Referred By Contac t Referred To Contact Diagnoses Status post hip surgery Procedures XR Pelvis 1 or 2 Views Jose Antonio Viveros MD 1 [facility] [address] [place] [address] Phone: tel: fax: [facility] Radiology [address] [place] [address] [address] [place] [address] Phone: tel: Referral ID Status Reason Start Date Expiration Date Visits Re quested Visits Authorized [id number] Closed 01/15/2024 02/13/2025 1 1 Encounter Details Date Type Department Care Team (Late st Contact Info) Description 01/20/2024 10:00 AM CDT Office Visit [facility] [address] [place] [address] Medical Office Building [address] [place] [address] Jose Antonio Viveros MD 1 [facility] [address] [place] [address] Status post hip surgery (Primary [...] on file 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 ESTABLISHED PATIENT VISIT This is Froy Roman scribing in the presence of Dr. Jose Antonio Viveros INTERIM HISTORY: Ronen is 2.5 weeks (01/02/2024) status post Arthroscopy Left Hip - Labral Repair, Proximal FemoralOsteoplasty, Capsular Closure - Left Overall he is doing well. He has been progressing in physical therapy and riding his stationary bike at home. He has been ambulating with crutches. He notes some irritation in his contralateral hip but feels it is likely due to compensation while using his crutches. PHYSICAL EXAM: Left hip: Moderate swelling. Well healing incisions. Range of motion 0-60 degrees. Intact motor EHL, FHL, TA, GS. Sensation intact to light tough deep peroneal, superficial peroneal,and tibial nerve; slightly decreased in all distributions. Brisk capillary refill in all five toes. REVIEW OF X-RAYS/STUDIES: I have ordered x-rays of pelvis and personally reviewed the images. My independent interpretation is postsurgical changes. ASSESSMENT/PLAN: Overall Jose Antonio is doing well. His sutures will be removed today. He will continue with his progression in physical therapy. Emphasized TTWB until 3-[address] Viveros will follow up in 4 weeks. X-rays needed at next appointment: None Jose Antonio Viveros M.D., M.S. Refrigerator Assembler [facility] documented in this encounter Plan of Treatment Not on file documented as of this encounter Results * XR Pelvis 1 or 2 Views (01/20/2024 9:40 AM CDT) Anatomical Region Laterality Modality Body, Pelvis N/A Computed Radiogr aphy 01/20/2024 10:0 8 AM CDT Impressions 01/20/2024 10:08 AM CDT 1. ??Preserved bilateral hip joint spaces. Electronically signed by: Jason Hope MD Narrative 01/20/2024 10:08 AM CDT EXAMINATION: XR PELVIS 1 OR 2 VIEWS HISTORY: ??Hip pain. FINDINGS: 2 views of the pelvis are reviewed with comparison to 10/01/2023. Bilateral hip joint spaces are preserved. ??No acute fracture. Alignment is normal. Procedure Note Jason Hope MD - 01/20/2024 EXAMINATION: XR PELVIS 1 OR 2 VIEWS HISTORY: Hip pain. FINDINGS: 2 views of the pelvis are reviewed with comparison to 10/01/2023. Bilateral hip joint spaces are preserved. No acute fracture. Alignment is normal. IMPRESSION: 1. Preserved bilateral hip joint spaces. Electronically signed by: Jason Hope MD Jose Antonio Viveros MD IMG XR PROCEDURES Final Result documented in this encounter Visit Diagnoses Diagnosis Status post hip surgery- Primary Status post hip surgery documented in this encounter Care Teams Assembly Machine Feeder Relationship Specialty Start Date End Date Saad Lopez MD PCP - General 09/06/16 Jose Antonio Viveros MD [address] [place] [address] Surgeon Pediatric Orthopedic Surgery 01/02/24 documented as of this encounter
--- OUTSIDE RECORDS SUMMARY | 2024-06-11 01:38 | XMS_ITS | Encounter Summary ---
Author Organization [facility] Address [address] [place] [address] Phone Care Team Providers Care Activity Therapy Teacher Name Role Phone Saad Lopez MD Primary Care Provider [phone] Reason for Referral * MRI/CAT/PET Scan (Routine) - Closed Specialty Diagnoses / Procedures Referred By Freddie t Referred To Contact Radiology Diagnoses Left hip pain Procedures CT Hip Left WO Contrast and 3D Recons Jose Antonio Viveros MD 1 [facility] [address] [place] [address] Phone: tel: fax: [address] [address] Referral ID Status Reason Start Date Expiration Date Visits Re quested Visits Authorized [id number] Closed 09/18/2023 11/16/2023 1 1 Encounter Details Date Type Department Care Team (Late st Contact Info) Description 09/16/2023 Telephone [facility] Pediatric Orthopedics [id number] [place] [address] 1st [address] [place] [address] Jose Antonio Viveros MD [facility] [address] [place] [address] Social History Tobacco Use Types Packs/Day Years Used Date Smoking Tobacco: Former Smokeless Tobacco: Current Chew Alcohol Use Standard Drinks/Week Comments Yes 0 (1 standard drink = 0.6 oz pur e alcohol) AUDIT-C Answer Date Recorded Q1: How often do you have a drink containing alc ohol? Monthly or less 05/17/2022 Q2: How many drinks containi ng alcohol do you have on a typical day when you are drinking? 1 or 2 05/17/2022 Q3: How often do you have si x or more drinks on one occasion? 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 I will call to get his CT scheduled on 09/29 and get an appt with Dr. Viveros scheduled for the same day. No CT availability on 09/29. Scheduled for 09/30 and will send Xetal message to confirm with the patient. documented in this encounter Plan of Treatment Not on file documented as of this encounter Results * CT Hip Left WO Contrast and 3D Recons (10/01/2023 2:53 PM CDT) Anatomical Region Laterality Modality Lower Extremities Left Computed Tomog johnny 10/01/2023 4:35 PM CDT Impressions 10/01/2023 4:49 PM CDT 1. 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 Dictated by: Brian Coon MD The radiology attending physician has personally reviewed this study, and had reviewed and/or edited this written report and agrees with it. Electronically signed by: Yousuf Craven M.D. Narrative 10/01/2023 4:49 PM CDT EXAMINATION: 1. CT left hip without contrast. 2. 3-D reconstructions at an independent workstation. HISTORY: ??Left hip pain, impingement, left hip flexor tendinitis. Left hip labral tear. FINDINGS: Comparison radiographs , 06/17/2023 and comparison left hip MRI, 04/15/2023.Noncontrast CT images of the lower pelvis and hips were performed utilizing a low dose technique. Additional transverse CT images through the femoral epicondyles were obtained to calculate femoral version. No intravenous or intra-articular contrast was administered for this exam. Multiplanar radially oriented images were created along the long axis of the femoral neck. At the request of the referring clinician, the initial data set was transferred to an independent workstation where 3-dimensional surface reconstructions of the left hip were performed both with and without electronic subtraction of the femoral head and acetabular socket. Boring Mill Set Up Operator 3-D images have been made available an electronic form. No acute fracture or dislocation of the bilateral hips. ??Alignment is anatomic. ??Mild bilateral hip joint osteoarthritis. ??Mild bilateral sacroiliac joint osteoarthritis is present. ??No acute fracture or dislocation of the bilateral knees. ??No joint effusion. ??Mild lower lumbar degenerative disc disease. ??Bilateral chronic L5-S1 pars defects with minimal grade 1 anterolisthesis of L5 on S1. ??Chronic left rectus femoris strain is noted with mild fatty atrophy. The remaining visualized musculature of the pelvis knees appear normal. Colonic diverticulosis. ??Aortoiliac and prostatic calcifications are noted. ??Otherwise the visualized pelvis appears normal. ??Degenerative spurring at the pubic symphysis and greater trochanters. The following measurements were obtained from the two-dimensional images: Right hip: Acetabulum: 12 degrees anteversion at the level of the superior femoral head Alpha angle at the 12 o'clock position: 54 degrees Alpha angle at the 1 o'clock position: 51 degrees Alpha angle at the 2 o'clock position: 48 degrees Alpha angle at the 3 o'clock position: 52 degrees Femoral Version: 8 degrees anteversion Left hip: Acetabulum: 6 degrees anteversion at the level of the superior femoral head Alpha angle at the 12 o'clock position: 47 degrees Alpha angle at the 1 o'clock position: 49 degrees Alpha angle at the 2 o'clock position: 44 degrees Alpha angle at the 3 o'clock position: 44 degrees Femoral Version: 3 degrees anteversion The three-dimensional images confirm the above findings. Procedure Note oYusuf Craven MD - 10/01/2023 EXAMINATION: 1. CT left hip without contrast. 2. 3-D reconstructions at an independent workstation. HISTORY: Left hip pain, impingement, left hip flexor tendinitis. Left hip labral tear. FINDINGS: Comparison radiographs , 06/17/2023 and comparison left hip MRI, 04/15/2023.Noncontrast CT images of the lower pelvis and hips were performed utilizing a low dose technique. Additional transverse CT images through the femoral epicondyles were obtained to calculate femoral version. No intravenous or intra-articular contrast was administered for this exam. Multiplanar radially oriented images were created along the long axis of the femoral neck. At the request of the referring clinician, the initial data set was transferred to an independent workstation where 3-dimensional surface reconstructions of the left hip were performed both with and without electronic subtraction of the femoral head and acetabular socket. Boring Mill Set Up Operator 3-D images have been made available an electronic form. No acute fracture or dislocation of the bilateral hips. Alignment is anatomic. Mild bilateral hip joint osteoarthritis. Mild bilateral sacroiliac joint osteoarthritis is present. No acute fracture or dislocation of the bilateral knees. No joint effusion. Mild lower lumbar degenerative disc disease. Bilateral chronic L5-S1 pars defects with minimal grade 1 anterolisthesis of L5 on S1. Chronic left rectus femoris strain is noted with mild fatty atrophy. The remaining visualized musculature of the pelvis knees appear normal. Colonic diverticulosis. Aortoiliac and prostatic calcifications are noted. Otherwise the visualized pelvis appears normal. Degenerative spurring at the pubic symphysis and greater trochanters. The following measurements were obtained from the two-dimensional images: Right hip: Acetabulum: 12 degrees anteversion at the level of the superior femoral head Alpha angle at the 12 o'clock position: 54 degrees Alpha angle at the 1 o'clock position: 51 degrees Alpha angle at the 2 o'clock position: 48 degrees Alpha angle at the 3 o'clock position: 52 degrees Femoral Version: 8 degrees anteversion Left hip: Acetabulum: 6 degrees anteversion at the level of the superior femoral head Alpha angle at the 12 o'clock position: 47 degrees Alpha angle at the 1 o'clock position: 49 degrees Alpha angle at the 2 o'clock position: 44 degrees Alpha angle at the 3 o'clock position: 44 degrees Femoral Version: 3 degrees anteversion The three-dimensional images confirm the above findings. IMPRESSION: 1. 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 Dictated by: Brian Coon MD The radiology attending physician has personally reviewed this study, and had reviewed and/or edited this written report and agrees with it. Electronically signed by: Yousuf Craven M.D. Jose Antonio Viveros MD IMG CT PROCEDURES Final Result documented in this encounter Visit Diagnoses Diagnosis Left hip pain- Primary Pain in joint, pelvic region and thigh Left hip pain Pain in joint, pelvic region and thigh documented in this encounter Care Teams Activity Therapy Teacher Relationship Specialty Start Date End Date Saad Lopez MD PCP - General 09/06/16 documented as of this encounter
--- OUTSIDE RECORDS SUMMARY | 2024-06-11 01:38 | XMS_ITS | Encounter Summary ---
Author Organization [facility] Address [address] [place] [address] Phone Care Team Providers Care High Court Justice Name Role Phone Saad Lopez MD Primary Care Provider Encounter Details Date Type Department Care Team (Late st Contact Info) Description 12/03/2023 Telephone [facility] Pediatric Orthopedics [address] [facility] 1st [address] [place] [id number] Jose Antonio Viveros MD [facility] [address] [place] [address] Social History Tobacco Use Types Packs/Day Years [...] on file 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 Viveros to discuss Ronen's procedure. Ericka can be reached at [phone] documented in this encounter Plan of Treatment Not on file documented as of this encounter Visit Diagnoses Not on filedocumented in this encounter Care Teams High Court Justice Relationship Specialty Start Date End Date Saad Lopez MD PCP - General 09/06/16 documented as of this encounter
--- OUTSIDE RECORDS SUMMARY | 2024-06-11 01:38 | XMS_ITS | Encounter Summary ---
Author Organization [facility] Address [address] [place] [address] Phone Care Team Providers Care Packing And Shipping Clerk Name Role Phone Saad Lopez MD Primary Care Provider [phone] Jose Antonio Viveros MD Unavailable [phone] Reason for Referral * Consultation (Routine) - Pending Review Specialty Diagnoses / Procedures Referred By Contac t Referred To Contact Physical Therapy Diagnoses Status post hip surgery Jose Antonio Viveros MD [address] [facility] [address] [place] [address] Phone: tel: fax: [facility] [address] [place] [address] [place] [address] Phone: tel: fax: Referral ID Status Reason Start Date Expiration Date Visits Requested Visits Authorized [id number] Pending Review Specialty Services Required 02/17/2024 03/18/2025 24 24 Question Answer PTRFR PT Evaluate and Treat Please select the performing region: External Order [171] To loc/pos [facility] [[id number]] # of visits: [address] Viveros Hip Arthroscopy with Osteoplasty and Labral Repair Rehabilitation Protocol Therapy 2-3 times a week for 6 weeks Date of surgery: 01/02/2024 Procedure: Left Hip Arthroscopy, Labral Repair, Proximal Femoral Osteoplasty, Capsular Closure Jose Antonio Viveros MD [facility] Orthopaedics Sports Medicine/Pediatric Orthopaedics [facility] [phone] phone [phone] fax Hip Arthroscopy Rehabilitation Protocol General Instructions [...] tests ?? 90% of the uninvolved side. For all PT reports that require a signature-please fax to [phone] For all other PT progress notes-please fax to [phone] Your Physical Therapy Provider may complete the pre-certification process on your behalf. If you need assistance from the Orthopedic Pre-Certification office, please call [phone] and a contact center team lead will assist you. 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 ESTABLISHED PATIENT VISIT This is Froy Roman scribing in the presence of Dr. Jose Antonio Viveros INTERIM HISTORY: Ronen is 6.5 weeks (01/02/2024) status post Arthroscopy Left Hip - Labral Repair, Proximal FemoralOsteoplasty, Capsular Closure - Left Overall he is doing well. He has been progressing in physical therapy and riding his stationary bike at home. He stopped ambulating with a cane a couple days ago. He notes some nerve pain in his inner thigh although it is improving. He has no new complaints. PHYSICAL EXAM: Left hip: Minimal swelling. Well healed incisions. Nonpainful hip ROM. No guarding. REVIEW OF X-RAYS/STUDIES: No imaging completed or review during today's visit. ASSESSMENT/PLAN: Overall Jose Antonio is doing well. He will continue with his gradual progression in physical therapy. Dr. Viveros will follow up in 6 weeks. X-rays needed at next appointment: None Jose Antonio Viveros M.D., M.S. Rrt [facility] Orthopedics documented in this encounter Plan of Treatment Scheduled Referrals Name Type Priority Associated Diagnoses Order Schedule Ambulatory referral order to Physical Therapy - Outpatient Referral Routine Status post hip surgery Ordered: 02/17/2024 documented as of this encounter Visit Diagnoses Diagnosis Status post hip surgery- Primary documented in this encounter Care Teams Packing And Shipping Clerk Relationship Specialty Start Date End Date Saad Lopez MD PCP - General 09/06/16 Jose Antonio Viveros MD [address] [address] Surgeon Pediatric Orthopedic Surgery 01/02/24 documented as of this encounter
--- OUTSIDE RECORDS SUMMARY | 2024-06-11 01:38 | XMS_ITS | Encounter Summary ---
Author Organization [facility] Address [address] [place] [address] Phone Care Team Providers Care Golf Sales Associate Name Role Phone Saad Lopez MD Primary Care Provider [phone] Encounter Details Date Type Department Care Team (Late st Contact Info) Description 12/24/2023 Telephone [facility]) - [facility] Pediatric Orthopedics [address] [facility] [address] [place] [address] Jose Antonio Viveros MD [address] 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 Viveros completed P2P. Authorization number [id number] for CPT codes 99575 and 47735 good from 01/01-03/01 at [facility]. documented in this encounter Plan of Treatment Not on file documented as of this encounter Visit Diagnoses Not on filedocumented in this encounter Care Teams Golf Sales Associate Relationship Specialty Start Date End Date Saad Lopez MD PCP - General 09/06/16 documented as of this encounter
--- OUTSIDE RECORDS SUMMARY | 2024-06-11 01:38 | XMS_ITS | Encounter Summary ---
Author Organization [facility] Healthcare Address [address] [place] [address] Care Team Providers Care Cleaning Specialist Name Role Phone Saad Lopez MD Primary Care Provider + [phone] Jose Antonio Viveros MD Unavailable [phone] Reason for Visit * Auth/Cert Specialty Diagnoses / Procedures Referred By Freddie jones Referred To Contact Diagnoses Left hip pain Left hip pain [M25.552] Procedures MD ARTHROSCOPY HIP W/FEMOROPLASTY MD ARTHROSCOPY HIP W/LABRAL REPAIR ARTHROSCOPY LEFT HIP - LABRAL REPAIR, PROXIMAL FEMORAL OSTEOPLASTY, CAPSULAR CLOSURE Referral ID Status Reason Start Date Expiration Date Visits Re quested Visits Authorized [id number] 1 1 Encounter Details Date Type Department Care Team (Late st Contact Info) Description 01/02/2024 10:27 AM CDT Anesthesia Event [facility] Operating Room [address] [place] [address] Ana Luisa Tate MD [address] [facility] [address] [place] [address] Ericka Flores NP [address] [facility] [phone] [place] [address] Anesthesia Record Procedure Summary Procedure Name Responsible Anesthesiologist Anesthesia Start Time Anesthesia Stop Time ARTHROSCOPY LEFT HIP - LABRAL REPAIR, PROXIMAL FEMORAL OSTEOPLASTY, CAPSULAR CLOSURE (Left: Hip) Ana Luisa Tate MD 01/02/24 1027 01/02/24 1311 Events Date Time Event Comment 01/02/2024 0849 In Preop 1007 AN Equip Check 1012 1027 An Start 1032 In Room 1032 An Start Data 1040 An Induction The patient was reevaluated immediately before moderate or deep sedation use and before anesthesia induction. 1042 An Intubation 1045 Anesthesia Ready 1053 Proc Start 1100 Incision Start 1300 Proc Fin 1307 An Extubation 1308 an stop data 1308 Out of Room 1311 Handoff to RN I completed my handoff to the receiving nurse during which we: 1. Patient identified 2. Responsible provider identified 3. Pertinent medical history reviewed 4. Procedure type and surgical course discussed 5. Intraoperative anesthetic management and any significant issues discussed 6. Expectations and concerns for postop period discussed 7. Questions solicited from receiving nurse 8. Patient disposition at the time of handoff: PACU 1311 An Stop Meds Name Total midazolam 2 mg/2 mL 2 mg fentaNYL PF 250 mcg lidocaine 2 % PF 25 mg propofol 200 mg rocuronium 80 mg HYDROmorphone (Dilaudid) 1 mg neostigmine syringe 1 mg/mL 2 mg glycopyrrolate 0.4 mg ondansetron PF 4 mg dexamethasone 4 mg/ml 4 mg ceFAZolin (ANCEF) 1 gram/10 mL in steril e water (premix) 3,000 mg 3,000 mg tranexamic acid 1,000 mg Lactated Ringer's (LR) infusion 3,000 mL * Agents Name O2 N2O Air Sevoflurane Inspired Sevoflurane * Blood No blood administrations on file. Lines, Drains, and Airways Type Details Placement Removal Peripheral IV Placement Date: 01/02/24; Placement Time: 909; Catheter Size: 20 G; Orientation: Anterior, Left; Location: Forearm; Site Prep: Chlorhexidine; Insertion Attempts: 1; Patient Tolerance: Tolerated well; Removal Date: 01/02/24; Removal Time: 1450 01/02/24 0910 by Katina Casiano RN 01/02/24 1450 by Deepti Fonseca RN ETT Placement Date: 01/02/24; Placement Time: 1056 (created via procedure documentation); Mask Ventilation: 1; Technique: Direct laryngoscopy; Type: ETT - single; Single Lumen Tube Size: 8 mm; Cuffed: Yes; Laryngoscope: Kanchan; Blade Size: 4; Location: Oral; Grade View: Grade I; Insertion Attempts: 1; Placement Verification: Auscultation, Capnometry; Removal Date: 01/02/24; Removal Time: 1307 01/02/24 1056 by Radha Landeros CRNA 01/02/24 1307 by Radha Landeros CRNA RETIRED Surgical Site 01/02/24; 1111; Le ft; Hip/trochanter; 05/11/24 (Retired LDA, Removed/Completed by Dental Fix RX with LDA Utility); 1213 (Retired LDA, Removed/Completed by Dental Fix RX with LDA Utility) 01/02/24 1111 by Gaudencio Grey RN 05/11/24 1213 by Discharge Provider, Automatic documented in this encounter Social History Tobacco Use Types Packs/Day Years [...] on file 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 Gender Identity Not on file Sexual Orientation Not on file documented as of this encounter OR Notes * Anesthesia Postprocedure Evaluation - Darrell Redmond MD - 01/02/2024 2:55 PM CDT Patient: Ronen Kapadia Procedure Summary Date: 01/02/24 Room / Location: [facility] OPERATING ROOM 10 / [facility] OPERATING ROOM Anesthesia Start: 1027 Anesthesia Stop: 1311 Procedure: ARTHROSCOPY LEFT HIP - LABRAL REPAIR, PROXIMAL FEMORAL OSTEOPLASTY, CAPSULAR CLOSURE (Left: Hip) Diagnosis: Left hip pain (Left hip pain [M25.552]) Surgeons: Jose Antonio Viveros MD Responsible Provider: Ana Luisa Tate MD Anesthesia Type: general ASA Status: 2 Anesthesia Type: general Last vitals BP 130/81 Pulse 51 Temp 36.7 ??C (98.1 ??F) Resp 13 SpO2 96% Anesthesia Post Evaluation Patient location during evaluation: PACU Patient participation: complete - patient participated Level of consciousness: fully awake Pain management: satisfactory to patient Airway patency: adequate and patent Evidence of recall: no Cardiovascular status: acceptable and hemodynamically stable Respiratory status: acceptable and room air Hydration status: acceptable Pt is: normothermic Nausea/Vomiting status: none Comments: Pain tolerable, worked with PT/OT pre-op. Patient medically appropriate to return home. No notable events documented. * Anesthesia Procedure Notes - Radha Landeros CRNA - 01/02/2024 10:55 AM CDT Associated Order(s): Airway Airway Patient location: OR Urgency: elective Indications for airway management: anesthesia Difficult airway: no Staff: Supervising provider: Ana Luisa Tate MD Placed by: RUBBLE PLACER: Radha Landeros CRNA Emergent airway documentation: Risks and benefits discussed: yes Consent obtained: yes Consent given by: patient Airway prep: Preoxygenated: yes Patient position: sniffing Mask difficulty assessment: 1 - vent by mask Spontaneous ventilation during airway: absent Sedation level during airway: GA Final airway details: Final airway type: endotracheal airway Tube type: ETT ETT size: 8.0 mm Cuffed: yes Technique used for successful ETT placement: direct laryngoscopy Devices/Methods used in placement: stylet Insertion site: oral Blade type: Kanchan Blade size: 4 Cormack-Lehane (direct): grade I - full view of glottis Cuff inflated with: air ETT to lips: 23 cm Placement verified by: auscultation and CO2 detection Airway secured with: silk tape Number of attempts: 1 * Anesthesia Preprocedure Evaluation - Ana Luisa Tate MD - 12/29/2023 3:28 PM CDT Images from the original note were not included. [facility] for Preoperative Assessment and Planning Preoperative Evaluation Record Evaluation type/location: TPAP from [facility] Date: 12/29/23 Anesthesia Evaluation Ronen Kapadia is a 58 y.o. male ARTHROSCOPY LEFT HIP - LABRAL REPAIR, PROXIMAL FEMORAL OSTEOPLASTY, CAPSULAR CLOSURE (Left: Hip) Pre-Op Diagnosis Codes: * Left hip pain [M25.552] HISTORY HPI Ronen Kapadia is a 58 y.o. male with MS, HTN, SIVAN, Obesity (BMI= 39), GERD presenting for evaluation having Left Hip Arthroscopy, Proximal femoral osteoplasty, capsular closure for Left hip pain. Past Medical History Information obtained from: patient and chart. Information obtained during: Telephone Visit NOTE: This note represents a preoperative evaluation initiated via virtual (video or telephone) interview. NO PHYSICAL EXAM was performed at the time of initial assessment. A physical exam may be added to this note and documented below. Neurological + Neuromuscular disease (Dxd ~2006--Daily injections of copaxone stopped ~07/2019; Last flare~ 2017)- multiple sclerosis. Pertinent negatives: seizures; CVA/stroke; TIA; CEA; ICA stenosis; dementia/mild cognitive impairment and carotid artery stent Comments: Followed by neurologist, Dr Trent Cardiovascular + Hypertension Hypertension year diagnosed: 2003. Typical systolic BP - 120 Typical diastolic BP - 80 Pertinent negatives: CAD ; [place] ; CABG ; valvular heart disease; valve replacement; atrial fibrillation; arrhythmia; pacemaker/ICD; PVD; DVT/PE; negative for CHF; drug-eluting stent(s); bare metal stent(s) and coronary angioplasty Respiratory + Sleep apnea (SIVAN) Prescribed device: CPAP and PAP compliant. Pertinent negatives: COPD; asthma; pulmonary hypertension; no O2 use outside the hospital; non-smoker and no tracheostomy Hepatic / Heme Pertinent negatives: liver disease; history of anemia; history of thrombocytopenia and history of Jacqueline positive Gastrointestinal + GERD - PRN medication use only. Symptoms < 1x/week. Pertinent negatives: hiatal hernia Renal / + Nephrolithiasis (h/o Multiple kidney stones in past s/p surgeries (last ~2020)) Pertinent negatives: renal disease and dialysis Musculoskeletal/Pain + Chronic pain (Intermittent left hip pain-- Etiology for surgery) + Osteoarthritis (knees/hips) Pertinent negatives: chronic opioid use and previous treatment for opioid use disorder Endocrine / Other + Obesity (BMI >30) Pertinent negatives: diabetes mellitus; thyroid disease; cancer history; rheumatological disease and transplanted organ Functional Capacity Functional capacity: 4-6 METs Comments: Pt states able to walk 3-4 blocks, walk up a hill or climb 2 flights of stairs without SOB/CP. Review of Systems + chronic pain (Intermittent left hip pain-- Etiology for surgery) + vision loss (+Glasses) + heartburn (PRN PPI) Pertinent negatives: productive cough; wheezing; SOB; recent cold/flu; fever; chest pain; palpitations; orthopnea; pedal edema; PND; Sickle Cell disease/trait; previous transfusion; transfusion reaction; melena/hematochezia; easy bruising; bleeding problems; syncope; dizziness; muscle weakness; numb ness/tingling; hard of hearing; nausea; dysphagia; diarrhea; dentures/partials; chipped/loose teeth; abdominal pain; diaphoresis and no unexpected weight change PAT Summary and Plans Cardiac risk classification of planned procedure: low cardiac risk. Preoperative assessment status: complete. Additional comments: Ronen Kapadia is a 58 y.o. male who is being evaluated prior to undergoing a low cardiac risk surgery. Revised Cardiac Risk Index factors are (none) for a total RCRI of 0 out of 6. Functional capacity is 4-6 METs. Comorbidities include: MS, HTN, SIVAN, Obesity (BMI= 39), GERD Obstructive sleep apnea (SIVAN) screening status is HIGH RISK due to known SIVAN. This assessment was performed via telephone. Therefore the physical exam has been deferred to the day of surgery team. The patient was provided with preoperative instructions for their medications. The patient was informed that instructions regarding stopping any therapeutic antiplatelet or anticoagulant medications will be provided by the surgeon's office. Patient instructions were provided by telephone and electronically sent via [employer]. Patient verbalized understanding of instructions. Blood bank needs for day of procedure: No type and screen needed Pending labs/tests include: None CT Left Hip 10/01/2023-- See diagnostic section and in Epic The patient is on aspirin therapy for primary prevention. The patient's perioperative cardiovascular risk is deemed low or is outweighed by bleeding risk. If time permits, we support stopping aspirin7 or more days prior to the procedure. Please call the CPAP chart room clinician ([phone]) with any questions. Notified surgeon's office regarding above issue(s)-- Staff message sent to [facility] and requested they FU with pt and instruct pt on final recs for aspirin. TPAP assessment complete. Preoperative evaluation performed by Lesia Avalos NP on 12/29/23 at 3:31 PM . Patient Active Problem List Diagnosis Date Noted Left hip pain 12/02/2023 Hypertension 02/12/2022 Nephrolithiasis 02/12/2022 Osteoarthritis 02/12/2022 Muscle spasticity 05/18/2015 Multiple sclerosis (HCC) 01/26/2009 Past Medical History: Diagnosis Date Calculus of kidney KIDNEY STONES Gastroesophageal reflux disease GERD History of meningitis VIRAL MENINGITIS History of mononucleosis MONONUCLEOSIS Hypertension Dxd 2003 Lumbar stenosis LUMBAR SPINAL STENOSIS MS (multiple sclerosis) (HCC) Dxd ~2006--Daily injections of copaxone stopped ~07/2019; Last flare~ 2017; Followed by neurologist,Dr Twan Valenzuela Past Surgical History: Procedure Laterality Date COLONOSCOPY 2021 [place] FLUORO GUIDED INJECTION HIP LEFT Left 08/19/2023 KIDNEY STONE SURGERY 2020 MULTIPLE-- Last ~2020 SKIN LESION EXCISION 1988 Birthmark on top of head-- Benign Allergies Allergen Reactions Levofloxacin Muscle pain Quinolones Mental status changes and Muscle pain Med List Status: Nurse Complete Set By: Dereck New RN at 12/19/2023 4:05 PM Taking? Last Dose Start Date End Date Provider aspirin 81 mg enteric coated tablet 12/19/2023 10/09/09 -- Provider, MD Gogo baclofen (LIORESAL) 10 mg tablet 12/19/2023 11/12/23 -- Saima Trent MD Take 1 tablet (10 mg total) by mouth 3 (three) times a day as needed for muscle spasms Notes: Have patient contact office to schedule appointment meloxicam (MOBIC) 7.5 mg tablet 12/19/2023 12/10/23 -- Jose Antonio Viveros MD Take 1 tablet (7.5 mg total) by mouth daily Patient taking differently: Take 1 tablet (7.5 mg total) by mouth every morning metoprolol XL (TOPROL-XL) 50 mg 24 hr tablet 12/19/2023 05/18/15 -- Saima Trent MD take 1 tablet by oral route every day Patient taking differently: Take 1 tablet (50 mg total) by mouth every morning multivitamin with iron tablet 12/19/2023 -- -- ProviderGogo MD No current facility-administered medications for this encounter. Current Outpatient Medications: aspirin 81 mg enteric coated tablet baclofen (LIORESAL) 10 mg tablet meloxicam (MOBIC) 7.5 mg tablet metoprolol XL (TOPROL-XL) 50 mg 24 hr tablet multivitamin with iron tablet Social History Tobacco Use Smoking Status Former Current packs/day: 0.00 Types: Cigarettes Quit date: 2013 Years since quittin.5 Smokeless Tobacco Former Types: Chew Quit date: 05/2023 Alcohol Use: Not At Risk (12/19/2023) AUDIT-C Frequency of Alcohol Consumption: 2-4 times a month Average Number of Drinks: 1 or 2 Frequency of Binge Drinking: Never Substance and Sexual Activity Drug Use No Family History Problem Relation Age of Onset Multiple sclerosis Father's Sister Multiple sclerosis; Anesthesia problems Neg Hx PAT Physical Exam Additional comments: Telephone assessment has been performed and DOS physical exam will need to be performed by anesthesia provider. There were no vitals filed for this visit. Relevant diagnostics: ECG(s): N/A Echocardiogram(s): N/A Stress test(s): N/A Cardiac catheterization(s): N/A PFT(s): N/A Vascular studies: N/A Other: CT Left Hip 10/01/2023-- IMPRESSION: 1. 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 PT: No results found for requested labs within last 30 days. INR: No results found for requested labs within last 30 days. APTT: No results found for requested labs within last 30 days. Hgb A1C: No results found for requested labs within last 30 days. CBC RBC: No results found for requested labs within last 30 days. RDW: No results found for requested labs within last 30 days. MCHC: No results found for requested labs within last 30 days. MCH: No results found for requested labs within last 30 days. MCV: No results found for requested labs within last 30 days. Hct: No results found for requested labs within last 30 days. Hgb: No results found for requested labs within last 30 days. WBC: No results found for requested labs within last 30 days. MPV: No results found for requested labs within last 30 days. Platelets: No results found for requested labs within last 30 days. RDW CV: No results found for requested labs within last 30 days. RDW Sd: No results found for requested labs within last 30 days. BMP Glucose: No results found for requested labs within last 30 days. Calcium: No results found for requested labs within last 30 days. Sodium: No results found for requested labs within last 30 days. Potassium: No results found for requested labs within last 30 days. CO2: No results found for requested labs within last 30 days. Chloride: No results found for requested labs within last 30 days. BUN: No results found for requested labs within last 30 days. Creatinine: No results found for requested labs within last 30 days. Bora index score: 100 DOS Physical Exam Medical history, medications, and allergies reviewed. Attestation: This PAT evaluation Airway Exam: Mallampati: III Cervical ROM: FROM Pulmonary Exam: LCTA, bilat EENT Exam: trachea midline Anesthesia Plan ASA 2 My patient is approved for the Anesthesia Controlled Medication protocol when under care of a RUBBLE PLACER Planned anesthesia: General Induction: Induction: intravenous. Informed Consent: Anesthesia plan and risks discussed with patient. Consent and Attending signature: I and/or my designee have discussed the anesthesia plan, benefits, possible alternatives, parental presence at time of induction (if indicated), and clinically relevant risks that may include dental injury, unintentional awareness, and/or other complications. The patient and/or parent/legal guardian understand, and agree to proceed. All questions answered. documented in this encounter Plan of Treatment Not on file documented as of this encounter Procedures Procedure Name Priority Date/Time Associated Diagnosis Comments MD AN PROCEDURE PLACEHOLDER Routine 01/02/2024 10:55 AM CDT MD AN ELECTIVE ENDOTRACHEAL AIRWAY Routine 01/02/2024 10:55 AM CDT documented in this encounter Results * MD AN ELECTIVE ENDOTRACHEAL AIRWAY, MD AN PROCEDURE PLACEHOLDER (01/02/2024 10:55 AM CDT) Narrative Radha Landeros CRNA - 01/02/2024 10:55 AM CDT Radha Landeros CRNA ? 01/02/2024 10:56 AM Airway Patient location: OR Urgency: elective Indications for airway management: anesthesia Difficult airway: no Staff: Supervising provider: Ana Luisa Tate MD Placed by: RUBBLE PLACER: Radha Landeros CRNA Emergent airway documentation: Risks and benefits discussed: yes Consent obtained: yes Consent given by: patient Airway prep: Preoxygenated: yes Patient position: sniffing Mask difficulty assessment: 1 - vent by mask Spontaneous ventilation during airway: absent Sedation level during airway: GA Final airway details: Final airway type: endotracheal airway Tube type: ETT ETT size: 8.0 mm Cuffed: yes Technique used for successful ETT placement: direct laryngoscopy Devices/Methods used in placement: stylet Insertion site: oral Blade type: Kanchan Blade size: 4 Cormack-Lehane (direct): grade I - full view of glottis Cuff inflated with: air ETT to lips: 23 cm Placement verified by: auscultation and CO2 detection Airway secured with: silk tape Number of attempts: 1 us Ana Luisa Tate MD ANESTHESIA ORDERABLES Final Resu lt documented in this encounter Visit Diagnoses Not on filedocumented in this encounter Administered Medications Inactive Administered Medications - up to 3 most recent administrations Medication Order MAR Action Action Date Dose Rate Site ceFAZolin (ANCEF) 1 gram/10 mL in sterile water (premix) 3,000 mg 3,000 mg, intravenous, at 600 mL/hr, Administer over 3 Minutes, Once, On Fri01/02/24 at 0930, For 1 dose, Pre-Op, Administer within 60 minutes of incision., Indications: Prophylaxis, SurgicalIndications:Prophylaxis , Surgical Given 01/02/2024 10:45 AM CDT 3,000 mg dexAMETHasone (DECADRON) 4 mg/mL injection intravenous, Administer over 2 Minutes, As needed, Starting on Fri01/02/24 at 1109, Anesthesia Intra-op Given 01/02/2024 11:09 AM CDT 4 mg fentaNYL (SUBLIMAZE) preservative free injection intravenous, As needed, Starting on Fri01/02/24 at 1040, Anesthesia Intra-op Given 01/02/2024 11:25 AM CDT 50 mcg Given 01/02/2024 11:16 AM CDT 50 mcg Given 01/02/2024 11:09 AM CDT 50 mcg glycopyrrolate (ROBINUL) injection intravenous, Administer over 1 Minutes, As needed, Starting on Fri01/02/24 at 1251, Anesthesia Intra-op Given 01/02/2024 12:51 PM CDT 0.4 mg HYDROmorphone (DILAUDID) injection intravenous, Administer over 2 Minutes, As needed, Starting on Fri01/02/24 at 1141, Anesthesia Intra-op Given 01/02/2024 11:41 AM CDT 1 mg Lactated Ringer's (LR) infusion 30 mL/hr, intravenous, Continuous, Starting on Fri01/02/24 at 0930, For 4 hours, Pre-Op, Use a 500 ml bag for End Stage Renal Disease Patients. Discontinue if fluid still running once patient arrives to floor. New Bag 01/02/2024 1:02 PM CDT New Bag 01/02/2024 11:58 AM CDT New Bag 01/02/2024 11:15 AM CDT lidocaine (PF) (XYLOCAINE) 20 mg/mL (2 %) preservative free injection intravenous, As needed, Starting on Fri01/02/24 at 1040, Anesthesia Intra-op Given 01/02/2024 10:40 AM CDT 25 mg midazolam (VERSED) 1 mg/mL injection intravenous, As needed, Starting on Fri01/02/24 at 1027, Anesthesia Intra-op Given 01/02/2024 10:27 AM CDT 2 mg neostigmine injection intravenous, Administer over 3 Minutes, As needed, Starting on Fri01/02/24 at 1251, Anesthesia Intra-op Given 01/02/2024 12:51 PM CDT 2 mg ondansetron (ZOFRAN) injection intravenous, Administer over 2 Minutes, As needed, Starting on Fri01/02/24 at 1251, Anesthesia Intra-op Given 01/02/2024 12:51 PM CDT 4 mg propofoL (DIPRIVAN) 10 mg/mL IV intravenous, As needed, Starting on Fri01/02/24 at 1040, Anesthesia Intra-op Given 01/02/2024 10:40 AM CDT 200 mg rocuronium (ZEMURON) injection intravenous, As needed, Starting on Fri01/02/24 at 1040, Anesthesia Intra-op Given 01/02/2024 12:30 PM CDT 10 mg Given 01/02/2024 11:54 AM CDT 10 mg Given 01/02/2024 11:15 AM CDT 10 mg tranexamic acid (CYKLOKAPRON) 1,000 mg/10 mL (100 mg/mL) solution intravenous, As needed, Starting on Fri01/02/24 at 1108, Anesthesia Intra-op Given 01/02/2024 11:08 AM CDT 1,000 mg documented in this encounter Care Teams Cleaning Specialist Relationship Specialty Start Date End Date Saad Lopez MD PCP - General 09/06/16 Jose Antonio Viveros MD [address] [address] Surgeon Pediatric Orthopedic Surgery 01/02/24 documented as of this encounter
--- OUTSIDE RECORDS SUMMARY | 2024-06-11 01:38 | XMS_ITS | Encounter Summary ---
Author Organization [facility] Address [address] [place] [address] Phone Care Team Providers Care Clinic Mgr Name Role Phone Saad Lopez MD Primary Care Provider [phone] Encounter Details Date Type Department Care Team (Late st Contact Info) Description 12/19/2023 Telephone [facility] Pediatric Orthopedics [address] [facility] 1[address] [place] [address] Jose Antonio Viveros MD [address] [facility] 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 Gave details of surgery, discussed insurance update on 12/23, CPM Machine, Medications, and return to activity. Told to call back or message with any further questions. documented in this encounter Plan of Treatment Not on file documented as of this encounter Visit Diagnoses Not on filedocumented in this encounter Care Teams Clinic Mgr Relationship Specialty Start Date End Date Saad Lopez MD PCP - General 09/06/16 documented as of this encounter
--- OUTSIDE RECORDS SUMMARY | 2024-06-11 01:38 | XMS_ITS | Encounter Summary ---
Author Organization [facility] Address [address] [place] [address] Phone Care Team Providers Care Supply Chain Intern Name Role Phone Saad Lopez MD Primary Care Provider [phone] Jose Antonio Viveros MD Unavailable [phone] Encounter Details Date Type Department Care Team (Late st Contact Info) Description 01/09/2024 Telephone [facility] [address] 1[address] [place] [address] Jose Antonio Viveros MD [facility] [place], [place] [id number] Social History Tobacco Use Types Packs/Day Years [...] on file Legal Sex 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[employer] Gender Identity Not on file Sexual Orientation Not on file documented as of this encounter Ordered Prescriptions Prescription Sig Dispense Quantity Refills Last Filled Start Date End Date HYDROcodone-acetam inophen (NORCO) 5-325 mg per tabletIndications: Pain Take 1 tablet by mouth every 4 (four) hours as needed for pain for up to 10 doses 10 tablet 01/09/2024 03/30/2024 documented in this encounter Miscellaneous Notes * Telephone Encounter - Michelle Delaney ATC - 01/09/2024 9:40 AM CDT [facility] refill documented in this encounter Plan of Treatment Not on file documented as of this encounter Visit Diagnoses Not on filedocumented in this encounter Discontinued Medications Medication Sig Discontinue Reason Start Date End Da te HYDROcodone-acetaminoph en (NORCO) 5-325 mg per tabletIndications:Pain Take 1 tablet by mouth every 4 (four) hours as needed for pain (ONLY if neededfor pain, when FINISHED with oxycodone.) 12/31/2023 01/09/2024 documented as of this encounter Care Teams Supply Chain Intern Relationship Specialty Start Date End Date Saad Lopez MD PCP - General 09/06/16 Jose Antonio Viveros MD [address] [id number] Surgeon Pediatric Orthopedic Surgery 01/02/24 documented as of this encounter
--- OUTSIDE RECORDS SUMMARY | 2024-06-11 01:38 | XMS_ITS | Encounter Summary ---
Author Organization [facility] Healthcare Address [address] [place] [address] Care Team Providers Care Second Time Worker Name Role Phone Saad Lopez MD Primary Care Provider + [phone] Jose Antonio Viveros MD Unavailable [phone] Reason for Visit * Auth/Cert Specialty Diagnoses / Procedures Referred By Freddie jones Referred To Contact Diagnoses Left hip pain Left hip pain [M25.552] Procedures [place] ARTHROSCOPY HIP W/FEMOROPLASTY [place] ARTHROSCOPY HIP W/LABRAL REPAIR ARTHROSCOPY LEFT HIP - LABRAL REPAIR, PROXIMAL FEMORAL OSTEOPLASTY, CAPSULAR CLOSURE Referral ID Status Reason Start Date Expiration Date Visits Re quested Visits Authorized [id number] 1 1 Encounter Details Date Type Department Care Team (Late st Contact Info) Description 01/02/2024 7:34 AM CDT - 01/02/2024 2:57 PM CDT Hospital Encounter [facility] Operating Room [id number] [place] [address] Jose Antonio Viveros MD [address] [address] Encounter for preoperative assessment (Primary Dx) Discharge Disposition: Discharge to home or self care Social History Tobacco Use Types Packs/Day Years [...] on file Legal Sex Male 12:14 AM [employer] Gender Identity Not on file Sexual Orientation [...] Mass Index 40.23 01/02/2024 8:52 AM CDT documented in this encounter Discharge Instructions * Discharge Instructions* Deepti Fonseca RN - 01/02/2024 1:21 PM CDT You have received anesthesia, therefore, for the next 24 hours and/or while taking narcotic pain medication; -Do NOT drive a vehicle -Do NOT drink alcohol -Do NOT make important personal or business decisions or sign legal documents. Examples of narcotic pain medication include Percocet, Oxycontin, [place], Hydrocodone, and Oxycodone. FAQs (frequently asked questions) about Surgical Site Infections What is a Surgical Site Infection (SSI)? A surgical site infection is and infection that occurs after surgery in the part of the body where the surgery took place. Most patients who have surgery do not develop an infection. However, infections develop in about 1 to 3 out of every 100 patients who have surgery. Some of the common symptoms fo a surgical site infection are: Redness and pain around the area where you had surgery Drainage of cloudy fluid from your surgical wound Fever Can SSIs be treated? Yes. Most surgical site infections can be treated with antibiotics. The antibiotic given to you depends on the bacteria (germs) causing the infection. Sometimes patients with SSIs causing the infection. Sometimes patients with SSIs also need another surgery to treat the infection. What are some of the things that hospitals are doing to prevent SSIs? To prevent SSIs, doctors, nurses, and other healthcare providers: Clean their hands and arms up to their elbows with an antiseptic agent just before the surgery. Clean their hands with soap and water or an alcohol-based hand rub before and after caring for eachpatient. May remove some of your hair immediately before your surgery using electric clippers if the hair isin the same area where the procedure will occur. They should not shave you with a razor. Wear special hair covers, masks, gowns, and gloves during surgery to keep the surgery area clean. Give you antibiotics before your surgery starts. In most cases, you should get antibiotics within 60 minutes before the surgery starts and the antibiotics should be stopped within 24 hours after surgery. Clean the skin at the site of your surgery with a special soap that kills germs. What can I do to help prevent SSIs? Before your surgery: Tell your doctor about other medical problems you may have. Health problems such as allergies, diabetes, and obesity could affect your surgery and your treatment. Quit smoking. Patients who smoke get more infections. Talk to your doctor about how you can quit before your surgery. Do not shave near where you will have surgery. Shaving with a razor can irritate your skin and makeit easier to develop an infection. At the time of your surgery: Speak up if someone tries to shave you with a razor before surgery. Ask why you need to be shaved and talk with your surgeon if you have any concerns. Ask if you will get antibiotics before surgery. After your surgery: Make sure that your healthcare providers clean their hands before examining you, either with soap and water or an alcohol-based hand rub. If you do not see you providers clean their hands, please ask them to do so. Family and friends who visit you should not touch the surgical wound or dressings. Family and friends should clean their hands with soap and water or an alcohol- based hand rub beforeand after visiting You. If you do not see them clean their hands, ask them to clean their hands. What do I need to do when I go home from the hospital? Before you go home, your doctor or nurse should explain everything you need to know about taking care of your wound. Make sure you understand how to care for your wound before you leave the hospital. Always clean your hands before and after caring for your wound. Before you go home, make sure you know who to contact if you have questions or problems after you get home. If you have any symptoms of an infection, such as a redness and pain at the surgery site, drainage,or fever, call your doctor immediately. If you have additional questions, please ask your doctor or nurse. Safety Tips for Preventing Falls at Home Falls happen at home for many reasons. Here are several things that are known to add to your risk of falling: Poor vision or hearing History of falls Use of an assistive device, such as a cane or walker Poor nutrition Certain medications Multiple medications Being older than 65 years of age Conditions in the home, such as slippery floors, loose rugs, cords on the floor If you answer ???yes?? to any of the following questions, please consider discussing your risk of falling with your primary care practitioner: Have you fallen in the last year? Do you feel unsteady when standing or walking? Do you have a fear of falling? If your primary care practitioner recommends physical therapy, we are available to assist: [facility]: [facility] [phone] [place] [phone] [facility] [phone] How are some things that you can do that will lower your risk for falls at home: Arrange furniture to prevent tripping or bumping into it. Keep a light on in the bedroom & bathroom to help you see at night. Have your doctor or pharmacist review your medications. Remove things that you can trip over like phone cords, rugs & footstools. Wear sturdy non-skid slippers or shoes with flat or low heels Use handrails when going up & down stairs. Take one step at a time. Begin a regular exercise program When getting up, sit on the edge of the bed/chair for a few minutes before standing. Sit & stand up slowly. Avoid tilting your head back. Watch out for sidewalks & curbs that are not even. Replace worn walker, cane & crutch tips. Disclaimer: This material provides general information only. It should not be used in place of the advice, instructions, or treatment given by your doctor or other health career technical education instructor. * Attachments The following attachments cannot be sent through Care Everywhere. * Hydrocodone/Acetaminophen (By mouth) (Vietnamese) * Naproxen (By mouth) (Vietnamese) * Ondansetron (By mouth, Into the mouth) (Vietnamese) * Oxycodone, Rapid Release (By mouth) (Vietnamese) * Senna (By mouth) (Vietnamese) documented in this encounter Medications at Time of Discharge aspirin 81 mg enteric coated tabletIndications:pr evention of thrombosis,HEART Take 1 tablet (81 mg total) by mouth pin worker before breakfast 10/09/2009 metoprolol XL (TOPROL-XL) 50 mg 24 hr tablet take 1 tablet by oral route every day 0 0 05/18/2015 baclofen (LIORESAL) 10 mg tablet Take 1 tablet (10 mg total) by mouth 3 (three) times a day as needed for muscle spasms 90 tablet 11/12/2023 4 HYDROcodone-acetamin ophen (NORCO) 5-325 mg per tabletIndications:Pa in Take 1 tablet by mouth every 4 (four) hours as needed for pain (ONLY if neededfor pain, when FINISHED with oxycodone.) 20 tablet 12/31/2023 4 multivitamin with iron tabletIndications:Vi tamin Deficiency Prevention Take 1 tablet by mouth every morning 4 naproxen (NAPROSYN) 500 mg tablet Take [...] nausea or vomiting 30 tablet 12/31/2023 4 oxyCODONE (ROXICODONE) 5 mg immediate release tabletIndications:Pa in Take 1 tablet (5 mg total) by mouth every 4 (four) hours as needed for pain for up to 20 doses Can add over the counter Tylenol every 6 hours as needed in addition to the Oxycodone. 20 tablet 12/31/2023 4 senna (SENOKOT) 8.6 mg tablet Take 1 tablet by mouth 2 (two) times a day Take 1 tablet by mouth 2(two) times a day. If DIARRHEA occurs STOP taking 60 tablet 12/31/2023 4 documented as of this encounter Discharge Disposition Disposition Code Departure Means Destination Comment s Discharge to home or self care documented in this encounter Progress Notes * Blaine Yang RP - 01/02/2024 8:51 AM CDT Patient weight = 122.5 kg Change cefazolin dose to 3000 mg per pharmacy dosing protocol. Pre-Operative Cefazolin Dosing Cefazolin Indication Patient Weight Dose Surgical Prophylaxis, Preoperative <120 kg 2000 mg >/= 120 kg 3000 mg References: 2016 ASHP/IDSA/SIS/DE SOUZA Guidelines for Antimicrobial Prophylaxis in Surgery [facility] Toolbook/Ifeoma, last reviewed 05/19/18 Approved by ASP 06/18/18, Approved by [employer]&T 07/16/18, Approved by [facility] 07/29/18 documented in this encounter H&P Notes * Luis Fernando Beck DO - 01/02/2024 10:24 AM CDT I have reviewed the H&P, examined the patient, and endorse the findings as written. Plan of Care : Based on the above findings, I consider Ronen Kapadia to be an acceptable risk for : Procedure(s): ARTHROSCOPY LEFT HIP - LABRAL REPAIR, PROXIMAL FEMORAL OSTEOPLASTY, CAPSULAR CLOSURE Source Note - Ana Luisa Tate MD - 12/29/2023 3:28 PM CDT Images from the original note were not included. [facility] for Preoperative Assessment and Planning Preoperative Evaluation Record Evaluation type/location: TPAP from [facility] Planned procedure site: [facility] OR Date: 12/29/23 Anesthesia Evaluation Ronen Kapadia [...] BP - 80 Pertinent negatives: CAD ; [place] ; CABG ; valvular heart disease; valve [...] provided by telephone and electronically sent via [employer]. Patient verbalized understanding of instructions. Blood bank [...] Please call the CPAP chart room clinician ([phone]) with any questions. Notified surgeon's office regarding above issue(s)-- Staff message sent to [facility] and requested they FU [...] ~07/2019; Last flare~ 2017; Followed by neurologist,Dr Trent Obesity Past Surgical History: Procedure Laterality Date COLONOSCOPY [...] mg enteric coated tablet 12/19/2023 10/09/09 -- ProviderGogo MD baclofen (LIORESAL) 10 mg tablet 12/19/2023 11/12/23 [...] multivitamin with iron tablet 12/19/2023 -- -- Provider, MD Gogo No current facility-administered medications for this encounter. [...] Medication protocol when under care of a PAPER AND PULP MILL OPERATOR Planned anesthesia: General Induction: Induction: intravenous. Informed [...] All questions answered. documented in this encounter Consult Notes * Williams Whitfield, PT - 01/02/2024 8:25 AM CDT [facility] Physical Therapy Initial Evaluation Patient Name: Ronen Kapadia Date of Service: 01/02/2024 Date of : 1965 Age: 58 y.o. male Location of Patient: [facility] OR/- Admit Date: 01/02/2024 Attending Provider: Jose Antonio Viveros, * Primary Diagnosis: Left hip pain Subjective HPI: Ronen Kapadia is a 58 y.o. male presenting to [facility] for ARTHROSCOPY LEFT HIP - LABRAL REPAIR, PROXIMAL FEMORAL OSTEOPLASTY, CAPSULAR CLOSURE. Patient is agreeable to physical therapy evaluation in the preoperative setting. Past Medical History: Diagnosis Date Calculus of kidney KIDNEY STONES Gastroesophageal reflux disease GERD History of meningitis VIRAL MENINGITIS History of mononucleosis MONONUCLEOSIS Hypertension Dxd 2003 Lumbar stenosis LUMBAR SPINAL STENOSIS MS (multiple sclerosis) ([facility]) Dxd ~2006--Daily injections of copaxone stopped ~07/2019; Last flare~ 2017; Followed by neurologist,Dr Trent Obesity Sleep apnea CPAP compliant Past Surgical History: Procedure Laterality Date COLONOSCOPY 2021 [place] FLUORO GUIDED INJECTION HIP LEFT Left 08/19/2023 KIDNEY STONE SURGERY 2020 MULTIPLE-- Last ~2020 SKIN LESION EXCISION 1988 Birthmark on top of head-- Benign Post-Operative Precautions: fall risk, hip labrum surgery, and SIVAN Pre-Operative Weightbearing Status: Weightbearing as tolerated (WBAT) on left Lower Extremity Post-Operative Weightbearing Status: Toe-touch weight bearing on left Lower Extremity Physical Therapy Goal: Return to playing golf. Patient Comment: Patient reports he had more pain over night than he does right now. Prior Living Environment and Level of Function: Type of Home: 1 level home Lives With: Stairs to Enter: 2 Railings: 0 Stairs Inside: 2 Railings: 0 Comments: Patient's is also retired and will be home with patient 24 hours/day to assist as needed. Home Equipment: wheeled walker and axillary crutches Comments: Patient was not using any assistive devices prior to surgery. Prior Level of Function: Independent with ADLs, Independent with transfers, and Independent with ambulation Driving: Yes Occupation: Retired Falls Within the Last 6 Months: No Objective Vitals: Comments: Patient does not display signs/symptoms of abnormal vitals. Activity Tolerance: Endurance: Endurance does not limt participation in activity. Pain Assessment: Pre-evaluation pain: 10 Post-evaluation pain: 10 Location: Left hip Pain intervention: Repositioned, Ambulation, Physical therapy, Rest, and RN notified Cognition: Overall Cognitive Status: WFL to complete therapy related tasks Lower Extremity Assessment: Bilateral lower extremity strength grossly assessed to be within functional limits based on observation of patient's ability to perform functional mobility with supervision/touching assistance. Transfers: Patient performs sit to and from stand with wheeled walker and supervision/touching assistance. Verbal cues provided for sequencing, maintaining hip precautions, maintaining toe touch weight bearing on left lower extremity and safety. Patient utilized bilateral upper extremities to assist with force production to assume standing position as well as to control descent to sit. Gait: Patient ambulates x 100 feet with wheeled walker and supervision/touching assistance. Verbal cues provided for sequencing, maintaining toe touch weight bearing on left lower extremity and safety. Patient demonstrates decreased tim and step length. Stairs: Patient negotiates 2 stairs with 0 hand railing and supervision/touching assistance. Verbal cues provided for sequencing, maintaining toe touch weight bearing on left lower extremity and safety. Patient used wheeled walker on stairs and demonstrated non reciprocal step pattern. Patient ascended stairs backward and descended stairs forward. Gait belt was used for all out of bed mobility. Balance Patient's balance is grossly within normal limits as assessed through functional mobility. Assessment Physical Therapy Diagnosis: Primary prevention/risk reduction for loss of balance and falling Prognosis: Good Response to today???s treatment: Good Completed patient handoff and notified RN of patient???s location and functional status upon completion of session. Patient tolerated physical therapy session well. Patient's is present for today's therapy session. Educated patient on hip labrum surgical precautions and toe touch weight bearing status. Patient ambulated 100' with wheeled walker and supervision/touching assistance. Patient negotiated 2 stairs with wheeled walker and supervision/touching assistance. Patient maintains toe touch weight bearing on left lower extremity throughout therapy session. Patient is returned to patient waiting room and RN is notified of patient's status. Patient's clinical presentation is stable and the patient's clinical course is expected to progress in a typical manner. Education: Patient and significant other has been educated on the role of physical therapy, safety,precautions, mobility training, stairs, and car transfer technique. Education completed via explanation, teach back, demonstration, and handout . Patient and significant other verbalized understanding and demonstrated understanding. Handouts Issued: Hip Labrum Surgery Packet Care Plan Goals established: 01/02/24 Goals to be completed by: 01/02/24 The patient will perform sit to/from stand transfers using wheeled walker and supervision/touching assistance in order to safely return home by the above completion date. Comments: Completed The patient will ambulate 100 feet using wheeled walker and supervision/touching assistance in order to safely return home by the above completion date. Comments: Completed The patient will ascend/descend 2 stairs with 2 handrail and supervision/touching assistance in order to safely return home by the above completion date. Comments: Completed The patient will recall hip labrum surgery precautions with cueing from joint cross country/track and field coach in order to ensure patient maintains precautions by the above completion date. Comments: Completed Plan Physical therapy frequency: One time visit (Discharge from this service) If this is the last note, consider this the discharge summary Recommended equipment to safely discharge: Wheeled walker (patient already owns) Patient okay to discharge: Yes Discharge Recommendation: Home with family, Home with intermittent assist Williams Whitfield PT * Chetna Oliveira, OT - 01/02/2024 7:36 AM CDT [facility] Occupational Therapy Evaluation Patient Name: Ronen Kapadia Date of Service: 01/02/2024 Date of : 1965 Age: 58 y.o.male Location of Patient: [facility] OR/- Admit Date: 01/02/2024 Attending Provider: Jose Antonio Viveros, CHERYL Primary Diagnosis: Left hip pain Subjective HPI: Ronen Kapadia is a 58 y.o. male presenting to [facility] for ARTHROSCOPY LEFT HIP - LABRAL REPAIR, PROXIMAL FEMORAL OSTEOPLASTY, CAPSULAR CLOSURE . Patient agreeable to occupational therapy evaluation in the preoperative setting. Past Medical History: Diagnosis Date Calculus of kidney KIDNEY STONES Gastroesophageal reflux disease GERD History of meningitis VIRAL MENINGITIS History of mononucleosis MONONUCLEOSIS Hypertension Dxd 2003 Lumbar stenosis LUMBAR SPINAL STENOSIS MS (multiple sclerosis) ([facility]) Dxd ~2006--Daily injections of copaxone stopped ~07/2019; Last flare~ 2017; Followed by neurologist,Dr Trent Obesity Sleep apnea CPAP compliant Past Surgical History: Procedure Laterality Date COLONOSCOPY 2021 [place] FLUORO GUIDED INJECTION HIP LEFT Left 08/19/2023 KIDNEY STONE SURGERY 2020 MULTIPLE-- Last ~2020 SKIN LESION EXCISION 1988 Birthmark on top of head-- Benign Post Operative Precautions: hip labrum surgery precautions Weightbearing Status: Toe-touch weight bearing on left Lower Extremity Occupational Therapy Goal: to get back to golf in a couple months Patient Comment: Golfing is what set this off Prior Living Environment and Level of Function: Type of Home: 1 level home 2 steps to enter, no railing Lives With: Receives Help From: Bathroom Shower/Tub: Tub/shower unit Bathroom Toilet: Raised height Bathroom Equipment: toilet raiser Home Mobility Equipment: axillary crutches Home ADL Equipment: None Level of [place]: Independent with ADLs, Independent with transfers, and Independent with ambulation Driving: Yes Vocational/Occupation: Retired, enjoys golf, hunting Fall within the last 6 months: No Objective Vitals: Comments: no adverse signs or symptoms noted during session Pain Assessment: Pre-therapy pain: Post-therapy pain: Location: Left hip Pain Intervention: rest Comments:on velarde galvin faces pain scale Cognition: Overall Cognitive Status:WFL to complete therapy related tasks RUE Assessment: Within functional limits LUE Assessment: Within functional limits Coordination: Within functional limits Sensation: Within functional limits Balance Dynamic Sitting Balance Support: no upper extremity support and feet supported Surface: bedside chair Grade: Normal (accepts maximal challenges, can shift weight easily out of base of support in all directions, no loss of balance, no external support) Comments: During dressing Dynamic Standing Balance Support: bilateral upper extremities and feet supported with crutches Grade: Fair+ (maintains balance against minimal challenges, with support) Comments: During functional transfers Activity Tolerance tolerates 30 minutes of activity with multiple rest breaks Activities of Daily Living Grooming: Patient demonstrates understanding through verbalization of how to complete grooming tasks while adhering to their postoperative hip labrum surgery precautions . Bathing: Patient demonstrates understanding through simulation of how to complete bathing while adhering to their postoperative hip labrum surgery precautions . Upper Body Dressing: Patient demonstrates understanding through verbalization of how to complete upper body dressing while adhering to their postoperative hip labrum surgery precautions . Lower Body Dressing: Patient demonstrates understanding through return demonstration of how to complete lower body dressing using adaptive equipment while adhering to their postoperative hip labrum surgery precautions . Toileting: Patient demonstrates understanding through return demonstration of how to complete toileting while adhering to their postoperative hip labrum surgery precautions . Functional Mobility Bed Mobility: Patient demonstrates understanding through verbalization of how to complete bed mobility while adhering to their postoperative hip labrum surgery precautions . Functional Transfers: Patient demonstrates understanding through return demonstration of how to complete functional transfers while adhering to their postoperative hip labrum surgery precautions . Toilet Transfers: Patient demonstrates understanding through return demonstration of how to complete toilet transfersper home set up while adhering to their postoperative hip labrum surgery precautions . Tub Transfers: Patient demonstrates understanding through return demonstration of how to complete tub shower transfers per home set up while adhering to their postoperative hip labrum surgery precautions . Functional Ambulation: Patient demonstrates understanding through return demonstration of how to complete ambulation for household distances while adhering to their postoperative hip labrum surgery precautions . *Gait belt used for all OOB mobility* Instrumental Activities of Daily Living The patient participated in education on the following IADLs: Pet Care, Transportation, and Return to leisure activities as they pertain to their postoperative hip labrum surgery precautions . Patient demonstrates understanding of hip labrum surgery precautions with minimal verbal cueing. Assessment Patient at high risk for: Falls Patient tolerated session well and completed lower body dressing with adaptive equipment, tub transfer with extended tub bench and crutches, discussing other ADLs and functional mobility within the limits of hip labrum precautions. Spouse present and observed session. Reviewed handout at length, discussed return to driving, leisure activities, pet care, patient and spouse verbalized understanding. Both patient and spouse demonstrated ability to return home safely. Brief review of medical and therapy records pertaining to current functional performance was obtained for this patient. Low complexity decision making was necessary for analysis of occupational profile, analysis of data, and consideration of treatment options. Minimal to no modification and assistance was needed for patient to complete all evaluation components. Prognosis:Good Response to today's treatment: Good Completed patient handoff and notified RN of patient's location and functional status upon completion of session. Education: Patient and spouse has been educated on the role of OT, safety, precautions, ADL re-training, Adaptive equipment/DME use, energy conservation techniques, and IADL modifications . Educationcompleted via explanation, teach back, demonstration, and handout . Patient and spouse verbalized understanding and demonstrated understanding. Handouts Issued: OT Hip Labrum Repair Packet Care Plan Goals established: 01/02/24 Goals to be completed by: 01/07/2024 Patient demonstrates understanding of how to complete lower body dressing while adhering to their postoperative hip labrum surgery precautions in order to increase safety/increase independence, decrease burden of care for caregivers, and ensure patient maintains precautions by the above completion date. Comments:Completed Patient demonstrates understanding of how to complete toileting while adhering to their postoperative hip labrum surgery precautions in order to increase safety/increase independence, decrease burdenof care for caregivers, and ensure patient maintains precautions by the above completion date. Comments:Completed Patient demonstrates understanding of how to complete toilet transfers while adhering to their postoperative hip labrum surgery precautions in order to increase safety/increase independence, decreaseburden of care for caregivers, and ensure patient maintains precautions by the above completion date. Comments:Completed Patient demonstrates understanding of how to complete bathing while adhering to their postoperativehip labrum surgery precautions in order to increase safety/increase independence, decrease burden of care for caregivers, and ensure patient maintains precautions by the above completion date. Comments:Completed Patient demonstrates understanding of how to complete tub transfer with extended tub bench while adhering to their postoperative hip labrum surgery precautions in order to increase safety/increase independence, decrease burden of care for caregivers, and ensure patient maintains precautions by the above completion date. Comments:Completed Patient demonstrates understanding of how to complete ADLs and functional mobility while adhering to their postoperative hip labrum surgery precautions in order to safely return home , increase safety/increase independence, and ensure patient maintains precautions by the above completion date. Comments:Completed Plan Treatment frequency: One-time visit (Discharge from this service) Treatment interventions: ADL/IADL retraining, Balance Training, Compensatory technique education, Endurance training, Equipment eval/education, Functional activity, Functional mobility training, Functional transfer training, Parent/caregiver training and education, Therapeutic activity, Transfer training Recommended equipment to safely discharge: Wheeled walker, Crutches, Store Product Demonstrator, Sock aid, Long handled shoe horn, Dressing stick, Elastic laces, Long handled sponge, Toilet raiser, Transfer tub bench, Grab bars (hand held shower head) Comments: patient instructed on all recommended equipment Referrals Recommended: None. Patient okay to discharge home: Yes Discharge Recommendation: Home with family, Home with 24 hour supervision Chetna Oliveira OT documented in this encounter Miscellaneous Notes * Perioperative Nursing Note - Gaudencio Grey RN - 01/02/2024 11:48 AM CDT Implant pause performed * Op Note - Jose Antonio Viveros MD - 01/02/2024 11:00 AM CDT SURGEON: Jose Antonio Viveros M.D. ENVIRONMENTAL RESEARCH PROJECT MANAGER: Luis Fernando Beck M.D., Jacinto Shaver M.D. [facility] PREOPERATIVE DIAGNOSES Left hip labral tear. Left hip femoral acetabular impingement. POSTOPERATIVE DIAGNOSES Left hip labral tear. 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 Left hip acetabular labral repair. Left acetabular rim trimming with subspinal decompression. Left hip femoral head chondroplasty Left hip acetabular chondroplasty Left hip proximal femoral osteoplasty. Left hip capsular closure. INDICATIONS Patient is a 58 y.o. male with persistent left hip pain, evidence of underlying BERNICE. hehas responded well to an injection, but otherwise failed conservative measures. Risks, benefits, alternatives, complications of operative treatment were discussed with the patient and family prior toprocedure and wished to proceed. Op site was marked preop holding area. Patient received antibiotics within 1 hour of incision. DESCRIPTION OF PROCEDURE Patient brought to the operating room, placed supine on the operative table. Bony prominences and peripheral nerves adequately padded. General anesthesia was then induced. Repositioned on the traction table with well-padded post and boots. We confirmed adequate distraction of the hip. We then prepped the left hip in standard sterile fashion. Time-out was called to confirmed patient, op site, and procedure. We began a standard diagnostic arthroscopy venting the hip seal through an anterolateral portal approach after adequate distraction. We then reinserted the needle and established a portal in standard Seldinger technique. Posterolateral outflow needle was then utilized. Scope was advanced into the hip joint without difficulty. Mid anterior portal localized under direct visualization. We utilized a distal accessory anterolateral portal later in the procedure. Inner portal capsulotomy was performed. Hemostasis was obtained. Diagnostic arthroscopy demonstrated Labrum - Detachment from 11 to 300 Acetabular cartilage - Malacia 30 x 5 mm AIIS and acetabular rim - Mild prominence Ligamentum teres - Normal Femoral head cartilage - Malacia 15 x 10 mm We exposed the capsule labral recess to free up the labrum. We gently decorticated the rim with a bur as well as removing a mild subspinal prominence. At this point, the labrum was allowed to be seated more appropriately on the rim. We then placed 3 cinch lock anchors, knotless technique and 1 all suture Q fix more anteirorly. Care taken to avoid articular cartilage penetration with drilling and placement. There was malacia of the central femoral head and the peripheral acetabular rim. Partial thickness. Stabilized with shaver and arthrocare. These were all sequentially tensioned. We were happy with the position of labrum. By traction down, the final probing of the articular cartilage was stable. We were happy with the sabianist of the seal. Moderate cam deformity anteriorly, anterolaterally and laterally was then exposed. We did utilize an approximately 1 cm T- type extension and capsular retraction sutures. Performed the osteoplasty with the bur utilizing fluoroscopic confirmation, dynamic exam as well as direct visualization. We exte nded this up above the vessels. We were happy with the overall correction of her deformity on the fluoroscopic views. We then copiously irrigated with normal saline. We closed the 2 iagr-lt-oaam sutures in the T-type capsulotomy with #2 Ethibond and then 2 faaj-db-mydm in the intraportal cut. Hip was positioned in a neutral position. The capsule remained adequately closed. We then closed with 2-0Monocryl and 3-0 nylon sutures in the skin, 20 mL 0.5% Marcaine injected in wound for perioperativeanesthesia. Patient awakened and transferred to recovery room in appropriate condition. ESTIMATED BLOOD LOSS Minimal. IV FLUIDS See anesthesia record. URINE OUTPUT Not recorded. SPONGE AND NEEDLE COUNTS Correct x2. CONDITION ON TRANSFER PACU, stable. I, Dr. Jose Antonio Viveros, was present for all portions. * Brief Op Note - Jacinto Shaver MD - 01/02/2024 11:00 AM CDT Operative Progress Note Surgical Team: Surgeons and Role: * Jose Antonio Viveros MD - Primary * Jacinto Shaver MD - Resident - Assisting * Luis Fernando Beck DO - Fellow Anesthesiologist: Ana Luisa Tate MD PAPER AND PULP MILL OPERATOR: Radha Landeros CRNA Building Inspection Engineer: Gaudencio Grey RN Scrub: Loretta Briggs RN FIBER OPTIC TECHNICIAN: Santiago Mccann RN [place] Scrub: Tony Esparza RN DATE OF SURGERY : 01/02/2024 Preoperative Diagnosis: Pre-op Diagnosis * Left hip pain [M25.552] Postoperative Diagnosis: Post-op Diagnosis * Left hip pain [M25.552] Procedure(s): Procedure(s) (LRB): ARTHROSCOPY LEFT HIP - LABRAL REPAIR, PROXIMAL FEMORAL OSTEOPLASTY, CAPSULAR CLOSURE (Left) Operative Findings: Moderate size CAM deformity and labral tear from 10 to 3 o'clock. Minimal chondrosis of the femoralhead and acetabulum. Estimated Blood Loss: 10 mL Intraoperative Fluids: 2000 mls Specimens: No specimen collected in procedure Implants: Implant Name Type Inv. Item Serial No. Candy Separator Enrobing Lot No. LRB No. Used Action [employer] Cinchlock Ss Knotless Electrical Mechanical Technician Lock Cerulean Suture Labrum [id number] - [id number] [employer] Cinchlock Ss Knotless Electrical Mechanical Technician Lock Cerulean Suture Labrum [id number] [place] [id number] Left 1 Implanted [employer] Cinchlock Ss Knotless Electrical Mechanical Technician Lock Cerulean Suture Labrum [id number] - [id number] [employer] Cinchlock Ss Knotless Electrical Mechanical Technician Lock Cerulean Suture Labrum [id number] [place] [id number] Left 1 Implanted [employer] Cinchlock Ss Knotless Electrical Mechanical Technician Lock Cerulean Suture Labrum [id number] - [id number] [employer]MA [employer] Cinchlock Ss Knotless Electrical Mechanical Technician Lock Cerulean Suture Labrum [id number] [place] [id number] Left 1 Implanted FLOR[employer]MA [employer] Cinchlock Ss Knotless Electrical Mechanical Technician Lock Cerulean Suture Labrum [id number] - [id number] FLOR[employer]MA [employer] Cinchlock Ss Knotless Electrical Mechanical Technician Lock Cerulean Suture Labrum [id number] [place] [id number] Left 1 Implanted Blood/Blood Products Transfused: 0 mls Complications: None Condition on Discharge from the operating room was stable Jacinto Shaver MD Date: 01/02/2024 Time: 1:05 PM Cosigned by Jose Antonio Viveros MD at 01/02/2024 9:52 PM CDT * Pre-Procedure Instructions - Lesia Avalos NP - 12/29/2023 3:42 PM CDT [facility] CPAP Clinic Location: [facility] CPAP SURGEON'S OFFICE - Dr Viveros The night before your surgery: * Do not eat anything after midnight the night before your procedure. The morning of your surgery: * You may have clear liquids on your surgery day. You must stop drinking two hours before you arrive to the surgery facility. Acceptable clear liquids include water, clear sports drinks, black coffee, tea, or clear soda. DO NOT drink any milk, creamer, or alcohol. * Your surgeon's office may have provided additional instructions or restrictions. Please follow those instructions. * You may brush your teeth and rinse your mouth out. * Do not wear jewelry, body piercings, makeup, hairpins, false eyelashes or contact lenses to the hospital. * Leave any valuables at home or with your family. * If having surgery at [facility], you may want to bring a credit card if you want to use our Mobile Pharmacy for your discharge medications. Mobile pharmacy is not available at [facility], the Orthopedic Center, or the [place] [facility]. Outpatient Surgery: * You must have a responsible adult drive you home and stay with you for 24 hours after your surgery * You cannot be alone at home or in a hotel * Please call your surgeon's office if you do not have someone to drive you home and/or stay with you after surgery * Please bring any items you may need to spend the night in the hospital. Sometimes patients need to be cared for in the hospital overnight. If you are a smoker: * You should prepare for your surgery and recovery well ahead of time. Stop smoking at least 2 weeks before surgery to help prevent infection and help your body recover faster. Ask your surgeon for tools to help you quit or call 6-976-BBLFMNY ( ). Visit [email or web address] for more information. * Do not smoke during the 24 hours before surgery. If you have Sleep Apnea (SIVAN): * Bring your CPAP/BiPAP/VPAP machine to the hospital the day of your surgery * For a few days after your surgery, you will need to wear your CPAP/ BiPAP/VPAP machine any time your are sleeping. This includes when you take a nap. Instructions For Your Medications: Pre-Surgery Instructions: Medication Instructions aspirin 81 mg enteric coated tablet Per surgeon's instructions baclofen (LIORESAL) 10 mg tablet Take on day of surgery if needed meloxicam (MOBIC) 7.5 mg tablet Stop taking 5 days prior to surgery-- unless prescribed by surgeon metoprolol XL (TOPROL-XL) 50 mg 24 hr tablet Take morning of surgery multivitamin with iron tablet Stop taking 1 week prior to surgery Your surgeon will tell you IF YOU SHOULD STOP the following medications and WHEN TO STOP taking them. Do not stop taking them on your own without being told to do so: ASPIRIN General Instructions For Medications: * Stop all of these medications 5 days prior to your surgery: excedrin, motrin, advil, ibuprofen, aleve, naproxen, meloxicam, celebrex, celecoxib. For medications that you are instructed to take on the morning of surgery, take the medications with a few sips of water. Stop all of these medications 7-14 days prior to your surgery: Vitamin E, Herbal medicines, Diet Pills If you take aspirin, do not stop taking it unless you were instructed to do so. If you have pain, you may take tylenol (acetaminophen). Do not take more than 6 tablets or 3000 mg (3 g) within a 24 period. Call your surgeon and the CPAP clinic if any of the following happens before surgery: Any changes in your health You have a fever You have any signs of an infection (chest, urinary tract or tooth) You have been to the Emergency Room or were in the hospital You have started taking any new medications If laboratory testing was completed during your visit, we will only contact you regarding any results that require you to take additional action prior to your planned procedure. * Perioperative Nursing Note - Dereck New RN - 12/19/2023 4:06 PM CDT [facility] Preoperative Assessment and Planning Perioperative Nursing Note Telephone Preoperative Evaluation ([facility]) - TELEPHONE ONLY, NO PHYSICAL EXAM Date: 12/19/23 This assessment was completed with the patient. Vitals: 12/19/23 1605 Weight: 122.5 kg (270 lb) Height: 177.8 cm (5' 10 ) CHEST CIRCUMFERENCE: Social History Tobacco Use Smoking Status Former Types: Cigarettes Smokeless Tobacco Former Types: Chew Quit date: 2023 Substance and Sexual Activity Drug Use No Alcohol Use Q1: How often do you have a drink containing alcohol?: 2-4 times a month Q2: How many drinks containing alcohol do you have on a typical day when you are drinking?: 1 or 2 Q3: How often do you have six or more drinks on one occasion?: Never Outpatient Medications Marked as Taking for the 01/02/24 encounter (Hospital Encounter) Medication Sig Dispense Refill aspirin 81 mg enteric coated tablet Take 1 tablet (81 mg total) by mouth pin worker before breakfast baclofen (LIORESAL) 10 mg tablet Take 1 tablet (10 mg total) by mouth 3 (three) times a day as needed for muscle spasms 90 tablet 0 meloxicam (MOBIC) 7.5 mg tablet Take 1 tablet (7.5 mg total) by mouth daily (Patient taking differently: Take 1 tablet (7.5 mg total) by mouth every morning) 30 tablet 0 metoprolol XL (TOPROL-XL) 50 mg 24 hr tablet take 1 tablet by oral route every day (Patient taking differently: Take 1 tablet (50 mg total) by mouth every morning) 0 0 multivitamin with iron tablet Take 1 tablet by mouth every morning Implants No active implants to display in this view. SKIN Piercings Remaining: No Wound (LDAs) Type of Wound (LDA): (NONE) SCREENINGS Bora index score: 100 NUTRITION PATIENT CARE PLANNING Advance Directives (For Healthcare) Have you reviewed your Advance Directive and is it valid for this stay?: Yes Advance Directive: Patient has advance directive, copy not in chart Advance Directive not in Chart: Copy requested from family Communication/Independent Insurance Adjuster Needs Communication Needs: Glasses Does caregiver's language differ from patient's?: No Assistive Devices/DME: CPAP/BiPAP, Eyeglasses Hearing - Right Ear: Functional Hearing - Left Ear: Functional Discharge Planning Type of Residence: Private residence Living Arrangements: Spouse/significant other Support Systems: Spouse/significant other Patient expects to be discharged to:: Private residence RESIDENTIAL DOOR INSTALLER NO ADDITIONAL COMMENTS/ FOLLOW UP * Pre-Procedure Instructions - Dereck New RN - 12/19/2023 3:59 PM CDT [facility]ING (CPAP) PRE-SURGICAL NURSING INSTRUCTIONS Telephone Assessment General Information Discussed with Patient: Surgery location provided to patient. Arrival time and surgical time will be provided to the patient by their surgeon. You should wear clothing that is clean, loose, comfortable and easy to get in and out of on the dayof surgery. You should remove nail coverings, artificial nails and nail indonesian prior to the day of surgery. You should leave your valuables and any jewelry at home. No metal or piercings are allowed in the operating room. You should bring your insurance card, a photo ID (example: Flying Instructor's License) and a method of payment for any insurance copay, deductible or copay for discharge medications. You should bring a complete, up-to-date, list of all your medications on the day of surgery, including any over the counter medications or supplements you may take. Please note on your medication list, the last date & time you took each medication. The healthcare team, on the day of surgery, will ask for this information. You should bring your Advanced Directive and/or Living Will with you on the day of surgery if you have not verified a copy is already in your Epic Chart. If you are having surgery at [facility], please arrive on the day of surgery with the name and phone number of your local 24 hour pharmacy. Due to evening discharges, your routine pharmacy may be closed. In order to obtain your prescriptions that evening, your surgeon may need to send prescriptions to this pharmacy or have you take prescriptions to this pharmacy when you are discharged. Without this information, you may not be able to obtain your prescriptions that evening. A Guide for Patients Having Surgery: Your Pathway to Excellent Care OUR GOAL IS TO PROVIDE YOU WITH EXCELLENT CARE Use this guide to learn about what you can do before, during and after surgery to help your recovery. You are the most important person on your health care team. By becoming informed and involved, you can contribute to the success of your surgery. If your surgeon's directions are different than those in this guide, talk with your nurse or surgeon to confirm the information. It is important that you understand how to take care of yourself at home after surgery. Be sure to bring this guide with you on the day of surgery and take it home with you after surgery. Write down questions for your nurse or surgeon on the last page of this booklet. Important pages to be reviewed BEFORE surgery: Page 1: QR codes for Surgery Center maps Page 3: Types of Anesthesia Page 5: Tips for the day & night before surgery Page 6: When to stop eating BEFORE surgery and examples of clear liquids Page 7-10: Preventing Infection: Chlorhexidine Gluconate (CHG) Bathing Instructions You may access A Guide for Patients Having Surgery: Your Pathway to Excellent Care by the followinglink: [email or web address] How To Prepare Your Skin For Surgery Below is the Pre-Surgical Bathing Protocol you should follow for your surgery. If your surgeon provides you different bathing instructions, please follow your surgeon's orders. 2 Day CHG Bathing Protocol (no nasal ointment) PREVENTING INFECTION (DECOLONIZATION): Decolonization is the use of a topical antiseptic soap and sometimes a nasal ointment to remove bacteria (germs) from the skin's surface. Antiseptic soap: Chlorhexidine gluconate or CHG (brand name: Hibiclens??) Before surgery, your entire body must be thoroughly cleaned. CHG helps to reduce the bacteria on your skin. You may be given one or more bottles of CHG or you may be asked to obtain from your preferred pharmacy. Be sure to ask your pharmacist if you need help finding this product. SHOWERING WITH ANTISEPTIC SOAP (CHG) What You Need For Each Shower 60 mL (?? cup) of CHG 2 clean washcloths CHG Bathing Instructions First, shampoo and rinse your hair with your own shampoo (no conditioners). Do this so the antiseptic soap isn't washed off by your shampoo. Wash face with warm water. Turn off shower and stand away from the water. Use 2 clean washcloths to apply the antiseptic soap to all areas as described below: Pour 30 mL (1/8 cup) of CHG on washcloth #1: Using washcloth- start at jawline and firmly massage the soap into the skin in a circular motion to clean neck, shoulders, chest, back, both armpits, arms, hands and abdomen. Finish with legs and feet. Pour 30 mL (1/8 cup) of CHG on washcloth #2: Using washcloth- firmly massage the soap into the skinin a circular motion to clean groin area, perineum and buttocks. (Do not use CHG on genital area.) [place]: The CHG antiseptic soap will not bubble or lather very much. If you get soap in your eyes, ears or mouth, rinse well with cool water. When finished, leave the soap on your skin for 2 minutes before rinsing. Dry off with a clean fresh towel. Wear clean clothes or pajamas to sleep in. After showering DO NOT put on deodorant, hair products or conditioners, lotions or creams, powders,Vaseline or any non-essential products. If you cannot reach the surgical site, such as the back, please have someone help you. Shaving: You may shave your face, legs and underarms during your evening shower before you apply the CHG antiseptic soap. Be careful not to cut or guanaco your skin. Avoid shaving on the day of surgery. Deodorant: Patients following the 5-Day CHG protocol may apply deodorant on the days leading up to surgery, being sure, however, to avoid use on the evening before and day of surgery. All other products should be avoided for the full 5 days. 2-Day CHG Bathing Protocol The Evening Before Surgery: Take a shower with Antiseptic soap (CHG). Follow the steps for ???Showering with Antiseptic Soap (CHG)?? above. Change all linens on your bed so you are sleeping in clean fresh sheets and pillowcases. Remove nail coverings, artificial nails and nail indonesian. The Morning of Surgery: Take a shower with Antiseptic soap (CHG). Follow the steps for ???Showering with Antiseptic Soap (CHG)?? above. Put clean clothes on after you shower. Travel/Exposure Screening: Travel Screening Have you traveled outside the [place] in the last 6 months?: No Exposure Screening Have you been exposed to anyone who is sick in the last 30 days?: No Have you been exposed to or tested positive for COVID-19 within the last 10 days?: No Infectious Disease Screening Are you having any of the following:: None As of 04/02/2022 any COVID TESTING required for surgery will be set up by your surgeon's office. Please reach out to your surgeon's office if you develop any COVID symptoms, test positive for COVID or are exposed to a COVID positive person. If you have questions, please call the CPAP Staff at [phone], Friday-Friday 8am-4:30pm. All patients should read the below section: Information on [facility] or [facility] ([facility]): Please view [email or web address] (Patient and Visitor Information) for parking/directions and more. For MyChart information, to activate account or password recovery, please go to [email or web address] or call [phone] (toll-free: [phone]), Fri- Friday 8am-5pm. Information for Suicide Prevention: National Suicide Prevention Lifeline (6-467- 736-TALK (0492)) or call or text 142. Chat resources: [email or web address]. Surgery Times: For patients having surgery @ [facility], if your surgeon's office has not notified you of your surgery time by 2pm THE BUSINESS DAY BEFORE your surgery, please call the surgery center at [phone] and ask for your surgeon's office [facility] ([facility]) does not provide arrival times for theday of surgery or provide the duration of surgery. This information is provided by your surgeon's office or by the center where you are having surgery. We appreciate your understanding. documented in this encounter Plan of Treatment Not on file documented as of this encounter Procedures Procedure Name Priority Date/Time Associated Diagnosis Comments FL FLUOROSCOPY < 1 HOUR IP Routine 01/02/2024 12:50 PM CDT ARTHROSCOPY HIP - LABRAL REPAIR 01/02/2024 10:32 AM CDT Left hip pain Case Notes Ancef, TXA, hip scope table supine position, c arm, Hip case card, [employer] and [employer] rep. Special Needs Ancef, TXA, hip scope table supine position, c arm, Hip case card, [employer] and [employer] rep. documented in this encounter Results * FL Fluoroscopy < 1 Hour (01/02/2024 12:50 PM CDT) Narrative [facility] - 01/02/2024 12:51 PM CDT The images from this study are not interpreted by Radiology. ??Please refer to the physician's procedure / OR operative note. us Jose Antonio Viveros MD IMG FLUOROSCOPY PROCEDU RES Final Result [facility] documented in this encounter Visit Diagnoses Diagnosis Encounter for preoperative assessment Left hip pain Pain in joint, pelvic region and thigh documented in this encounter Admitting Diagnoses Diagnosis Left hip pain Pain in joint, pelvic region and thigh documented in this encounter Administered Medications Inactive Administered Medications - up to 3 most recent administrations Medication Order MAR Action Action Date Dose Rate Site HYDROcodone-acetaminophen (NORCO) 5-325 mg per tablet 1 tablet 1 tablet, oral, Every 20 min PRN, breakthrough pain, May use as 1st line pain medication if pain not extremely severe and patient able to tolerate PO meds. If unable to tolerate PO meds or outpatient complaining of extremely severe pain, start with Fentanyl and follow with Oral meds., Starting on Fri01/02/24 at 1304, For 2 doses, Phase I, May administer TWO pills together if pain moderate to severe and patient able to tolerate PO meds, after consulting with Anesthesiologist., Indications: PainIndications:Pain Given 01/02/2024 1:47 PM CDT 1 tablet Given 01/02/2024 1:25 PM CDT 1 tablet HYDROmorphone (DILAUDID) injection 0.2 mg 0.2 mg, intravenous, Administer over 2 Minutes, Every 5 min PRN, 2nd line for pain, Starting on Fri01/02/24 at 1304, Phase I, Use as 1st line pain medication for INpatients with pain score LESS than 6 out of 10. May use as first line medication for OUTpatients with extremely severe pain (7 out of 10 or above), history of opioid tolerance, or history of Chronic Pain with opioid tolerance, after consulting with Anesthesiologist. Inform anesthesiologist when dose reaches 2 mg for INpatients or 1 mg for OUTpatients. , Indications: PainIndications:Pain Given 01/02/2024 2:17 PM CDT 0.2 mg Given 01/02/2024 1:59 PM CDT 0.2 mg Given 01/02/2024 1:43 PM CDT 0.2 mg Lactated Ringer's (LR) infusion 30 mL/hr, intravenous, Continuous, Starting on Fri01/02/24 at 0930, For 4 hours, Pre-Op, Use a 500 ml bag for End Stage Renal Disease Patients. Discontinue if fluid still running once patient arrives to floor. New Bag 01/02/2024 1:02 PM CDT New Bag 01/02/2024 11:58 AM CDT New Bag 01/02/2024 11:15 AM CDT documented in this encounter Historical Medications * This list may reflect changes made after this encounter. multivitamin with iron tabletIndications :Vitamin Deficiency Prevention Take 1 tablet by mouth every morning 03/30/2024 added in this encounter Active and Recently Administered Medications Times are shown in CDT. Scheduled Medication Order 12/31/2023 01/01/2024 01/02/2024 ceFAZolin (ANCEF) 1 gram/10 mL in sterile water (premix) 3,000 mg (COMPLETED) 3,000 mg, intravenous, at 600 mL/hr, Administer over 3 Minutes, Once, On Fri01/02/24 at 0930, For 1 dose, Pre-Op, Administer within 60 minutes of incision., Indications: Prophylaxis, Surgical 1045 (Given - Provid er: Radha Landeros CRNA) Continuous Medication Order 12/31/2023 01/01/2024 01/02/2024 Lactated Ringer's (LR) infusion 30 mL/hr, intravenous, Continuous, Starting on Fri01/02/24 at 0930, For 4 hours, Pre-Op, Use a 500 ml bag for End Stage Renal Disease Patients. Discontinue if fluid still running once patient arrives to floor. 0922 (New Bag - Prov ider: Katina Casiano RN)1026 (Paused - Provider: Radah Landeros CRNA - Comment: Switch to gravity)1027 (Restarted - Provider: Radha Landeros CRNA)1115 (New Bag - Provider: Radha Landeros CRNA)1158 (New Bag - Provider: Radha Landeros CRNA)1302 (New Bag - Provider: Radha Landeros CRNA) Lactated Ringer's (LR) infusion 125 mL/hr, intravenous, Continuous, Starting on Fri01/02/24 at 1345, For 4 hours, Phase I, Discontinue upon discharge from PACU to the floor. 1345 (Due) PRN Medication Order 12/31/2023 01/01/2024 01/02/2024 acetaminophen (TYLENOL) tablet 500 mg 500 mg, oral, Every 6 hours PRN, headaches, other, Breakthrough Pain and Supplement to other pain meds, Starting on Fri01/02/24 at 1304, For 2 doses, Phase I, When able to tolerate PO after consulting with Anesthesiologist. Do not administer if patient has already received Acetaminophen-containing medications in PACU., Indications: Pain BUPivacaine (MARCAINE) 0.5 % (5 mg/mL) preservative free injection (CANCELED) As needed, Starting on Fri01/02/24 at 1243, Intra-Op 1243 (Given - Provid er: Jose Antonio Viveros MD) diphenhydrAMINE (BENADRYL) 50 mg/mL injection 12.5 mg 12.5 mg, intravenous, Administer over 1 Minutes, Every 5 min PRN, itching, other, For Nausea, administer 25 mg IV., Starting on Fri01/02/24 at 1304, For 4 doses, Phase I, Max cumulative dose 50 mg., Indications: Itching EPINEPHrine 2 mg in lactated ringers 3,000 mL (CANCELED) As needed, Starting on Fri01/02/24 at 1155, Intra-Op 1155 (Given - Provid er: Jose Antonio Viveros MD) fentaNYL (SUBLIMAZE) preservative free injection 25 mcg 25 mcg, intravenous, Every 5 min PRN, 1st line for pain, Use Fentanyl as 1st line medication for extremely severe pain for outpatients, and follow with oral pain medication., Starting on Fri01/02/24 at 1304, For 4 doses, Phase I, Use as 1st line for outpatients, dose not to exceed 100 mics. If pain still extremely severe after 100 mics of Fentanyl, may proceed to Dilaudid after consulting with Anesthesiologist. If patient able to tolerate PO meds and pain improved after Fentanyl, proceed to Oral pain medication., Indications: Pain hydrALAZINE (APRESOLINE) injection 5 mg 5 mg, intravenous, Administer over 2 Minutes, Every 5 min PRN, high blood pressure, Starting on Fri01/02/24 at 1304, Phase I, Max cumulative dose 20 mg. Dose if systolic BP greater than 180 AND heart rate less than 70., Indications: hypertension HYDROcodone-acetaminophen (NORCO) 5-325 mg per tablet 1 tablet (COMPLETED) 1 tablet, oral, Every 20 min PRN, breakthrough pain, May use as 1st line pain medication if pain not extremely severe and patient able to tolerate PO meds. If unable to tolerate PO meds or outpatient complaining of extremely severe pain, start with Fentanyl and follow with Oral meds., Starting on Fri01/02/24 at 1304, For 2 doses, Phase I, May administer TWO pills together if pain moderate to severe and patient able to tolerate PO meds, after consulting with Anesthesiologist., Indications: Pain 1325 (Given - Provid er: Deepti Fonseca RN)1347 (Given - Provider: Deepti Fonseca RN) HYDROmorphone (DILAUDID) injection 0.2 mg 0.2 mg, intravenous, Administer over 2 Minutes, Every 5 min PRN, 2nd line for pain, Starting on Fri01/02/24 at 1304, Phase I, Use as 1st line pain medication for INpatients with pain score LESS than 6 out of 10. May use as first line medication for OUTpatients with extremely severe pain (7 out of 10 or above), history of opioid tolerance, or history of Chronic Pain with opioid tolerance, after consulting with Anesthesiologist. Inform anesthesiologist when dose reaches 2 mg for INpatients or 1 mg for OUTpatients. , Indications: Pain 1331 (Given - Provid er: Deepti Fonseca RN)1336 (Given - Provider: Deepti Fonseca RN)1343 (Given - Provider: Deepti Fonseca RN)1359 (Given - Provider: Deepti Fonseca RN)1417 (Given - Provider: Deepti Fonseca RN) HYDROmorphone (DILAUDID) injection 0.4 mg 0.4 mg, intravenous, Administer over 2 Minutes, Every 10 min PRN, 3rd line for pain, Starting on Fri01/02/24 at 1304, Phase I, Use as first line pain medication for INpatients with pain score ABOVE 7 out of 10. Inform anesthesiologist when dose reaches 2 mg for INpatients. , Indications: Pain labetaloL (NORMODYNE,TRANDATE) injection 5 mg 5 mg, intravenous, Every 5 min PRN, high blood pressure, Starting on Fri01/02/24 at 1304, For 4 doses, Phase I, Max cumulative dose 20 mg. Dose if systolic blood pressure greater than 180 AND HR greater than 70. Lactated Ringer's (LR) irrigation (CANCELED) As needed, Starting on Fri01/02/24 at 1244, Intra-Op 1244 (Given - Provid er: Jose Antonio Viveros MD - Comment: PRN) meperidine (DEMEROL) preservative free injection 12.5 mg 12.5 mg, intravenous, Administer over 5 Minutes, Every 10 min PRN, shivering, Starting on Fri01/02/24 at 1304, For 2 doses, Phase I, Max cumulative dose 25 mg., Indications: Shivering naloxone (NARCAN) 0.4 mg/mL injection 0.04-0.4 mg 0.04-0.4 mg, intravenous, Once as needed, other, excessive sedation/respiratory depression, Starting on Fri01/02/24 at 1304, For 1 dose, Phase I, Dilute 0.4 mg with 9 mL NS (final concentration 0.04 mg/mL). For respiratory depression (respiratory rate less than 6), administer 0.4 mg IVP over 30 seconds. For excessive sedation administer 0.04 mg (1 mL) every 1 minute until desired level of alertness. Consult with Anesthesiologist before administration. Administer 40 mics at a time. For IV, administer over 30 seconds., Indications: Opioid Toxicity ondansetron (ZOFRAN) injection 4 mg 4 mg, intravenous, Administer over 2 Minutes, Once as needed, nausea, vomiting, Starting on Fri01/02/24 at 1304, For 1 dose, Phase I, Proceed to prochlorperazine if ondansetron has been given within the last 6 hours. prochlorperazine (COMPAZINE) injection 5 mg 5 mg, intravenous, Administer over 2 Minutes, Once as needed, nausea, vomiting, Starting on Fri01/02/24 at 1304, For 2 doses, Phase I, If nausea/vomiting not relieved by ondansetron within 30 minutes or if ondansetron has been given within the last 6 hours. May repeat in 15 minutes of nausea not relieved. documented in this encounter Orders Medications Ordered That Fredy ht Not Have Been Administered Count Last Ordered Date First Ordered Date acetaminophen (TYLENOL) tablet 500 mg BUPivacaine (MARCAINE) 0.5 % (5 mg/mL) preservative free injection 01/02/2024 ceFAZolin (ANCEF) 1 gram/10 mL in sterile water (premix) 3,000 mg 01/02/2024 diphenhydrAMINE (BENADRYL) 5 0 mg/mL injection 12.5 mg 01/02/2024 EPINEPHrine 2 mg in lactated ringers 3,000 mL 01/02/2024 famotidine (PEPCID) injection 20 mg 01/01 fentaNYL (SUBLIMAZE) preserv ative free injection 25 mcg 1 01/02/2024 hydrALAZINE (APRESOLINE) injection 5 mg 1 0 01/02/2024 HYDROmorphone (DILAUDID) injection 0.4 mg 1 01/02/2024 labetaloL (NORMODYNE,TRANDAT E) injection 5 mg 1 01/02/2024 Lactated Ringer's (LR) infusion 1 Lactated Ringer's (LR) irrigation 1 024 lidocaine (PF) (XYLOCAINE) 1 0 mg/mL (1 %) preservative free injection 2-10 mg 1 01/02/2024 meperidine (DEMEROL) preserv ative free injection 12.5 mg 1 01/02/2024 naloxone (NARCAN) 0.4 mg/mL injection 0.04-0.4 mg 1 01/02/2024 ondansetron (ZOFRAN) injection 4 mg 1 01/01 prochlorperazine (COMPAZINE) injection 5 mg 1 01/02/2024 scopolamine patch 72 hour 1 patch 1 024 sodium chloride 0.9% flush 0.5-20 mL 1 12/08 Diet Count Last Ordered Date First Orde red Date PEDIATRIC DISCHARGE DIET 1 01/02/2024 Nursing Count Last Ordered Date First Orde red Date DISCHARGE ACTIVITY 2 01/02/2024 DISCHARGE CALL PROVIDER 3 01/02/2024 ELEVATE EXTREMITY 1 01/02/2024 FOLLOW UP WITH ESTABLISHED PROVIDER 1 01/01 WEIGHT BEARING STATUS 1 01/02/2024 Discharge Count Last Ordered Date First Orde red Date DISCHARGE PATIENT 1 01/02/2024 documented in this encounter Care Teams Second Time Worker Relationship Specialty Start Date End Date Saad Lopez MD PCP - General 09/06/16 Jose Antonio Viveros MD [address] [address] Surgeon Pediatric Orthopedic Surgery 01/02/24 documented as of this encounter
--- OUTSIDE RECORDS SUMMARY | 2024-06-11 01:38 | XMS_ITS | Encounter Summary ---
Author Organization [facility] Healthcare Address [address] [place] [address] Care Team Providers Care School Guidance Counselor Name Role Phone Saad Lopez MD Primary Care Provider [phone] Reason for Referral * Diagnostic Imaging (Routine) - Closed Specialty Diagnoses / Procedures Referred By Contac t Referred To Contact Diagnoses Left hip pain Procedures FL Fluoro Guided Injection Hip Left Jose Antonio Viveros MD [address] [address] Phone: tel:[phone] fax: [address] [place] [address] Referral ID Status Reason Start Date Expiration Date Visits Re quested Visits Authorized [id number] Closed 07/29/2023 08/27/2024 1 1 Reason for Visit * Diagnostic Imaging (Routine) - Closed Specialty Diagnoses / Procedures Referred By Contac t Referred To Contact Diagnoses Left hip pain Procedures FL Fluoro Guided Injection Hip Left Jose Antonio Viveros MD [address] [address] Phone: tel:[phone] fax: [address] [place] [address] Referral ID Status Reason Start Date Expiration Date Visits Re quested Visits Authorized [id number] Closed 07/29/2023 08/27/2024 1 1 Encounter Details Date Type Department Care Team (Latest Contact Info) Description 08/19/2023 11:13 AM CDT - 08/19/2023 11:59 PM CDT Hospital Encounter [id number] Radiology [address] 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 The numbing medicine usually lasts for up to 4-6 hours. Triamcinolone/Kenalog (steroid medicine for inflammation and pain). The steroid will typically start working within the next several days but can take up to two weeks for the full effect. When you get home: Resume your normal diet For soreness, you may place an ice pack once an hour at the injection site for 15-20 minutes as needed You may shower To prevent infection, do not take a bath, swim or sit in a Jacuzzi or hot tub for the next two days Drink plenty of fluids to decrease a chance of a headache associated with steroids You may resume your physical therapy appointments in 24 hours Do not exercise for 24 hours, regular day-to-day activities are OK to perform Diabetic patients: Steroid injections may lead to higher blood glucose (sugar) levels temporarily. Most commonly, the higher levels will return to normal within 1-3 days, though effects may last longer. Rises in blood glucose levels may be more significant in patients with poorly controlled type 2 diabetes (those with HbA1c levels greater than 7) and those with type 1 diabetes. Check fasting (student admissions clerk prior to first meal of the day) and post-prandial (following meals) blood glucose levels. Contact the physician who manages your diabetes if your blood sugar is significantly elevated (for example, over 100mg/dL higher than your pre- injection level) or if blood sugar levels remain significantly elevated 2 days after receiving the injection, to discuss whether a change in medication dosing is needed. For urgent concerns after hours, call our exchange at [phone]. For all other questions regarding the procedure, please call our office at [phone]. Pain Diary Please fill out the pain diary chart below and call or message via [employer] the medical provider whorequested the injection, Dr. Viveros, in two weeks. By how much has your pain improved after your injection? NOT IMPROVED IMPROVED A LITTLE IMPROVED A LITTLE MORE IMPROVED A LOT NO PAIN Immediately? 0% 20% 50% 80% 100% 2 hours after? 0% 20% 50% 80% 100% 4 hours after? 0% 20% 50% 80% 100% 6 hours after? 0% 20% 50% 80% 100% 12 hours after? 0% 20% 50% 80% 100% 24 hours after? 0% 20% 50% 80% 100% 36 hours after? 0% 20% 50% 80% 100% NOT IMPROVED IMPROVED A LITTLE IMPROVED A LITTLE MORE IMPROVED A LOT NO PAIN Immediately? 0% 20% 50% 80% 100% 6 hours after? 0% 20% 50% 80% 100% 24 hours after? 0% 20% 50% 80% 100% 4 days after? 0% 20% 50% 80% 100% 1 week after? 0% 20% 50% 80% 100% 10 days after? 0% 20% 50% 80% 100% 2 weeks after? 0% 20% 50% 80% 100% documented in this encounter Medications at Time of Discharge aspirin 81 mg enteric coated tabletIndication s:prevention of thrombosis,HEART Take 1 tablet (81 mg total) by mouth student admissions clerk before breakfast 10/09/2009 metoprolol XL (TOPROL-XL) 50 mg 24 hr tablet take 1 tablet by oral route every day 0 0 05/18/2015 baclofen (LIORESAL) 10 mg tablet Take 1 tablet (10 mg total) by mouth 3 (three) times a day as needed for muscle spasms for muscle spasms 90 tablet 3 05/17/2022 4 meloxicam (MOBIC) 7.5 mg tablet Take 1 tablet by mouth once daily 30 tablet 07/23/2023 4 documented as of this encounter Discharge Disposition Disposition Code Departure Means Destination Discharge to home or self care documented in this encounter Progress Notes * Divya Valentino MD - 08/19/2023 11:20 AM CDT Fluoroscopically-Guided Diagnostic Hip Joint Injection [facility] Department of Orthopedic Surgery Division of Physical Medicine and Rehabilitation Patient name: Ronen Kapadia Date of : 1965 Date of service: 08/19/2023 Ronen Kapadia presents to the fluoroscopy suite for a fluoroscopically guided left diagnostic hip injection as part of conservative treatment for hip pain. After informed consent was obtained, thepatient was positioned supine on the fluoroscopy table. The left intertrochanteric line was locatedunder fluoroscopic guidance. The area was prepped and draped in sterile fashion. No local anesthetic was used. Then, a 25 gauge 3.5 inch needle was advanced into the joint under fluoroscopic guidance. Confirmation into the joint capsule was attained with the infusion of 1 mL of Omnipaque contrast which showed capsular flow. Then, a combination of 1.5 mL of 1% lidocaine, 1.5 mL of 0.2% ropivacaine, and 40 mg Kenalog was infused. The patient tolerated the procedure without complications. Pre and post procedure blood pressures were stable. The patient was given verbal as well as written follow-up instructions. A pain diary with follow-up instructions was given to the patient. Prior to the start of the procedure, verbal verification by the procedure participant(s) confirmed (as applicable): correct patient identity; correct site/side marked and visible; agreement on the procedure to be done; correct patient positioning; an accurate procedure consent form, relevant imagesand results correctly labeled and displayed; any safety precautions based on clinical history and/or medication use have been addressed. Fluoroscopic guidance was used to assist left hip joint injection. Confirmation of needle placementinto the left hip joint was obtained by injecting approximately 1 mL of Omnipaque contrast. There was no evidence of vascular uptake noted. I personally performed or was present for the procedure above. IMMEDIATE POST-PROCEDURE RESPONSE Provocative hip physical examination maneuvers were performed immediately before and after the injection. Immediately after the injection, the patient reported nearly 100% of relief. Divya Valentino MD documented in this encounter Plan of Treatment Not on file documented as of this encounter Procedures Procedure Name Priority Date/Time Associated Diagnosis Comments FL FLUORO GUIDED INJECTION HIP LEFT Schedule Routine, Read Routine (OP Routine) 08/19/2023 11:32 AM CDT Left hip pain documented in this encounter Results * FL Fluoro Guided Injection Hip Left (08/19/2023 11:32 AM CDT) Narrative [facility] - 08/19/2023 11:32 AM CDT The images from this study are not interpreted by Radiology. ??Please refer to the physician's procedure / OR operative note. us Jose Antonio Viveros MD IMG FLUOROSCOPY PROCEDU RES Final Result [facility] documented in this encounter Visit Diagnoses Diagnosis Pain of left hip- Primary Left hip pain Pain in joint, pelvic region and thigh documented in this encounter Administered Medications Inactive Administered Medications - up to 3 most recent administrations Medication Order MAR Action Action Date Dose Rate Site iohexoL (OMNIPAQUE) 300 mg iodine/mL injection solution As needed, Starting on Fri08/19/23 at 1114, Intra-Op Given 08/19/2023 11:14 AM CDT 0.5 mL lidocaine (PF) (XYLOCAINE) 10 mg/mL (1 %) preservative free injection As needed, Starting on Fri08/19/23 at 1114, Intra-Procedure (IR), Indications: Administration of Local AnesthesiaIndications:Administrat ion of Local Anesthesia Given 08/19/2023 11:22 AM CDT 2 mL ROPivacaine (NAROPIN) 2 mg/mL (0.2 %) preservative free injection As needed, Starting on Fri08/19/23 at 1122, Intra-Op Given 08/19/2023 11:22 AM CDT 4 mL triamcinolone (KENALOG) 40 mg/mL injection As needed, Starting on Fri08/19/23 at 1114, Intra-Op Given 08/19/2023 11:14 AM CDT 40 mg documented in this encounter Care Teams School Guidance Counselor Relationship Specialty Start Date End Date Saad Lopez MD PCP - General 09/06/16 documented as of this encounter
--- OUTSIDE RECORDS SUMMARY | 2024-06-11 01:38 | XMS_ITS | Encounter Summary ---
Author Organization [facility] Address [address] [place] [address] Phone Care Team Providers Care Plywood Scarfer Tender Name Role Phone Saad Lopez MD Primary Care Provider [phone] Reason for Referral * Diagnostic Imaging (Routine) - Closed Specialty Diagnoses / Procedures Referred By Freddie jones Referred To Contact Diagnoses Left hip pain Procedures X-ray pelvis 3+ views Jose Antonio Viveros MD [address] [facility] [address] [place] [address] Phone: tel:[phone] fax: [facility] [place] Referral ID Status Reason Start Date Expiration Date Visits Re quested Visits Authorized [id number] Closed 06/17/2023 07/16/2024 1 1 NG MACHINE OPERATOR HELPER Reason for Visit * Consultation (Routine) - Closed Specialty Diagnoses / Procedures Referred By Freddie jones Referred To Contact Orthopedic Surgery Diagnoses Other sprain of left hip, initial encounter Strain of muscle, fascia and tendon of left hip, initial encounter Tony Ramon MD [address] [place] [address] Phone: tel:[phone] fax: Oscar Rojas MD [address] [place] [address] Phone: tel: fax: Referral ID Status Reason Start Date Expiration Date V isits Requested Visits Authorized [id number] Closed Specialty Services Required 05/12/2023 06/10/2024 12 12 Encounter Details Date Type Department Care Team (Late st Contact Info) Description 06/17/2023 10:15 AM BORING MACHINE OPERATOR HELPER Office Visit [facility] Orthopaedic Surgery [address] [facility] [address] [place] [address] Jose Antonio Viveros MD [address] [place] [address] Left hip pain (Primary Dx); Other sprain of left hip, initial encounter; Strain of muscle, fascia and tendon of left hip, initial encounter Social History Tobacco Use Types Packs/Day [...] on file Legal Sex Male 12:14 AM BORING MACHINE OPERATOR HELPER Gender Identity Not on file Sexual Orientation Not on file documented as of this encounter Ordered Prescriptions Prescription Sig Dispense Quantity Refills Last Filled Start Date End Date meloxicam (MOBIC) 7.5 mg tablet Take 1 tablet (7.5 mg total) by mouth daily 30 tablet 06/17/2023 07/23/2023 documented in this encounter Progress Notes * Jose Antonio Viveros MD - 06/17/2023 10:15 AM CST Images from the original note were not included. NEW PATIENT VISIT This is Froy Roman scribing in the presence of Dr. Jose Antonio Viveros CHIEF COMPLAINT: Left hip labral tear HISTORY OF PRESENT ILLNESS: Ronen Kapadia is a 57 y.o. male who presents to the office today for evaluation of left hip labral tear. The first week of February the patient states he had a bad swing with his seven iron, and during his follow through he felt and heard his left hip pop and felt like it collapsed, then poppedback into place. He stopped playing and rested that day. The next day in the kitchen he slowly rotated to mimic his golf swing and felt his hip pop out again. He had an MRI on April 15. He has not swung a club since this first incident. PAST MEDICAL HISTORY: He has a past medical history of Calculus of kidney, Gastroesophageal reflux disease, OTHER MEDICAL, OTHER MEDICAL, OTHER MEDICAL, and MS (multiple sclerosis) ([facility]) ([facility]). PAST SURGICAL HISTORY: He has no past surgical history on file. INITIAL REVIEW OF MEDICATIONS: He has a current medication list which includes the following prescription(s): aspirin, baclofen (LIORESAL), and metoprolol xl (TOPROL-XL). DRUG ALLERGIES: He is allergic to levofloxacin. SOCIAL HISTORY: He reports that he has quit smoking. His smokeless tobacco use includes chew. He reports that he does not use drugs. Patient reports consuming alcoholic drinks monthly or less, with a daily consumption of drinks. Patient denies daily consumption of 6 or more alcoholic drinks at one occasion. FAMILY HISTORY: His family history includes Multiple sclerosis in his father's sister. PHYSICAL EXAM: On physical examination today, the patient is in no acute distress. The patient is alert and oriented x3. Mood and affect are normal and appropriate. Respirations are regular and nonlabored. Hearing is intact to the spoken word. Skin examination of lower extremities is within normal limits. HEENT: N ormocephalic and atraumatic. Distal neurovascular function is intact. Right hip: flexion to 90, IRF to 0, ERF 35 Left hip: flexion to 90, IRF to 0, ERF to 30. 5/5 strength. REVIEW OF X-RAYS/STUDIES: I have ordered x-rays of pelvis and personally reviewed the images. My independent interpretation is radiographs today show mild OA. MRI shows moderate OA with degenerative labral tear IMPRESSION/DIAGNOSIS: Hip flexor tendonitis, internal snapping ASSESSMENT/PLAN: I discussed surgical and nonsurgical intervention, including recovery, risks, benefits, and possible infection. Given my recommendations, they would like to proceed with conservative measures at thistime. Dr. Viveros will prescribe physical therapy focusing on golf movements and hip strengthening and 1 month of meloxicam. I will follow up after the patient completes physical therapy. Jose Antonio Viveros M.D., M.S. Typewriters Functional Tester [facility] Orthopedics NG MACHINE OPERATOR HELPER documented in this encounter Plan of Treatment Not on file documented as of this encounter Results * X-ray pelvis 3+ views (06/17/2023 10:49 AM BORING MACHINE OPERATOR HELPER) Anatomical Region Laterality Modality Pelvis, Body N/A Computed Radiogr aphy 06/17/2023 10:5 2 AM BORING MACHINE OPERATOR HELPER Impressions 06/17/2023 10:52 AM BORING MACHINE OPERATOR HELPER 1. ??Mild bilateral hip osteoarthritis. Electronically signed by: Hollis Salmon MD Narrative 06/17/2023 10:52 AM BORING MACHINE OPERATOR HELPER EXAMINATION: XR PELVIS 3 OR MORE VIEWS HISTORY: ??Left hip pain TECHNIQUE: 3 radiographs of the pelvis COMPARISON: None FINDINGS: Decrease asphericity of the bilateral femoral heads. ??Mild bilateral acetabular over coverage. ??Mild bilateral hip osteoarthritis. ??Mild sacroiliac osteoarthritis. ??No acute fracture. Procedure Note Hollis Salmon MD - 06/17/2023 EXAMINATION: XR PELVIS 3 OR MORE VIEWS HISTORY: Left hip pain TECHNIQUE: 3 radiographs of the pelvis COMPARISON: None FINDINGS: Decrease asphericity of the bilateral femoral heads. Mild bilateral acetabular over coverage. Mild bilateral hip osteoarthritis. Mild sacroiliac osteoarthritis. No acute fracture. IMPRESSION: 1. Mild bilateral hip osteoarthritis. Electronically signed by: Hollis Salmon MD Jose Antonio Viveros MD IMG XR PROCEDURES Final Result documented in this encounter Visit Diagnoses Diagnosis Left hip pain- Primary Pain in joint, pelvic region and thigh Other sprain of left hip, initial encounter Strain of muscle, fascia and tendon of left hip, initial encounter Left hip pain Pain in joint, pelvic region and thigh documented in this encounter Orders Outpatient Referral Count Last Ordered Date Fir st Ordered Date AMB REFERRAL TO ORTHOPEDIC RECON HIP/KNEE 1 06/17/2023 documented in this encounter Care Teams Plywood Scarfer Tender Relationship Specialty Start Date End Date Saad Lopez MD PCP - General 09/06/16 documented as of this encounter
--- OUTSIDE RECORDS SUMMARY | 2024-06-11 01:38 | XMS_ITS | Encounter Summary ---
Author Organization [facility] Address [address] [place] [address] Care Team Providers Care Food Service Driver Name Role Phone Saad Lopez MD Primary Care Provider Encounter Details Date Type Department Care Team (Late st Contact Info) Description 02/09/2021 2:00 PM CDT Office Visit [facility] [address] [facility] [address] [place] [address] Saima Trent MD [address] [facility] [address] [place], [place] [id number] Multiple sclerosis (CMS/HCC) (HCC) (Primary Dx); Muscle spasticity Social History Tobacco Use Types Packs/Day Years Used Date Smoking Tobacco: Former Smokeless Tobacco: Current Chew Alcohol Use Standard Drinks/Week Comments Yes 0 (1 standard drink = 0.6 oz pur e alcohol) Sex and Gender Information Value Date Recorded Sex Assigned at Not on file Legal Sex Male 12:14 AM MANUFACTURER Gender Identity Not on file Sexual Orientation Not on file documented as of this encounter Last Filed Vital Signs Vital Sign Reading Time Taken Comments Blood Pressure 120/86 02/09/2021 1:50 PM CDT Pulse 84 02/09/2021 1:50 PM CDT Temperature - - Respiratory Rate 16 02/09/2021 1:50 PM CDT Oxygen Saturation - - Inhaled Oxygen Concentration - - Weight 126.6 kg (279 lb) 02/09/2021 1:50 PM CDT Height 177.8 cm (5' 10 ) 02/09/2021 1:50 PM CDT Body Mass Index 40.03 02/09/2021 1:50 PM CDT documented in this encounter Progress Notes * Saima Trent MD - 02/09/2021 2:00 PM CDT Ronen Kapadia is a 55 y.o. male who is being seen at the request of Saad Lopez MD. Assessment/Plan Multiple sclerosis ([facility]) (HCC) He is currently not on any disease modifying agent. He stopped his Copaxone on his own about a yearago simply because he wanted to get off of any unnecessary medication. He has not had any clinical or radiographic disease activity for more than a decade. He states he would prefer to stay off of treatment for right now. That is understandable. If he has any new symptoms suggestive of MS disease activity he should let me know right away so we can discuss follow-up imaging. I will plan to do a follow-up MRI next year for routine surveillance. Muscle spasticity His muscle spasticity has not been problematic recently. Historically he had a prescription for baclofen but has not required any antispasmodics recently. Follow Up Return in about 1 year (around 02/09/2022). The patient is reminded to contact us if there are problems prior to the next visit. SERA Goel is a pleasant 55-year-old gentleman who was last seen in my office about two years ago. He missed his appointment last year. He returns today with a report that he stopped his Copaxone on his own more than a year ago. He stated that he simply wanted to get off of any unnecessary medication and he felt the Copaxone was not crucial. Since being off of Copaxone he considers himself symptom-free in regards to his MS. His last MRI of the brain was done in 2019 and looked entirely stable with a fairly small burden of white matter disease. He has not had an exacerbation for more than a decade. Historically he has had some problems with muscle spasms and spasticity in his lower extremities. He did take baclofen briefly in the past but is no longer taking any prescription antispasmodics. He seems to be doing fine without. Past Medical History: Diagnosis Date ??? Calculus of kidney KIDNEY STONES ??? Gastroesophageal reflux disease GERD ??? HX OTHER MEDICAL VIRAL MENINGITIS ??? HX OTHER MEDICAL MONONUCLEOSIS ??? HX OTHER MEDICAL LUMBAR SPINAL STENOSIS ??? MS (multiple sclerosis) (CMS/HCC) ([facility]) History reviewed. No pertinent surgical history. Current Outpatient Medications on File Prior to Visit Medication Sig Dispense Refill ??? metoprolol XL (TOPROL-XL) 50 mg 24 hr tablet take 1 tablet by oral route every day 0 0 ??? naproxen (ANAPROX,ALEVE) 220 mg tablet Take by mouth 2 (two) times a day with meals. ??? baclofen (LIORESAL) 10 mg tablet take 1 tablet by oral route 3 times every day (Patient not taking: Reported on 03/05/2018 ) 90 1 ??? dutasteride (AVODART) 0.5 mg capsule take 1 capsule by oral route every day (Patient not taking: Reported on 03/05/2018 ) 0 0 ??? glatiramer (Copaxone) 20 mg/mL syringe Inject 1 Syringe (20MG) under the skin daily (Patient not taking: Reported on 02/09/2021) 30 mL 1 ??? tamsulosin (FLOMAX) 0.4 mg capsule,extended release 24hr take 1 capsule by oral route every day1/2 hour following the same meal each day (Patient not taking: Reported on 03/05/2018 ) 0 0 No current facility-administered medications on file prior to visit. Allergies Allergen Reactions ??? Levofloxacin Unknown Social History Socioeconomic History ??? Marital status: Spouse name: Not on file ??? Number of children: Not on file ??? Years of education: Not on file ??? Highest education level: Not on file Occupational History ??? Not on file Tobacco Use ??? Smoking status: Former Smoker ??? Smokeless tobacco: Current User Types: Chew Substance and Sexual Activity ??? Alcohol use: Yes ??? Drug use: No ??? Sexual activity: Defer Other Topics Concern ??? Not on file Social History Narrative ??? Not on file Social Determinants of Health Financial Resource Strain: ??? Difficulty of Paying Living Expenses: Not on file Food Insecurity: ??? Worried About Running Out of Food in the Last Year: Not on file ??? Ran Out of Food in the Last Year: Not on file Transportation Needs: ??? Lack of Transportation (Medical): Not on file ??? Lack of Transportation (Non-Medical): Not on file Physical Activity: ??? Days of Exercise per Week: Not on file ??? Minutes of Exercise per Session: Not on file Stress: ??? Feeling of Stress : Not on file Social Connections: ??? Frequency of Communication with Friends and Family: Not on file ??? Frequency of Social Gatherings with Friends and Family: Not on file ??? Attends Roman [employer] Services: Not on file ??? Active Member of Clubs or Organizations: Not on file ??? Attends Club or Organization Meetings: Not on file ??? Marital Status: Not on file Intimate Partner Violence: ??? Fear of Current or Ex-Partner: Not on file ??? Emotionally Abused: Not on file ??? Physically Abused: Not on file ??? Sexually Abused: Not on file Family History Problem Relation Age of Onset ??? Multiple sclerosis Father's Sister Multiple sclerosis; Patient Active Problem List Diagnosis ??? Multiple sclerosis (CMS/HCC) ([facility]) ??? Muscle spasticity Review of Systems Constitutional: Negative for activity change, appetite change, chills, fever and unexpected weight change. HENT: Negative for congestion, hearing loss, sinus pressure, sinus pain, sore throat and tinnitus. Eyes: Negative for pain and visual disturbance. Respiratory: Negative for apnea, cough, shortness of breath and wheezing. Cardiovascular: Negative for chest pain, palpitations and leg swelling. Gastrointestinal: Negative for abdominal pain, constipation, diarrhea, nausea and vomiting. Endocrine: Negative for cold intolerance and heat intolerance. Genitourinary: Negative for difficulty urinating, frequency and urgency. Musculoskeletal: Negative for arthralgias, back pain, joint swelling, myalgias and neck pain. Skin: Negative for color change and rash. Allergic/Immunologic: Negative for environmental allergies. Neurological: Negative for dizziness, tremors, weakness, numbness and headaches. Psychiatric/Behavioral: Negative for agitation, dysphoric mood, hallucinations and sleep disturbance. The patient is not nervous/anxious. Vital Signs Vitals: 02/09/21 1350 BP: 120/86 Pulse: 84 Resp: 16 Weight: 126.6 kg (279 lb) Height: 177.8 cm (5' 10 ) Physical Exam: General Appearance: Well developed, in no distress. Mental Status: Awake, alert. Oriented x3. Follows commands. Language expression and comprehension good. Memory good. Concentration good. Insight good. Fund of knowledge good. Cranial Nerves: PERRL. Extraocular movements intact. Optic discs look normal. Visual boss are full. Facial movement intact, symmetric. Facial sensation intact V1-V3. Hearing intact to conversation.Palate elevates symmetrically. Tongue midline. Shoulder shrug full strength. Motor: RUE 5/5, LUE 5/5, RLE 5/5, LLE 5/5. Normal tone. No atrophy. Sensation: Intact to light touch RUE, LUE, RLE, LLE. Reflexes: DTRs 2/4 throughout. Plantar reflexes downgoing. Coordination/Cerebellar: Intact by [id number] exam. Gait: Normal. Record review: Reviewed last MRI done in 2019 which demonstrated mild white matter disease unchanged from previously. Saima Trent MD [facility] [phone] CC: Saad Lopez MD documented in this encounter Plan of Treatment Not on file documented as of this encounter Visit Diagnoses Diagnosis Multiple sclerosis (HCC)- Primary Multiple sclerosis Muscle spasticity Spasm of muscle documented in this encounter Care Teams Food Service Driver Relationship Specialty Start Date End Date Saad Lopez MD PCP - General 09/06/16 documented as of this encounter
--- OUTSIDE RECORDS SUMMARY | 2024-06-11 01:38 | XMS_ITS | Encounter Summary ---
Author Organization [facility] Address [address] [place] [address] Phone Care Team Providers Care Stretcher Leveler Operator Name Role Phone Saad Lopez MD Primary Care Provider Reason for Visit * Reason Comments Follow-up Encounter Details Date Type Department Care Team (Late st Contact Info) Description 08/19/2023 10:45 AM CDT Office Visit [facility] Orthopaedic Surgery [address] [facility] [address] [place] [address] Jose Antonio Viveros MD [address] [facility] [address] [place], [place] [id number] Left hip pain (Primary Dx) Social History [...] on file Legal Sex Male 12:14 AM EPIC SPECIALIST Gender Identity Not on file Sexual Orientation Not on file documented as of this encounter Progress Notes * Jose Antonio Viveros MD - 08/19/2023 10:45 AM CDT Images from the original note were not included. ESTABLISHED PATIENT VISIT This is Froy Roman scribing in the presence of Dr. Jose Antonio Viveros INTERIM HISTORY: Ronen returns today for follow up of left hip flexor tendonitis, internal snapping. The patient states that he has not been feeling popping with his day to day activity. He had to stop physical therapy as his pain had increased to a point where he could not do his exercises. His worst pain is the aching pain in his right hip that radiates down to his knee. He has been avoiding allactivities since his pain increased in PT. He has an intraarticular left hip injection with Dr. Valentino today. PHYSICAL EXAM: Prior to injection, mild pain with hip flexion. REVIEW OF X-RAYS/STUDIES: No imaging completed or review during today's visit. ASSESSMENT/PLAN: Over the next few hours Ronen should participate in activities which usually irritate their hip. They should track their pain with the pain diary and will call with an update in one week. Dr. Viveros will discuss treatment plans depending on their results. Jose Antonio Viveros M.D., M.S. Holistic Pulser [facility] Orthopedics documented in this encounter Plan of Treatment Not on file documented as of this encounter Visit Diagnoses Diagnosis Left hip pain- Primary Pain in joint, pelvic region and thigh documented in this encounter Care Teams Stretcher Leveler Operator Relationship Specialty Start Date End Date Saad Lopez MD PCP - General 09/06/16 documented as of this encounter
--- OUTSIDE RECORDS SUMMARY | 2024-06-11 01:38 | XMS_ITS | Encounter Summary ---
Author Organization [facility] Address [address] [place] [address] Phone Care Team Providers Care Hat Maker Name Role Phone Saad Lopez MD Primary Care Provider Encounter Details Date Type Department Care Team (Late st Contact Info) Description 10/01/2023 3:30 PM CDT Office Visit [facility] [address] 1[address] [place] [address] Jose Antonio Viveros MD [address] [facility] [address] [place] [address] Left hip pain (Primary Dx) Social History [...] on file Legal Sex Male 12:14 AM COMMERCIAL ESTIMATOR Gender Identity Not on file Sexual Orientation Not on file documented as of this encounter Progress Notes * Jose Antonio Viveros MD - 10/01/2023 3:30 PM CDT Images from the original note were not included. ESTABLISHED PATIENT VISIT This is Froy Roman scribing in the presence of Dr. Jose Antonio Viveros INTERIM HISTORY: Ronen returns today for follow up of left hip flexor tendonitis, internal snapping. The patient had an intraarticular injection on 08/19/23 and had 100% improvement 6 hours after the injection, but 0% improvement 4 days and after the injection. He states his pain is the same regardless of activity. He identifies his pain in his anterior hip/groin. He has been able to play golf but has pain that night and the next day. He has popping in his hip that is nonpainful. He had a CT scan of his left hip earlier today. PHYSICAL EXAM: Left hip: Hip flexion to 90 degrees, IRF to 5 degrees, ERF to 40 degrees. REVIEW OF X-RAYS/STUDIES: I have ordered a CT of left hip and personally reviewed the images. My independent interpretation is CT scan shows cam morphology alpha 60 degrees. . ASSESSMENT/PLAN: Dr. Viveros discussed the risks, benefits, complications, and alternatives of surgery. Given his recommendations, they wish to proceed with left hip arthroscopy, labral repair, femoral osteoplasty, capsular closure. The patient is considering pushing back his surgery until February, and he will call when he is sure of what date he is interested of scheduling. Dr. Viveros will follow up at the dateof surgery. Jose Antonio Viveros M.D., M.S. Manager Science [facility] Orthopedics documented in this encounter Plan of Treatment Not on file documented as of this encounter Visit Diagnoses Diagnosis Left hip pain- Primary Pain in joint, pelvic region and thigh documented in this encounter Care Teams Hat Maker Relationship Specialty Start Date End Date Saad Lopez MD PCP - General 09/06/16 documented as of this encounter
--- OUTSIDE RECORDS SUMMARY | 2024-06-11 01:38 | XMS_ITS | Encounter Summary ---
Author Organization [facility] Address [address] [place] [address] Care Team Providers Care Electric Mule Driver Name Role Phone Saad Lopez MD Primary Care Provider [phone] Reason for Visit * Reason Onset Date Comments PCP Blood Work Results 01/17/2022 Encounter Details Date Type Department Care Team (Late st Contact Info) Description 01/17/2022 Telephone [facility] [address] [place] [address] Saima Trent MD [address] [facility] [address] [place] [address] PCP Blood Work Results Social History Tobacco Use Types Packs/Day Years Used Date Smoking Tobacco: Former Smokeless Tobacco: Current Chew Alcohol Use Standard Drinks/Week Comments Yes 0 (1 standard drink = 0.6 oz pur e alcohol) Sex and Gender Information Value Date Recorded Sex Assigned at Not on file Legal Sex Male 12:14 AM SOIL CHECKER Gender Identity Not on file Sexual Orientation Not on file documented as of this encounter Miscellaneous Notes * Telephone Encounter - Corazon Betts MA - 01/17/2022 3:50 PM CDT Patient called back to get lab results. * Telephone Encounter - Corazon Betts MA - 01/17/2022 2:45 PM CDT Left message for patient to return my call regarding his lab results. * Telephone Encounter - Saima Trent MD - 01/17/2022 12:00 PM CDT Thanks for the info. I did review the labs. He has a mildly elevated REAGAN 1:80 which is likely not anything to worry about. This is a very minimally elevated REAGAN and it is nonspecific. It is a common finding in normal people. 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 He requested they fax those labs to [facility] for review. documented in this encounter Plan of Treatment Not on file documented as of this encounter Visit Diagnoses Not on filedocumented in this encounter Care Teams Electric Mule Driver Relationship Specialty Start Date End Date Saad Lopez MD PCP - General 09/06/16 documented as of this encounter
--- OUTSIDE RECORDS SUMMARY | 2024-06-11 01:38 | XMS_ITS | Encounter Summary ---
Author Organization [facility] Address [address] [place] [address] Phone Care Team Providers Care Greeting Card Editor Name Role Phone Saad Lopez MD Primary Care Provider Encounter Details Date Type Department Care Team (Late st Contact Info) Description 05/20/2023 Telephone [facility]oped[facility] [address] 1st [address] [place] [address] Jose Antonio Viveros MD [address] [facility] [address] [place] [address] Social History Tobacco Use Types Packs/Day Years [...] on file 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 Viveros. We will move up his new patient appt to 06/17 at [facility] at 10:15. He will bring his images on a disc to the appointment. Conformed same address.He was agreeable and noted understanding. ON ATTENDANT documented in this encounter Plan of Treatment Not on file documented as of this encounter Visit Diagnoses Not on filedocumented in this encounter Care Teams Greeting Card Editor Relationship Specialty Start Date End Date Saad Lopez MD PCP - General 09/06/16 documented as of this encounter
--- OUTSIDE RECORDS SUMMARY | 2024-06-11 01:38 | XMS_ITS | Encounter Summary ---
Author Organization [facility] Address [address] [place] [address] Phone Care Team Providers Care Director Imaging Name Role Phone Saad Lopez MD Primary Care Provider [phone] Reason for Referral * Diagnostic Imaging (Routine) - Closed Specialty Diagnoses / Procedures Referred By Contac t Referred To Contact Diagnoses Left hip pain Procedures FL Fluoro Guided Injection Hip Left Jose Antonio Viveros MD [address] [facility] [address] [place] [address] Phone: tel: fax: [address] [address] Referral ID Status Reason Start Date Expiration Date Visits Re quested Visits Authorized [id number] Closed 07/29/2023 08/27/2024 1 1 ET INSPECTOR Encounter Details Date Type Department Care Team (Late st Contact Info) Description 07/29/2023 Orders Only [facility] Pediatric Orthopedics [address] 1st [address] [place] [address] Jose Antonio Viveros MD [address] [facility] [address] [place] [address] Left hip pain (Primary Dx) Social History [...] on file 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 ??Please refer to the physician's procedure / OR operative note. us Jose Antonio Viveros MD IMG FLUOROSCOPY PROCEDU RES Final Result Performing Organization Address City/State/[facility] Co de Phone Number [email or web address] documented in this encounter Visit Diagnoses Diagnosis Left hip pain- Primary Pain in joint, pelvic region and thigh Pain of left hip- Primary Left hip pain Pain in joint, pelvic region and thigh documented in this encounter Care Teams Director Imaging Relationship Specialty Start Date End Date Saad Lopez MD PCP - General 09/06/16 documented as of this encounter
--- OUTSIDE RECORDS SUMMARY | 2024-06-11 01:38 | XMS_ITS | Encounter Summary ---
Author Organization [facility] Address [address] [place] [address] Care Team Providers Care Gift Officer Name Role Phone Saad Lopez MD Primary Care Provider [phone] Reason for Referral * MRI/CAT/PET Scan (Routine) - Closed Specialty Diagnoses / Procedures Referred By Contac t Referred To Contact Radiology Diagnoses Left hip pain Procedures CT Hip Left WO Contrast and 3D Recons Jose Antonio Viveros MD [address] [place] [id number] Phone: tel:[phone] fax: [place] [phone] [place] [address] Referral ID Status Reason Start Date Expiration Date Visits Re quested Visits Authorized [id number] Closed 09/18/2023 11/16/2023 1 1 Reason for Visit * MRI/CAT/PET Scan (Routine) - Closed Specialty Diagnoses / Procedures Referred By Contac t Referred To Contact Radiology Diagnoses Left hip pain Procedures CT Hip Left WO Contrast and 3D Recons Jose Antonio Viveros MD [address] [address] Phone: tel:[phone] fax: [place] [phone] [place] [address] Referral ID Status Reason Start Date Expiration Date Visits Re quested Visits Authorized [id number] Closed 09/18/2023 11/16/2023 1 1 Encounter Details Date Type Department Care Team (Latest Contact Info) Description 10/01/2023 2:27 PM CDT - 10/01/2023 11:59 PM CDT Hospital Encounter [facility] [address] [id number] Left hip pain Discharge Disposition: Discharge to [...] on file 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 Gender Identity Not on file Sexual Orientation Not on file documented as of this encounter Medications at Time of Discharge aspirin 81 mg enteric coated tabletIndication s:prevention of thrombosis,HEART Take 1 tablet (81 mg total) by mouth tonnage compilation clerk before breakfast 10/09/2009 metoprolol XL (TOPROL-XL) [...] mg total) by mouth daily 30 tablet 10/02/2023 4 documented as of this encounter Discharge Disposition Disposition Code Departure Means Destination Discharge to home or self care documented in this encounter Plan of Treatment Not on file documented as of this encounter Procedures Procedure Name Priority Date/Time Associated Diagnosis Comments CT HIP LEFT WO CONTRAST AND 3D RECONS Routine 10/01/2023 2:53 PM CDT Left hip pain documented in this encounter Results * CT Hip Left [...] of the femoral head and acetabular socket. Medical Coding Instructor 3-D images have been made available an [...] images confirm the above findings. Procedure Note Yousuf Craven MD - 10/01/2023 EXAMINATION: 1. CT [...] of the femoral head and acetabular socket. Medical Coding Instructor 3-D images have been made available an [...] thigh documented in this encounter Care Teams Gift Officer Relationship Specialty Start Date End Date Saad Lopez MD PCP - General 09/06/16 documented as of this encounter
--- OUTSIDE RECORDS SUMMARY | 2024-06-11 01:38 | XMS_ITS | Encounter Summary ---
Author Organization [facility] Healthcare Address [address] [place] [address] Care Team Providers Care Front Office Supervisor Name Role Phone Saad Lopez MD Primary Care Provider + [phone] Jose Antonio Viveros MD Unavailable [phone] Reason for Visit * Auth/Cert Specialty Diagnoses / Procedures Referred By Freddie jones Referred To Contact Diagnoses Left hip pain Left hip pain [M25.552] Procedures MT ARTHROSCOPY HIP W/FEMOROPLASTY MT ARTHROSCOPY HIP W/LABRAL REPAIR ARTHROSCOPY LEFT HIP - LABRAL REPAIR, PROXIMAL FEMORAL OSTEOPLASTY, CAPSULAR CLOSURE Referral ID Status Reason Start Date Expiration Date Visits Re quested Visits Authorized [id number] 1 1 Encounter Details Date Type Department Care Team (Late st Contact Info) Description 01/02/2024 10:45 AM CDT - 01/02/2024 2:45 PM CDT Surgery [facility] Operating Room [address] [place] [address] Jose Antonio Viveros MD [address] [place] [id number] ARTHROSCOPY LEFT HIP - LABRAL REPAIR, PROXIMAL FEMORAL OSTEOPLASTY, CAPSULAR CLOSURE Surgery Details Date/Time Status Location OR Service Patient Class Case Class Case Type Trauma Case? 01/02/2024 10:45 AM Posted [facility] OPERATING ROOM OR 10 Orthopaedics Outpatient Elective Panel 1 Procedure LRB Anes Op Region Wound Class Comments ARTHROSCOPY LEFT HIP - JENNIFER L REPAIR, PROXIMAL FEMORAL OSTEOPLASTY, CAPSULAR CLOSURE Left General Hip Class I - Clean Surgeon Surgeon Role Service Panel Jose Antonio Viveros MD Primary Orthopaedics 1 Luis Fernando Beck DO Fellow Orthopaedics 1 Jacinto Shaver MD Resident - Assisting Mera ralph 1 Case Notes Ancef, TXA, hip scope table supine position, c arm, Hip case card, Jack and Nephew and Styker rep. Special Needs Ancef, TXA, hip scope table supine position, c arm, Hip case card, Jack and Nephew and Styker rep. 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 Examples of narcotic pain medication include Percocet, Oxycontin, [place], Hydrocodone, and Oxycodone. FAQs (frequently asked questions) [...] physical therapy, we are available to assist: [facility] STAR: [facility] Crejordan Cabral [phone] [place] [phone] [facility] [phone] How are some things that you can [...] by your doctor or other health career resource specialist. * Attachments The following attachments cannot be sent through Care Everywhere. * Hydrocodone/Acetaminophen (By mouth) ([place] Korean) * Naproxen (By mouth) ([place]) * Ondansetron (By mouth, Into the mouth) ([place]) * Oxycodone, Rapid Release (By mouth) ([place]) * Senna (By mouth) ([place]) documented in this encounter Medications at Time of Discharge aspirin 81 mg enteric coated tabletIndications:pr evention of thrombosis,HEART Take 1 tablet (81 mg total) by mouth mems process engineer before breakfast 10/09/2009 metoprolol XL (TOPROL-XL) 50 [...] when FINISHED with oxycodone.) 20 tablet 12/31/2023 multivitamin with iron tabletIndications:Vi tamin Deficiency Prevention [...] in this encounter Progress Notes * Blaine Yang, [facility] - 01/02/2024 8:51 AM CDT Patient weight = 122.5 kg Change cefazolin dose to 3000 mg per pharmacy dosing protocol. Pre-Operative Cefazolin Dosing Cefazolin Indication Patient Weight Dose Surgical Prophylaxis, Preoperative <120 kg 2000 mg >/= 120 kg 3000 mg References: 2016 ASHP/IDSA/SIS/DE SOUZA Guidelines for Antimicrobial Prophylaxis in Surgery [facility] Toolbook/Ifeoma, last reviewed 05/19/18 Approved by ASP 06/18/18, Approved by P&T 07/16/18, Approved by [facility] 07/29/18 documented in this encounter H&P [...] Preoperative Evaluation Record Evaluation type/location: TPAP from [facility] Planned procedure site: [facility] OR Date: 12/29/23 Anesthesia Evaluation Ronen Kapadia [...] BP - 80 Pertinent negatives: CAD ; ND ; CABG ; valvular heart disease; valve [...] provided by telephone and electronically sent via [facility]. Patient verbalized understanding of instructions. Blood bank [...] Please call the CPAP chart room clinician ([phone]) with any questions. Notified surgeon's office regarding above issue(s)-- Staff message sent to [facility] [...] stenosis LUMBAR SPINAL STENOSIS MS (multiple sclerosis) ([facility]) Dxd ~2006--Daily injections of copaxone stopped ~07/2019; [...] mg enteric coated tablet 12/19/2023 10/09/09 -- Gogo Garcia MD baclofen (LIORESAL) 10 mg tablet 12/19/2023 [...] Medication protocol when under care of a AMPOULE SEALER Planned anesthesia: General Induction: Induction: intravenous. Informed [...] Whitfield, PT - 01/02/2024 8:25 AM CDT [facility] Physical Therapy Initial Evaluation Patient Name: Ronen Kapadia Date of Service: 01/02/2024 Date of : 1965 Age: 58 y.o. male Location of Patient: [facility] OR/- Admit Date: 01/02/2024 Attending Provider: Jose Antonio Viveros, * Primary Diagnosis: Left hip pain Subjective HPI: Ronen Kapadia is a 58 y.o. male presenting to [facility] for ARTHROSCOPY LEFT HIP - LABRAL REPAIR, PROXIMAL FEMORAL OSTEOPLASTY, CAPSULAR CLOSURE. Patient is agreeable to physical therapy evaluation in the preoperative setting. Past Medical History: Diagnosis Date Calculus of kidney KIDNEY STONES Gastroesophageal reflux disease GERD History of meningitis VIRAL MENINGITIS History of mononucleosis MONONUCLEOSIS Hypertension Dxd 2003 Lumbar stenosis LUMBAR SPINAL STENOSIS MS (multiple sclerosis) ([facility]) Dxd ~2006--Daily injections of copaxone stopped ~07/2019; [...] participation in activity. Pain Assessment: Pre-evaluation pain: 4 /10 Post-evaluation pain: 4 /10 Location: Left hip Pain intervention: Repositioned, Ambulation, [...] labrum surgery precautions with cueing from joint technology coach in order to ensure patient maintains [...] with intermittent assist Williams Whitfield PT * Tee Chetna Oleg Ulrich, OT - 01/02/2024 7:36 AM CDT [facility] Occupational Therapy Evaluation Patient Name: Ronen Kapadia Date of Service: 01/02/2024 Date of : 1965 Age: 58 y.o.male Location of Patient: [facility] OR/- Admit Date: 01/02/2024 Attending Provider: Jose Antonio Viveros, CHERYL Primary Diagnosis: Left hip pain Subjective HPI: Ronen Kapadia is a 58 y.o. male presenting to [facility] for ARTHROSCOPY LEFT HIP - LABRAL REPAIR, PROXIMAL FEMORAL OSTEOPLASTY, CAPSULAR CLOSURE . Patient agreeable to occupational therapy evaluation in the preoperative setting. Past Medical History: Diagnosis Date Calculus of kidney KIDNEY STONES Gastroesophageal reflux disease GERD History of meningitis VIRAL MENINGITIS History of mononucleosis MONONUCLEOSIS Hypertension Dxd 2003 Lumbar stenosis LUMBAR SPINAL STENOSIS MS (multiple sclerosis) ([facility]) Dxd ~2006--Daily injections of copaxone stopped ~07/2019; [...] crutches Home ADL Equipment: None Level of [place]: Independent with ADLs, Independent with transfers, and Independent with ambulation Driving: Yes Vocational/Occupation: Retired, enjoys golf, hunting Fall within the last 6 months: No Objective Vitals: Comments: no adverse signs or symptoms noted during session Pain Assessment: Pre-therapy pain: 1 /10 Post-therapy pain: Location: Left hip Pain Intervention: [...] caregivers, and ensure patient maintains precautions by theabove completion date. Comments:Completed Patient demonstrates understanding of [...] equipment to safely discharge: Wheeled walker, Crutches, Stud Beef Cattle Farmer, Sock aid, Long handled shoe horn, Dressing [...] AM CDT SURGEON: Jose Antonio Viveros M.D. METALLOGRAPHER: Luis Fernando Beck M.D., Jacinto Shaver M.D. [facility] PREOPERATIVE DIAGNOSES Left hip labral tear. [...] was stable. We were happy with the moravian of the seal. Moderate cam deformity anteriorly, [...] with normal saline. We closed the 2 jmya-[id number] sutures in the T-type capsulotomy with #2 Ethibond and then 2 [id number]-[id number] in the intraportal cut. Hip was positioned [...] - Fellow Anesthesiologist: Ana Luisa Tate MD AMPOULE SEALER: Radha Landeros CRNA Community Coordinator: Gaudencio Grey RN Scrub: Loretta Briggs RN NEW CLIENT BANKING SERVICES CLERK: Santiago Mccann RN Orientee Scrub: Tony Esparza [...] Implant Name Type Inv. Item Serial No. Manager Leadership Development Lot No. LRB No. Used Action FLORIDALMA ENDOS[employer] Cinchlock Ss Knotless Director Presales Lock Medway Suture Labrum [id number] - [id number] FLORIDALMA [employer]OS[employer] Cinchlock Ss Knotless Director Presales Lock Medway Suture Labrum [id number] Floridalma [id number] Left 1 Implanted FLORIDALMA ENDOSCOPY Cinchlock Ss Knotless Director Presales Lock Medway Suture Labrum [id number] - [id number] FLORIDALMA ENDOSCOPY Cinchlock Ss Knotless Director Presales Lock Medway Suture Labrum [id number] Sandown [id number] Left 1 Implanted FLORIDALMA ENDOSCOPY Cinchlock Ss Knotless Director Presales Lock Medway Suture Labrum [id number] - [id number] FLORIDALMA ENDOSCOPY Cinchlock Ss Knotless Director Presales Lock Medway Suture Labrum [id number] Sandown [id number] Left 1 Implanted FLORIDALMA ENDOSCOPY Cinchlock Ss Knotless Director Presales Lock Medway Suture Labrum [id number] - [id number] FLORIDALMA ENDOSCOPY Cinchlock Ss Knotless Director Presales Lock Medway Suture Labrum [id number] Sandown [id number] Left 1 Implanted Blood/Blood Products Transfused: 0 mls Complications: None Condition on Discharge from the operating room was stable Jacinto Shaver MD Date: 01/02/2024 Time: 1:05 PM Cosigned by Jose Antonio Viveros MD at 01/02/2024 9:52 PM CDT * Pre-Procedure Instructions - Lesia Avalos NP - 12/29/2023 3:42 PM CDT [facility] Location: [facility] SURGEON'S OFFICE - Dr Viveros The night [...] your family. * If having surgery at [facility], you may want to bring a credit card if you want to use our Mobile Pharmacy for your discharge medications. Mobile pharmacy is not available at [facility], the Orthopedic Center, or the [place] for [facility]. Outpatient Surgery: * You must have a [...] tools to help you quit or call 2-595-EEXOHHQ ( ). Visit Smokefree.gov for more information. * Do not smoke [...] Planning Perioperative Nursing Note Telephone Preoperative Evaluation ([facility]) - TELEPHONE ONLY, NO PHYSICAL EXAM Date: [...] 1 tablet (81 mg total) by mouth mems process engineer before breakfast baclofen (LIORESAL) 10 mg tablet [...] not in Chart: Copy requested from family Communication/Administrative Support Assistant Needs Communication Needs: Glasses Does caregiver's language differ from patient's?: No Assistive Devices/DME: CPAP/BiPAP, Eyeglasses Hearing - Right Ear: Functional Hearing - Left Ear: Functional Discharge Planning Type of Residence: Private residence Living Arrangements: Spouse/significant other Support Systems: Spouse/significant other Patient expects to be discharged to:: 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 You should leave your valuables and any jewelry at home. No metal or piercings are allowed in the operating room. You should bring your insurance card, a photo ID (example: Heater Operator Helper's License) and a method of payment for [...] Chart. If you are having surgery at [facility], please arrive on the day of surgery [...] Pathway to Excellent Care by the followinglink: [email or web address] How To Prepare Your Skin For Surgery [...] Remove nail coverings, artificial nails and nail thai. The Morning of Surgery: Take a shower [...] questions, please call the CPAP Staff at [phone], Friday-Friday 8am-4:30pm. All patients should read the below section: Information on [facility] or [facility] ([facility]): Please view [email or web address] (Patient and Visitor Information) for parking/directions and more. For MyChart information, to activate account or password recovery, please go to [email or web address] or call [phone] (toll-free: [phone]), Fri- Friday 8am-5pm. Information for Suicide Prevention: National Suicide Prevention Lifeline (7-343- 574-SEAT (4346)) or call or text 310. Chat resources: AcEmpire.1CLICK. Surgery Times: For patients having surgery @ [facility], if your surgeon's office has not notified you of your surgery time by 2pm THE BUSINESS DAY BEFORE your surgery, please call the surgery center at [phone] and ask for your surgeon's office The [facility]operative [facility] Planning ([facility]) does not provide arrival times for [...] MAR Action Action Date Dose Rate Site BUPivacaine (MARCAINE) 0.5 % (5 mg/mL) preservative free injection As needed, Starting on Fri01/02/24 at 1243, Intra-Op Given 01/02/2024 12:43 PM CDT 20 mL Surgical Site EPINEPHrine 2 mg in lactated ringers 3,000 mL As needed, Starting on Fri01/02/24 at 1155, Intra-Op Given 01/02/2024 11:55 AM CDT 6,000 mL Operative Joint Space HYDROcodone-acetaminoph en (NORCO) 5-325 mg per tablet 1 tablet [...] CDT New Bag 01/02/2024 11:15 AM CDT Lactated Ringer's (LR) irrigation As needed, Starting on Fri01/02/24 at 1244, Intra-Op Given 01/02/2024 12:44 PM CDT 12,000 mL Operative Joint Spac e documented in this encounter Historical Medications * [...] ider: Katina Casiano RN)1026 (Paused - Provider: Radha Landeros CRNA - Comment: Switch to gravity)1027 [...] Pain 1325 (Given - Provid er: Deepti Fonseca, NEREYDA)1347 (Given - Provider: Deepti Fonseca RN) HYDROmorphone [...] Ordered Date acetaminophen (TYLENOL) tablet 500 mg ceFAZolin (ANCEF) 1 gram/10 mL in sterile water (premix) 3,000 mg 01/02/2024 diphenhydrAMINE (BENADRYL) 5 0 mg/mL injection 12.5 mg 01/02/2024 famotidine (PEPCID) injection 20 mg 01/01 fentaNYL (SUBLIMAZE) preserv ative free injection 25 mcg 01/02/2024 hydrALAZINE (APRESOLINE) injection 5 mg 1 0 01/02/2024 HYDROmorphone (DILAUDID) injection 0.4 mg 01/02/2024 labetaloL (NORMODYNE,TRANDAT E) injection 5 mg 01/02/2024 Lactated Ringer's (LR) infusion lidocaine (PF) (XYLOCAINE) 1 0 mg/mL (1 %) preservative free injection 2-10 mg 01/02/2024 meperidine (DEMEROL) preserv ative free injection 12.5 mg 01/02/2024 naloxone (NARCAN) 0.4 mg/mL injection 0.04-0.4 mg 01/02/2024 ondansetron (ZOFRAN) injection 4 mg 1 [...] 01/02/2024 documented in this encounter Care Teams Front Office Supervisor Relationship Specialty Start Date End Date Saad Lopez MD PCP - General 09/06/16 Jose Antonio Viveros MD [address] [address] Surgeon Pediatric Orthopedic Surgery 01/02/24 documented as of this encounter
--- OUTSIDE RECORDS SUMMARY | 2024-06-11 01:38 | XMS_ITS | Encounter Summary ---
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 [address] [facility] [facility], [address] If you have any financial questions please call [phone] (ONLY SHARE THIS IF PATIENT INQUIRES) If you need to cancel or reschedule your appointment please call [phone] Ask them the covid screening questions Have you had any respiratory symptoms including cough, shortness of breath/trouble breathing, fever, sudden loss of taste or smell, sore throat, or body aches? Yes [] No [x] Are you currently being tested for Covid-19? Yes [] No[x] Have you had any contact with a person known to be positive for Covid-19 or a person under investigation? Yes [] No [x] If the patient answers yes to any of the Covid -19 screening questions they need to be rescheduled for at least 14 days later. Inform patient that only 1 guest/visitor will be allowed into the clinic. If possible, come by themselves. Procedure Patients Are you on any blood thinners? Yes [] No [x] Are you currently on any antibiotics? Yes [] No [x] Have you had a fever in the last 7 days? Yes [] No [x] Are you diabetic? Yes [] No [x] In the last 2 weeks have you received any vaccinations including the COVID booster? Yes [] No [x] In the next 2 weeks do you plan on receiving any vaccinations including the COVID booster? Yes [] No [x] If the answer is yes to either question 5 or 6 then please connect the patient with the adoption coordinator at [phone]. If a direct number is requested by the patient please give them [phone]. ER ASSOCIATE documented in this encounter Plan of Treatment Not on file documented as of this encounter Visit Diagnoses Not on filedocumented in this encounter Care Teams P 3 Armament/Ordnance Ima Technician Relationship Specialty Start Date End Date Saad Lopez MD PCP - General 09/06/16 documented as of this encounter
--- OUTSIDE RECORDS SUMMARY | 2024-06-11 01:38 | XMS_ITS | Encounter Summary ---
Author Organization [facility] Address [address] [facility] [address] [place] [address] Care Team Providers Care Client Services Vice President Name Role Phone Saad Lopez MD Primary Care Provider [phone] Reason for Visit * Reason Onset Date Comments Med Refill 06/28/2021 Encounter Details Date Type Department Care Team (Late st Contact Info) Description 06/28/2021 Telephone [facility] [address] [facility] [address] [place] [id number] Kiera Flores MA Med Refill Social History Tobacco Use Types Packs/Day Years Used Date Smoking Tobacco: Former Smokeless Tobacco: Current Chew Alcohol Use Standard Drinks/Week Comments Yes 0 (1 standard drink = 0.6 oz pur e alcohol) Sex and Gender Information Value Date Recorded Sex Assigned at Not on file Legal Sex Male 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 Gender Identity Not on file Sexual Orientation Not on file documented as of this encounter Ordered Prescriptions Prescription Sig Dispense Quantity Refills Last Filled Start Date End Date baclofen (LIORESAL) 10 mg tablet Take 1 tablet (10 mg total) by mouth 3 (three) times a day as needed for muscle spasms 90 tablet 1 06/29/2021 12/03/2021 documented in this encounter Miscellaneous Notes * Telephone Encounter - Kiera Flores MA - 06/29/2021 12:26 PM TOURING PRODUCTION MANAGER Spoke with the patient and he is aware of CAF recommendation and that we will send in the prescription for Baclofen to [facility] ING PRODUCTION MANAGER * Telephone Encounter - Saima Trent MD - 06/29/2021 12:06 PM CST He has been on baclofen before. We can renew his prescription for baclofen 10 mg 3 times a day as needed for muscle spasm. ING PRODUCTION MANAGER * Telephone Encounter - Kiera Flores MA - 06/28/2021 3:40 PM CST Patient LM on the refill line saying that he is having some muscle tightness again on the right side and wants to know if CAF can call in a muscle relaxer for him. If it is ok he would like the prescription sent into [facility] ING PRODUCTION MANAGER documented in this encounter Plan of Treatment Not on file documented as of this encounter Visit Diagnoses Not on filedocumented in this encounter Discontinued Medications Medication Sig Discontinue Reason Start Date End Da te baclofen (LIORESAL) 10 mg tablet take 1 tablet by oral route 3 times every day Reorder 11/30/2013 06/29/2021 documented as of this encounter Care Teams Client Services Vice President Relationship Specialty Start Date End Date Saad Lopez MD PCP - General 09/06/16 documented as of this encounter
--- OUTSIDE RECORDS SUMMARY | 2024-06-11 01:38 | XMS_ITS | Encounter Summary ---
Author Organization [facility] Address [address] [place] [address] Phone Care Team Providers Care Gas Line Installer Name Role Phone Saad Lopez MD Primary Care Provider [phone] Encounter Details Date Type Department Care Team (Late st Contact Info) Description 07/29/2023 Telephone [facility] Pediatric Orthopedics [address] [facility] 1[address] [place] [address] Jose Antonio Viveros MD [address] [facility] [address] [place] [address] Social History Tobacco Use Types Packs/Day Years [...] on file Legal Sex Male 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 Clarified that he has not been experiencing popping/snapping sensations recently. He opted to proceed with left hip intraarticular injection with steroid at the time of his appt. He was also able to rock picker the mobic we sent last week. All questions answered and he was in agreement with the plan LA PATCHER documented in this encounter Plan of Treatment Not on file documented as of this encounter Visit Diagnoses Not on filedocumented in this encounter Care Teams Gas Line Installer Relationship Specialty Start Date End Date Saad Lopez MD PCP - General 09/06/16 documented as of this encounter
--- OUTSIDE RECORDS SUMMARY | 2024-06-11 01:38 | XMS_ITS | Encounter Summary ---
Author Organization [facility] Address [address] [place] [address] Care Team Providers Care Metal Off Bearer Name Role Phone Saad Lopez MD Primary Care Provider + [phone] Jose Antonio Viveros MD Unavailable [phone] Reason for Referral * Diagnostic Imaging (Routine) - Closed Specialty Diagnoses / Procedures Referred By Contac t Referred To Contact Diagnoses Status post hip surgery Procedures XR Pelvis 1 or 2 Views Jose Antonio Viveros MD [address] [place] [id number] Phone: tel: fax: [facility] Radiology [address] [place] [phone] Phone: tel: Referral ID Status Reason Start Date Expiration Date Visits Re quested Visits Authorized [id number] Closed 01/15/2024 02/13/2025 1 1 Reason for Visit * Diagnostic Imaging (Routine) - Closed Specialty Diagnoses / Procedures Referred By Contac t Referred To Contact Diagnoses Status post hip surgery Procedures XR Pelvis 1 or 2 Views Jose Antonio Viveros MD [address] [address] Phone: tel: fax: [facility] Radiology [address] [place] [phone] Phone: tel: Referral ID Status Reason Start Date Expiration Date Visits Re quested Visits Authorized [id number] Closed 01/15/2024 02/13/2025 1 1 Encounter Details Date Type Department Care Team (Latest Contact Info) Description 01/20/2024 9:15 AM CDT - 01/20/2024 11:59 PM CDT Hospital Encounter [id number] [address] [facility] [address] [place] [phone] Status post hip surgery Discharge Disposition: Discharge to home or self [...] on file 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 Gender Identity Not on file Sexual Orientation Not on file documented as of this encounter Medications at Time of Discharge aspirin 81 mg enteric coated tabletIndications:pr evention of thrombosis,HEART Take 1 tablet (81 mg total) by mouth instructor weaving before breakfast 10/09/2009 metoprolol XL (TOPROL-XL) 50 mg 24 hr tablet take 1 tablet by oral route every day 0 0 05/18/2015 baclofen (LIORESAL) 10 mg tablet Take 1 tablet (10 mg total) by mouth 3 (three) times a day as needed for muscle spasms 90 tablet 11/12/2023 HYDROcodone-acetamin ophen (NORCO) 5-325 mg per tabletIndications:Pa in Take 1 tablet by mouth every 4 (four) hours as needed for pain for up to 10 doses 10 tablet 01/09/2024 4 multivitamin with iron tabletIndications:Vi tamin Deficiency [...] Procedure Name Priority Date/Time Associated Diagnosis Comments XR PELVIS 1 OR 2 VIEWS Schedule Routine, Read Routine (OP Routine) 01/20/2024 9:40 AM CDT Status post hip surgery documented in this encounter Results * XR Pelvis 1 [...] encounter Visit Diagnoses Diagnosis Status post hip surgery documented in this encounter Care Teams Metal Off Bearer Relationship Specialty Start Date End Date Saad Lopez MD PCP - General 09/06/16 Jose Antonio Viveros MD [address] [address] Surgeon Pediatric Orthopedic Surgery 01/02/24 documented as of this encounter
--- OUTSIDE RECORDS SUMMARY | 2024-06-11 01:38 | XMS_ITS | Encounter Summary ---
Author Organization [facility] Address [address] [place] [address] Care Team Providers Care Registered Art Therapist Name Role Phone Saad Lopez MD Primary Care Provider [phone] Reason for Visit * MRI/CAT/PET Scan (Routine) - Pending Review Specialty Diagnoses / Procedures Referred By Contac t Referred To Contact Procedures MSK MR Outside Reference Jose Antonio Viveros MD [address] [place] [address] Phone: tel: fax: Referral ID Status Reason Start Date Expiration Date V isits Requested Visits Authorized [id number] Pending Review 06/17/2023 07/16/2024 1 1 Encounter Details Date Type Department Care Team (Latest Contact Info) Description 06/17/2023 5:39 PM CATTYMAN - 06/17/2023 11:59 PM CATTYMAN Hospital Encounter [facility] [address] [place] [id number] Discharge Disposition: Discharge to home or self [...] on file Legal Sex Male 12:14 AM CATTYMAN Gender Identity Not on file Sexual Orientation Not on file documented as of this encounter Medications at Time of Discharge aspirin 81 mg enteric coated tabletIndication s:prevention of thrombosis,HEART Take 1 tablet (81 mg total) by mouth blood bank worker before breakfast 10/09/2009 metoprolol XL (TOPROL-XL) [...] total) by mouth daily 30 tablet 06/17/2023 4 documented as of this encounter Discharge Disposition Disposition Code Departure Means Destination Discharge to home or self care documented in this encounter Plan of Treatment Not on file documented as of this encounter Procedures Procedure Name Priority Date/Time Associated Diagnosis Comments MSK MR OUTSIDE REFERENCE Routine 06/17/2023 5:39 PM CATTYMAN documented in this encounter Results * MSK MR Outside Reference (06/17/2023 5:39 PM CATTYMAN) Impressions RAD_[facility] - 06/17/2023 5:39 PM CATTYMAN These images are for Reference purposes only and have not been reviewed by [facility] Radiology. ??There will be no report generated by a [facility] Radiologist. Narrative RAD_PACS[facility] - 06/17/2023 5:39 PM CATTYMAN EXAMINATION: ??Images For Reference Purposes Only us Jose Antonio Viveros MD IMG MRI PROCEDURES Lyndsey l Result [facility] documented in this encounter Visit Diagnoses Not on filedocumented in this encounter Care Teams Registered Art Therapist Relationship Specialty Start Date End Date Saad Lopez MD PCP - General 09/06/16 documented as of this encounter
--- OUTSIDE RECORDS SUMMARY | 2024-06-11 01:38 | XMS_ITS | Encounter Summary ---
Author Organization [facility] Address [address] [place] [address] Care Team Providers Care Vp Cardiovascular Service Line Name Role Phone Saad Lopez MD Primary Care Provider [phone] Reason for Visit * Reason Comments Multiple Sclerosis Encounter Details Date Type Department Care Team (Late st Contact Info) Description 05/17/2022 9:30 AM POT FISHER Office [facility] [address] [address] [place] [address] Samia Trent MD [address] [facility] [address] [place] [address] Multiple sclerosis (CMS/HCC) (HCC) (Primary Dx); Muscle [...] more drinks on one occasion? Never 05/17/2022 Sex and Gender Information Value Date Recorded Sex Assigned at Not on file Legal Sex Male 12:14 AM POT FISHER Gender Identity Not on file Sexual Orientation Not on file documented as of this encounter Last Filed Vital Signs Vital Sign Reading Time Taken Comments Blood Pressure 118/80 05/17/2022 9:26 AM POT FISHER Pulse 64 05/17/2022 9:26 AM POT FISHER Temperature - - Respiratory Rate 16 05/17/2022 9:26 AM POT FISHER Oxygen Saturation - - Inhaled Oxygen Concentration - - Weight 126.6 kg (279 lb) 05/17/2022 9:26 AM POT FISHER Height 177.8 cm (5' 10 ) 05/17/2022 9:26 AM POT FISHER Body Mass Index 40.03 05/17/2022 9:26 AM POT FISHER documented in this encounter Ordered Prescriptions Prescription Sig Dispense Quantity Refills Last Filled Start Date End Date baclofen (LIORESAL) 10 mg tablet Take 1 tablet (10 mg total) by mouth 3 (three) times a day as needed for muscle spasms for muscle spasms 90 tablet 3 05/17/2022 11/12/2023 documented in this encounter Progress Notes * Saima Trent MD - 05/17/2022 9:30 AM CST Ronen Kapadia is a 56 y.o. male who is being seen at the request of Saad Lopez MD. Assessment/Plan Multiple sclerosis (CMS/HCC) (HCC) The patient's MS is clinically stable. He has been off of immunomodulatory treatment for the last couple of years by choice. He has not had any clinical or radiographic disease activity for more thana decade. His last MRI was done in 2019. We do need to do a follow-up study. It will be scheduled before the end of the year. We will call him with those results. As always he is reminded to call if he has any symptoms suggestive of MS exacerbation. Muscle spasticity The patient's spasticity is intermittently problematic. Right now he is just taking baclofen 10 mg 3 times a day as needed. He most often takes in the evening before he goes to bed. He can continue it in this fashion although I did advise him taking it more regularly might be more beneficial. Other orders - baclofen (LIORESAL) 10 mg tablet; Take 1 tablet (10 mg total) by mouth 3 (three) times a day as needed for muscle spasms for muscle spasms Follow Up Return in about 1 year (around 05/17/2023). The patient is reminded to contact us if there are problems prior to the next visit. 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 He presents today for follow-up regarding multiple sclerosis. Amando has been off of immuno modulatory treatment for a couple of years now. He stopped Copaxone on his own back in 2019 because he was trying to eliminate any unnecessary medications. It is true thathe has not had any clinical or radiographic disease activity for more than a decade. His last MRI of the brain done in 2019 was stable and showed a very small burden of white matter disease. He returns today stating that he feels he continues to do well. He still has intermittent spasticity in the right arm and leg. He takes baclofen 10 mg 3 times a day as needed. He says he usually takes it in the evening and occasionally takes it during the day. Past Medical History: Diagnosis Date Calculus of kidney KIDNEY STONES Gastroesophageal reflux disease GERD HX OTHER MEDICAL VIRAL MENINGITIS HX OTHER MEDICAL MONONUCLEOSIS HX OTHER MEDICAL LUMBAR SPINAL STENOSIS MS (multiple sclerosis) ([facility]) ([facility]) No past surgical history on file. Current Outpatient Medications on File Prior to Visit Medication Sig Dispense Refill aspirin 81 mg enteric coated tablet ASPIRIN 81 MG ORAL TABLET metoprolol XL (TOPROL-XL) 50 mg 24 hr tablet take 1 tablet by oral route every day 0 0 [DISCONTINUED] baclofen (LIORESAL) 10 mg tablet TAKE 1 TABLET(10 MG) BY MOUTH THREE TIMES DAILY NEEDED FOR MUSCLE SPASMS 90 tablet 1 [DISCONTINUED] naproxen (ANAPROX,ALEVE) 220 mg tablet Take by mouth 2 (two) times a day with meals. [DISCONTINUED] dutasteride (AVODART) 0.5 mg capsule take 1 capsule by oral route every day (Patientnot taking: Reported on 03/05/2018 ) 0 0 [DISCONTINUED] glatiramer (Copaxone) 20 mg/mL syringe Inject 1 Syringe (20MG) under the skin daily (Patient not taking: Reported on 02/09/2021) 30 mL 1 [DISCONTINUED] tamsulosin (FLOMAX) 0.4 mg capsule,extended release 24hr take 1 capsule by oral route every day 1/2 hour following the same meal each day (Patient not taking: Reported on 03/05/2018 ) 00 No current facility-administered medications on file prior to visit. Allergies Allergen Reactions Levofloxacin Unknown Social History Tobacco Use Smoking status: Former Smokeless tobacco: Current Types: Chew Substance and Sexual Activity Drug use: No Sexual activity: Defer Alcohol Use: Not At Risk Frequency of Alcohol Consumption: Monthly or less Average Number of Drinks: 1 or 2 Frequency of Binge Drinking: Never Family History Problem Relation Age of Onset Multiple sclerosis Father's Sister Multiple sclerosis; Patient Active Problem List Diagnosis Multiple sclerosis (CMS/HCC) (HCC) Muscle spasticity Review of Systems Constitutional: Negative [...] patient is not nervous/anxious. Vital Signs Vitals: 05/17/22 0926 BP: 118/80 Pulse: 64 Resp: 16 Weight: 126.6 kg (279 lb) [...] throughout. Plantar reflexes downgoing. Coordination/Cerebellar: Intact by [id number] exam. Gait: Normal. Saima Trent MD [facility] [phone] CC: Saad Lopez MD FISHER documented in this encounter Plan of Treatment Not on file documented as of this encounter Visit Diagnoses Diagnosis Multiple sclerosis (HCC)- Primary Multiple sclerosis Muscle spasticity Spasm of muscle documented in this encounter Discontinued Medications Medication Sig Discontinue Reason Start Date End Da te dutasteride (AVODART) 0.5 mg capsule take 1 capsule by oral route every day Therapy completed 05/18/2015 05/17/2022 glatiramer (Copaxone) 20 mg/mL syringe Inject 1 Syringe (20MG) under the skin daily Therapy completed 06/23/2020 05/17/2022 naproxen (ANAPROX,ALEVE) 220 mg tablet Take by mouth 2 (two) times a day with meals. Therapy completed 05/17/2022 tamsulosin (FLOMAX) 0.4 mg capsule,extended release 24hr take 1 capsule by oral route every day 1/2 hour following the same meal each day Therapy completed 05/18/2015 05/17/2022 baclofen (LIORESAL) 10 mg tablet TAKE 1 TABLET(10 MG) BY MOUTH THREE TIMES DAILY NEEDED FOR MUSCLE SPASMS Reorder 01/09/2022 05/17/2022 documented as of this encounter Historical Medications * This list may reflect changes made after this encounter. aspirin 81 mg enteric coated tabletIndication s:prevention of thrombosis,HEART Take 1 tablet (81 mg total) by mouth mold shifter before breakfast 10/09/2009 added in this encounter Care Teams Vp Cardiovascular Service Line Relationship Specialty Start Date End Date Saad Lopez MD PCP - General 09/06/16 documented as of this encounter
--- OUTSIDE RECORDS SUMMARY | 2024-06-11 01:38 | XMS_ITS | Encounter Summary ---
Author Organization [facility] Address [address] [place] [address] Phone Care Team Providers Care Manager User Experience Name Role Phone Saad oLpez MD Primary Care Provider Encounter Details Date Type Department Care Team (Late st Contact Info) Description 12/19/2023 Orders Only [facility]oped[facility] [address] 1[address] [place] [address] Jose Antonio Viveros MD [address] [facility] [address] [place] [address] Left hip pain (Primary Dx) Social History [...] on file 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
--- OUTSIDE RECORDS SUMMARY | 2024-06-11 01:38 | XMS_ITS | Encounter Summary ---
Author Organization [facility] Address [address] [place] [address] Care Team Providers Care Cutting Machine Operator Name Role Phone Saad Lopez MD Primary Care Provider [phone] Reason for Referral * Diagnostic Imaging (Routine) - Closed Specialty Diagnoses / Procedures Referred By Contac t Referred To Contact Diagnoses Left hip pain Procedures X-ray pelvis 3+ views Jose Antonio Viveros MD [address] [address] Phone: tel: fax: [facility] Referral ID Status Reason Start Date Expiration Date Visits Re quested Visits Authorized [id number] Closed 06/17/2023 07/16/2024 1 1 EQUIPMENT OPERATOR Reason for Visit * Diagnostic Imaging (Routine) - Closed Specialty Diagnoses / Procedures Referred By Contac t Referred To Contact Diagnoses Left hip pain Procedures X-ray pelvis 3+ views Jose Antonio Viveros MD [address] [address] Phone: tel:[phone] fax: [facility] Referral ID Status Reason Start Date Expiration Date Visits Re quested Visits Authorized [id number] Closed 06/17/2023 07/16/2024 1 1 Encounter Details Date Type Department Care Team (Latest Contact Info) Description 06/17/2023 10:39 AM RAIL EQUIPMENT OPERATOR - 06/17/2023 11:59 PM RAIL EQUIPMENT OPERATOR Hospital Encounter [id number] [address] [facility] [address] [place] [address] Left hip pain Discharge Disposition: Discharge to [...] on file Legal Sex Male 12:14 AM RAIL EQUIPMENT OPERATOR Gender Identity Not on file Sexual Orientation Not on file documented as of this encounter Medications at Time of Discharge aspirin 81 mg enteric coated tabletIndication s:prevention of thrombosis,HEART Take 1 tablet (81 mg total) by mouth media theorist and author of before breakfast 10/09/2009 metoprolol XL (TOPROL-XL) 50 [...] Priority Date/Time Associated Diagnosis Comments XR PELVIS 3 OR MORE VIEWS Schedule Routine, Read Routine (OP Routine) 06/17/2023 10:49 AM RAIL EQUIPMENT OPERATOR Left hip pain documented in this encounter Results * X-ray pelvis 3+ views (06/17/2023 10:49 AM RAIL EQUIPMENT OPERATOR) Anatomical Region Laterality Modality Pelvis, Body N/A Computed Radiogr aphy 06/17/2023 10:5 2 AM RAIL EQUIPMENT OPERATOR Impressions 06/17/2023 10:52 AM RAIL EQUIPMENT OPERATOR 1. ??Mild bilateral hip osteoarthritis. Electronically signed by: Hollis Salmon MD Narrative 06/17/2023 10:52 AM RAIL EQUIPMENT OPERATOR EXAMINATION: XR PELVIS 3 OR MORE VIEWS [...] thigh documented in this encounter Care Teams Cutting Machine Operator Relationship Specialty Start Date End Date Saad Lopez MD PCP - General 09/06/16 documented as of this encounter
--- OUTSIDE RECORDS SUMMARY | 2024-06-11 01:38 | XMS_ITS | Encounter Summary ---
Author Organization [facility] Address [address] [place] [address] Care Team Providers Care Lift Builder Whole Name Role Phone Saad Lopez MD Primary Care Provider [phone] Reason for Visit * Reason Onset Date Comments Med Refill 06/23/2020 Encounter Details Date Type Department Care Team (Late st Contact Info) Description 06/23/2020 Telephone [facility] [address] [facility] [address] [place] [phone] Kiera Flores MA Med Refill Social History Tobacco Use Types Packs/Day Years Used Date Smoking Tobacco: Former Smokeless Tobacco: Current Chew Alcohol Use Standard Drinks/Week Comments Yes 0 (1 standard drink = 0.6 oz pur e alcohol) Sex and Gender Information Value Date Recorded Sex Assigned at Not on file Legal Sex Male 12:14 AM ACTIVE DIRECTORY ARCHITECT Gender Identity Not on file Sexual Orientation Not on file documented as of this encounter Ordered Prescriptions Prescription Sig Dispense Quantity Refills Last Filled Start Date End Date glatiramer (Copaxone) 20 mg/mL syringe Inject 1 Syringe (20MG) under the skin daily 30 mL 1 06/23/2020 2 documented in this encounter Miscellaneous Notes * Telephone Encounter - Pao Beck - 06/23/2020 8:52 AM ACTIVE DIRECTORY ARCHITECT LM to sxl f/u with CAF. VE DIRECTORY ARCHITECT * Telephone Encounter - Kiera Flores MA - 06/23/2020 8:26 AM CST CAF Patient Please call the patient to schedule a follow up appointment. Was due back around 03/04/2020 VE DIRECTORY ARCHITECT documented in this encounter Plan of Treatment Not on file documented as of this encounter Visit Diagnoses Not on filedocumented in this encounter Discontinued Medications Medication Sig Discontinue Reason Start Date End Da te glatiramer (Copaxone) 20 mg/mL syringe Inject 1 Syringe (20MG) under the skin daily Reorder 02/15/2020 06/23/2020 documented as of this encounter Care Teams Lift Builder Whole Relationship Specialty Start Date End Date Saad Lopez MD PCP - General 09/06/16 documented as of this encounter
--- OUTSIDE RECORDS SUMMARY | 2024-06-11 01:39 | XMS_ITS | Encounter Summary ---
Author Organization [facility] Care Team Providers Care Clinical Document Improvement Educator Name Role Phone Saad Lopez MD Primary Care Provider [phone] Encounter Details Date Type Department Care Team (Latest Contact Info) Description 03/04/2019 Travel Social History Tobacco Use Types Packs/Day Years Used Date Smoking Tobacco: Former Smokeless Tobacco: Current Chew Alcohol Use Standard Drinks/Week Comments Yes 0 (1 standard drink = 0.6 oz pur e alcohol) Sex and Gender Information Value Date Recorded Sex Assigned at Not on file Legal Sex Male 12: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
--- OUTSIDE RECORDS SUMMARY | 2024-06-11 01:39 | XMS_ITS | Encounter Summary ---
Author Organization [facility] Address [address] [place] [address] Care Team Providers Care Engine Specialist Name Role Phone Saad Lopez MD Primary Care Provider [phone] Encounter Details Date Type Department Care Team (Late st Contact Info) Description 05/08/2018 Telephone [facility] [address] [facility] [address] [place] [address] Sanjuanita Lopez Social History Tobacco Use Types Packs/Day Years Used Date Smoking Tobacco: Former Smokeless Tobacco: Current Chew Alcohol Use Standard Drinks/Week Comments Yes 0 (1 standard drink = 0.6 oz pur e alcohol) Sex and Gender Information Value Date Recorded Sex Assigned at Not on file Legal Sex 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 30 mL 1 05/08/2018 06/16/2018 documented in this encounter Miscellaneous Notes * Telephone Encounter - Jill Hernandez RN - 05/08/2018 5:09 PM TYPEWRITER OPERATOR AUTOMATIC LMOR for patient with CAF response. New prescription sent to [facility] WRITER OPERATOR AUTOMATIC * Telephone Encounter - Saima Trent MD - 05/08/2018 3:33 PM CST Okay okay to switch back to 20 mg daily. WRITER OPERATOR AUTOMATIC * Telephone Encounter - Jill Hernandez RN - 05/08/2018 1:58 PM TYPEWRITER OPERATOR AUTOMATIC My apologies. Yes WRITER OPERATOR AUTOMATIC * Telephone Encounter - Saima Trent MD - 05/08/2018 1:49 PM CST Please clarify, does he want to go on 20 mg daily? If so that is fine. WRITER OPERATOR AUTOMATIC * Telephone Encounter - Jill Hernandez RN - 05/08/2018 1:45 PM TYPEWRITER OPERATOR AUTOMATIC OK? Please advise WRITER OPERATOR AUTOMATIC * Telephone Encounter - Sanjuanita Lopez - 05/08/2018 11:00 AM CST Amando called and said that he would like to decrease the mg for his copaxone back to 20 mg. He said that with the recent increase to 40 mg, he has a bad reaction that causes itching for a 24 hour period with each usage. WRITER OPERATOR AUTOMATIC documented in this encounter Plan of Treatment Not on file documented as of this encounter Visit Diagnoses Not on filedocumented in this encounter Discontinued Medications Medication Sig Discontinue Reason Start Date End Da te glatiramer (COPAXONE) 20 mg/mL syringeIndications:relap sing form of multiple sclerosis Inject 1 mL (20 mg total) under the skin daily. Reorder 01/26/2018 05/08/2018 documented as of this encounter Care Teams Engine Specialist Relationship Specialty Start Date End Date Saad Lopez MD PCP - General 09/06/16 documented as of this encounter
--- OUTSIDE RECORDS SUMMARY | 2024-06-11 01:39 | XMS_ITS | Encounter Summary ---
Author Organization [facility] Address [address] [place] [address] Care Team Providers Care Speech Pathology Teacher Name Role Phone Saad Lopez MD Primary Care Provider [phone] Encounter Details Date Type Department Care Team (Late st Contact Info) Description 11/24/2018 Telephone [facility] [address] [place] [address] Saima Trent MD [address] [facility] [address] [place], [place] [id number] Social History Tobacco Use Types Packs/Day Years Used Date Smoking Tobacco: Former Smokeless Tobacco: Current Chew Alcohol Use Standard Drinks/Week Comments Yes 0 (1 standard drink = 0.6 oz pur e alcohol) Sex and Gender Information Value Date Recorded Sex Assigned at Not on file 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 Through conversation, Amando's insurance has changed and he has a large deductible. Asked if they have talked to his liaison with [employer] to see what they can do for them. States she has not and will call them * Telephone Encounter - Saima Trent MD - 11/24/2018 2:44 PM CDT Jill, is there any assistance or program for this patient? * Telephone Encounter - Kiera Flores MA - 11/24/2018 1:51 PM CDT Spoke with patients Nancy and she stated that they just cant afford the Copaxone. They have carlos high deductible ($5000) that they have to meet before they can get any help. She is wanting to know if we have any samples or if there is any other option. Please advise * Telephone Encounter - Kiera Flores MA - 11/24/2018 11:53 AM CDT Called patients Nancy GORDONonVNaresh asking her to call the office back re: the Copaxone * Telephone Encounter - Marcy Green - 11/24/2018 11:29 AM CDT Pt Nancy is calling to speak with JAXSON again about a patient assistance program for copaxone. Nancy states the medication is too expensive. Would like some thing else that is cheaper or if thereare samples in the office for the pt can have until an assistance programs start. Pt has been out of copaxone for about a week. Call back is [phone] documented in this encounter Plan of Treatment Not on file documented as of this encounter Visit Diagnoses Not on filedocumented in this encounter Care Teams Speech Pathology Teacher Relationship Specialty Start Date End Date Saad Lopez MD PCP - General 09/06/16 documented as of this encounter
--- OUTSIDE RECORDS SUMMARY | 2024-06-11 01:39 | XMS_ITS | Encounter Summary ---
Author Organization [facility] Address [address] [place] [address] Care Team Providers Care Equipment Tech Name Role Phone Saad Lopez MD Primary Care Provider + [phone] Encounter Details Date Type Department Care Team (Late st Contact Info) Description 09/08/2017 Telephone [facility] [address] [place] [address] Jill Hernandez RN Social History Tobacco Use Types Packs/Day Years Used Date Smoking Tobacco: Former Alcohol Use Standard Drinks/Week Comments Yes 0 (1 standard drink = 0.6 oz pur e alcohol) Sex and Gender Information Value Date Recorded Sex Assigned at Not on file Legal Sex Male 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 Please contact patient for an appointment. Thank you documented in this encounter Plan of Treatment Not on file documented as of this encounter Visit Diagnoses Not on filedocumented in this encounter Care Teams Equipment Tech Relationship Specialty Start Date End Date Saad Lopez MD PCP - General 09/06/16 documented as of this encounter
--- OUTSIDE RECORDS SUMMARY | 2024-06-11 01:39 | XMS_ITS | Encounter Summary ---
Author Organization [facility] Address [address] [place] [address] Care Team Providers Care Dietary Tech Name Role Phone Saad Lopez MD Primary Care Provider + [phone] Reason for Visit * Reason Onset Date Comments PA request for Copaxone 05/19/2018 NO PA needed 05/19/2018 Encounter Details Date Type Department Care Team (Late st Contact Info) Description 05/19/2018 [facility]phone [facility] [address] [address] Kiera Flores MA PA request for Copaxone; NO PA needed Social History Tobacco Use Types Packs/Day Years Used Date Smoking Tobacco: Former Smokeless Tobacco: Current Chew Alcohol Use Standard Drinks/Week Comments Yes 0 (1 standard drink = 0.6 oz pur e alcohol) Sex and Gender Information Value Date Recorded Sex Assigned at Not on file Legal Sex Male 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 For additional information, please contact the phone number on the back of the member prescription ID card. [facility] spoke with Shelby and started a PA over the phone and he is saying no PA needed and to have the pharmacy run. Spoke with patients Nancy to make sure that they still use [facility] for the pharmacy. I let her know that I was told that the Copaxone does not need a PA and to have the pharmacy run it throughthe insurance. Called [facility] spoke with Fred and he ran a test claim and it went through and the co-pay will be $50 KING GUIDE * Telephone Encounter - Sanjuanita Lopez - 05/29/2018 9:41 AM CST Patients called and said that Amando's insurance is now active thru [employer]ra using the same ID as his [facility] if we can start another PA for his copaxone. KING GUIDE * Telephone Encounter - Kiera Flores MA - 05/19/2018 2:43 PM CST Patients Nancy LM on refill line saying that they recd a letter from [facility] saying that the Copaxone needs a PA. Started the PA on cover my meds Ferris:[id number]. Was not able to complete the PA online due to Cannot find matching patient with Name and Date of provided Called Ale spoke with Corazon and she stated that the ID# that we have on file has term on 05/08/18. Spoke with patients and she stated that she was laid off and now they will have [employer] ins [facility] but does not have the ID# yet. She stated that she will call and try to get the ID# and call the office back with the info KING GUIDE documented in this encounter Plan of Treatment Not on file documented as of this encounter Visit Diagnoses Not on filedocumented in this encounter Care Teams Dietary Tech Relationship Specialty Start Date End Date Saad Lopez MD PCP - General 09/06/16 documented as of this encounter
--- OUTSIDE RECORDS SUMMARY | 2024-06-11 01:39 | XMS_ITS | Encounter Summary ---
Author Organization [facility] Address [address] [place] [address] Care Team Providers Care Template Cutter Name Role Phone Saad Lopez MD Primary Care Provider Reason for Visit * Reason Comments Multiple Sclerosis Encounter Details Date Type Department Care Team (Late st Contact Info) Description 03/04/2019 2:00 PM CDT [facility] Visit [facility] [address] [place] [address] Saima Trent MD [address] [place] [address] Multiple sclerosis (CMS/HCC) (Primary Dx); Muscle spasticity Social History Tobacco Use Types Packs/Day Years Used Date Smoking Tobacco: Former Smokeless Tobacco: Current Chew Alcohol Use Standard Drinks/Week Comments Yes 0 (1 standard drink = 0.6 oz pur e alcohol) Sex and Gender Information Value Date Recorded Sex Assigned at Not on file 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 male who is being seen at the request of Saad Lopez MD. He presents today for follow-up regarding MS and related issues. His last visit with me was a year ago. Assessment/Plan Multiple sclerosis (CMS/HCC) His last MRI of the brain was done four years ago. He does need a follow-up MRI. He is concerned about cost. He states he will check to see if he has met his deductible first. I have impressed upon him it is important to do the study. Muscle spasticity Historically the patient has had problems with muscle spasm, especially in the legs. He used to take baclofen but is not currently on any antispasmodics. He feels he can control his symptoms simply by stretching more. I think that is fine. If he has trouble controlling symptoms we can reorder the baclofen. Follow Up Return in about 1 year (around 03/04/2020). The patient is reminded to contact us if there are problems prior to the next visit. SERA Goel is a very pleasant 53-year-old gentleman who presents today for follow-up regarding MS and related issues. He was last seen in my office a year ago. He has had MS for many years and has been stable. He has not had a documented exacerbation for more than a decade. His last MRI was done May2015 and showed some minor white matter changes. He had declined to get a follow-up MRI last time because he has a high deductible plan. However I think he has met his deductible for the year now. Itwould be my preference he get it done. He is on Copaxone 20 mg daily. We did try switching to the 3times a week formulation and he developed itching. I do not know if there might be something different in that formulation that may have caused it. In any case he switched back to daily injections and is doing fine. He has noticed some increased muscle spasms particularly in bilateral hamstrings and bilateral triceps muscles. This has not really sound like an exacerbation, although it could be a manifestation ofhis spasticity. He used to be on baclofen but he says he has not taken it in a number of years. He says he would prefer simply to do stretching exercises to control the symptoms. Past Medical History: Diagnosis Date ??? Calculus of kidney KIDNEY STONES ??? Gastroesophageal reflux disease GERD ??? HX OTHER MEDICAL VIRAL MENINGITIS ??? HX OTHER MEDICAL MONONUCLEOSIS ??? HX OTHER MEDICAL LUMBAR SPINAL STENOSIS ??? MS (multiple sclerosis) ([facility]) History reviewed. No pertinent surgical history. Current Outpatient Medications on File Prior to Visit Medication Sig Dispense Refill ??? glatiramer (COPAXONE) 20 mg/mL syringe Inject 1 Syringe (20MG) under the skin daily 30 mL 1 ??? metoprolol XL (TOPROL-XL) 50 mg 24 [...] Reported on 03/05/2018 ) 0 0 ??? tamsulosin (FLOMAX) 0.4 mg capsule,extended release [...] file Occupational History ??? Not on file Social Needs ??? Financial resource strain: Not on file ??? Food insecurity: Worry: Not on file Inability: Not on file ??? Transportation needs: Medical: Not on file Non-medical: Not on file Tobacco Use ??? Smoking status: Former Smoker ??? Smokeless tobacco: Current User Types: Chew Substance and Sexual Activity ??? Alcohol use: Yes ??? Drug use: No ??? Sexual activity: Defer Lifestyle ??? Physical activity: Days per week: Not on file Minutes per session: Not on file ??? Stress: Not on file Relationships ??? Social connections: Talks on phone: Not on file Gets together: Not on file Attends buddhism service: Not on file Active member of club or organization: Not on file Attends meetings of clubs or organizations: Not on file Relationship status: Not on file ??? Intimate partner violence: Fear of current or ex partner: Not on file Emotionally abused: Not on file Physically abused: Not on file Forced sexual activity: Not on file Other Topics Concern ??? Not on file Social History Narrative ??? Not on file Family History Problem Relation Age of Onset ??? Multiple sclerosis Father's Sister Multiple sclerosis; Patient Active Problem List Diagnosis ??? Multiple sclerosis (CMS/HCC) ??? Muscle spasticity Review of Systems Constitutional Negative for fevers, chills or sweats. HENT Negative for headache, sinus pressure, tinnitus. Eyes Negative for eye pain and vision changes. Respiratory Negative for cough and dyspnea. Cardio Negative for chest pain, edema and irregular heartbeat/palpitations. GI Negative for change in stool pattern, nausea or vomiting. Negative for dysuria, polyuria, urinary frequency and urinary incontinence. Endocrine Negative for polydipsia and polyphagia. Neuro Negative for numbness, weakness, gait problem. Psych Negative for anxiety, depression. Skin Negative for hives, pruritus and rash. MS muscle spasms Heme/Onc Negative for easy bleeding, easy bruising and lymphadenopathy. Vital Signs Vitals: 03/04/19 1346 BP: 138/84 Pulse: 72 Resp: 16 Weight: 119.3 kg (263 lb) Height: 177.8 cm (5' 10 ) Physical Exam: General Appearance: Well developed, in no distress. Mental Status: Awake, alert. Oriented x3. Follows commands. Language expression and comprehension good. Memory good. Concentration good. Insight good. Cranial Nerves: PERRL. Extraocular movements intact. [...] throughout. Plantar reflexes downgoing. Coordination/Cerebellar: Intact by [id number] exam. Gait: Normal. Saima Trent MD [facility] [phone] CC: Saad Lopez MD documented in this encounter Plan of Treatment Not on file documented as of this encounter Visit Diagnoses Diagnosis Multiple sclerosis (HCC)- Primary Multiple sclerosis Muscle spasticity Spasm of muscle documented in this encounter Care Teams Template Cutter Relationship Specialty Start Date End Date Saad Lopez MD PCP - General 09/06/16 documented as of this encounter
--- OUTSIDE RECORDS SUMMARY | 2024-06-11 01:39 | XMS_ITS | Encounter Summary ---
Author Organization [facility] Care Team Providers Care Account Engineer Name Role Phone Unavailable Primary Care Provider Unavailabl e Encounter Details Date Type Department Care Team (Late st Contact Info) Description 08/17/2008 11:13 AM CDT - 08/17/2008 2:42 PM CDT Hospital Encounter [facility] [place] [address] [place] [id number] Calculus of ureter Social History Tobacco Use Types Packs/Day Years Used Date Smoking Tobacco: Never Assessed Sex and Gender Information Value Date Recorded Sex Assigned at Not on file 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
--- OUTSIDE RECORDS SUMMARY | 2024-06-11 01:39 | XMS_ITS | Encounter Summary ---
Author Organization [facility] Address [address] [place] [address] Care Team Providers Care Field Marketing Lead Name Role Phone Saad Lopez MD Primary Care Provider + [phone] Reason for Visit * Reason Onset Date Comments Med Refill 10/08/2018 Encounter Details Date Type Department Care Team (Late st Contact Info) Description 10/08/2018 Telephone [facility] [address] [place] [address] Kiera Flores MA Med Refill Social History Tobacco Use Types Packs/Day Years Used Date Smoking Tobacco: Former Smokeless Tobacco: Current Chew Alcohol Use Standard Drinks/Week Comments Yes 0 (1 standard drink = 0.6 oz pur e alcohol) Sex and Gender Information Value Date Recorded Sex Assigned at Not on file 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 She stated that they have been out of town and they left message on there phone but they couldn't understand the message so they never called them back and now [facility] has canceledout his script for Copaxone and he has been out of his medication. Called [facility] spoke with Daniel and gave him a verbal for Copaxone 20 mg. He stated that he will make sure that this gets resolved and the patient will get his medication documented in this encounter Plan of Treatment Not on file documented as of this encounter Visit Diagnoses Not on filedocumented in this encounter Care Teams Field Marketing Lead Relationship Specialty Start Date End Date Saad Lopez MD PCP - General 09/06/16 documented as of this encounter
--- OUTSIDE RECORDS SUMMARY | 2024-06-11 01:39 | XMS_ITS | Encounter Summary ---
Author Organization [facility] Address [address] [place] [address] Care Team Providers Care Charging Plug Placer Name Role Phone Saad Lopez MD Primary Care Provider [phone] Reason for Visit * Reason Comments Multiple Sclerosis Encounter Details Date Type Department Care Team (Late st Contact Info) Description 03/05/2018 3:30 PM CDT Office Visit [facility] 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 male who is being seen at the request of Saad Lopez MD. He presents today for follow-up regarding multiple sclerosis and related spasticity. His last visit was nearly three years ago. Assessment/Plan Multiple sclerosis (CMS/HCC) The patient's MS continues to do well on Copaxone 20 mg daily but since he last saw me nearly threeyears ago there is a new formulation of Copaxone, 40 mg 3 times a week. For convenience and to decrease injection site reactions I would prefer he switch to the newer formulation. We will initiate the switch. He is also reminded that he does need to follow-up more often than every three years. I will not do repeat imaging right now but his last MRI was done in May 2015. Fortunately it looks stable compared to previous studies. Muscle spasticity His spasticity is doing fine without baclofen. If this does return we may need to resume the baclofen again. Follow Up Return in about 1 year (around 03/05/2019). The patient is reminded to contact us if there are problems prior to the next visit. SERA Is a very pleasant 52-year-old gentleman who presents today for follow-up regarding multiple sclerosis. He has had MS for many years and has been stable for quite some time. His last MRI which was done back in May 2015 showed minor white matter changes. This was stable compared to prior scans done in 2010 and 2008. He is on Copaxone 20 mg daily. He was not aware that there is a 3 times a week formulation. He states the reason he did not follow-up sooner was because he was doing so well. He denies any new MS related symptoms. He is very physically able and active. In fact he plans to go elk hunting in [place] in a couple of weeks with some friends. He is very excited about the experience. Past Medical History: Diagnosis Date ??? Calculus of kidney KIDNEY STONES ??? Gastroesophageal reflux disease GERD ??? HX OTHER MEDICAL VIRAL MENINGITIS ??? HX OTHER MEDICAL MONONUCLEOSIS ??? HX OTHER MEDICAL LUMBAR SPINAL STENOSIS ??? MS (multiple sclerosis) (CMS/HCC) History reviewed. No pertinent surgical history. Current Outpatient Prescriptions on File Prior to Visit Medication Sig Dispense Refill ??? glatiramer (COPAXONE) 20 mg/mL syringe Inject 1 mL (20 mg total) under the skin daily. 30 mL 1 ??? metoprolol XL (TOPROL-XL) 50 mg 24 hr tablet take 1 tablet by oral route every day 0 0 ??? baclofen (LIORESAL) 10 mg tablet take [...] Allergen Reactions ??? Levofloxacin Unknown Social History Social History ??? Marital status: Spouse name: N/A ??? Number of children: N/A ??? Years of education: N/A Occupational History ??? Not on file. Social History Main Topics ??? Smoking status: Former Smoker ??? Smokeless tobacco: Current User Types: Chew ??? Alcohol use Yes ??? Drug use: No ??? Sexual activity: Not on file Other Topics Concern ??? Not on file Social History Narrative ??? No narrative on file Family History Problem Relation Age of Onset ??? Multiple sclerosis Father's Sister Multiple sclerosis; Patient Active Problem List Diagnosis ??? Multiple sclerosis (CMS/HCC) ??? Muscle spasticity Review of Systems Review of Systems Constitutional: Negative for chills, fever and malaise/fatigue. Weight gain HENT: Negative for congestion, ear pain, hearing loss and tinnitus. Eyes: Negative for blurred vision, double vision, photophobia and pain. Respiratory: Negative for cough and shortness of breath. Cardiovascular: Negative for chest pain, palpitations and leg swelling. Gastrointestinal: Negative for constipation, heartburn, nausea and vomiting. Genitourinary: Negative for dysuria and frequency. Musculoskeletal: Negative for back pain, joint pain and neck pain. Skin: Negative for rash. Neurological: Negative for dizziness, tingling, tremors, sensory change, speech change, focal weakness, seizures, loss of consciousness and headaches. Endo/Heme/Allergies: Does not bruise/bleed easily. Psychiatric/Behavioral: Negative for depression, hallucinations, memory loss and suicidal ideas. The patient is not nervous/anxious and does not have insomnia. Vital Signs Vitals: 03/05/18 1530 BP: 136/80 Pulse: 76 Resp: 16 Weight: 123.4 kg (272 lb) Height: 177.8 cm (5' 10 ) Physical Exam: General Appearance: Well developed, in no distress. Mental Status: Awake, alert. Oriented x3. Follows commands. Language expression and comprehension good. Memory good. Concentration good. Insight good. Cranial Nerves: PERRL. Extraocular movements intact. Fundi normal. Visual boss are full. Facial movement intact, symmetric. Facial sensation intact V1-V3. Hearing intact to conversation. Palate elevates symmetrically. Tongue midline. Shoulder shrug full strength. Motor: RUE 5/5, LUE 5/5, RLE 5/5, LLE 5/5. Normal tone. No atrophy. Sensation: Intact to light touch RUE, LUE, RLE, LLE. Reflexes: DTRs 1/4 throughout. Plantar reflexes downgoing. Coordination/Cerebellar: Intact by [id number] exam. Gait: Normal. Saima Trent MD [facility] [phone] CC: Saad Lopez MD documented in this encounter Plan of Treatment Not on file documented as of this encounter Visit Diagnoses Diagnosis Multiple sclerosis (HCC)- Primary Multiple sclerosis Muscle spasticity Spasm of muscle documented in this encounter Historical Medications * This list may reflect changes made after this encounter. naproxen (ANAPROX,ALEVE) 220 mg tablet Take by mouth 2 (two) times a day with meals. 05/17/2022 added in this encounter Care Teams Charging Plug Placer Relationship Specialty Start Date End Date Saad Lopez MD PCP - General 09/06/16 documented as of this encounter
--- OUTSIDE RECORDS SUMMARY | 2024-06-11 01:39 | XMS_ITS | Encounter Summary ---
Author Organization [facility] Address [address] [place] [address] Care Team Providers Care Pathology Laboratory Aide Name Role Phone Saad Lopez MD Primary Care Provider + [phone] Reason for Visit * Reason Onset Date Comments MRI Results 05/18/2019 Encounter Details Date Type Department Care Team (Late st Contact Info) Description 05/18/2019 Telephone [facility] [address] [place] [address] Kiera Flores MA MRI Results Social History Tobacco Use Types Packs/Day Years Used Date Smoking Tobacco: Former Smokeless Tobacco: Current Chew Alcohol Use Standard Drinks/Week Comments Yes 0 (1 standard drink = 0.6 oz pur e alcohol) Sex and Gender Information Value Date Recorded Sex Assigned at Not on file 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 This is very favorable. CONTROLLER * Telephone Encounter - Kiera Flores MA - 05/18/2019 8:16 AM CST Recd the MRI Brain W/Wo Contrast from [facility] DOS:05/17/19. See scan copy to review CONTROLLER documented in this encounter Plan of Treatment Not on file documented as of this encounter Visit Diagnoses Not on filedocumented in this encounter Care Teams Pathology Laboratory Aide Relationship Specialty Start Date End Date Saad Lopez MD PCP - General 09/06/16 documented as of this encounter
--- OUTSIDE RECORDS SUMMARY | 2024-06-11 01:39 | XMS_ITS | Encounter Summary ---
Author Organization [facility] Address [address] [place] [address] Care Team Providers Care Fruit Farmworker Name Role Phone Saad Lopez MD Primary Care Provider Reason for Visit * Reason Onset Date Comments PA for Copaxone 06/15/2018 PA Denied 06/15/2018 Encounter Details Date Type Department Care Team (Late st Contact Info) Description 06/15/2018 Telephone [facility] [address], [place] [address] Kiera Arias MA PA for Copaxone; PA Denied Social History Tobacco Use Types Packs/Day Years Used Date Smoking Tobacco: Former Smokeless Tobacco: Current Chew Alcohol Use Standard Drinks/Week Comments Yes 0 (1 standard drink = 0.6 oz pur e alcohol) Sex and Gender Information Value Date Recorded Sex Assigned at Not on file 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 30 mL 1 06/16/2018 09/07/2018 documented in this encounter Miscellaneous Notes * Addendum Note - Kiera Arias MA - 06/16/2018 9:45 AM CSTAddended by: KIERA ARIAS on: 06/16/2018 09:45 AM Modules accepted: Orders CONVEYOR TENDER * Telephone Encounter - Kiera Arias MA - 06/16/2018 9:41 AM CST Spoke with patients Nancy and let her know that the insurance will not cover Copaxone and it requires him to try generic Copaxone. I let her know to have the patient call the office if he has any side effects or notices any difference in performance so that way would could try to get him switched back to Copaxone. She understood and asked that we send a new script over to [facility]. Script has been sent over to Pharmacy CONVEYOR TENDER * Telephone Encounter - Saima Trent MD - 06/15/2018 4:12 PM CST Advise patient that his insurance requires him to try generic Copaxone before approving branded Copaxone. We can send in a prescription. If he notices any difference in performance or side effects heshould let us know immediately so we can get authorization to switch him back. CONVEYOR TENDER * Telephone Encounter - Kiera Arias MA - 06/15/2018 4:04 PM CST Recd a fax from [facility] that they have denied coverage for Copaxone because they say that the patient must have a history of failure or intolerance to one tier 1 or tier 2 alternatives such as as Galtiramer. CONVEYOR TENDER * Telephone Encounter - Kiera Arias MA - 06/15/2018 2:39 PM CST Called [facility] spoke with Shannon and stated a PA with her over the phone. She stated that she had tosend it on to the clinical review dept and we should recd a fax with the decision Ref#[id number] Called Patients and let her know what was going on and as soon as we hear back from them know CONVEYOR TENDER CONVEYOR TENDER documented in this encounter Plan of Treatment Not on file documented as of this encounter Visit Diagnoses Not on filedocumented in this encounter Discontinued Medications Medication Sig Discontinue Reason Start Date End Da te glatiramer (COPAXONE) 20 mg/mL syringeIndications:relap sing form of multiple sclerosis Inject 1 mL (20 mg total) under the skin daily. Reorder 05/08/2018 06/16/2018 documented as of this encounter Care Teams Fruit Farmworker Relationship Specialty Start Date End Date Saad Lopez MD PCP - General 09/06/16 documented as of this encounter
--- OUTSIDE RECORDS SUMMARY | 2024-06-11 01:39 | XMS_ITS | Encounter Summary ---
Author Organization [facility] Address [address] [place] [address] Care Team Providers Care Classification Clerk Name Role Phone Saad Lopez MD Primary Care Provider + [phone] Reason for Visit * Reason Onset Date Comments PA for Copaxone Approved 09/11/2018 Encounter Details Date Type Department Care Team (Late st Contact Info) Description 09/11/2018 Telephone [facility] 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 Effective from 08/11/2018 - 09/10/2019. (see scan copy) Called [facility] to verify if Brand or Generic Copaxone is covered since we were told that only the generic was covered with a PA. Spoke with Katlin and she stated that the PA is for the Brand Copaxone and she ran a test claim and she got a paid claim. She did stated that it looked like the patient had a deductible of $2700 and would have to pay that and than the co-pay would be $20. Called [facility] spoke with Aaron (pharmacist) and they took a verbal for Brand name since they canceled out the previous script. They also ran test claim and got a paid claim. They could not tell me if the patient had a co-pay. Spoke with patients Nancy and let her know that the Brand name is covered by the insurance and that the pharmacy has the script for brand name. I did ask her about the deductible and she statedthat they were aware of that and that they usually call [employer] and they get help from themto assist with the co-pay. documented in this encounter Plan of Treatment Not on file documented as of this encounter Visit Diagnoses Not on filedocumented in this encounter Care Teams Classification Clerk Relationship Specialty Start Date End Date Saad Lopez MD PCP - General 09/06/16 documented as of this encounter
--- OUTSIDE RECORDS SUMMARY | 2024-06-11 01:39 | XMS_ITS | Encounter Summary ---
Author Organization [facility] Address [address] [place] [address] Care Team Providers Care Gut Cleaner Name Role Phone Saad Lopez MD Primary Care Provider + [phone] Encounter Details Date Type Department Care Team (Late st Contact Info) Description 01/26/2018 Telephone [facility] [address] [place] [address] Kiera Arias MA Social History Tobacco Use Types Packs/Day Years Used Date Smoking Tobacco: Former Alcohol Use Standard Drinks/Week Comments Yes 0 (1 standard drink = 0.6 oz pur e alcohol) Sex and Gender Information Value Date Recorded Sex Assigned at Not on file Legal Sex Male 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 30 mL 1 01/26/2018 05/08/2018 documented in this encounter Miscellaneous Notes * Addendum Note - Kiera Arias MA - 01/26/2018 12:10 PM CDTAddended by: KIERA ARIAS on: 01/26/2018 12:10 PM Modules accepted: Orders * Telephone Encounter - Kiera Arias MA - 01/26/2018 12:09 PM CDT Called patient [facility] letting him know that we refill his medication until his next visit. [facility] * Telephone Encounter - Saima Trent MD - 01/26/2018 12:03 PM CDT Can refill until visit. * Telephone Encounter - Kiera Arias MA - 01/26/2018 11:49 AM CDT Patient has sxld a f/up on 03/05/18. hestated that the reason he hasn't made an appointment was because he is doing good on the medication. He is afraid that if he doesn't continue the medication he will start to do bad. He is wanting to know if you will refill the medication now that he has appointment. Please advise * Telephone Encounter - Marcy Molina - 01/26/2018 11:48 AM CDT Pt sxld f/u * Telephone Encounter - Kiera Arias MA - 01/26/2018 10:52 AM CDT Please call patient to make appointment. He hasn't been seen since 2014. * Telephone Encounter - Saima Trent MD - 01/26/2018 10:51 AM CDT The patient has to make a follow-up appointment. We cannot refill his Copaxone. * Telephone Encounter - Kiera Arias MA - 01/26/2018 10:38 AM CDT Recd a refill request for Copaxone. Patient was last seen in the office on 05/18/2015. Does not have a follow up appointment scheduled. A letter was sent to the patient back on 09/09/17 to make appointment. Do you want to fill the medication? documented in this encounter Plan of Treatment Not on file documented as of this encounter Visit Diagnoses Not on filedocumented in this encounter Discontinued Medications Medication Sig Discontinue Reason Start Date End Da te glatiramer (COPAXONE) 20 mg/mL syringeIndications:relap sing form of multiple sclerosis Inject 1 mL (20 mg total) under the skin daily. Reorder 01/27/2017 01/26/2018 documented as of this encounter Care Teams Gut Cleaner Relationship Specialty Start Date End Date Saad Lopez MD PCP - General 09/06/16 documented as of this encounter
== END 2024-06-04 12:27 | disposition home or self-care (01) ==
PROVIDERS: PCP Family Medicine; Visit Provider Urology
PROC: (CPT 50590; principal; 2024-06-04 10:30)
DX: N20.0 Calculus of kidney (principal); I10 Essential (primary) hypertension; G35 Multiple sclerosis; F12.90 Cannabis use, unspecified, uncomplicated; E66.01 Morbid (severe) obesity due to excess calories; Z68.41 Body mass index [BMI] 40.0-44.9, adult; Z79.891 Long term (current) use of opiate analgesic; Z79.51 Long term (current) use of inhaled steroids; Z98.890 Other specified postprocedural states; Z87.891 Personal history of nicotine dependence; Z80.49 Family history of malignant neoplasm of other genital organs; Z80.8 Family history of malignant neoplasm of other organs or systems; Z82.49 Family history of ischemic heart disease and other diseases of the circulatory system
CPT/HCPCS: 50590; 74018; J0690; J2003; J2250; J2405; J2704; J3010; J7120

== ENCOUNTER 2024-06-15 13:28 | Outpatient (CLI) | payer BC, SELFPAY ==
--- NOTE | ~2024-06-15 | XR_ITS ---
XR abdomen/kub 1V Ordering provider: Jose Antonio Nuñez MD History: . N20.0 - Calculus of kidney, F/U SURGERY . Comparison: None. FINDINGS: BOWEL: Nonobstructive bowel gas pattern. ORGANOMEGALY: None. SIGNIFICANT PATHOLOGIC CALCIFICATIONS: Left kidney calcification suggestive of stones. OTHER: No free air is seen under the diaphragm. Bilateral hip osteoarthritic changes. Degenerative changes of the spine. IMPRESSION: NO ACUTE ABDOMINAL FINDINGS. Multiple left kidney stones. Reviewed, dictated and finalized at location [facility]
== END 2024-06-15 13:29 | disposition home or self-care (01) ==
PROVIDERS: PCP Family Medicine; Visit Provider Urology
DX: N20.0 Calculus of kidney (principal)
CPT/HCPCS: 74018

== ENCOUNTER 2024-08-26 01:01 | Day surgery (SDC) | payer BC, SELFPAY ==
[2024-08-25 14:07] VITALS: BMI 41.1
--- NOTE | 2024-08-25 14:16 | PC.NURSE ---
Report to the Outpatient Waiting Room, entrance under the green pavilion located off [facility], at time _0945 on date 08/26/24_. Planned Procedure Time: 1145_.? Time changes happen often and if your time is changed the preop area will call you the afternoon before. - You and your visitor will be asked to self-screen and do not enter if you have any COVID symptoms. Please call surgeon if you need to reschedule. - A mask is optional within the hospital at this time. Patients may have clear liquids (water, carbonated beverages, clear teas, apple juice) until 3 hours prior to surgery with a maximum of 20 ounces. - No food from midnight until time of surgery and no smoking, or chewing tobacco (or any form of nicotine). No chewing gum, candy or mints. - Infants may have breast milk until 4 hours before surgery, infant formula 6 hours prior to surgery. - Children will be allowed to drink immediately following surgery.? If applicable, please bring a bottle or sippy cup to assist with drinking. Juice, water, soda, and popsicles are readily available.? For infants on formula, please bring formula the day of surgery.? Pacifiers are allowed. Take only the following medications with a SIP of water on the morning of surgery: ____METOPROLOL DO NOT STOP ANY OF YOUR OTHER PRESCRIPTION MEDICATIONS PRIOR TO SURGERY EXCEPT THE FOLLOWING Hold all vitamins and supplements for 3 days per anesthesiologist. Medications to discontinue per physician ASPIRIN, MELOXICAM Date to take last dose__08/24/24 Please no make-up, nail slovenian, hairspray, perfume, deodorant, or body powder the day of surgery.? No jewelry (including any body piercings) or valuables the day of surgery, leave them at home.? Please take a shower or bath the night before, or the morning of, surgery with an antibacterial soap.? Wear comfortable, loose fitting clothing.? Children are encouraged to wear pajamas. - Jewelry must be removed prior to entering the operating room.? Rings and piercings that are not removed may be cut off. - The hospital will not accept responsibility for valuables.? - Please leave all valuables, including medications, at home the day of surgery. If you are going home after surgery, a licensed national flatbed truck driver must drive you home.? - NO public transportation without another adult if you receive anesthesia. - We recommend that an adult stay with you for 24 hours following discharge. - We also recommend that you do not drive, make important decision, drink alcoholic beverages, or take any drugs that were not prescribed by your health care provider for at least 24 hours after your discharge time. For Pediatric surgeries, we recommend two adults accompany the child home. Follow any additional instructions given to you from your surgeon. Telephone instructions given to _JOSAFAT_and asked if any additional questions and then verbalized understanding. Patient advised to call surgeon office or pre surgery nurse liaison [phone] if any additional questions.
[2024-08-26] VITALS (7 sets, daily range): BP systolic 128–163; BP diastolic 77–96; PULSE 62–85; RESP 14–18; TEMP 35.7–36.1; O2SAT 95–100
--- NOTE | ~2024-08-26 | XR_ITS ---
INTRAOPERATIVE FLUOROSCOPY: CLINICAL HISTORY: 58 years old Male; CYSTO URETHRAL STONE EXT PROCEDURE COMMENTS: Limited intraoperative fluoroscopy of the left flank was performed. CUMULATIVE DOSE: 15.5 mGy FLUOROSCOPY TIME: 20 seconds FINDINGS/IMPRESSION: Please refer to operative note for further details. Reviewed, dictated and finalized at location A.
--- OUTSIDE RECORDS SUMMARY | 2024-08-26 01:04 | XMS_ITS | Continuity of Care Document ---
[facility] Address [address] [place] [address] Phone Care Team Providers Care Dragsaw Operator Name Role Phone Buddy Navarro PT Unavailable Unavailable Procedures Procedure Date Free Assessment Advance Directives Directive Yes / No Effective Date File Name No Information Encounters Encounter Description Practice Location Reason(s) For Visit Diagnoses Date Provider Providers Copied on Encounter [facility], [address], [place], [place], [id number], [place] tel:[phone] [facility] No Information Melanie Goodwin. . Referring Provider: Access Direct. Family History Family Member Type Diagnosis Age At Onset No Information Payers Payer name Insurance type Covered green party ID Authoriza tikristi(s) [facility] [id number] Social History Type Description Quantity Date Captured [...]
--- OUTSIDE RECORDS SUMMARY | 2024-08-26 01:04 | XMS_ITS | Referral Summary ---
Author Organization [facility] [place] [address] Address [address] [place] [address] Care Team Providers Care Database Developer Name Role Phone Saad Lopez MD Primary Care Provider [phone] Jose Antonio Viveros MD Unavailable [phone] Encounters Date Type Department Care Team Description 08/11/2024 [facility] Pediatric Orthopedics [address] [place] [address] 1st [address] [place] [address] Jose nAtonio Viveros MD 07/20/2024 4:45 PM FILE DRAWER FINISHER - 07/20/2024 11:59 PM FILE DRAWER FINISHER Hospital Encounter [facility] [address] [place] [address] Discharge Disposition: Discharge to home or self care 07/20/2024 1:57 PM FILE DRAWER FINISHER - 07/20/2024 11:59 PM FILE DRAWER FINISHER Hospital Encounter [facility] [address] [place] [address] Discharge Disposition: Discharge to home or self care 07/20/2024 11:15 AM FILE DRAWER FINISHER Office Visit [facility] Orthopaedic Surgery [address] [facility] Medical Office Building [address] [place] [address] Jose Antonio Viveros MD Left hip pain (Primary Dx) 06/17/2024 Telephone [facility] Pediatric [facility]oped[facility] 1st [place] [address] [place] [address] Jose Antonio Viveros MD 06/14/2024 Orders Only [facility] Orthopaedic Surgery [address] [facility] [place] [address] Jose Antonio Viveros MD Chronic pain of right knee 06/07/2024 Telephone [facility] [address] [facility] [address] [place] [address] Saima Trent MD 05/31/2024 Telephone [facility] Pediatric Orthopedics [address] [facility] 1st [address] [place] [address] Jose Antonio Viveros MD from Last 3 Months Allergies Active Allergy Reactions Criticality Noted Date Comments Levofloxacin Muscle pain Medium Quinolones Mental status changes,Muscle pain Medium Medications metoprolol XL (TOPROL-XL) 50 mg 24 hr tablet take 1 tablet by oral route every day 0 0 05/18/20 15 Active aspirin 81 mg enteric coated tabletIndicati ons:prevention of thrombosis,HEA RT Take 1 tablet (81 mg total) by mouth senior graphic designer before breakfast 10/10/19 10 Active meloxicam (MOBIC) 7.5 mg tablet Take 1 tablet (7.5 mg total) by mouth daily 30 tablet 08/12/19 25 025 Active meloxicam (MOBIC) 7.5 mg tablet Take 1 tablet (7.5 mg total) by mouth daily 30 tablet 05/25/20 24 025 Discontinued Active Problems Problem Noted Date Diagnosed Date History of substance abuse 01/20/2024 Palpitations 01/20/2024 Shortness of breath 01/20/2024 [...] on file Legal Sex Male 12:14 AM FILE DRAWER FINISHER Gender Identity Not on file Sexual Orientation Not on file Last Filed Vital Signs Vital Sign Reading Time Taken Comments Blood Pressure 127/84 01/02/2024 2:35 PM CDT Pulse 53 01/02/2024 2:40 PM CDT Temperature 36.2 C (97.2 F) 01/02/2024 2:35 PM CDT Respiratory Rate 30 01/02/2024 2:40 PM CDT Oxygen Saturation 96% 01/02/2024 2:40 PM CDT Inhaled Oxygen Concentration - - Weight 127.2 kg (280 lb 6.4 oz) 01/02/2024 8:52 AM CDT Height 177.8 cm (5' 10 ) 01/02/2024 8:52 AM CDT Body Mass Index 40.23 01/02/2024 8:52 AM CDT Plan of Treatment Not on file Medical Devices Implanted Type Area Diagnostic Assistant Device Identifier Shelf Expiration Date Model / Serial / Lot [facility] [employer] Department Chair [employer] [place] Suture Labrum [id number] - [id number] Implanted:Qty: 1 on 01/02/2024 at [facility] Left: Hip [facility] 01/26/2025 [id number] / / [id number] [facility] [employer] Department Chair Lock [place] Suture Labrum [id number] - [id number] Implanted:Qty: 1 on 01/02/2024 at [facility] Left: Hip [facility] 01/26/2025 [id number] 2 / / [id number] [facility] [employer] Department Chair Lock [place] Suture Labrum [id number] - [id number] Implanted:Qty: 1 on 01/02/2024 at [facility] Left: Hip [facility] 01/26/2025 [id number] / / [id number] [facility] [employer] Department Chair Lock [place] Suture Labrum [id number] - [id number] Implanted:Qty: 1 on 01/02/2024 at [facility] Left: Hip [facility] 01/26/2025 [id number] 2 / / [id number] Procedures Procedure Name Priority Date/Time Associated Diagnosis Comments MSK MR OUTSIDE REFERENCE Routine 07/20/2024 4:45 PM FILE DRAWER FINISHER CT BODY OUTSIDE REFERENCE Routine 07/20/2024 1:57 PM FILE DRAWER FINISHER MRI KNEE RIGHT WO CONTRAST Schedule Routine, Read Routine (OP Routine) 06/14/2024 3:56 PM FILE DRAWER FINISHER Chronic pain of right knee from Last 3 Months Results * MSK MR Outside Reference (07/20/2024 4:45 PM FILE DRAWER FINISHER) Impressions [facility] - 07/20/2024 4:45 PM FILE DRAWER FINISHER These images are for Reference purposes only and have not been reviewed by [facility]iology. There will be no report generated by a [facility] Radiologist. Narrative [facility] - 07/20/2024 4:45 PM FILE DRAWER FINISHER EXAMINATION: Images For Reference Purposes Only us Jose Antonio Viveros MD IMG MRI PROCEDURES Lyndsey l Result [facility] * CT Body Outside Reference (07/20/2024 1:57 PM FILE DRAWER FINISHER) Impressions [facility] - 07/20/2024 1:57 PM FILE DRAWER FINISHER These images are for Reference purposes only and have not been reviewed by [facility]iology. There will be no report generated by a [facility] Radiologist. Narrative [facility] - 07/20/2024 1:57 PM FILE DRAWER FINISHER EXAMINATION: Images For Reference Purposes Only Jose Antonio Viveros MD IMG CT PROCEDURES Final Result [facility] * MRI Knee Right WO Contrast (06/14/2024 3:56 PM FILE DRAWER FINISHER) Anatomical Region Laterality Modality Lower Extremities Right Magnetic Reson ance Jose Antonio Viveros MD IMG MRI PROCEDURES Lyndsey l Result from Last 3 Months Insurance [employer] SIG [id number] [place] Care Teams Database Developer Relationship Specialty Start Date End Date Saad Lopez MD PCP - General 09/06/16 Jose Antonio Viveros MD [address] [address] Surgeon Pediatric Orthopedic Surgery 01/02/24
--- OUTSIDE RECORDS SUMMARY | 2024-08-26 01:04 | XMS_ITS | Clinical Summary ---
Author Organization [facility] [place] [address] Address [address] [place] [address] Care Team Providers Care Radiotelephone Operator Name Role Phone Saad Lopez MD Primary Care Provider [phone] Jose Antonio Viveros MD Unavailable [phone] Allergies Active Allergy Reactions Criticality Noted Date Comments Levofloxacin Muscle pain Medium Quinolones Mental status changes,Muscle pain Medium Medications metoprolol XL (TOPROL-XL) 50 mg 24 hr tablet take 1 tablet by oral route every day 0 0 05/18/20 15 Active aspirin 81 mg enteric coated tabletIndicati ons:prevention of thrombosis,HEA RT Take 1 tablet (81 mg total) by mouth vacuum 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 before 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 10/10/19 10 Active meloxicam (MOBIC) [...] Date Type Department Care Team Description 08/11/2024 Orders Only [facility] Pediatric Orthopedics [address] [facility] 1st Floor [address] [place] [address] Jose Antonio Viveros MD 07/20/2024 4:45 PM BEHAVIORAL PEDIATRICIAN - 07/20/2024 11:59 PM BEHAVIORAL PEDIATRICIAN Hospital Encounter [facility] [address] [place] [address] Discharge Disposition: Discharge to home or self care 07/20/2024 1:57 PM BEHAVIORAL PEDIATRICIAN - 07/20/2024 11:59 PM BEHAVIORAL PEDIATRICIAN Hospital Encounter [facility] ([facility] [address] [place] [address] Discharge Disposition: Discharge to home or self care 07/20/2024 11:15 AM BEHAVIORAL PEDIATRICIAN Office Visit [facility] Orthopaedic Surgery [address] [facility] Medical Office Building [address] [place] [address] Jose Antonio Viveros MD Left hip pain (Primary Dx) 06/17/2024 Telephone [facility] Pediatric Orthopedics [facility] 1st [place] [address] [place] [address] Jose Antonio Viveros MD 06/14/2024 Orders Only [facility] Orthopaedic Surgery [facility] [place] [address] Jose Antonio Viveros MD Chronic pain of right knee 06/07/2024 Telephone [facility] [address] [facility] [address] [place] [address] Saima Trent MD 05/31/2024 Telephone [facility] Pediatric Orthopedics [address] [facility] 1st Floor [address] [place] [address] Jose Antonio Viveros MD from Last 3 Months Surgical History Surgery [...] Gastroesophageal reflux disease GERD MS (multiple sclerosis) ([facility]) Dx d ~2006--Daily injections of copaxone stopped [...] on file Legal Sex Male 12:14 AM BEHAVIORAL PEDIATRICIAN Gender Identity Not on file Sexual Orientation [...] this topic Medical Devices Implanted Type Area Event Specialist Product Demonstrator Device Identifier Shelf Expiration Date Model / Serial / Lot [facility] [employer] Safety Supervisor Lock [employer] Suture Labrum [id number] - [id number] Implanted:Qty: 1 on 01/02/2024 at [facility] Left: Hip [facility] 01/26/2025 [id number] 2 / / [id number] [facility] [employer] Safety Supervisor Lock [employer] Suture Labrum [id number] - [id number] Implanted:Qty: 1 on 01/02/2024 at [facility] Left: Hip [facility] 01/26/2025 [id number] 2 / / [id number] [facility] [employer] Safety Supervisor Lock [employer] Suture Labrum [id number] - [id number] Implanted:Qty: 1 on 01/02/2024 at [facility] Left: Hip [facility] 01/26/2025 [id number] 2 / / [id number] [facility] [employer] Safety Supervisor Lock [employer] Suture Labrum [id number] - [id number] Implanted:Qty: 1 on 01/02/2024 at [facility] Left: Hip [facility] 01/26/2025 [id number] 2 / / [id number] Procedures Procedure Name Priority Date/Time Associated Diagnosis Comments K MR OUTSIDE REFERENCE Routine 07/20/2024 4:[address] BODY OUTSIDE REFERENCE Routine 07/20/2024 1:57 PM BEHAVIORAL PEDIATRICIAN MRI KNEE RIGHT WO CONTRAST Schedule Routine, Read Routine (OP Routine) 06/14/2024 3:56 PM BEHAVIORAL PEDIATRICIAN Chronic pain of right knee from Last 3 Months Results * MSK MR Outside Reference (07/20/2024 4:45 PM BEHAVIORAL PEDIATRICIAN) Impressions [facility] - 07/20/2024 4:45 PM BEHAVIORAL PEDIATRICIAN These images are for Reference purposes only and have not been reviewed by [facility] Radiology. There will be no report generated by a [facility] Radiologist. Narrative RAD[facility] - 07/20/2024 4:45 PM BEHAVIORAL PEDIATRICIAN EXAMINATION: Images For Reference Purposes Only Jose Antonio Viveros MD [facility] MRI PROCEDURES Lyndsey l Result Performing Organization Address [facility] [[email or web address]] Co de Phone Number [facility] * CT Body Outside Reference (07/20/2024 1:57 PM BEHAVIORAL PEDIATRICIAN) Impressions [facility] - 07/20/2024 1:57 PM BEHAVIORAL PEDIATRICIAN These images are for Reference purposes only and have not been reviewed by [facility] Radiology. There will be no report generated by a [facility] Radiologist. Narrative [facility] - 07/20/2024 1:57 PM BEHAVIORAL PEDIATRICIAN EXAMINATION: Images For Reference Purposes Only Jose Antonio Viveros MD IM CT PROCEDURES Final Result Performing Organization Address [facility] [[email or web address]] Co de Phone Number [facility] * MRI Knee Right WO Contrast (06/14/2024 3:56 PM BEHAVIORAL PEDIATRICIAN) Anatomical Region Laterality Modality Lower Extremities Right Magnetic Reson ance Jose Antonio Viveros MD IM MRI PROCEDURES Lyndsey l Result from Last 3 Months Insurance [employer] SIG [id number] [place] Care Teams Radiotelephone Operator Relationship Specialty Start Date End Date Saad Lopez MD PCP - General 09/06/16 Jose Antonio Viveros MD [address] [address] Surgeon Pediatric Orthopedic Surgery 01/02/24
--- OUTSIDE RECORDS SUMMARY | 2024-08-26 01:05 | XMS_ITS | Clinical Summary ---
Author Organization [facility] Address [address] [place] [address] Care Team Providers Care Home Care Assistant Name Role Phone Saad Lopez MD Primary Care Provider [phone] Gabby Maurice MD Unavailable Allergies Active Allergy Reactions Criticality Noted Date Comments Quinolones Other (see comment) 08/24/2024 depression Medications metoprolol tartrate (LOPRESSOR) 50 MG tablet Take 1.5 tablets (75 mg total) by mouth 2 (two) times daily. Active aspirin 81 MG chewable tablet Chew 1 tablet (81 mg total) by mouth daily. Active meloxicam (MOBIC) 7.5 MG tablet Take 1 tablet (7.5 mg total) by mouth daily. Active sulfamethoxazol e-trimethoprim (BACTRIM DS) 800-160 MG tablet Take 1 tablet by mouth 2 (two) times daily for 7 days. 14 tablet 08/24/2024 Active oxyCODONE immediate release (ROXICODONE) 5 MG immediate release tabletIndicatio ns:Acute Pain < 3 Day Supply Take 1 tablet (5 mg total) by mouth every 6 (six) hours as needed for Pain. Indications: Acute Pain < 3 Day Supply 12 tablet 08/24/2024 Active Encounters Date Type Department Care Team Description 08/24/2024 7:44 PM CDT - 08/24/2024 10:03 PM CDT Emergency [facility] Emergency Room [id number] [place] [address] José Miguel Shafer MD Testicular Pain Discharge Disposition: Home or Self Care (Routine Discharge) 08/24/2024 Travel 08/23/2024 9:51 AM CDT - 08/23/2024 11:59 PM CDT Hospital Encounter [facility] Diagnostic Imaging [address] [place] [address] None, Provider, Gabby Fermin MD Arrived Discharge Disposition: Home or Self Care (Routine Discharge) 08/23/2024 Travel from Last 3 Months Social History Tobacco Use Types Packs/Day Years Used Date Smoking Tobacco: Never Smokeless Tobacco: Never Tobacco Cessation:Counseling Given: Not Answered Sex and Gender Information Value Date Recorded Sex Assigned at Male 08/24/2024 7:38 PM CDT Legal Sex Male 5:11 PM CDT Gender Identity Not on file Sexual Orientation Not on file Last Filed Vital Signs Vital Sign Reading Time Taken Comments Blood Pressure 162/92 08/24/2024 10:02 PM CDT Pulse 72 08/24/2024 10:02 PM CDT Temperature 36.1 C (97 F) 08/24/2024 10:02 PM CDT Respiratory Rate 18 08/24/2024 10:02 PM CDT Oxygen Saturation 95% 08/24/2024 10:02 PM CDT Inhaled Oxygen Concentration - - Weight 129.3 kg (285 lb) 08/24/2024 7:47 PM CDT Height 177.8 cm (5' 10 ) 08/24/2024 7:47 PM CDT Body Mass Index 40.89 08/24/2024 7:47 PM CDT Plan of Treatment Health Maintenance Due Date Last Done Comments Colorectal Cancer Screening Colonoscopy (10 Years) 1967 Annual Physical 12/09/1970 Hepatitis C 12/09/1985 DTaP, Tdap and Td Vaccines ( 1 - Tdap) 12/09/1986 Hepatitis B Vaccines (1 of 3 - 19+ 3-dose series) 12/09/1986 Zoster Vaccines (1 of 2) 12/09/2017 COVID-19 Vaccine (2023-2 5 season) 2024 Influenza Adult (#1) 2024 Meningococcal B Vaccine Aged Out No l onger eligible based on patient's age to complete this topic Meningococcal Vaccine Aged Out No rob kylie eligible based on patient's age to complete this topic Pneumococcal Vaccine: Pediat rics (0 to 5 Years) and At-Risk Patients (6 to 64 Years) Aged Out No longer eligible b ased on patient's age to complete this topic RSV Immunizations Under 20 Months Aged Out No longer eligible based on patient's age to complete this topic Procedures Procedure Name Priority Date/Time Associated Diagnosis Comments URINALYSIS, AUTO, COMPLETE STAT 08/24/2024 8:[address] ABD+PEL KIDNEY STONE STAT 08/25/19 8:40 PM CDT COMPREHENSIVE METABOLIC PANEL STAT 08/24/2024 7:58 PM CDT PARTIAL THROMBOPLASTIN TIME,PTT STAT 08/24/2024 7:58 PM CDT PROTHROMBIN TIME, VENOUS STAT 08/24/2024 7:58 PM CDT CBC W/DIFF AUTOMATED STAT 08/24/2024 7:58 PM CDT XR ABD KUB Routine 08/23/2024 10:07 AM CDT Right flank pain from Last 3 Months Results * (ABNORMAL) URINALYSIS, AUTO, COMPLETE (08/24/2024 8:45 PM CDT) COLOR (U) YELLOW 08/24/2024 9:00 PM CDT [facility] TRANSPARENCY CLEAR 08/24/2024 9:00 PM CDT [facility] SPECIFIC GRAVITY (U) 1.020 1.000 - 1.030 08/24/2024 9:00 PM CDT [facility] U PH 6.0 5.0 - 9.0 08/24/2024 9:00 PM CDT [facility] LEUKOCYTES (U) TRACE(A) NEGATIVE 08/24/2024 9:00 PM CDT [facility] NITRITES NEGATIVE NEGATIVE 08/24/2024 9:00 PM CDT [facility] PROTEIN RANDOM (U) NEGATIVE NEGATIVE 08/24/2024 9:00 PM CDT [facility] GLUCOSE (U) NEGATIVE NEGATIVE 08/24/2024 9:00 PM CDT [facility] KETONES MG/DL (U) NEGATIVE NEGATIVE 08/24/2024 9:00 PM CDT [facility] BILIRUBIN (U) NEGATIVE NEGATIVE 08/24/2024 9:00 PM CDT [facility] BLOOD (U) 3+(A) NEGATIVE 08/24/2024 9:00 PM CDT [facility] WBC/HPF 0-5 0 - 5 /HPF 08/24/2024 9:00 PM CDT [facility] RBC/HPF 10-25 0 - 5 /HPF 08/24/2024 9:00 PM CDT [facility] EPI/HPF FEW /HPF 08/24/2024 9:00 PM CDT [facility] BACTERIA (U) FEW /HPF 08/24/2024 9:00 PM CDT [facility] URINE HOLGUIN FEW 08/24/2024 9:00 PM CDT [facility] Comment:SPERMATOZOA PRESENT URINE SPECIMEN OBTAINED BY CLEAN CATCH PROCEDURE / Unknown 08/24/2024 8:45 PM CDT us José Miguel Shafer MD URINE ORDERABLES Final Resul t [facility] [address] [place] [address], [place] [phone] * CT ABD+PEL KIDNEY STONE (08/24/2024 8:40 PM CDT) Anatomical Region Laterality Modality Abdomen Computed Tomogra phy 08/24/2024 8:42 PM CDT Impressions 08/24/2024 8:44 PM CDT IMPRESSION: 1. Severe left-sided hydronephrosis and hydroureter due to a bulky stone at the left UVJ with several small fragments in the distal left ureter Ordered By: JOSÉ MIGUEL SHAFER Interpreted By: Saad Coon MD, 08/24/2024 8:42 PM Narrative 08/24/2024 8:44 PM CDT [facility] [address] [place] [address] CT ABDOMEN AND PELVIS WITHOUT CONTRAST Clinical history: Dysuria, flank pain. Technique: Helical images of the abdomen and pelvis were obtained without contrast. A dose lowering technique was used for this procedure, which may include, but is not limited to, dose reduction technique, automated exposure control, the use of iterative reconstruction, and ALARA (As Low As Reasonably Achievable) / Image Gently techniques. Comparison: October 20, 2016. FINDINGS: Images of the lower thorax demonstrate the visualized portion of the heart to appear normal. The lung bases are clear. Images of the abdomen demonstrate the overall size and morphology of the liver to be within normal limits. No hepatic lesions are observed. No ascites is seen. The gallbladder is present and normally distended. No stones are observed within its lumen and there is no evidence of cholecystitis or biliary obstruction. The pancreas, spleen, and adrenal glands appear grossly normal. The right kidney is normal in size and appearance. No right-sided stones are observed. Overall, the left kidney is mildly enlarged and there is moderate to severe hydronephrosis and hydroureter. Within the distal left ureter there are several tiny stones. A bulky irregular stone measuring 9 x 5 mm is noted at the left UVJ. Stranding is noted within the retroperitoneum adjacent to the ureter. A cyst arising from the superior pole of the left kidney is unchanged. Images of the pelvis demonstrate the urinary bladder to appear otherwise normal. The prostate is normal in size. Stomach and small bowel have a normal appearance throughout. The terminal ileum and appendix appear normal. The colon is within normal limits. Procedure Note Saad Coon MD - 08/24/2024 [facility] [address] [place] [address] CT ABDOMEN AND PELVIS WITHOUT CONTRAST Clinical history: Dysuria, flank pain. Technique: Helical images of the abdomen and pelvis were obtained withoutcontrast. A dose lowering technique was used for this procedure, which mayinclude, but is not limited to, dose reduction technique, automatedexposure control, the use of iterative reconstruction, and ALARA (As LowAs Reasonably Achievable) / Image Gently techniques. Comparison: October 20, 2016. FINDINGS: Images of the lower thorax demonstrate the visualized portion of the heartto appear normal. The lung bases are clear. Images of the abdomen demonstrate the overall size and morphology of theliver to be within normal limits. No hepatic lesions are observed. Noascites is seen. The gallbladder is present and normally distended. Nostones are observed within its lumen and there is no evidence ofcholecystitis or biliary obstruction. The pancreas, spleen, and adrenalglands appear grossly normal. The right kidney is normal in size and appearance. No right-sided stonesare observed. Overall, the left kidney is mildly enlarged and there ismoderate to severe hydronephrosis and hydroureter. Within the distal leftureter there are several tiny stones. A bulky irregular stone measuring 9x 5 mm is noted at the left UVJ. Stranding is noted within theretroperitoneum adjacent to the ureter. A cyst arising from the superiorpole of the left kidney is unchanged. Images of the pelvis demonstrate the urinary bladder to appear otherwisenormal. The prostate is normal in size. Stomach and small bowel have a normal appearance throughout. The terminalileum and appendix appear normal. The colon is within normal limits. IMPRESSION: 1. Severe left-sided hydronephrosis and hydroureter due to a bulky stoneat the left UVJ with several small fragments in the distal left ureter Ordered By: JOSÉ MIGUEL SHAFER Interpreted By: Saad Coon MD, 08/24/2024 8:42 PM us José Miguel Shafer MD CT Final Result * (ABNORMAL) PARTIAL THROMBOPLASTIN TIME,PTT (08/24/2024 7:58 PM CDT) PTT 40.1(H) 27.0 - 36.8 SEC 08/24/2024 8:53 PM CDT [facility] 08/24/2024 7:58 PM CDT us José Miguel Shafer MD LABORATORY Final Result Performing Organization Address [facility] Co de Phone Number [facility] [address] [place] [address], [place] [phone] * PROTIME/INR, VENOUS (08/24/2024 7:58 PM CDT) PROTIME 11.0 9.1 - 12.4 SEC 08/24/2024 8:53 PM CDT [facility] INR 1.0 08/24/2024 8:53 PM CDT [facility] Comment: Recommend INR ranges for Oral Anticoagulant Therapy: Mechanical Cardiac Values 2.5-3.5 All others indication 2.0-3.0 08/24/2024 7:58 PM CDT us José Miguel Shafer MD LABORATORY Final Result Performing Organization Address [facility] Co de Phone Number [facility] [address] [place] [address], [place] [phone] * (ABNORMAL) COMPREHENSIVE METABOLIC PANEL (08/24/2024 7:58 PM CDT) GLUCOSE 106(H) 70 - 99 MG/DL 08/24/2024 8:18 PM CDT [facility] BUN 25(H) 7 - 18 MG/DL 08/24/2024 8:18 PM CDT [facility] CREATININE S/P/B 2.07(H) 0.7 - 1.3 MG/DL 08/24/2024 8:18 PM CDT [facility] SODIUM S/P/B 140 136 - 145 MMOL/L 08/24/2024 8:18 PM T [facility] POTASSIUM S/P/B 4.0 3.5 - 5.1 MMOL/L 08/24/2024 8:18 PM T [facility] CHLORIDE S/P/B 103 100 - 108 MMOL/L 08/24/2024 8:18 PM T [facility] CO2 29.6 21 - 32 MMOL/L 08/24/2024 8:18 PM T [facility] CALCIUM S/P/B 8.8 8.5 - 10.1 MG/DL 08/24/2024 8:18 PM [facility] BILIRUBIN TOTAL S/P/B 0.5 0.2 - 1.2 MG/DL 08/24/2024 8:18 PM [facility] TOTAL PROTEIN S/P/B 7.2 6.4 - 8.2 G/DL 08/24/2024 8:18 PM [facility] ALBUMIN S/P/B 3.5 3.4 - 5.0 G/DL 08/24/2024 8:18 PM [facility] AST 17 15 - 37 U/L 08/24/2024 8:18 PM [facility] ALT 31 16 - 60 U/L 08/24/2024 8:18 PM [facility] ALKALINE PHOSPHATASE S/P/B 74 50 - 136 U/L 08/24/2024 8:18 PM [facility] ANION GAP 7.4 5 - 15 MMOL/L 08/24/2024 8:18 PM [facility] BUN CREATININE RATIO 12.1 6 - 26 08/24/2024 8:18 PM [facility] A/G RATIO 0.9(L) 1.0 - 2.0 RATIO 08/24/2024 8:18 PM CDT [facility] GFR ESTIMATE 37(L) >90 ML/MIN/1.7 3 M2 08/24/2024 8:18 PM CDT [facility] Comment: NOTE: eGFR is not calculated for patients <18 years of age. This is an estimated GFR calculation using the new CKD EPI creatinine equation without race and so does not require a correction factor for race. This estimated GFR should not be used for calculating drug doses. 08/24/2024 7:58 PM CDT us José Miguel Shafer MD LABORATORY Final Result [facility] [address] [place] [address], * CBC W/DIFF AUTOMATED (08/24/2024 7:58 PM CDT) WBC 8.44 4.4 - 11.0 x10'3/uL 08/24/2024 8:04 PM CDT [facility] RBC 5.01 4.50 - 5.90 x10'6/uL 08/24/2024 8:04 PM CDT [facility] HGB 15.1 14.0 - 17.5 G/DL 08/24/2024 8:04 PM CDT [facility] HCT 44.9 41.5 - 50.4 % 08/24/2024 8:04 PM CDT [facility] MCV 89.6 80.0 - 96.0 FL 08/24/2024 8:04 PM CDT [facility] MCH 30.1 26.5 - 31.4 PG 08/24/2024 8:04 PM CDT [facility] MCHC 33.6 31.9 - 34.8 G/DL 08/24/2024 8:04 PM CDT [facility] RDW 13.6 12.3 - 14.3 % 08/24/2024 8:04 PM T [facility] PLT 170 151 - 353 x10'3/uL 08/24/2024 8:04 PM T [facility] MPV 10.8 9.7 - 11.9 FL 08/24/2024 8:04 PM T [facility] RBC MORPHOLOGY NORMAL 08/24/2024 8:04 PM T [facility] PLT MORPH. NORMAL 08/24/2024 8:04 PM T [facility] WBC MORPHOLOGY NORMAL 08/24/2024 8:04 PM T [facility] LYMPHOCYTES % 24.4 15.8 - 45.0 % 08/24/2024 8:04 PM T [facility] NEUTROPHILS % 61.5 42.1 - 71.9 % 08/24/2024 8:04 PM T [facility] MONOCYTES % 10.3 5.7 - 12.5 % 08/24/2024 8:04 PM [facility] EOSINOPHILS 3.2 0.0 - 5.6 % 08/24/2024 8:04 PM T [facility] BASOPHILS 0.4 0.0 - 1.3 % 08/24/2024 8:04 PM T [facility] ABS. NEUTROPHILS 5.19 1.40 - 6.00 x10'3/uL 08/24/2024 8:04 PM T [facility] IMMATURE GRANS % 0.2 0.0 - 0.5 % 08/24/2024 8:04 PM T [facility] ABS. LYMPHOCYTES 2.06 0.80 - 4.70 x10'3/uL 08/24/2024 8:04 PM CDT [facility] 08/24/2024 7:58 PM CDT us José Miguel Shafer MD LABORATORY Final Result [facility] [address] [place] [address], [place] [phone] * XR ABD KUB (08/23/2024 10:07 AM CDT) Anatomical Region Laterality Modality Abdomen Radiographic Ritika ging 08/23/2024 12:4 9 PM CDT Impressions 08/23/2024 12:58 PM CDT IMPRESSION: 1. Moderate stool in colon may be due to constipation. No obstruction. 2. No gross calculi overlying the kidneys. Right kidney is obscured due to overlying stool. 3. If flank pain persists. Follow-up with CT Ordered By: GABBY MAURICE Interpreted By: Arcelia Wasserman, 08/23/2024 12:49 PM Narrative 08/23/2024 12:58 PM CDT [facility] [address] [place] [address] IMAGING STUDIES: XR ABD KUB DATE: 08/23/2024 9:54 AM COMPARISON STUDIES: No comparison. CLINICAL HISTORY: right flank pain . History of left-sided calculi and left-sided lithotripsy FINDINGS: Right kidney is obscured due to overlying stool. No gross calculi overlying the visualized left kidney. Probable phleboliths and vascular calcifications in the pelvis. Difficult to exclude distal ureteral calculi on the left. Moderate stool in colon may be due to constipation. No obstruction.. No intra-abdominal mass. Lung bases are clear.. Degenerative change in lumbar spine. Procedure Note Evan Wasserman MD - 08/23/2024 [place] [id number] [place] [address] IMAGING STUDIES: XR ABD KUB DATE: 08/23/2024 9:54 AM COMPARISON STUDIES: No comparison. CLINICAL HISTORY: right flank pain . History of left-sided calculi andleft-sided lithotripsy FINDINGS: Right kidney is obscured due to overlying stool. No gross calculioverlying the visualized left kidney. Probable phleboliths and vascular calcifications in the pelvis. Difficultto exclude distal ureteral calculi on the left. Moderate stool in colon may be due to constipation. No obstruction.. Nointra-abdominal mass. Lung bases are clear.. Degenerative change in lumbar spine. IMPRESSION: 1. Moderate stool in colon may be due to constipation. No obstruction. 2. No gross calculi overlying the kidneys. Right kidney is obscured dueto overlying stool. 3. If flank pain persists. Follow-up with CT Ordered By: GABBY MAURICE Interpreted By: Arcelia Wasserman, 08/23/2024 12:49 PM Gabby Maurice MD GENERAL IMAGING Final Result from Last 3 Months Insurance [facility] Care Teams Home Care Assistant Relationship Specialty Start Date End Date Saad Lopez MD [address] [place] [address] PCP - General FAMILY PRACTICE 04/05/22 Gabby Maurice MD [address] [place] [address] Consulting Physician UROLOGY 08/24/24
--- OUTSIDE RECORDS SUMMARY | 2024-08-26 01:05 | XMS_ITS | CONTINUITY OF CARE DOCUMENT ---
Author Name ashley naderabby Address Unknown Organization [facility] Address [address] [address] [place] [address] Phone [phone] Care Team Providers Care Monogram Technician Name Role Phone Arron DO, Ashli Unavailable YAMILE DO, VEGA F Unavailable YAMILE DO, VEGA F Unavailable PROBLEMS Condition Status Date Provider Notes CHEST PAIN-10/13 ECHO NL EF 60 active ? Ashli Heller MD PALPITATIONS active ? Ashli Heller MD SHORTNESS OF BREATH-10/13 NUC NEG EF 45 active ? Ashli Heller MD TOBACCO ABUSE, HX OF active ? Ashli Heller MD ENCOUNTERS Date Type Provider Location Encounter Diagnosis - In-person encounter Office Visit Ashli Heller MD [facility] CHEST PAIN-10/13 ECHO NL EF 60SHORTNESS OF BREATH-10/13 NUC NEG EF 45TOBACCO ABUSE, HX OF - In-person encounter Office Visit Ashli Heller MD [facility] CHEST PAIN-10/13 ECHO NL EF 60PALPITATIONSSHOR [...] pressure, diastolic, left arm 81 mm [Hg] [facility] blood pressure, systolic, left arm 121 mm [Hg] [facility], diastolic 81 mm[Hg] [facility] blood pressure, systolic 121 mm[Hg] [facility] pulse rate 71 /min [facility] oxygen saturation, oximetry 97 % [facility] respiratory rate E&M 16 /min [facility] weight E&M 265 [lb_av] [facility] ALLERGIES Allergy Name Onset Date Reaction Criticality [...] Normal Absolute Neutrophil count 4147 cells/mcL [employer] [id number] Normal platelet count 182 THOUSAND/UL [employer] 140-400 [...] active ONE TAB DAILY 0 Martha Giraldo 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 Mood and affect are normal. Toñito Gallagher RN assessment of judgme nt and insight E&M Alert and oriented to time, place and person. Mood and affect are normal. Ashli Heller MD INSURANCE PROVIDERS Payer name Policy type / Coverage type [employer] party ID [employer] [facility] Other [id number] TREATMENT PLAN Date Name TSH, 3RD GENERATION COMPREHENSIVE METABO LIC PANEL W/EGFR CBC (INCLUDES DIFF/P LT) LIPID PANEL HISTORY OF PROCEDURES Procedure Date Procedure Name Provider Procedure Notes S tatus EKG Ashli Heller MD completed
--- OUTSIDE RECORDS SUMMARY | 2024-08-26 01:05 | XMS_ITS | Clinical Summary ---
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 Phone Unavailable Primary Care Provider Unavailabl e Social History Tobacco Use Types Packs/Day Years Used Date Smoking Tobacco: Never Assessed Sex and Gender Information Value Date Recorded Sex Assigned at Not on file Legal Sex Male 9:07 AM CDT Gender Identity Not on file Sexual Orientation Not on file Plan of Treatment Health Maintenance Due Date Last Done Comments DTAP/TDAP/TD VACCINES (1 - Tdap) 12/09/1986 HEPATITIS B VACCINES (1 of 3 - 19+ 3-dose series) 08/1986 COLORECTAL SCREENING 12/09/2012 Colorectal Cancer Screening 12/09/2012 FIT-DNA Q 3 years 12/09/2012 FIT/FOBT Q 1 year 12/09/2012 Flex Sig/CT Colonography Q 5 years 12/09/2012 ZOSTER VACCINE (1 of 2) 12/09/2017 INFLUENZA VACCINE (#1) 2024
--- OUTSIDE RECORDS SUMMARY | 2024-08-26 01:05 | XMS_ITS | Clinical Summary ---
Author Organization [facility] Address [address] [place] [phone] Phone Care Team Providers Care Tactical Intelligence Officer Name Role Phone Saad Lopez MD Primary Care Provider [phone] Allergies Active Allergy Reactions Criticality Noted Date [...] PM CDT Pulse - - Temperature 36.7 C (98 F) 01/14/2022 12:00 PM CDT Respiratory Rate 18 01/14/2022 12:00 PM CDT Oxygen Saturation - - Inhaled Oxygen Concentration - - Weight 130 kg (286 lb) 01/14/2022 12:00 PM CDT Height 177.8 cm (5' 10 ) 01/14/2022 12:00 PM CDT Body Mass Index 41.04 01/14/2022 12:00 PM CDT Plan of Treatment Health Maintenance Due Date Last Done Comments Influenza Vaccine (#1) 2024 Care Teams Tactical Intelligence Officer Relationship Specialty Start Date End Date Saad Lopez MD [address] [place] [address] PCP - General Family Medicine 01/03/22
--- OUTSIDE RECORDS SUMMARY | 2024-08-26 01:05 | XMS_ITS | Encounter Summary ---
Author Organization [facility] Address [address] [place] [address] Care Team Providers Care Database Engineer Name Role Phone Saad Lopez MD Primary Care Provider [phone] Jose Antonio Nuñez MD Unavailable [phone] Reason for Referral * Imaging (Emergency) - New Request Specialty Diagnoses / Procedures Referred By Freddie jones Referred To Contact RADIOLOGY Procedures CT ABD+PEL KIDNEY STONE José Miguel Shafer MD [address] [place] [address] Phone: tel: fax: Referral ID Status Reason Start Date Expiration Date V isits Requested Visits Authorized [id number] New Request 08/24/2024 08/24/2025 1 1 Reason for Visit * Reason Comments Testicular Pain Encounter Details Date Type Department Care Team (Late st Contact Info) Description 08/24/2024 7:44 PM CDT - 08/24/2024 10:03 PM CDT Emergency [facility] Emergency Room [address] [place] [address] José Miguel Shafer MD [address] [place] [address] Testicular Pain Discharge Disposition: Home or Self [...] Mass Index 40.89 08/24/2024 7:47 PM CDT documented in this encounter Discharge Instructions * Discharge Instructions* José Miguel Shafer MD - 08/24/2024 9:49 PM CDT You were seen in the emergency department for flank pain and found to have a large ureteral stone. We are going to give you pain medicine and also antibiotics as you had some inflammatory cells and asmall amount of bacteria in your urine. Expect a call from your urology clinic tomorrow to set up afollow-up appointment. Return to the emergency department sooner if you begin to have fevers, chills, vomiting, or worsening pain despite taking pain medicine. You can use Tylenol as well at home forpain. With your abnormal kidney function today try to avoid taking anti-inflammatory medication such as ibuprofen or Motrin. documented in this encounter Medications at Time of Discharge aspirin 81 MG chewable tablet Chew 1 tablet (81 mg total) by mouth daily. meloxicam (MOBIC) 7.5 MG tablet Take 1 tablet (7.5 mg total) by mouth daily. metoprolol tartrate (LOPRESSOR) 50 MG tablet Take 1.5 tablets (75 mg total) by mouth 2 (two) times daily. oxyCODONE immediate release (ROXICODONE) 5 MG immediate release tabletIndications :Acute Pain < 3 Day Supply Take 1 tablet (5 mg total) by mouth every 6 (six) hours as needed for Pain. Indications: Acute Pain < 3 Day Supply 12 tablet 08/24/2024 sulfamethoxazole- trimethoprim (BACTRIM DS) 800-160 MG tablet Take 1 tablet by mouth 2 (two) times daily for 7 days. 14 tablet 08/24/2024 08/31/2024 documented as of this encounter ED Notes * Florecita Chavez RN - 08/24/2024 7:49 PM CDT Patient ambulatory to ER with kidney stones. Patient has been battling this problem for a long time. Patient had a lithotripsy in May and has been passing stones since. He can usually tolerate the pain and pass the stone but the pain has been unbearable. The last stone he passed was 2 weeks ago. Patient states his pain is always in the testicle on the side the stone is in. Patient states he is producing urine appropriately with no blood, pain, or burning. * José Miguel Shafer MD - 08/24/2024 7:41 PM CDT Chief Complaint Chief Complaint Patient presents with Testicular Pain History of Present Illness This is a 58-year-old male with medical history significant for kidney stones. Presents to the emergency department with left-sided flank pain. Patient has been experiencing dysuria over the course of the past couple of days that has progressively worsened. He denies any fevers, chills, hematuria, nausea, vomiting, diarrhea. Of note patient had lithotripsy in May 2024 for a left sided stone that initially was 13mm perpatient. Medical History ALLERGIES: Review of patient's allergies indicates: Allergen Reactions Quinolones Other (see comment) depression MEDICATIONS: Prior to Admission medications Medication Sig Start Date End Date Taking? Authorizing Provider aspirin 81 MG chewable tablet Chew 1 tablet (81 mg total) by mouth daily. Yes Default History Genericprovider meloxicam (MOBIC) 7.5 MG tablet Take 1 tablet (7.5 mg total) by mouth daily. Yes Default History Genericprovider metoprolol tartrate (LOPRESSOR) 50 MG tablet Take 1.5 tablets (75 mg total) by mouth 2 (two) times daily. Yes Default History Genericprovider oxyCODONE immediate release (ROXICODONE) 5 MG immediate release tablet Take 1 tablet (5 mg total) by mouth every 6 (six) hours as needed for Pain. Indications: Acute Pain < 3 Day Supply 08/24/24 Yes José Miguel Shafer MD sulfamethoxazole-trimethoprim (BACTRIM DS) 800-160 MG tablet Take 1 tablet by mouth 2 (two) times daily for 7 days. 08/24/24 08/31/24 Yes José Miguel Shafer MD PAST MEDICAL HISTORY: Past Medical History: Diagnosis Date Hypertension PAST SURGICAL HISTORY: History reviewed. No pertinent surgical history. FAMILY HISTORY: No family history on file. SOCIAL HISTORY: Social History Tobacco Use Smoking status: Never Smokeless tobacco: Never Review of Systems Review of Systems All other systems reviewed and are negative. Physical Exam Filed Vitals: 08/24/24 1947 08/24/24 2202 BP: (!) 172/109 (!) 162/92 Pulse: 77 72 Resp: 20 18 Temp: 97.2 ??F (36.2 ??C) 97 ??F (36.1 ??C) TempSrc: Temporal Temporal SpO2: 95% 95% Weight: 129.3 kg (285 lb) Height: 1.778 m (5' 10 ) Physical Exam Vitals and nursing note reviewed. Constitutional: Appearance: Normal appearance. HENT: Head: Atraumatic. Nose: Nose normal. Mouth/Throat: Mouth: Mucous membranes are moist. Eyes: Extraocular Movements: Extraocular movements intact. Cardiovascular: Rate and Rhythm: Normal rate and regular rhythm. Pulses: Normal pulses. Heart sounds: Normal heart sounds. Pulmonary: Effort: Pulmonary effort is normal. No respiratory distress. Breath sounds: Normal breath sounds. No wheezing or rales. Abdominal: General: Abdomen is flat. Genitourinary: Testes: Normal. Right: Tenderness or swelling not present. Left: Tenderness or swelling not present. Epididymis: Right: Normal. No tenderness. Left: Normal. No tenderness. Musculoskeletal: General: No swelling or tenderness. Right lower leg: No edema. Left lower leg: No edema. Skin: General: Skin is warm. Neurological: Mental Status: He is alert. Diagnostic Studies / Procedures ELECTROCARDIOGRAMS: No results found for this visit on 08/24/24. LABORATORY STUDIES: Results for orders placed or performed during the hospital encounter of 08/24/24 CBC W/DIFF AUTOMATED Result Value Ref Range WBC 8.44 4.4 - 11.0 x10'3/uL RBC 5.01 4.50 - 5.90 x10'6/uL HGB 15.1 14.0 - 17.5 G/DL HCT 44.9 41.5 - 50.4 % MCV 89.6 80.0 - 96.0 FL MCH 30.1 26.5 - 31.4 PG MCHC 33.6 31.9 - 34.8 G/DL RDW 13.6 12.3 - 14.3 % PLT 170 151 - 353 x10'3/uL MPV 10.8 9.7 - 11.9 FL RBC MORPHOLOGY NORMAL PLT MORPH. NORMAL WBC MORPHOLOGY NORMAL LYMPHOCYTES % 24.4 15.8 - 45.0 % NEUTROPHILS % 61.5 42.1 - 71.9 % MONOCYTES % 10.3 5.7 - 12.5 % EOSINOPHILS 3.2 0.0 - 5.6 % BASOPHILS 0.4 0.0 - 1.3 % ABS. NEUTROPHILS 5.19 1.40 - 6.00 x10'3/uL IMMATURE GRANS % 0.2 0.0 - 0.5 % ABS. LYMPHOCYTES 2.06 0.80 - 4.70 x10'3/uL PROTIME/INR, VENOUS Result Value Ref Range PROTIME 11.0 9.1 - 12.4 SEC INR 1.0 PARTIAL THROMBOPLASTIN TIME,PTT Result Value Ref Range PTT 40.1 (H) 27.0 - 36.8 SEC COMPREHENSIVE METABOLIC PANEL Result Value Ref Range GLUCOSE 106 (H) 70 - 99 MG/DL BUN 25 (H) 7 - 18 MG/DL CREATININE S/P/B 2.07 (H) 0.7 - 1.3 MG/DL SODIUM S/P/B 140 136 - 145 MMOL/L POTASSIUM S/P/B 4.0 3.5 - 5.1 MMOL/L CHLORIDE S/P/B 103 100 - 108 MMOL/L CO2 29.6 21 - 32 MMOL/L CALCIUM S/P/B 8.8 8.5 - 10.1 MG/DL BILIRUBIN TOTAL S/P/B 0.5 0.2 - 1.2 MG/DL TOTAL PROTEIN S/P/B 7.2 6.4 - 8.2 G/DL ALBUMIN S/P/B 3.5 3.4 - 5.0 G/DL AST 17 15 - 37 U/L ALT 31 16 - 60 U/L ALKALINE PHOSPHATASE S/P/B 74 50 - 136 U/L ANION GAP 7.4 5 - 15 MMOL/L BUN CREATININE RATIO 12.1 6 - 26 A/G RATIO 0.9 (L) 1.0 - 2.0 RATIO GFR ESTIMATE 37 (L) >90 ML/MIN/1.73 M2 URINALYSIS, AUTO, COMPLETE Result Value Ref Range COLOR (U) YELLOW TRANSPARENCY CLEAR SPECIFIC GRAVITY (U) 1.020 1.000 - 1.030 U PH 6.0 5.0 - 9.0 LEUKOCYTES (U) TRACE (A) NEGATIVE NITRITES NEGATIVE NEGATIVE PROTEIN RANDOM (U) NEGATIVE NEGATIVE GLUCOSE (U) NEGATIVE NEGATIVE KETONES MG/DL (U) NEGATIVE NEGATIVE BILIRUBIN (U) NEGATIVE NEGATIVE BLOOD (U) 3+ (A) NEGATIVE WBC/HPF 0-5 0 - 5 /HPF RBC/HPF 10-25 0 - 5 /HPF EPI/HPF FEW /HPF BACTERIA (U) FEW /HPF URINE HOLGUIN FEW IMAGING STUDIES CT ABD+PEL KIDNEY STONE Final Result by User, [id number] (08/25 2047) [facility] [address] [facility] [place] [address] CT ABDOMEN AND PELVIS WITHOUT CONTRAST Clinical [...] By: Saad Coon MD, 08/24/2024 8:42 PM ED Course / Medical Decision Making Medical Decision Making Amount and/or Complexity of Data Reviewed Labs: ordered. Radiology: ordered. Differential diagnosis includes but is not limited to urinary tract calculus, testicular torsion, epididymitis, inguinal hernia, appendicitis, diverticulitis. Patient has a normal examination of his genitals. I initially gave him a dose of morphine followed by 2 doses of Dilaudid for his pain. He was given a liter of fluids as well. I obtained a CT abdomenpelvis without IV contrast which demonstrated evidence of a 9 mm UVJ stone with upstream hydronephrosis. His CMP significant for creatinine of 2.07 which is an increase from his prior of 1.53 in March 2022. His CBC is otherwise unremarkable. His urinalysis shows evidence of rare bacteria and also shows evidence of trace leukocytes. I gave him a dose of Bactrim for this here in the emergency department and discharged with a course to takefor the next 7 days. Given his evidence of hydronephrosis and kidney injury I spoke with the on-call urologist who was able to review patient's case and states that the urology office will plan to call him tomorrow morning to set up an urgent follow-up appointment. I spoke with patient and his about the nature of his condition and gave him a prescription foroxycodone and Bactrim to take at home. I advised him to avoid taking anti-inflammatory such as ibuprofen and more specifically meloxicam if he is able to given his kidney injury. He and his are understanding and comfortable with this plan they understand to return to the emergency department if he experiences any new fevers, chills, vomiting, worsening pain despite taking oxycodone or Tylenol. Clinical Impression Ureteral stone (Primary) Disposition: Discharge Jsoé Miguel Shafer MD 08/24/24 0497 documented in this encounter Plan of Treatment Not on file documented as of this encounter Procedures Procedure Name Priority Date/Time Associated Diagnosis Comments URINALYSIS, AUTO, COMPLETE STAT 08/24/2024 8:[address] ABD+PEL KIDNEY STONE STAT 08/25/19 8:40 PM CDT PARTIAL THROMBOPLASTIN TIME,PTT STAT 08/24/2024 7:58 PM CDT PROTHROMBIN TIME, VENOUS STAT 08/24/2024 7:58 PM CDT COMPREHENSIVE METABOLIC PANEL STAT 08/24/2024 7:58 PM CDT CBC W/DIFF AUTOMATED STAT 08/24/2024 7:58 PM CDT documented in this encounter Results * (ABNORMAL) URINALYSIS, AUTO, COMPLETE (08/24/2024 8:45 PM CDT) COLOR (U) YELLOW 08/24/2024 9:[address] [facility] TRANSPARENCY CLEAR 08/24/2024 9:[address] [facility] SPECIFIC GRAVITY (U) 1.020 1.000 - 1.030 08/24/2024 9:[address] [facility] U PH 6.0 5.0 - 9.0 08/24/2024 9:[address] [facility] LEUKOCYTES (U) TRACE(A) NEGATIVE 08/24/2024 9:[address] [facility] NITRITES NEGATIVE NEGATIVE 08/24/2024 9:[address] [facility] PROTEIN RANDOM (U) NEGATIVE NEGATIVE 08/24/2024 9:[address] [facility] GLUCOSE (U) NEGATIVE NEGATIVE 08/24/2024 9:[address] [facility] KETONES MG/DL (U) NEGATIVE NEGATIVE 08/24/2024 9:[address] [facility] BILIRUBIN (U) NEGATIVE NEGATIVE 08/24/2024 9:[address] [facility] BLOOD (U) 3+(A) NEGATIVE 08/24/2024 9:[address] [facility] WBC/HPF 0-5 0 - 5 /HPF 08/24/2024 9:[address] [facility] RBC/HPF 10-25 0 - 5 /HPF 08/24/2024 9:[address] [facility] EPI/HPF FEW /HPF 08/24/2024 9:[address] [facility] BACTERIA (U) FEW /HPF 08/24/2024 9:[address] [facility] URINE HOLGUIN FEW 08/24/2024 9:[address] [facility] Comment:SPERMATOZOA PRESENT URINE SPECIMEN OBTAINED BY CLEAN CATCH PROCEDURE / Unknown 08/24/2024 8:45 PM CDT us José Miguel Shafer MD URINE ORDERABLES Final Resul t [facility] [address] [place] [address], [place] [phone] * CT ABD+PEL KIDNEY STONE (08/24/2024 8:40 [...] 8:42 PM Narrative 08/24/2024 8:44 PM CDT [facility] [address] [place] [address] CT ABDOMEN AND PELVIS WITHOUT CONTRAST Clinical [...] Procedure Note Saad Coon MD - 08/24/2024 [facility] [address] [place] [address] CT ABDOMEN AND PELVIS WITHOUT CONTRAST Clinical [...] Shafer MD CT Final Result * (ABNORMAL) COMPREHENSIVE METABOLIC PANEL (08/24/2024 7:58 PM CDT) [facility] GLUCOSE 106(H) 70 - 99 MG/DL 08/24/2024 8:[address] [facility] BUN 25(H) 7 - 18 MG/DL 08/24/2024 8:[address] [facility] CREATININE S/P/B 2.07(H) 0.7 - 1.3 MG/DL 08/24/2024 8:[address] [facility] SODIUM S/P/B 140 136 - 145 MMOL/L 08/24/2024 8:[address] [facility] POTASSIUM S/P/B 4.0 3.5 - 5.1 MMOL/L 08/24/2024 8:[address] [facility] CHLORIDE S/P/B 103 100 - 108 MMOL/L 08/24/2024 8:[address] [facility] CO2 29.6 21 - 32 MMOL/L 08/24/2024 8:[address] [facility] CALCIUM S/P/B 8.8 8.5 - 10.1 MG/DL 08/24/2024 8:[address] [facility] BILIRUBIN TOTAL S/P/B 0.5 0.2 - 1.2 MG/DL 08/24/2024 8:[address] [facility] TOTAL PROTEIN S/P/B 7.2 6.4 - 8.2 G/DL 08/24/2024 8:[address] [facility] ALBUMIN S/P/B 3.5 3.4 - 5.0 G/DL 08/24/2024 8:[address] [facility] AST 17 15 - 37 U/L 08/24/2024 8:[address] [facility] ALT 31 16 - 60 U/L 08/24/2024 8:[address] [facility] ALKALINE PHOSPHATASE S/P/B 74 50 - 136 U/L 08/24/2024 8:[address] [facility] ANION GAP 7.4 5 - 15 MMOL/L 08/24/2024 8:[address] [facility] BUN CREATININE RATIO 12.1 6 - 26 08/24/2024 8:[address] [facility] A/G RATIO 0.9(L) 1.0 - 2.0 RATIO 08/24/2024 8:[address] [facility] GFR ESTIMATE 37(L) >90 ML/MIN/1.7 3 M2 08/24/2024 8:[address] [facility] Comment: NOTE: eGFR is not calculated for patients <18 years of age. This is an estimated GFR calculation using the new CKD EPI creatinine equation without race and so does not require a correction factor for race. This estimated GFR should not be used for calculating drug doses. 08/24/2024 7:58 PM CDT us José Miguel Shafer MD LABORATORY Final Result [facility] [address] [place] [address], * (ABNORMAL) PARTIAL THROMBOPLASTIN TIME,PTT (08/24/2024 7:58 PM CDT) PTT 40.1(H) 27.0 - 36.8 SEC 08/24/2024 8:[address] [facility] 08/24/2024 7:58 PM CDT us José Miguel Shafer MD LABORATORY Final Result [facility] [address] [place] [address], [place] [phone] * PROTIME/INR, VENOUS (08/24/2024 7:58 PM CDT) PROTIME 11.0 9.1 - 12.4 SEC 08/24/2024 8:[address] [facility] INR 1.0 08/24/2024 8:[address] [facility] Comment: Recommend INR ranges for Oral Anticoagulant Therapy: Mechanical Cardiac Values 2.5-3.5 All others indication 2.0-3.0 08/24/2024 7:58 PM CDT us José Miguel Shafer MD LABORATORY Final Result Performing Organization Address [facility]/ZIP Co de Phone Number [facility] [address] [place] [address], [place] [phone] * CBC W/DIFF AUTOMATED (08/24/2024 7:58 PM CDT) WBC 8.44 4.4 - 11.0 x10'3/uL 08/24/2024 8:[address] [facility] RBC 5.01 4.50 - 5.90 x10'6/uL 08/24/2024 8:[address] [facility] HGB 15.1 14.0 - 17.5 G/DL 08/24/2024 8:[address] [facility] HCT 44.9 41.5 - 50.4 % 08/24/2024 8:[address] [facility] MCV 89.6 80.0 - 96.0 FL 08/24/2024 8:[address] [facility] MCH 30.1 26.5 - 31.4 PG 08/24/2024 8:[address] [facility] MCHC 33.6 31.9 - 34.8 G/DL 08/24/2024 8:[address] [facility] RDW 13.6 12.3 - 14.3 % 08/24/2024 8:[address] [facility] PLT 170 151 - 353 x10'3/uL 08/24/2024 8:[address] [facility] MPV 10.8 9.7 - 11.9 FL 08/24/2024 8:[address] [facility] RBC MORPHOLOGY NORMAL 08/24/2024 8:[address] [facility] PLT MORPH. NORMAL 08/24/2024 8:[address] [facility] WBC MORPHOLOGY NORMAL 08/24/2024 8:[address] [facility] LYMPHOCYTES % 24.4 15.8 - 45.0 % 08/24/2024 8:[address] [facility] NEUTROPHILS % 61.5 42.1 - 71.9 % 08/24/2024 8:[address] [facility] MONOCYTES % 10.3 5.7 - 12.5 % 08/24/2024 8:[address] [facility] EOSINOPHILS 3.2 0.0 - 5.6 % 08/24/2024 8:[address] [facility] BASOPHILS 0.4 0.0 - 1.3 % 08/24/2024 8:[address] [facility] ABS. NEUTROPHILS 5.19 1.40 - 6.00 x10'3/uL 08/24/2024 8:[address] [facility] IMMATURE GRANS % 0.2 0.0 - 0.5 % 08/24/2024 8:[address] [facility] ABS. LYMPHOCYTES 2.06 0.80 - 4.70 x10'3/uL 08/24/2024 8:[address] [facility] 08/24/2024 7:58 PM CDT us José Miguel Shafer MD LABORATORY Final Result [facility] [address] [place] [address], documented in this encounter Visit Diagnoses Diagnosis Ureteral stone- Primary Calculus of ureter documented in this encounter Administered Medications Inactive Administered Medications - up to 3 most recent administrations Medication Order MAR Action Action Date Dose Rate Site HYDROmorphone (DILAUDID) injection 1 mg 1 mg, Intravenous, Once, 1 dose, On Fri08/24/24 at 2100, Administer slowly over at least 2-3 minutes. Given 08/24/2024 9:02 PM CDT 1 mg HYDROmorphone (DILAUDID) injection 1 mg 1 mg, Intravenous, Once, 1 dose, On Fri08/24/24 at 2200, Administer slowly over at least 2-3 minutes. Given 08/24/2024 9:55 PM CDT 1 mg morphine injection 4 mg 4 mg, Intravenous, Once, 1 dose, On e 08/24/24 at 1945 Given 08/24/2024 7:56 PM CDT 4 mg ondansetron (ZOFRAN) injection 4 mg 4 mg, Intravenous, Once, 1 dose, On Fri08/24/24 at 1945, IV push over 2-5 minutes. Given 08/24/2024 7:56 PM CDT 4 mg sodium chloride 0.9% bolus infusion 1,000 mL 1,000 mL, Intravenous, Administer over 60 Minutes, Once, 1 dose, On 08/24/24 at 1945 New Bag 08/24/2024 7:56 PM CDT 1,000 mLs 1000 mL/hr sulfamethoxazole-trimethop rim (BACTRIM DS) 800-160 MG tablet 1 tablet 1 tablet, Oral, Once, 1 dose, On Fri08/24/24 at 2200 Given 08/24/2024 9:55 PM CDT 1 tablet documented in this encounter Active and Recently Administered Medications Times are shown in CDT. Scheduled Medication Order 08/22/2024 08/23/2024 08/24/2024 HYDROmorphone (DILAUDID) injection 1 mg (COMPLETED) 1 mg, Intravenous, Once, 1 dose, On Fri08/24/24 at 2100, Administer slowly over at least 2-3 minutes. 2101 (Given - Provid er: Lucy Gallagher RN) HYDROmorphone (DILAUDID) injection 1 mg (COMPLETED) 1 mg, Intravenous, Once, 1 dose, On Fri08/24/24 at 2200, Administer slowly over at least 2-3 minutes. 2154 (Given - Provid er: Lucy Gallagher RN) morphine injection 4 mg (COMPLETED) 4 mg, Intravenous, Once, 1 dose, On Fri08/24/24 at [id number] (Given - Provid er: Florecita Chavez RN) ondansetron (ZOFRAN) injection 4 mg (COMPLETED) 4 mg, Intravenous, Once, 1 dose, On Fri08/24/24 at 1944, IV push over 2-5 minutes. 1955 (Given - Provid er: Florecita Chavez RN) sodium chloride 0.9% bolus infusion 1,000 mL (COMPLETED) 1,000 mL, Intravenous, Administer over 60 Minutes, Once, 1 dose, On Fri08/24/24 at [id number] (New Bag - Prov ider: Florecita Chavez RN)2121 (Infusion Stop Time - Provider: Lucy Gallagher RN) sulfamethoxazole-trimethoprim (BACTRIM DS) 800-160 MG tablet 1 tablet (COMPLETED) 1 tablet, Oral, Once, 1 dose, On Fri08/24/24 at 2200 2154 (Given - Provid er: Lucy Gallagher RN) documented in this encounter Care Teams Database Engineer Relationship Specialty Start Date End Date Saad Lopez MD [address] [address] PCP - General FAMILY PRACTICE 04/05/22 Jose Antonio Nuñez MD [address] [place] [address] Consulting Physician UROLOGY 08/24/24 documented as of this encounter
--- NOTE | 2024-08-26 06:10 | WPDHPUPDATE1 ---
History and Physical Update Update Date/Time: 08/26/24 06:10 History and Physical has been reviewed, including an updated exam of the patient. There are NO changes in the patient's condition. Risks, benefits, and alternatives have been discussed and questions answered. Patient agrees to proceed with procedure.
[2024-08-26] MEDS: LACTATED RINGERS 1,000 ML 30 ML IV CONT (10:15)
--- NOTE | 2024-08-26 10:29 | P.PNAN_ITS ---
Anes - Initial Pre Proc Eval Procedure: Operation Date: 08/26/24 11:45 Proposed Procedures p Cystoscopy, Left Ureteroscopy, Possible Left Retrograde Pyelogram, Possible Left Stone Extraction, Possible Left Stent Placement, Possible Holmium Laser - Jose Antonio Nuñez MD Date/Time: 08/26/24 10:29 Surgeon: Jose Antonio Nuñez MD Pre Op Diagnosis: left ureteral stone, hydronephrosis Patient Data Age: 58 Gender: M Height: 1.78 m Weight: 130 kg Allergies Allergy/AdvReac Type Severity Reaction Status Date / Time Quinolones Allergy Mild MUSCLE AND Verified 08/25/24 14:05 TENDON ACHES, DEPRESSION, MOOD CHANGES Home Medications ?Medication ?Instructions ?Recorded ?Confirmed ?Type aspirin 81 mg capsule,delayed 81 mg PO DAILY 03/28/22 06/30/24 History release meloxicam 7.5 mg tablet 7.5 mg PO DAILY 05/26/24 08/25/24 History metoprolol succinate 50 mg 75 mg PO DAILY 08/25/24 08/25/24 History tablet,extended release 24 hr Patient hx anesthesia problems: none Family hx anesthesia problems: none Results Review: All pre-operative results and documents have been reviewed as part of the pre- operative evaluation. [facility] Past Medical History Medical History BMI 37.0-37.9, adult BMI 36.0-36.9,adult Kidney stone Screening for lipid disorders Screen for colon cancer History of torn meniscus of left knee BMI greater than 40 Multiple sclerosis Hypertension Surgical History Surgical History H/O lithotripsy Family History Family History Mother Hypertension Family history of diabetes mellitus in first degree relative Diabetes mellitus Grandparent Family history of heart disease in male family member before age 55 Father Cancer of neck Sibling Diabetes mellitus Other Family history of malignant neoplasm of uterus Social History Social History Smoking packs per day: 1 Smoking cigarettes per day: 20.0 Years smoked: 15 Smoking pack-years: 15.00 Smoking status: Former smoker Tobacco type: cigarettes and cigars Smokeless tobacco user: chewing tobacco Smoking end date: 05/26/04 Additional smoking assessment comments: QUIT 2004, OCCASIONALLY HAS A CIGAR CURRENTLY Alcohol intake: current Drinks per week: 3 Alcohol use details: RARELY Substance use: never Substance use type: marijuana Other substance usage details: gummy to sleep every once in awhile. 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 Informed Consent: The patient's anesthetic plan and its attendant risks and benefits were discussed with the patient/family/POA. Questions were solicited and answers provided to the satisfaction of the patient/family/POA.
--- NOTE | 2024-08-26 11:02 | PM.HPGS ---
History of Present Illness History of Present Illness Consent: Risks, benefits, and alternatives have been discussed and questions answered. Patient agrees to proceed with procedure. Chief complaint: left ureteral stone, hydronephrosis Narrative: Jose Antonio Kapadia is a 58 year old male with a history of recurrent urolithiasis having undergone multiple procedures in the past. Recently he has had intermittent severe left flank pain in imaging in outpatient ER within the past couple days it shows an obstructing 9 mm left distal ureteral stone. After discussion of options he is electing for ureteroscopy with laser lithotripsy, stone extraction with possible retrograde pyelography and stent placement. Review of Systems Review of Systems: All systems reviewed & are unremarkable except as noted in HPI and below PMFSH Past Medical History Medical History BMI 37.0-37.9, adult BMI 36.0-36.9,adult Kidney stone Screening for lipid disorders Screen for colon cancer History of torn meniscus of left knee BMI greater than 40 Multiple sclerosis Hypertension Surgical History Surgical History H/O lithotripsy Family History Family History Mother Hypertension Family history of diabetes mellitus in first degree relative Diabetes mellitus Grandparent Family history of heart disease in male family member before age 55 Father Cancer of neck Sibling Diabetes mellitus Other Family history of malignant neoplasm of uterus Social History Social History Smoking packs per day: 1 Smoking cigarettes per day: 20.0 Years smoked: 15 Smoking pack-years: 15.00 Smoking status: Former smoker Tobacco type: cigarettes and cigars Smokeless tobacco user: chewing tobacco Smoking end date: 05/26/04 Additional smoking assessment comments: QUIT 2004, OCCASIONALLY HAS A CIGAR CURRENTLY Alcohol intake: current Drinks per week: 3 Alcohol use details: RARELY Substance use: never Substance use type: marijuana Other substance usage details: gummy to sleep every once in awhile. 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 Gender identity (if verbalized by the patient): Male Spiritual care concerns: No Meds Home Medications and Allergies Home Medications ?Medication ?Instructions ?Recorded ?Confirmed ?Type aspirin 81 mg capsule,delayed 81 mg PO DAILY 03/28/22 06/30/24 History release meloxicam 7.5 mg tablet 7.5 mg PO DAILY 05/26/24 08/25/24 History metoprolol succinate 50 mg 75 mg PO DAILY 08/25/24 08/25/24 History tablet,extended release 24 hr Allergies Allergy/AdvReac Type Severity Reaction Status Date / Time Quinolones Allergy Mild MUSCLE AND Verified 08/25/24 14:05 TENDON ACHES, DEPRESSION, MOOD CHANGES Exam Const: General: no acute distress Resp: Effort & Inspection: normal respiratory effort GI: Inspection: non-distended GI Palp: No abdominal tenderness and No Guarding due to palpation present (GI) Auscultation: normal bowel sounds Assessment and Plan Assessment and plan (1) Left ureteral stone: Code(s): N20.1 - Calculus of ureter Status: Acute Assessment and Plan: Cystoscopy, left ureteroscopy with stone extraction, possible laser lithotripsy, retrograde pyelogram and stent placement
[2024-08-26] MEDS: ceFAZolin 3 GM/D5W 100 ML 100 ML IVPB (11:07)
[2024-08-26] MEDS: LIDOCAINE 2% GEL UROJET 10 ML PKG MUCOUS MEM (11:21)
--- NOTE | 2024-08-26 11:49 | W.PM.PROC2 ---
Procedure Note - Detailed Date of Procedure 08/26/24 Pre-op Diagnosis Left ureteral stone Post-op Diagnosis Other (Spontaneously passed left ureteral stone) Procedure Performed Cystoscopy, left ureteroscopy, ureteral stone extraction Surgeon Jose Antonio Nuñez MD Anesthesia General Description of Procedure Patient is brought to the operative suite where he is prepped and draped in routine sterile fashion while in dorsal lithotomy position after the uneventful induction of a general LMA anesthetic. Cystoscopy was undertaken with a 19 F rigid cystoscope. Which to my surprise his 9 mm stone is in his bulbous urethra. I extracted with a 1.9 F disposable stone basket. Repeat cystoscopy showed minimal lateral lobe hyperplasia of the prostate. There was no additional intravesical foreign body and no signs of neoplasm. His mucosa was without hyperemia. He did have a notable erythema and edema of the left ureteral orifice. I passed a 0.035 in glidewire into the left collecting system under fluoroscopy. I dilated the distal ureter with an 8 F 10 F dilator. Ureteroscopy was undertaken with a short tapered semi-rigid ureteral scope. I examined the left ureter to the iliac vessels and there were no additional stones or residual stone fragments. I opted not place ureteral stent. Scopes wires removed he was taken recovery room good condition. Drains No Pathology Yes Complications No immediate complications Condition Stable
== END 2024-08-26 13:00 | disposition home or self-care (01) ==
PROVIDERS: PCP Family Medicine; Visit Provider Urology
PROC: (CPT 52352; principal; 2024-08-26 11:45)
DX: N20.1 Calculus of ureter (principal); I10 Essential (primary) hypertension; G35 Multiple sclerosis; F17.290 Nicotine dependence, other tobacco product, uncomplicated; F12.90 Cannabis use, unspecified, uncomplicated; E66.01 Morbid (severe) obesity due to excess calories; Z68.41 Body mass index [BMI] 40.0-44.9, adult; Z79.82 Long term (current) use of aspirin; Z98.890 Other specified postprocedural states; Z80.8 Family history of malignant neoplasm of other organs or systems; Z80.49 Family history of malignant neoplasm of other genital organs; Z82.49 Family history of ischemic heart disease and other diseases of the circulatory system
CPT/HCPCS: 52352; 82365; 88300; 99199; C1769; J0690; J1100; J2405; J2704; J3010; J7120

== ENCOUNTER 2024-12-06 10:58 | Outpatient (CLI) | payer BC, SELFPAY ==
--- NOTE | ~2024-12-06 | MR_ITS ---
EXAMINATION: MR brain/brain stem wo/w con DATE: 12/06/2024 11:43 INDICATION: Multiple sclerosis TECHNIQUE: Magnetic resonance imaging (MRI) of the brain and brainstem was performed without and with 20 mL Multihance intravenous contrast. Sequences included sagittal and axial T1-weighted FLAIR, axia l T1-weighted FSE, axial diffusion-weighted FS EPI, sagittal T2-weighted FLAIR, axial T2*-weighted GR E, axial T2-weighted FLAIR Propeller, and axial T2-weighted Propeller. Postcontrast sequences include d axial, coronal, and sagittal T1-weighted FSE. Apparent diffusion coefficient (ADC) maps were create d. COMPARISON: MR dated 05/17/2019 FINDINGS: There are no areas of restricted diffusion to suggest acute infarction. No intracranial hemorrhage or abnormal intracranial mass lesion. No significant interval change in a single small region of increa sed T2 incidental decreased T1 signal extending radially from the posterior left corpus callosum. Als o without change are 2 smaller regions similarly with increased T2 and decreased central T1 signal in similar location at the contralateral posterior left corpus callosum consistent with provided histor y of multiple sclerosis. There is a single new small focus of increased white matter T2 hyperintensit y in the periventricular left frontal lobe. No infratentorial lesions identified. No abnormally enhan cing lesions identified. There are no intraparenchymal signal abnormalities seen on the other pulse s equences. The ventricles are symmetric and normal in size. There are no abnormal extra-axial fluid co llections. Flow voids are seen in the cerebral arteries on the T2-weighted sequences consistent with their expected patency. Small mucous retention cyst along the floor of the right maxillary sinus. Vis ualized orbits and soft tissues are unremarkable. There are no areas of abnormal enhancement on the p ost contrast images. IMPRESSION: 1. No interval change in mild cerebral white matter T2 hyperintensity with central decreased T1 signa l in the posterior callosal and pericallosal regions with single new tiny focus of increased white ma tter T2 hyperintensity in the periventricular anterior left frontal lobe consistent with minimal prog ression of mild chronic multiple sclerosis. Reviewed, dictated and finalized at location B. IMPRESSION: 1. No interval change in mild cerebral white matter T2 hyperintensity with cent ral decreased T1 signal in the posterior callosal and pericallosal regions with single new tiny focus of increased white matter T2 hyperintensity in the periv entricular anterior left frontal lobe consistent with minimal progression of mi ld chronic multiple sclerosis.
== END 2024-12-06 10:59 | disposition home or self-care (01) ==
PROVIDERS: PCP Chiropractor; Visit Provider Psychiatry & Neurology Neurology
DX: G35 Multiple sclerosis (principal)
CPT/HCPCS: 70553; A9577

== ENCOUNTER 2024-12-21 09:00 | Outpatient (CLI) | payer BC, SELFPAY ==
--- NOTE | ~2024-12-21 | MR_ITS ---
MRI of the left knee Clinical history: Meniscus derangement Technique: Coronal proton density and proton density-weighted images, sagittal proton-density and T2 fat-sat images, and axial proton-density fat-saturated images were acquired. Findings: Anterior and posterior cruciate ligaments are intact. Medial collateral ligament and the la teral collateral ligament complex are intact. Popliteus tendon is intact. Medial and lateral menisci are intact, without evidence of tear. There is moderate chondromalacia the femoral trochlea. Remaining articular cartilage is relatively we ll preserved throughout the knee. Bone marrow signals are unremarkable. Extensor mechanism is intact. No joint effusion or Craven's cyst. Impression: Moderate chondromalacia the femoral trochlea. No meniscal tear evident. Reviewed, dictated and finalized at location . Impression: Moderate chondromalacia the femoral trochlea. No meniscal tear evident.
== END 2024-12-21 09:01 | disposition home or self-care (01) ==
LOC: MICIMG 09:00
PROVIDERS: PCP Physician Assistant Medical; Visit Provider Chiropractor
DX: M94.262 Chondromalacia, left knee (principal); M23.307 Other meniscus derangements, unspecified meniscus, left knee
CPT/HCPCS: 73721

== ENCOUNTER 2025-01-08 10:38 | Outpatient (CLI) | payer BC, SELFPAY ==
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
== END 2025-01-08 10:39 | disposition home or self-care (01) ==
LOC: MICIMG 10:39
PROVIDERS: PCP Family Medicine; Visit Provider Orthopaedic Surgery Pediatric Orthopaedic Surgery
DX: S76.012A Strain of muscle, fascia and tendon of left hip, initial encounter (principal); S73.192A Other sprain of left hip, initial encounter; Z98.890 Other specified postprocedural states; X58.XXXA Exposure to other specified factors, initial encounter
CPT/HCPCS: 73721

== ENCOUNTER 2025-01-27 09:29 | Outpatient (CLI) | payer BC, SELFPAY ==
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
== END 2025-01-27 09:30 | disposition home or self-care (01) ==
PROVIDERS: PCP Chiropractor; Referring Provider Family Medicine; Visit Provider Orthopaedic Surgery
DX: M19.022 Primary osteoarthritis, left elbow (principal); M19.012 Primary osteoarthritis, left shoulder; S46.302A Unspecified injury of muscle, fascia and tendon of triceps, left arm, initial encounter
CPT/HCPCS: 73218

== ENCOUNTER 2025-06-08 14:04 | Outpatient (CLI) | payer BC, SELFPAY ==
--- NOTE | ~2025-06-08 | XR_ITS ---
EXAMINATION: XR lumbar spine min 4V DATE: 06/08/2025 14:24 INDICATION: Lumbar spondylolysis TECHNIQUE: Anteroposterior and lateral in neutral, flexion and extension views of the lumbar spine, and cone-down lateral view of the lumbosacral junction were obtained. COMPARISON: CT dated 05/03/2024 FINDINGS: Alignment is normal with normal motion with flexion and extension. Again noted a pars interarticularis defects at L5 but without evident spondylolisthesis in neutral, flexion or extension. Chronic mild anterior wedging at T11 and T12 with moderate intervening disc height loss. Lumbar vertebral body heights are normal. Mild disc height loss at T10-T11, T12-L1 and L1-L2. Moderate bilateral sacroiliac osteoarthritis. IMPRESSION: 1. Mild lumbar and moderate lower thoracic spondylosis. 2. 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 Reviewed, dictated and finalized at location A. LLITE TECHNICIAN IMPRESSION: 1. Mild lumbar and moderate lower thoracic spondylosis. 2. L5 spondylolysis without spondylolisthesis or abnormal motion with flexion o r extension.
--- OUTSIDE RECORDS SUMMARY | 2025-06-08 14:06 | XMS_ITS | Clinical Summary ---
Author Organization [facility] Address [address] [place] [address] Care Team Providers Care Jack Tamp Operator Name Role Phone Saad Lopez MD Primary Care Provider [phone] Jose Antonio Nuñez MD Unavailable [phone] Allergies Active Allergy Reactions Criticality Noted Date [...] (7.5 mg total) by mouth daily. Active oxyCODONE immediate release (ROXICODONE) 5 MG immediate release tabletIndicatio ns:Acute Pain < 3 Day Supply Take 1 tablet (5 mg total) by mouth every 6 (six) hours as needed for Pain. Indications: Acute Pain < 3 Day Supply 12 tablet 5 Active naproxen (NAPROSYN) 500 MG tablet Take 1 tablet (500 mg total) by mouth 2 (two) times daily with meals. 10 tablet 5 Active HYDROcodone-dm taminophen (NORCO) 5-325 MG tabletIndicatio ns:Acute Pain < 3 Day Supply Take 1 tablet by mouth every 6 (six) hours as needed for Pain. Indications: Acute Pain < 3 Day Supply 10 tablet 5 Active naloxone (NARCAN) 4 MG/0.1ML nasal spray 1 spray by Nasal route as needed for Opioid reversal. may repeat every 2 to 3 minutes in alternating nostrils until medical assistance becomes available 1 each 5 11/04/19 26 Active Social History Tobacco Use Types Packs/Day Years Used Date Smoking Tobacco: Never Smokeless Tobacco: Never Tobacco Cessation:Counseling Given: Not Answered Sex and Gender Information Value Date Recorded Sex Assigned at Male 08/24/2024 7:38 PM CDT Legal Sex Male 5:11 PM CDT Gender Identity Not on file Sexual Orientation Not on file Last Filed Vital Signs Vital Sign Reading Time Taken Comments Blood Pressure 158/99 11/03/2024 1:46 PM CDT Pulse 52 11/03/2024 1:46 PM CDT Temperature 36.9 C (98.4 F) 11/03/2024 1:46 PM CDT Respiratory Rate 16 11/03/2024 1:46 PM CDT Oxygen Saturation 97% 11/03/2024 1:46 PM CDT Inhaled Oxygen Concentration - - Weight 123.4 kg (272 lb) 11/03/2024 1:46 PM CDT Height 177.8 cm (5' 10) 11/03/2024 1:46 PM CDT Body Mass Index 39.03 11/03/2024 1:46 PM CDT Plan of Treatment Health Maintenance Due Date Last Done Comments Colorectal Cancer Screening Colonoscopy (10 Years) 1967 Annual Physical 12/09/1970 Hepatitis C 12/09/1985 DTaP, Tdap and Td Vaccines ( 1 - Tdap) 12/09/1986 Hepatitis B Vaccines (1 of 3 - 19+ 3-dose series) 12/09/1986 Pneumococcal Vaccine: 50+ Ye ars (1 of 1 - PCV) 12/09/2017 Zoster Vaccines (1 of 2) 12/09/2017 COVID-19 Vaccine (2024-2 6 season) 2025 Influenza Adult (#1) 2025 Hepatitis A Vaccines Aged Out No long er eligible based on patient's age to complete this topic Meningococcal B Vaccine Aged Out No l onger eligible based on patient's age to complete this topic Meningococcal Vaccine Aged Out No rob kylie eligible based on patient's age to complete this topic RSV Immunizations Under 20 Months Aged Out No longer eligible based on patient's age to complete this topic Insurance [facility] Care Teams Jack Tamp Operator Relationship Specialty Start Date End Date Saad Lopez MD [address] [place] [address] PCP - General FAMILY PRACTICE 04/05/22 Jose Antonio Nuñez MD [address] [place] [address] Consulting Physician UROLOGY 08/24/24
--- OUTSIDE RECORDS SUMMARY | 2025-06-08 14:06 | XMS_ITS | Clinical Summary ---
Author Organization [facility] [place] [address] Address [address] [place] [address] Care Team Providers Care Chenille Machine Operator Name Role Phone Saad Lopez MD Primary Care Provider [phone] Jose Antonio Viveros MD Unavailable [phone] Allergies Active Allergy Reactions Criticality Noted Date Comments Levofloxacin Muscle pain Medium Quinolones Mental status changes,Muscle pain Medium Medications metoprolol XL (TOPROL-XL) 50 mg 24 hr tablet take 1 tablet by oral route every day 0 0 05/18/20 15 Active aspirin 81 mg enteric coated tabletIndicati ons:prevention of thrombosis,HEA RT Take 1 tablet (81 mg total) by mouth wash plant operator before breakfast 10/10/19 10 Active diazePAM (VALIUM) 5 mg tablet Take 1tab 15 mins prior to MRI. Can repeat once if needed. 2 tablet 10/22/19 25 Active meloxicam (MOBIC) 7.5 mg tabletIndicati ons:Pain Take 1 tablet (7.5 mg total) by mouth daily Begin taking after you are finished with methylprednisolone (medrol dose pack). 30 tablet 12/02/19 25 Active tirzepatide 5 mg/0.2 mL syringe Inject 5 mg under the skin once a week Active baclofen (LIORESAL) 20 mg tablet Take 1 tablet (20 mg total) by mouth 3 (three) times a day 90 tablet 5 03/28/20 25 04/18/2 026 Active Active Problems Problem Noted Date Diagnosed Date History of substance abuse 01/20/2024 Palpitations 01/20/2024 Shortness of breath 01/20/2024 Encounter for preoperative assessment 01/04/2024 Chest pain, unspecified 12/02/2023 Hypertension 02/12/2022 Nephrolithiasis 02/12/2022 Osteoarthritis 02/12/2022 Muscle spasticity 05/18/2015 Overview (09/13/2016): Spasticity Multiple sclerosis 01/26/2009 Surgical History Surgery Date Site/Laterality Comments [place] [...] Gastroesophageal reflux disease GERD MS (multiple sclerosis) Dxd ~200 7--Daily injections of copaxone stopped ~07/2019; Last flare~ 2017; Followed by neurologist, Dr Ternt Obesity Hypertension Dxd 2004 Sleep apnea CPAP compliant Family History Medical [...] containing alc ohol? 2-4 times a month 10/21/2024 Q2: How many drinks containi ng alcohol do you have on a typical day when you are drinking? 1 or 2 10/21/2024 Q3: How often do you have si x or more drinks on one occasion? Never 10/21/2024 Personal Safety Answer Date Recorded Have you ever been in or are you currently in a harmful physical or emotional relationship or is someone making you feel afraid or unsafe? 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 Gender Identity Not on file Sexual Orientation Not on file Last Filed Vital Signs Vital Sign Reading Time Taken Comments Blood Pressure 132/80 10/21/2024 2:25 PM CDT Pulse 62 10/21/2024 2:25 PM CDT Temperature 36.2 C (97.2 F) 01/02/2024 2:35 PM CDT Respiratory Rate 16 10/21/2024 2:25 PM CDT Oxygen Saturation 94% 10/21/2024 2:25 PM CDT Inhaled Oxygen Concentration - - Weight 123.4 kg (272 lb) 10/21/2024 2:25 PM CDT Height 177.8 cm (5' 10) 10/21/2024 2:25 PM CDT Body Mass Index 39.03 10/21/2024 2:25 PM CDT Plan of Treatment Health Maintenance Due Date Last Done Comments Colon Cancer Screening-Colonoscopy 1967 Depression Screening 1967 Hepatitis C Screening 1965 Prostate Cancer Screening-PSA 1967 DTaP/Tdap/Td Vaccine (1 - Tdap) 12/09/1978 Hepatitis B Screening 12/09/1985 Regular Well Visit/Exam 18-64 12/09/1985 Zoster Vaccine (1 of 2) 12/09/2017 Influenza Vaccine (#1) 2025 Pneumococcal vaccine <65 Aged Out No longer eligible based on patient's age to complete this topic Medical Devices Implanted Type Area Director Electrical Engineering Device Identifier Shelf Expiration Date Model / Serial / Lot [employer] Cinchlock Ss Knotless Window Cutter Lock [employer] Suture Labrum [id number] - [id number] Implanted:Qty: 1 on 01/02/2024 at [facility] Left: Hip [employer] 01/26/2025 [id number] / / [id number] [employer] Cinchlock Ss Knotless Window Cutter Lock [employer] Suture Labrum [id number] - [id number] Implanted:Qty: 1 on 01/02/2024 at [facility] Left: Hip [employer] 01/26/2025 [id number] / / [id number] [employer] Cinchlock Ss Knotless Window Cutter Lock [employer] Suture Labrum [id number] - [id number] Implanted:Qty: 1 on 01/02/2024 at [facility] Left: Hip [employer] 01/26/2025 [id number] 2 / / [id number] [employer] Cinchlock Ss Knotless Window Cutter Lock [employer] Suture Labrum [id number] - [id number] Implanted:Qty: 1 on 01/02/2024 at [facility] Left: Hip [employer] 01/26/2025 [id number] 2 / [id number] Insurance [employer] SIG [id number] [place] Care Teams Chenille Machine Operator Relationship Specialty Start Date End Date Saad Lopez MD PCP - General 09/06/16 Jose Antonio Viveros MD [address] [address] Surgeon Pediatric Orthopedic Surgery 01/02/24
--- OUTSIDE RECORDS SUMMARY | 2025-06-08 14:07 | XMS_ITS | Clinical Summary ---
Author Organization [facility] Address [address] [place] [address] [place] [address] Care Team Providers Care Leaded Glass Installer Name Role Phone Unavailable Primary Care Provider [...] (1 of 2) 12/09/2017 INFLUENZA VACCINE (#1) 2025
--- OUTSIDE RECORDS SUMMARY | 2025-06-08 14:07 | XMS_ITS | Clinical Summary ---
Author Organization [facility] Address [address] [place] [id number] Phone Care Team Providers Care Pit Crane Operator Name Role Phone Saad Lopez MD Primary Care Provider [phone] Allergies Active Allergy Reactions Criticality Noted Date Comments Quinolones Myopathy,depression 02/12/2022 Medications baclofen (LIORESAL) 10 MG tablet 01/07/2022 Active HYDROcodone-acet aminophen (NORCO) 5-325 MG per tablet Take 1 [...] at Not on file Legal Sex Male 12:51 PM MDT Gender Identity Not on file Sexual Orientation [...] 12:00 PM CDT Height 177.8 cm (5' 10) 01/14/2022 12:00 PM CDT Body Mass Index 41.04 01/14/2022 12:00 PM CDT Plan of Treatment Health Maintenance Due Date Last Done Comments Influenza Vaccine (#1) 2025 Insurance Care Teams Pit Crane Operator Relationship Specialty Start Date End Date Saad Lopez MD [address] [place] [address] PCP - General Family Medicine 01/03/22
== END 2025-06-08 14:05 | disposition home or self-care (01) ==
PROVIDERS: PCP Family Medicine; Visit Provider Neurological Surgery
DX: M43.06 Spondylolysis, lumbar region (principal); M43.04 Spondylolysis, thoracic region
CPT/HCPCS: 72110